=== PATIENT | male | born 1980 | race Hispanic/Latino ===

== ENCOUNTER 2019-06-17 01:36 | Inpatient (IN) | payer OTHER ==
[~2019-06-17] VITALS: Ht 167.6 cm; Wt 72.2 kg
[~2019-06-17 01:36] MED LIST: AMBIEN5 MG PO; DEPAKOTE ER250 MG PO; DEPAKOTE500 MG PO; NEXIUM40 MG PO; NORCO 10MG-325MG1 EA PO; SOMA350 MG PO; XANAX XR1 MG PO
[2019-06-17] MEDS ORDERED: ONDANSETRON HCL INJ 2MG/ML 2ML 2 MG/ML VIAL IV STA (01:44)
[2019-06-17] MEDS ORDERED: PANTOPRAZOLE 40 MG 10ML VIAL IV STA (01:44)
[2019-06-17] MEDS ORDERED: SODIUM CHLORIDE 0.9% 1000ML 1,000 ML IV ONE (01:45)
[2019-06-17 02:32] LABS: BASOPHILS # (AUTO) 0.1 (0.0-0.1); BASOPHILS % 0.5 % (0.0-1.0); EOSINOPHILS % 0.1 % (0.0-6.0); HEMATOCRIT 38.2 % (38.2-49.6); HEMOGLOBIN 13.1 g/dL (14.0-18.0); LYMPHOCYTES # (AUTO) 1.3 (1.0-3.2); LYMPHOCYTES % 12.1 % (18.0-39.1); MEAN CORPUSCULAR HEMOGLOBIN 31.7 pg (28-32); MEAN CORPUSCULAR HGB CONC 34.3 g/dL (31-35); MEAN CORPUSCULAR VOLUME 92.5 fL (81-99); MONOCYTES # (AUTO) 0.8 (0.2-0.8); MONOCYTES % 7.1 % (4.4-11.3); NEUTROPHILS # (AUTO) 8.8 (2.1-6.9); NEUTROPHILS % 79.5 % (38.7-80.0); PLATELET COUNT 510 x10e3/uL (140-360); RED BLOOD COUNT 4.13 x10e6/uL (4.3-5.7); RED CELL DISTRIBUTION WIDTH 20.2 % (11.7-14.4)
[2019-06-17] MEDS ORDERED: DIATRIZOATE MEGL/DIATRIZOA SOD 30 ML BTL PO ONE (02:51)
[2019-06-17 02:53] LABS: CLARITY,URINE CLOUDY (CLEAR); COLOR,URINE ORANGE (YELLOW); LEUKOCYTE ESTERASE ,URINE NEGATIVE (NEGATIVE); NITRITE,URINE NEGATIVE (NEGATIVE); PROTEIN,URINE DIPSTICK 2+ (NEGATIVE)
[2019-06-17 02:54] LABS: BILIRUBIN,URINE LARGE (NEGATIVE); KETONES,URINE TRACE (NEGATIVE); URINE UROBILINOGEN 0.2 mg/dL (0.2 - 1)
[2019-06-17 02:55] LABS: AMPHETAMINES SCREEN,URINE POSITIVE (NEGATIVE); BENZODIAZEPINES SCREEN,URINE POSITIVE (NEGATIVE); PHENCYCLIDINE SCREEN,URINE NEGATIVE (NEGATIVE)
[2019-06-17 02:58] LABS: AMYLASE 500 U/L (25-125); LIPASE 536 U/L (8-78)
[2019-06-17 03:05] LABS: BACTERIA,URINE FEW /HPF; EPITHELIAL CELLS,URINE FEW /LPF; HYALINE CASTS >15 (0-1); MUCUS,URINE MANY (RARE); RBC,URINE 21-50 /HPF (0-5)
[2019-06-17 03:33] LABS: ALBUMIN 3.2 g/dL (3.5-5.0); ALBUMIN/GLOBULIN RATIO 0.6 (0.8-2.0); ALKALINE PHOSPHATASE 122 IU/L (40-150); ANION GAP 16.2 mmol/L (8-16); BLOOD UREA NITROGEN 13 mg/dL (7-26); BUN/CREATININE RATIO 11 (6-25); CALCIUM 9.4 mg/dL (8.4-10.2); CARBON DIOXIDE 22 mmol/L (22-29); CHLORIDE 102 mmol/L (98-107); CREATININE, SERUM 1.23 mg/dL (0.72-1.25); EST GLOMERULAR FILTRATION RATE > 60 ML/MIN (60-); GLUCOSE 92 mg/dL (74-118); POTASSIUM 3.2 mmol/L (3.5-5.1); SODIUM 137 mmol/L (136-145)
[2019-06-17 03:34] LABS: ALANINE AMINOTRANSFERASE < 6 IU/L (0-55)
[2019-06-17] MEDS ORDERED: MULTIVITAMINS- 12 INJECTION 10 ML, FOLIC ACID MDV 5 MG, THIAMINE HCL INJ 100 MG in SODI... IV ONE (04:45)
[2019-06-17] MEDS: SODIUM CHLORIDE 0.9% 1000ML 1,000 ML IV SCH ×4 (04:48→23:04)
[2019-06-17] MEDS: CEFTRIAXONE SOD 1 GM/NS 50 ML 50 ML IV SCH (04:48)
--- OUTSIDE RECORDS SUMMARY | 2019-06-17 04:49 | XMS REPORT ---
Author Author [facility] Organization [facility] Address Unknown Phone Unavailable Care Team Providers Care Manual Winder Name Role Phone Unavailable Unavailable Payers Payer Name Policy Type Policy Number Effective Date Expiration D ate Problems This patient has no known problems. Allergies, Adverse Reactions, Alerts Allergy Name Allergy Type Status Severity Reaction(s) Onset Date Inacti ve Date Treating Clinician Comments gabapentin DA Active SV 2018-08-29 00:00:00 ibuprofen DA Active MO 2018-08-05 00:00:00 tramadol DA Active SV 2018-08-05 00:00:00 ibuprofen DA Active MO 2018-03-03 00:00:00 tramadol DA Active SV 2018-03-03 00:00:00 ibuprofen DA Active MO 2017-09-25 00:00:00 tramadol DA Active SV 2017-09-25 00:00:00 Medications This patient has no known medications. Encounters Start Date/Time End Date/Time Encounter Type Admission Type Attendi [facility] Care Department Encounter ID 2019-10-04 00:00:00 2019-10-04 00:00:00 Outpatient [facility] [id number] 2019-07-28 00:00:00 2019-07-28 00:00:00 Outpatient [facility] [id number] 2019-07-26 00:00:00 2019-07-26 00:00:00 Outpatient [facility] [id number] 2019-06-11 00:00:00 2019-06-11 00:00:00 Outpatient [facility] [id number] 2019-06-11 00:00:00 2019-06-11 00:00:00 Outpatient [facility] [id number] 2019-06-04 06:00:16 2019-06-04 06:00:16 Outpatient [facility] [id number] 2019-06-03 00:00:00 2019-06-03 00:00:00 Outpatient [facility] [id number] 2019-06-02 00:00:00 2019-06-02 00:00:00 Outpatient [facility] [id number] 2019-05-25 09:42:34 2019-05-25 09:42:34 Outpatient [facility] [id number] 2019-05-10 00:00:00 2019-05-10 00:00:00 Outpatient [facility] [id number] 2019-05-04 00:00:00 2019-05-04 00:00:00 Outpatient [facility] [id number] 2019-04-27 15:27:22 2019-04-27 15:27:22 Outpatient [facility] [id number] 2019-04-27 15:24:12 2019-04-27 15:24:12 Outpatient [facility] [id number] 2019-04-27 13:57:03 2019-04-27 13:57:03 Outpatient [facility] [id number] 2019-04-27 00:00:00 2019-04-27 00:00:00 Outpatient [facility] [id number] 2019-04-23 00:00:00 2019-04-23 00:00:00 Outpatient [facility] [id number] 2019-03-23 00:00:00 2019-03-23 00:00:00 Outpatient [facility] [id number] 2019-03-22 15:35:49 2019-03-22 15:35:49 Outpatient [facility] [id number] 2019-03-22 00:00:00 2019-03-22 00:00:00 Outpatient [facility] [id number] 2019-03-18 00:00:00 2019-03-18 00:00:00 Outpatient [facility] [id number] 2019-03-17 00:00:00 2019-03-17 00:00:00 Outpatient [facility] [id number] 2019-03-08 00:00:00 2019-03-08 00:00:00 Outpatient [facility] [id number] 2019-02-05 00:00:00 2019-02-05 00:00:00 Outpatient [facility] [id number] 2018-12-01 00:00:00 2018-12-01 00:00:00 Outpatient [facility] [id number] 2018-10-20 15:43:16 2018-10-20 15:43:16 Outpatient [facility] [id number] 2018-10-20 14:47:23 2018-10-20 14:47:23 Outpatient [facility] [id number] 2018-10-20 00:00:00 2018-10-20 00:00:00 Outpatient [facility] [id number] 2018-10-20 00:00:00 2018-10-20 00:00:00 Outpatient [facility] [id number] 2018-04-08 00:00:00 2018-04-08 00:00:00 Outpatient [facility] [id number] 2018-03-26 00:00:00 2018-03-26 00:00:00 Outpatient [facility] [id number] Results Test Description Test Time Test Comments Text Results Atomic Results Result Comments BASIC METABOLIC PANEL 2019-04-27 20:09:00 SODIUM (test code = NA) 125 mmol/L 136-145 POTASSIUM (test code = K) 3.7 mmol/L 3.5-5.1 CHLORIDE (test code = CL) 94.0 mmol/L 98-107 CARBON DIOXIDE (test code = CO2) 23.0 mmol/L 21-32 ANION GAP (test code = GAP) 11.7 10-20 GLUCOSE (test code = GLU) 81 mg/dL 74-106 BLOOD UREA NITROGEN (test code = BUN) 6 mg/dL 7-18 GLOMERULAR FILTRATION RATE (test code = GFR) > 60 mL/min >=6 0 Estimated GFR by using Modified MDRD formula.Chronic kidney disease is defined as either kidney damageor GFR <60 mL/min/1.73 m2 for >3 months. CREATININE (test code = CREAT) 0.70 mg/dL 0.7-1.3 BUN/CREATININE RATIO (test code = BUN/CREA) 8.6 10-2 0 CALCIUM (test code = CA) 8.6 mg/dL 8.5-10.1 [id number] 20:09:00* Test Item Value Reference Range Comments TROPONIN-I (test code = TROPI) <0.015 ng/mL 0-0.045 BASIC METABOLIC [id number] 20:05:00* Test Item Value Reference Range Comments SODIUM (test code = NA) 125 mmol/L 136-145 POTASSIUM (test code = K) 3.7 mmol/L 3.5-5.1 CHLORIDE (test code = CL) 94.0 mmol/L 98-107 CARBON DIOXIDE (test code = CO2) mmol/L 21-32 ANION GAP (test code = GAP) 10-20 GLUCOSE (test code = GLU) mg/dL 74-106 BLOOD UREA NITROGEN (test code = BUN) mg/dL 7-18 GLOMERULAR FILTRATION RATE (test code = GFR) mL/min >=6 0 CREATININE (test code = CREAT) mg/dL 0.7-1.3 BUN/CREATININE RATIO (test code = BUN/CREA) 10-2 0 CALCIUM (test code = CA) 8.6 mg/dL 8.5-10.1 [id number] 20:05:00* Test Item Value Reference Range Comments TROPONIN-I (test code = TROPI) ng/mL 0-0.045 CBC W/O [id number] 19:52:00* Test Item Value Reference Range Comments WHITE BLOOD CELL (test code = WBC) 5.8 K/mm3 4.5-12.5 RED BLOOD CELL (test code = RBC) 3.11 mill/mm3 4.0-5.8 HEMOGLOBIN (test code = HGB) 9.2 gram/dL 13.0-17.5 HEMATOCRIT (test code = HCT) 27.4 % 42.0-52.0 MEAN CELL VOLUME (test code = MCV) 88.1 fL 80-98 MEAN CELL HGB (test code = MCH) 29.6 picogram 27.0-33.0 MEAN CELL HGB CONCETRATION (test code = MCHC) 33.6 gram/dL 33 .0-36.0 RED CELL DISTRIBUTION WIDTH (test code = RDW) 19.0 % 11 .6-16.2 PLATELET COUNT (test code = PLT) 338 K/mm3 150-450 MEAN PLATELET VOLUME (test code = MPV) 9.0 fL 6.7-11.0 - XR CHEST 1 [id number] 18:01:00 FAX: Massimo Evans MD [phone] [place]: St: REG FAX: Y Jeffery Claros [phone] Name: CHARLOTTE SHAH LEXI [facility] : 1980 Age/S: 38/M [address] [facility] Unit #: [id number] Loc: [place] [address] Phys: Massimo Evans MD Acct: [id number] Dis Date: Status: REG ER PHONE #: [phone] Exam Date: 04/27/2019 1800 FAX #: [phone] Reason: CHEST PAIN EXAMS: CPT CODE: [id number] XR CHEST 1 V 58616 HISTORY: Chest pain. COMPARISON: August 29, 2018. Location: . No acute infiltrates, effusion or congestion is noted. The cardiac and mediastinal silhouette are within normal limits. IMPRESSION: No acute infiltrates, effusion or congestion. at 1801 Reported and signed by: Jasiel Ballesteros M.D. CC: Massimo Evans MD; Jeffery Claros MD Technologist: GIULIA FRAUSTO [employer] Date/Time/By: 04/27/2019 (1800) : By: [email or web address] Orig Print D/T: S: 04/27/2019 (1803) PAGE 1 Signed Report BASIC METABOLIC [id number] 02:09:00* Test Item Value Reference Range Comments SODIUM (test code = NA) 138 mmol/L 136-145 POTASSIUM (test code = K) 3.7 mmol/L 3.5-5.1 CHLORIDE (test code = CL) 106.0 mmol/L 98-107 CARBON DIOXIDE (test code = CO2) 24.0 mmol/L 21-32 ANION GAP (test code = GAP) 11.7 10-20 GLUCOSE (test code = GLU) 108 mg/dL 74-106 BLOOD UREA NITROGEN (test code = BUN) 13 mg/dL 7-18 GLOMERULAR FILTRATION RATE (test code = GFR) > 60 mL/min >=6 0 Estimated GFR by using Modified MDRD formula.Chronic kidney disease is defined as either kidney damageor GFR <60 mL/min/1.73 m2 for >3 months. CREATININE (test code = CREAT) 0.90 mg/dL 0.7-1.3 BUN/CREATININE RATIO (test code = BUN/CREA) 13.7 10-2 0 CALCIUM (test code = CA) 8.4 mg/dL 8.5-10.1 VALPROIC ACID (DEPAKENE)2018-11-04 02:09:00* Test Item Value Reference Range Comments VALPROIC ACID (DEPAKENE) (test code = VALP) 17.0 mcg/mL 50.0 -100.0 BASIC METABOLIC [id number] 01:52:00* Test Item Value Reference Range Comments SODIUM (test code = NA) 138 mmol/L 136-145 POTASSIUM (test code = K) 3.7 mmol/L 3.5-5.1 CHLORIDE (test code = CL) 106.0 mmol/L 98-107 CARBON DIOXIDE (test code = CO2) mmol/L 21-32 ANION GAP (test code = GAP) 10-20 GLUCOSE (test code = GLU) mg/dL 74-106 BLOOD UREA NITROGEN (test code = BUN) mg/dL 7-18 GLOMERULAR FILTRATION RATE (test code = GFR) mL/min >=6 0 CREATININE (test code = CREAT) mg/dL 0.7-1.3 BUN/CREATININE RATIO (test code = BUN/CREA) 10-2 0 CALCIUM (test code = CA) mg/dL 8.5-10.1 CBC W/O [id number] 01:40:00* Test Item Value Reference Range Comments WHITE BLOOD CELL (test code = WBC) 6.5 K/mm3 4.5-12.5 RED BLOOD CELL (test code = RBC) 2.97 mill/mm3 4.0-5.8 HEMOGLOBIN (test code = HGB) 8.4 gram/dL 13.0-17.5 HEMATOCRIT (test code = HCT) 26.9 % 42.0-52.0 MEAN CELL VOLUME (test code = MCV) 90.6 fL 80-98 MEAN CELL HGB (test code = MCH) 28.3 picogram 27.0-33.0 MEAN CELL HGB CONCETRATION (test code = MCHC) 31.2 gram/dL 33 .0-36.0 RED CELL DISTRIBUTION WIDTH (test code = RDW) 15.6 % 11 .6-16.2 PLATELET COUNT (test code = PLT) 428 K/mm3 150-450 MEAN PLATELET VOLUME (test code = MPV) 9.6 fL 6.7-11.0 GASTRIC,[id number] 10:49:00 RUN DATE: 09/02/18 [facility] PAGE 1 RUN TIME: 1050 Specimen Inqui ry RUN USER: INTERFACE PATIENT: CHARLOTTE SHAH II ACCT #: [id number] LOC: V.TXU U #: [id number] AGE/SX: 38/M ROOM: [facility] RE08/30/18REG DR: Nadege Bustillo MD : 84 BED: A DIS: 09/01/18 STATUS: DIS IN TLOC: SPEC #: [id number] RECD: 09/01/18 STATUS: ASHLEY MIN #: [id number] LEE: 09/01/[address] [facility] [address]: Mahi Torrez MD ENTERED: 09/01/18 SP TYPE: GASTRIC BX OTHR DR: Heath Allen i, MD, Salman A MD Pineda Ayestas, Ramon A MD Qureshi,Lenore Greene MDORDERED: GROSS COPIES TO: Heath Arthur MD [address] [place] [address] Brittney Estrada MD [address] [facility] [address] [place], [place] [address] Jeffery Claros MD [address] [place] [address] Aida Jiang MD [address] [facility] [address] [place] [address] Mahi Torrez MD [address] [place], [place] [id number] [phone] PROCEDURES: GROSS (09/02/18-1018) TISSUES: 1. GASTRIC CORPUS - POLYP BX 2. ESOPHAGUS, NOS - LOWER BX CLINICAL HISTORY COLLECTION DATE: 09/01/18 EPIGASTRIC PAIN, DYSPHAGIA * * CONTINUED ON NEXT PAGE RUN DATE: 09/02/18 [place] [facility] PAGE 2 RUN TIME: 1050 Specimen Inquiry RUN USER: INTERFACE SPEC #: [id number] PATIENT: CHARLOTTE SHAH II #[id number] (Continued)-------- ---- FINAL DIAGNOSIS Gastric polyp, biopsy: BODY/FUNDIC TYPE GASTRIC MUCOSA WITH MILDLY DILATED GLANDS AND A FOCUS OF FOVEOLAR HYPERP LASIA NEGATIVE FOR MALIGNANCY Esophagus, biopsy: ACUTE AND C HRONIC INFLAMMATION AND REACTIVE EPITHELIAL CHANGES, MIXED SQUAMOUS ESO PHAGEAL GASTRIC TYPE MUCOSA NEGATIVE FOR INTESTINAL METAPLASIA, DYSPLASIA , AND MALIGNANCY DMW/ D [id number] MACROSCOPIC [facility] t specimen is received in formalin, labeled with the patient's name, identifie d as "gastric polyp biopsy", and consists of two hall biopsy fragments measurin g 0.25 cm each. The second specimen is received in formalin, labeled wit h the patient's name, identified as "esophagus biopsy", and consists of hall bi opsy material measuring 0.3 cm in aggregate. GROSS PERFORMED AT [facility] [place] [address] [phone] MICROSCOPIC All of the stains, including any controls performed, stain appropriately. MICROSCOP IC PERFORMED AT [facility] [address] [place] [address] [phone] CONTINUED ON NEXT PAGE RUN DATE: 09/02/18 [place] [facility] PAGE 3 RUN TIME: 1050 Specimen Inquiry RUN USER: INTERFACE SPEC #: [id number]: [id number] PATIENT: ALYSSACHARLOTTE II #[id number] (Continued ) PERFORMING SITE Diagnosis performed at: [facility] [address] [facility] [place] [address] Signed SIGNATURE ON FILE Remedios Vazquez MD 09/02/18 1049 --- --------- END OF REPORT BASIC METABOLIC [id number] 09:07:00* Test Item Value Reference Range Comments SODIUM (test code = NA) 134 mmol/L 136-145 POTASSIUM (test code = K) 4.5 mmol/L 3.5-5.1 CHLORIDE (test code = CL) 103.0 mmol/L 98-107 CARBON DIOXIDE (test code = CO2) 24.0 mmol/L 21-32 ANION GAP (test code = GAP) 11.5 10-20 GLUCOSE (test code = GLU) 85 mg/dL 74-106 BLOOD UREA NITROGEN (test code = BUN) 6 mg/dL 7-18 GLOMERULAR FILTRATION RATE (test code = GFR) > 60 mL/min >=6 0 Estimated GFR by using Modified MDRD formula.Chronic kidney disease is defined as either kidney damageor GFR <60 mL/min/1.73 m2 for >3 months. CREATININE (test code = CREAT) 0.70 mg/dL 0.7-1.3 BUN/CREATININE RATIO (test code = BUN/CREA) 8.6 10-2 0 CALCIUM (test code = CA) 9.2 mg/dL 8.5-10.1 THYROID PROFILE [id number] 09:19:00* Test Item Value Reference Range Comments T3 UPTAKE (test code = T3UP) 38.0 % 30.0-40.0 T4 (THYROXINE) (test code = T4) 5.2 ug/dL 4.5-13.9 T7 (FREE THYROXINE INDEX) (test code = T7) 1.97 FTI 1.3-5 .1 THYROID STIMULATING HORMONE (test code = TSH) 1.900 uIU/mL 0. 36-3.74 TSH REFERENCE RANGES: EUTHYROID: 0.35 - 4.3 mIU/mL HYPO : > 5.5 mIU/mL HYPER : < 0.35 mIU/mL BASIC METABOLIC [id number] 08:56:00* Test Item Value Reference Range Comments SODIUM (test code = NA) 135 mmol/L 136-145 POTASSIUM (test code = K) 4.6 mmol/L 3.5-5.1 CHLORIDE (test code = CL) 106.0 mmol/L 98-107 CARBON DIOXIDE (test code = CO2) 22.0 mmol/L 21-32 ANION GAP (test code = GAP) 11.6 10-20 GLUCOSE (test code = GLU) 85 mg/dL 74-106 BLOOD UREA NITROGEN (test code = BUN) 5 mg/dL 7-18 GLOMERULAR FILTRATION RATE (test code = GFR) > 60 mL/min >=6 0 Estimated GFR by using Modified MDRD formula.Chronic kidney disease is defined as either kidney damageor GFR <60 mL/min/1.73 m2 for >3 months. CREATININE (test code = CREAT) 0.80 mg/dL 0.7-1.3 BUN/CREATININE RATIO (test code = BUN/CREA) 6.3 10-2 0 CALCIUM (test code = CA) 8.9 mg/dL 8.5-10.1 [id number] 08:56:00* Test Item Value Reference Range Comments MAGNESIUM (test code = MAG) 2.7 mg/dL 1.8-2.4 [id number] 08:46:00* Test Item Value Reference Range Comments GLYCOSYLATED HEMOGLOBIN (HA1C) (test code = GLYHGB) 4.5 % HbA1 4.8-6.0 ESTIMATED AVERAGE GLUCOSE (test code = EAG) 82 MG/DL CBC W/AUTO [id number] 08:22:00* Test Item Value Reference Range Comments WHITE BLOOD CELL (test code = WBC) 6.1 K/mm3 4.5-12.5 RED BLOOD CELL (test code = RBC) 3.06 mill/mm3 4.0-5.8 HEMOGLOBIN (test code = HGB) 9.4 gram/dL 13.0-17.5 HEMATOCRIT (test code = HCT) 29.0 % 42.0-52.0 MEAN CELL VOLUME (test code = MCV) 94.8 fL 80-98 MEAN CELL HGB (test code = MCH) 30.7 picogram 27.0-33.0 MEAN CELL HGB CONCETRATION (test code = MCHC) 32.4 gram/dL 33 .0-36.0 RED CELL DISTRIBUTION WIDTH (test code = RDW) 14.6 % 11 .6-16.2 RED CELL DISTRIBUTION WIDTH SD (test code = RDW-SD) 50.1 fL 37.0-51.0 PLATELET COUNT (test code = PLT) 485 K/mm3 150-450 MEAN PLATELET VOLUME (test code = MPV) 9.4 fL 6.7-11.0 NEUTROPHIL % (test code = NT%) 56.0 % 39.0-69.0 IMMATURE GRANULOCYTE % (test code = IG%) 1.1 % 0.0-5.0 LYMPHOCYTE % (test code = LY%) 30.2 % 25.0-55.0 MONOCYTE % (test code = MO%) 10.9 % 0.0-10.0 EOSINOPHIL % (test code = EO%) 1.0 % 0.0-5.0 BASOPHIL % (test code = BA%) 0.8 % 0.0-1.0 NUCLEATED RBC % (test code = NRBC%) 0.0 % 0-0 NEUTROPHIL # (test code = NT#) 3.42 K/mm3 1.8-7.7 IMMATURE GRANULOCYTE # (test code = IG#) 0.07 x10 3/uL 0-0.03 LYMPHOCYTE # (test code = LY#) 1.85 K/mm3 1.0-5.0 MONOCYTE # (test code = MO#) 0.67 K/mm3 0-0.8 EOSINOPHIL # (test code = EO#) 0.06 K/mm3 0.0-0.5 BASOPHIL # (test code = BA#) 0.05 K/mm3 0.0-0.2 NUCLEATED RBC # (test code = NRBC#) 0.00 K/mm3 0.0-0.1 UR NA,[id number] 21:13:00* Test Item Value Reference Range Comments UR NA,RANDOM (test code = MEET) 50 mmol/L 20-110 UR OSMOLALITY [id number] 21:13:00* Test Item Value Reference Range Comments UR OSMOLALITY RANDOM (test code = OSMOU) 217.5 mOsm/kg 48-962 UR NA,[id number] 21:07:00* Test Item Value Reference Range Comments UR NA,RANDOM (test code = MEET) mmol/L 20-110 UR OSMOLALITY [id number] 21:07:00* Test Item Value Reference Range Comments UR OSMOLALITY RANDOM (test code = OSMOU) 217.5 mOsm/kg 48-962 OSMOLALITY [id number] 19:51:00* Test Item Value Reference Range Comments OSMOLALITY SERUM (test code = OSMO) 253.5 mOsm/kg 275-295 URINALYSIS [id number] 09:39:00* Test Item Value Reference Range Comments UA COLOR (test code = COLU) COLORLESS YELLOW UA APPEARANCE (test code = APPU) CLEAR CLEAR UA GLUCOSE DIPSTICK (test code = DGLUU) NEGATIVE mg/dL NEGATIVE UA BILIRUBIN DIPSTICK (test code = BILU) NEGATIVE mg/dL NEGATIV E UA KETONE DIPSTICK (test code = KETU) NEGATIVE mg/dL NEGATIVE UA SPECIFIC GRAVITY (test code = SGU) 1.004 1.001-1.03 5 UA BLOOD DIPSTICK (test code = ELMA) Negative mg/dL NEGATIVE UA PH DIPSTICK (test code = PREETI) 7.0 5.0-8.0 UA PROTEIN DIPSTICK (test code = PROU) NEGATIVE mg/dL NEGATIVE UA UROBILINIOGEN DIPSTICK (test code = URO) Normal mg/dL NEGA TIVE UA NITRITE DIPSTICK (test code = GEO) NEGATIVE NEGATIVE UA LEUKOCYTE ESTERASE W REFLEX (test code = LEUUR) NEGATIVE Karen/ uL NEGATIVE UA WBC (test code = WBCU) 0-5 per HPF 0-5 UA RBC (test code = RBCU) 0-3 #/HPF 0-5 UA EPITHELIAL CELLS (test code = EPIU) Few (2-5/hpf) per HPF FEW UA BACTERIA (test code = BACU) FEW #/HPF NONE Urine Source? Clean Catch- CT ABD PELVIS [id number] 09:12:00 Name: CHARLOTTE SHAH II [facility] : 1980 Age/S: 38 / M [address] [facility] Unit #: [id number] Loc: [place] [address] Phys: Marcelo Glass MD Acct: [id number] Di s Date: Status: ADM IN PHONE #: Exam Date: 08/29/2018 0900 FAX #: Reason: periumbilical pain EXAMS: CPT CODE: [id number] CT ABD PELVIS W/CONT 77580 REASON FOR EXAM: periumbilical pain EXAM ORDER DATE: 08/29/2018 7:56 AM Ordering M.DEdwar: Trey Glass MD PROCEDURE: - CT ABD PELVIS W/CO NT COMPARISON: FINDINGS: CT images of the abdomen an d pelvis were obtained with IV and without oral contrast at 5mm. Dose modu lation, iterative reconstruction, and/or weight based adjustment of the MA /KV was utilized to reduce the radiation dose to as low as reasonably achievable. Intravenous contrast: 100cc of Omnipaque 370. The liver, spleen, pancreas are grossly within normal limits. The gallbladder is unremarkable by CT The kidneys are within normal limits. The urinary bladder is unremarkable. The colon, sma ll bowel, and stomach are within normal limits without evidence of obstruc tion. The appendix is not seen No evidence of free air or free fl uid. 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 CC: Trey Glass MD; Jeffery Claros MD Technologist:Miryam Thomas RT(R),CT CTDI: DLP: Trnscb Date/Time: 08/29/2018 ( 911) t.SDR.VTL Orig Print D/T: S: 08/29/2018 (914) PAGE 1 Signed Report HEPATIC FUNCTION [id number] 08:21:00* Test Item Value Reference Range Comments TOTAL PROTEIN (test code = PROT) 8.0 gram/dL 6.4-8.2 ALBUMIN (test code = ALB) 4.0 g/dL 3.4-5.0 GLOBULIN (test code = GLOB) 4.0 gram/dL 2.7-4.2 ALBUMIN/GLOBULIN RATIO (test code = A/G) 1.0 0.75-1. 50 BILIRUBIN TOTAL (test code = BILT) 0.60 mg/dL 0.0-1.0 BILIRUBIN DIRECT (test code = BILD) 0.17 mg/dL 0.0-0.20 SGOT/AST (test code = AST) 12 IUnit/L 15-37 SGPT/ALT (test code = ALT) 11 IUnit/L 12-78 ALKALINE PHOSPHATASE TOTAL (test code = ALKP) 66 IUnit/L 45 -117 Note change in reference range due to change in reagent. [id number] 08:21:00* Test Item Value Reference Range Comments LIPASE (test code = LIP) 115 U/L 73.0-393.0 [id number] 08:21:00* Test Item Value Reference Range Comments MAGNESIUM (test code = MAG) 1.6 mg/dL 1.8-2.4 BASIC METABOLIC [id number] 07:53:00* Test Item Value Reference Range Comments SODIUM (test code = NA) 122 mmol/L 136-145 Results called to [id number] by V.[email or web address].CF2 08/29/18 0753Critical results verified and read back by Nurse? Y POTASSIUM (test code = K) 3.0 mmol/L 3.5-5.1 CHLORIDE (test code = CL) 87.0 mmol/L 98-107 CARBON DIOXIDE (test code = CO2) 23.0 mmol/L 21-32 ANION GAP (test code = GAP) 15.0 10-20 GLUCOSE (test code = GLU) 104 mg/dL 74-106 BLOOD UREA NITROGEN (test code = BUN) 4 mg/dL 7-18 GLOMERULAR FILTRATION RATE (test code = GFR) > 60 mL/min >=6 0 Estimated GFR by using Modified MDRD formula.Chronic kidney disease is defined as either kidney damageor GFR <60 mL/min/1.73 m2 for >3 months. CREATININE (test code = CREAT) 1.10 mg/dL 0.7-1.3 BUN/CREATININE RATIO (test code = BUN/CREA) 3.6 10-2 0 CALCIUM (test code = CA) 9.3 mg/dL 8.5-10.1 [id number] 07:53:00* Test Item Value Reference Range Comments TROPONIN-I (test code = TROPI) <0.015 ng/mL 0-0.045 BASIC METABOLIC [id number] 07:32:00* Test Item Value Reference Range Comments SODIUM (test code = NA) mmol/L 136-145 POTASSIUM (test code = K) mmol/L 3.5-5.1 CHLORIDE (test code = CL) mmol/L 98-107 CARBON DIOXIDE (test code = CO2) 23.0 mmol/L 21-32 ANION GAP (test code = GAP) 10-20 GLUCOSE (test code = GLU) 104 mg/dL 74-106 BLOOD UREA NITROGEN (test code = BUN) 4 mg/dL 7-18 GLOMERULAR FILTRATION RATE (test code = GFR) > 60 mL/min >=6 0 Estimated GFR by using Modified MDRD formula.Chronic kidney disease is defined as either kidney damageor GFR <60 mL/min/1.73 m2 for >3 months. CREATININE (test code = CREAT) 1.10 mg/dL 0.7-1.3 BUN/CREATININE RATIO (test code = BUN/CREA) 3.6 10-2 0 CALCIUM (test code = CA) 9.3 mg/dL 8.5-10.1 [id number] 07:32:00* Test Item Value Reference Range Comments TROPONIN-I (test code = TROPI) <0.015 ng/mL 0-0.045 CBC W/O [id number] 07:21:00* Test Item Value Reference Range Comments WHITE BLOOD CELL (test code = WBC) 10.1 K/mm3 4.5-12.5 RED BLOOD CELL (test code = RBC) 3.61 mill/mm3 4.0-5.8 HEMOGLOBIN (test code = HGB) 11.0 gram/dL 13.0-17.5 HEMATOCRIT (test code = HCT) 32.7 % 42.0-52.0 MEAN CELL VOLUME (test code = MCV) 90.6 fL 80-98 MEAN CELL HGB (test code = MCH) 30.5 picogram 27.0-33.0 MEAN CELL HGB CONCETRATION (test code = MCHC) 33.6 gram/dL 33 .0-36.0 RED CELL DISTRIBUTION WIDTH (test code = RDW) 13.2 % 11 .6-16.2 PLATELET COUNT (test code = PLT) 524 K/mm3 150-450 MEAN PLATELET VOLUME (test code = MPV) 9.3 fL 6.7-11.0 - XR NECK SOFT [id number] 05:35:00 FAX: Trey Glass MD [phone] [place]: [address] St: [facility] FAX: Jeffery Goldman [phone] Name: CHARLOTTE SHAH II [facility] : 1980 Age/S: 38/M Cristel Lara Unit #: [id number] Loc: [place] [address] Phys: Trey Glass MD Acct: [id number] Dis Date: Status: REG ER PHONE #: [phone] Exam Date: 08/29/2018 0533 FAX #: [phone] Reason: choking episode EXAMS: CPT CODE: [id number] XR NECK SOFT TISSUE [id number] AFTER HOURS SERVICE ON: 08/29/2018 5:34 AM Neck Soft Tissues, 2 View Location Code M12 History: choking episode Findings: Visualized portions of the nasoph arynx and oropharynx are patent. No significant enlargement of the adenoi d or palatine tonsils seen. Epiglottis and aryepiglottic folds are unrema rkable. No soft tissue masses, mass effect or prevertebral soft tissue sw elling is seen. Impression: Unremarkable neck soft tissue. at 0535 Reported and signed by: Tony Wall M.D. CC: Trey Glass MD; Jeffery Claros MD Technologist: Cadence Mcqueen Trnscrd Date/Time/By: 0 08/29/2018 (0535) : By: [email or web address] Orig Print D/T: S: 08/29/2018 (0538) PAGE 1 Signed Report - XR CHEST 1 [id number] 05:35:00 FAX: Trey Glass MD [phone] [place]: [address] St: [facility] FAX: Jeffery Goldman [phone] Name: CHARLOTTE SHAH II [facility] : 1980 Age/S: 38/M [address] Unit #: [id number] Loc: [place] [address] Phys: Trey Glass MD Acct: [id number] Dis Date: Status: REG ER PHONE #: [phone] Exam Date: 08/29/2018 0530 FAX #: [phone] Reason: CHEST PAIN EXAMS: CPT CODE: [id number] XR CHEST 1 V [id number] AFTER HOURS SERVICE ON: 08/29/2018 5:35 AM AP Portable Chest Location Code M12 HISTORY: CHEST PAIN FINDINGS: There are no infiltrates. There are no pleural effusions. There is no pneumothorax. Cardiac silhouette and mediastinum appear within normal limits. IMPRESSION: No active pulmonary findings. at 0535 Reported and signed by: Tony Wall M.D. CC: Trey Glass MD; Jeffery Claros MD echnologist: Cadence Mcqueen Trnscrd Date /Time/By: 08/29/2018 (0535) : By: [email or web address] Orig Print D/T: S: 019 (0594) PAGE 1 Signed Report - CT ABD PELVIS W/O [id number] 15:33:00 Name: CHARLOTTE SHAH II [facility] : 1980 Age/S: 38 / M [address] Unit #: [id number] Loc: [place] [address] Phys: Kimani Frey MD Acct: [id number] Di s Date: Status: REG ER PHONE #: Exam Date: 08/05/2018 1514 FAX #: Reason: abdominal pain EXAMS: CPT CODE: [id number] CT ABD PELVIS W/O CONT [id number] REASON FOR EXAM: abdominal pain EXAM ORDER DATE: 08/05/2018 2:40 PM Or yaa Gomez: Kimani Frey MD PROCEDURE: - CT ABD PELVIS W/O CONT COMPARISON: FINDINGS: CT images of the abdomen and pelvis were obtained without IV and without oral contrast at 5mm. Dose modulation, iterative reconstruction, and/or weight based adjustment of the MA/KV was utilized to reduce the radiation dose to as low as reasonabl y achievable. The liver, spleen, and pancreas are grossly w ithin normal limits. The gall bladder is unremarkable by CT. The kidneys are within normal limits. The urinary bladder is unremarkab le. The colon, small bowel, and stomach are within normal limits w ithout evidence of obstruction. The appendix was not seen N o evidence of free air or free fluid. IMPRESSION: No acute findi ngs in the abdomen. Electronically Signed by Jason Denis on 019 at 1533 Reported and signed by: Livan Denis M.D. CC: Kimani Frey MD; Jeffery Claros MD Technologist:Liya Alonso RT(R); CHARLOTTE Moore CTDI: DLP: Trnscb Date/Time: 08/05/2018 (1533) [email or web address] Orig Print D/T: S: 08/05/2018 (1536) PAGE 1 Signed Report VALPROIC ACID (DEPAKENE)2018-08-05 15:16:00* Test Item Value Reference Range Comments VALPROIC ACID (DEPAKENE) (test code = VALP) 106.0 mcg/mL 50.0 -100.0 BASIC METABOLIC [id number] 15:15:00* Test Item Value Reference Range Comments SODIUM (test code = NA) 136 mmol/L 136-145 POTASSIUM (test code = K) 4.5 mmol/L 3.5-5.1 CHLORIDE (test code = CL) 105.0 mmol/L 98-107 CARBON DIOXIDE (test code = CO2) 23.0 mmol/L 21-32 ANION GAP (test code = GAP) 12.5 10-20 GLUCOSE (test code = GLU) 76 mg/dL 74-106 BLOOD UREA NITROGEN (test code = BUN) 7 mg/dL 7-18 GLOMERULAR FILTRATION RATE (test code = GFR) > 60 mL/min >=6 0 Estimated GFR by using Modified MDRD formula.Chronic kidney disease is defined as either kidney damageor GFR <60 mL/min/1.73 m2 for >3 months. CREATININE (test code = CREAT) 0.70 mg/dL 0.7-1.3 BUN/CREATININE RATIO (test code = BUN/CREA) 10.0 10-2 0 CALCIUM (test code = CA) 9.0 mg/dL 8.5-10.1 HEPATIC FUNCTION [id number] 15:15:00* Test Item Value Reference Range Comments TOTAL PROTEIN (test code = PROT) 6.5 gram/dL 6.4-8.2 ALBUMIN (test code = ALB) 2.6 g/dL 3.4-5.0 GLOBULIN (test code = GLOB) 3.9 gram/dL 2.7-4.2 ALBUMIN/GLOBULIN RATIO (test code = A/G) 0.7 0.75-1. 50 BILIRUBIN TOTAL (test code = BILT) 0.30 mg/dL 0.0-1.0 BILIRUBIN DIRECT (test code = BILD) 0.05 mg/dL 0.0-0.20 SGOT/AST (test code = AST) 18 IUnit/L 15-37 SGPT/ALT (test code = ALT) 14 IUnit/L 12-78 ALKALINE PHOSPHATASE TOTAL (test code = ALKP) 68 IUnit/L 45 -117 Note change in reference range due to change in reagent. [id number] 15:15:00* Test Item Value Reference Range Comments LIPASE (test code = LIP) 251 U/L 73.0-393.0 [id number] 15:15:00* Test Item Value Reference Range Comments TROPONIN-I (test code = TROPI) <0.015 ng/mL 0-0.045 BASIC METABOLIC [id number] 15:07:00* Test Item Value Reference Range Comments SODIUM (test code = NA) 136 mmol/L 136-145 POTASSIUM (test code = K) 4.5 mmol/L 3.5-5.1 CHLORIDE (test code = CL) 105.0 mmol/L 98-107 CARBON DIOXIDE (test code = CO2) mmol/L 21-32 ANION GAP (test code = GAP) 10-20 GLUCOSE (test code = GLU) mg/dL 74-106 BLOOD UREA NITROGEN (test code = BUN) mg/dL 7-18 GLOMERULAR FILTRATION RATE (test code = GFR) mL/min >=6 0 CREATININE (test code = CREAT) mg/dL 0.7-1.3 BUN/CREATININE RATIO (test code = BUN/CREA) 10-2 0 CALCIUM (test code = CA) mg/dL 8.5-10.1 HEPATIC FUNCTION [id number] 15:07:00* Test Item Value Reference Range Comments TOTAL PROTEIN (test code = PROT) gram/dL 6.4-8.2 ALBUMIN (test code = ALB) g/dL 3.4-5.0 GLOBULIN (test code = GLOB) gram/dL 2.7-4.2 ALBUMIN/GLOBULIN RATIO (test code = A/G) 0.75-1. 50 BILIRUBIN TOTAL (test code = BILT) mg/dL 0.0-1.0 BILIRUBIN DIRECT (test code = BILD) mg/dL 0.0-0.20 SGOT/AST (test code = AST) IUnit/L 15-37 SGPT/ALT (test code = ALT) IUnit/L 12-78 ALKALINE PHOSPHATASE TOTAL (test code = ALKP) IUnit/L 45 -117 [id number] 15:07:00* Test Item Value Reference Range Comments LIPASE (test code = LIP) U/L 73.0-393.0 [id number] 15:07:00* Test Item Value Reference Range Comments TROPONIN-I (test code = TROPI) ng/mL 0-0.045 CBC W/O [id number] 14:57:00* Test Item Value Reference Range Comments WHITE BLOOD CELL (test code = WBC) 6.2 K/mm3 4.5-12.5 RED BLOOD CELL (test code = RBC) 3.40 mill/mm3 4.0-5.8 HEMOGLOBIN (test code = HGB) 10.5 gram/dL 13.0-17.5 HEMATOCRIT (test code = HCT) 32.4 % 42.0-52.0 MEAN CELL VOLUME (test code = MCV) 95.3 fL 80-98 MEAN CELL HGB (test code = MCH) 30.9 picogram 27.0-33.0 MEAN CELL HGB CONCETRATION (test code = MCHC) 32.4 gram/dL 33 .0-36.0 RED CELL DISTRIBUTION WIDTH (test code = RDW) 14.3 % 11 .6-16.2 PLATELET COUNT (test code = PLT) 319 K/mm3 150-450 MEAN PLATELET VOLUME (test code = MPV) 10.8 fL 6.7-11.0 VALPROIC ACID (DEPAKENE)2018-05-02 11:44:00* Test Item Value Reference Range Comments VALPROIC ACID (DEPAKENE) (test code = VALP) 83.0 mcg/mL 50.0 -100.0 - CTA [id number] 10:10:00 Name: CHARLOTTE SHAH II [facility] : 1980 Age/S: 37 / M [address] Unit #: [id number] Loc: [place] [address] Phys: Britt Sterling MD Acct: [id number] Dis Date: Status: REG ER PHONE #: [phone] Exam Date: 05/02/2018 0947 FAX #: [phone] Reason: sob, pain EXAMS: CPT CODE: [id number] CTA CHEST [id number] REASON FOR EXAM: sob, pain EXAM ORDER DATE: 05/02/2018 7:39 AM Ordering M.Tram.: Britt Sterling MD PROCEDURE: - CTA CHEST FINDINGS: CT images of the chest were obtained with IV contrast using PE protocol. Reconstructed sagittal and coronal images including 3D reconstructions of the chest were provided for interpretation. Dose reduction techniques were applied. Intravenous contrast: 100cc of Omnipaque 370. The heart size is within normal limits. No evidence of pericardial effusion The thoracic aorta is unremarkable. No evidence of dissection or aneurysmal dilatation. No filling defect seen within the main or lobar pulmonary arteries to suggest pulmonary embolus No evidence of mediastinal or hilar adenopathy The lungs are clear. No evidence of pleural effusion IMPRESSION: No acute findings in the chest. at 1010 Reported and signed by: Livan Denis M.D. CC: Jeffery Martinez MD; Britt Sterling MD Technologist:Miryam Thomas RT(R),CT CTDI: DLP: Trnscb Date/Time: 05/02/2018 (1010) tVIRGINIAL Orig Print D/T: S: 05/02/2018 (1014) CTDI: DLP: PAGE 1 Signed Report [id number] 09:37:00* Test Item Value Reference Range Comments ALCOHOL (test code = ALC) < 3 mg/dL 0.0-3.0 ------ INTERPRETIVE DATA NOTE: POSITIVE SCREENING RESULTS SHOULD BE CONSIDERED PRESUMPTIVE.WHEN COLLECTED FOR MEDICAL PURPOSES ONLY. SPECIMEN WILL NOTBE COLLECTED BY CHAIN OF CUSTODY.IF A CONFIRMATION OF POSITIVE RESULTS IS DESIRED, ACONFIRMATION TEST MUST BE REQUESTED BY THE PHYSICIAN AT ANADDITIONAL CHARGE TO THE PATIENT. URINALYSIS [id number] 08:08:00* Test Item Value Reference Range Comments UA COLOR (test code = COLU) STRAW YELLOW UA APPEARANCE (test code = APPU) CLEAR CLEAR UA GLUCOSE DIPSTICK (test code = DGLUU) NEGATIVE mg/dL NEGATIVE UA BILIRUBIN DIPSTICK (test code = BILU) NEGATIVE mg/dL NEGATIV E UA KETONE DIPSTICK (test code = KETU) 5 (Trace) mg/dL NEGATIVE UA SPECIFIC GRAVITY (test code = SGU) 1.009 1.001-1.03 5 UA BLOOD DIPSTICK (test code = ELMA) Negative NEGATIVE UA PH DIPSTICK (test code = PREETI) 8.0 5.0-8.0 UA PROTEIN DIPSTICK (test code = PROU) Negative mg/dL NEGATIVE UA UROBILINIOGEN DIPSTICK (test code = URO) NEGATIVE mg/dL NEGA TIVE UA NITRITE DIPSTICK (test code = GEO) NEGATIVE NEGATIVE UA LEUKOCYTE ESTERASE W REFLEX (test code = LEUUR) NEGATIVE NEGATIVE UA WBC (test code = WBCU) 0-5 per HPF 0-5 IN NELSON E URINARY TRACT INFECTIONS THERE MAY NOT BE ENOUGHWBCs IN THE URINE TO TRIGGER AN AUTOMATIC (REFLEX) URINECULTURE. A SEPERATE ORDER FOR URINE CULTURE IS RECOMMENDEDIF THERE IS STRONG SUPPORT FOR A URINARY TRACT INFECTIONCLINICALLY. UA RBC (test code = RBCU) 0-3 per HPF 0-5 UA EPITHELIAL CELLS (test code = EPIU) Few (2-5/hpf) per HPF Few UA BACTERIA (test code = BACU) NONE SEEN per HPF NONE Urine Source? Clean CatchDRUGS OF ABUSE SCREEN [id number] 08:08:00* Test Item Value Reference Range Comments URN COCAINE (test code = COCAURN) NEGATIVE <300 ng/mL URN CANNABINOIDS (test code = CANNABURN) NEGATIVE <50 ng/ mL URN AMPHETAMINE (test code = AMPHETURN) NEGATIVE <1000 ng /mL URN BARBITURATE (test code = BARBITURN) NEGATIVE <200 ng/ mL URN BENZODIAZEPINE (test code = BENZOURN) NEGATIVE <200 n g/mL URN OPIATES (test code = OPIATURN) NEGATIVE <300 ng/mL URN PHENCYCLIDINE (PCP) (test code = PHENCURN) NEGATIVE < 25 ng/mL URN METHADONE (test code = METHAURN) NEGATIVE <300 ng/mL Urine Source? Clean CatchB-TYPE NATRIURETIC [id number] 08:08:00* Test Item Value Reference Range Comments B-TYPE NATRIURETIC PEPTIDE (test code = BNP) 15.81 pgram/mL 0-1 00 URINALYSIS [id number] 07:59:00* Test Item Value Reference Range Comments UA COLOR (test code = COLU) STRAW YELLOW UA APPEARANCE (test code = APPU) CLEAR CLEAR UA GLUCOSE DIPSTICK (test code = DGLUU) NEGATIVE mg/dL NEGATIVE UA BILIRUBIN DIPSTICK (test code = BILU) NEGATIVE mg/dL NEGATIV E UA KETONE DIPSTICK (test code = KETU) 5 (Trace) mg/dL NEGATIVE UA SPECIFIC GRAVITY (test code = SGU) 1.009 1.001-1.03 5 UA BLOOD DIPSTICK (test code = ELMA) Negative NEGATIVE UA PH DIPSTICK (test code = PREETI) 8.0 5.0-8.0 UA PROTEIN DIPSTICK (test code = PROU) Negative mg/dL NEGATIVE UA UROBILINIOGEN DIPSTICK (test code = URO) NEGATIVE mg/dL NEGA TIVE UA NITRITE DIPSTICK (test code = GEO) NEGATIVE NEGATIVE UA LEUKOCYTE ESTERASE W REFLEX (test code = LEUUR) NEGATIVE NEGATIVE UA WBC (test code = WBCU) 0-5 per HPF 0-5 IN NELSON E URINARY TRACT INFECTIONS THERE MAY NOT BE ENOUGHWBCs IN THE URINE TO TRIGGER AN AUTOMATIC (REFLEX) URINECULTURE. A SEPERATE ORDER FOR URINE CULTURE IS RECOMMENDEDIF THERE IS STRONG SUPPORT FOR A URINARY TRACT INFECTIONCLINICALLY. UA RBC (test code = RBCU) 0-3 per HPF 0-5 UA EPITHELIAL CELLS (test code = EPIU) Few (2-5/hpf) per HPF Few UA BACTERIA (test code = BACU) NONE SEEN per HPF NONE Urine Source? Clean CatchDRUGS OF ABUSE SCREEN [id number] 07:59:00* Test Item Value Reference Range Comments URN COCAINE (test code = COCAURN) <300 ng/mL URN CANNABINOIDS (test code = CANNABURN) <50 ng/ mL URN AMPHETAMINE (test code = AMPHETURN) <1000 ng /mL URN BARBITURATE (test code = BARBITURN) <200 ng/ mL URN BENZODIAZEPINE (test code = BENZOURN) <200 n g/mL URN OPIATES (test code = OPIATURN) <300 ng/mL URN PHENCYCLIDINE (PCP) (test code = PHENCURN) < 25 ng/mL URN METHADONE (test code = METHAURN) <300 ng/mL Urine Source? Clean CatchBASIC METABOLIC [id number] 07:52:00* Test Item Value Reference Range Comments SODIUM (test code = NA) 133 mmol/L 136-145 POTASSIUM (test code = K) 4.3 mmol/L 3.5-5.1 CHLORIDE (test code = CL) 98.0 mmol/L 98-107 CARBON DIOXIDE (test code = CO2) 26.0 mmol/L 21-32 ANION GAP (test code = GAP) 13.3 10-20 GLUCOSE (test code = GLU) 128 mg/dL 74-106 BLOOD UREA NITROGEN (test code = BUN) 10 mg/dL 7-18 GLOMERULAR FILTRATION RATE (test code = GFR) > 60 mL/min >=6 0 Estimated GFR by using Modified MDRD formula.Chronic kidney disease is defined as either kidney damageor GFR <60 mL/min/1.73 m2 for >3 months. CREATININE (test code = CREAT) 1.00 mg/dL 0.7-1.3 BUN/CREATININE RATIO (test code = BUN/CREA) 10.0 10-2 0 CALCIUM (test code = CA) 11.1 mg/dL 8.5-10.1 HEPATIC FUNCTION [id number] 07:52:00* Test Item Value Reference Range Comments TOTAL PROTEIN (test code = PROT) 7.6 gram/dL 6.4-8.2 ALBUMIN (test code = ALB) 3.7 g/dL 3.4-5.0 GLOBULIN (test code = GLOB) 3.9 gram/dL 2.7-4.2 ALBUMIN/GLOBULIN RATIO (test code = A/G) 1.0 0.75-1. 50 BILIRUBIN TOTAL (test code = BILT) 0.40 mg/dL 0.0-1.0 BILIRUBIN DIRECT (test code = BILD) 0.09 mg/dL 0.0-0.20 SGOT/AST (test code = AST) 15 IUnit/L 15-37 SGPT/ALT (test code = ALT) 22 IUnit/L 12-78 ALKALINE PHOSPHATASE TOTAL (test code = ALKP) 75 IUnit/L 45 -117 Note change in reference range due to change in reagent. [id number] 07:52:00* Test Item Value Reference Range Comments LIPASE (test code = LIP) 181 U/L 73.0-393.0 [id number] 07:52:00* Test Item Value Reference Range Comments TROPONIN-I (test code = TROPI) <0.015 ng/mL 0-0.045 URINALYSIS [id number] 07:45:00* Test Item Value Reference Range Comments UA COLOR (test code = COLU) STRAW YELLOW UA APPEARANCE (test code = APPU) CLEAR CLEAR UA GLUCOSE DIPSTICK (test code = DGLUU) NEGATIVE mg/dL NEGATIVE UA BILIRUBIN DIPSTICK (test code = BILU) NEGATIVE mg/dL NEGATIV E UA KETONE DIPSTICK (test code = KETU) 5 (Trace) mg/dL NEGATIVE UA SPECIFIC GRAVITY (test code = SGU) 1.009 1.001-1.03 5 UA BLOOD DIPSTICK (test code = ELMA) Negative NEGATIVE UA PH DIPSTICK (test code = PREETI) 8.0 5.0-8.0 UA PROTEIN DIPSTICK (test code = PROU) Negative mg/dL NEGATIVE UA UROBILINIOGEN DIPSTICK (test code = URO) NEGATIVE mg/dL NEGA TIVE UA NITRITE DIPSTICK (test code = GEO) NEGATIVE NEGATIVE UA LEUKOCYTE ESTERASE W REFLEX (test code = LEUUR) NEGATIVE NEGATIVE UA WBC (test code = WBCU) per HPF 0-5 Urine Source? Clean CatchDRUGS OF ABUSE SCREEN [id number] 07:45:00* Test Item Value Reference Range Comments URN COCAINE (test code = COCAURN) <300 ng/mL URN CANNABINOIDS (test code = CANNABURN) <50 ng/ mL URN AMPHETAMINE (test code = AMPHETURN) <1000 ng /mL URN BARBITURATE (test code = BARBITURN) <200 ng/ mL URN BENZODIAZEPINE (test code = BENZOURN) <200 n g/mL URN OPIATES (test code = OPIATURN) <300 ng/mL URN PHENCYCLIDINE (PCP) (test code = PHENCURN) < 25 ng/mL URN METHADONE (test code = METHAURN) <300 ng/mL Urine Source? Clean CatchPROTHROMBIN [id number] 07:38:00* Test Item Value Reference Range Comments PROTHROMBIN TIME PATIENT (test code = PTP) 10.9 seconds 9.0-1 4.0 INTERNATIONAL NORMAL RATIO (test code = INR) 0.9 0.8 -1.2 The therapeutic range for oral anticoagulant therapy formost indications is an international normalized ratio (INR)of between 2.0 and 3.0. The recommended therapeutic INRrange for various clinical situations is listed below: Clinical Situation INR range Pulmonary e mbolism treatment (2.0-3.0)Venous thrombosis treatmentVenous thrombosis prophylaxis (high risk surgery)Prevention of systemic embolism from: Acute myocardial infarction Valvular heart disease Atrial fibrillation Mechanical prosthetic heart valves (2.5-3.5) IS PATIENT ON ANTICOAGULANTS? NTHROMBOPLASTIN TIME [id number] 07:38:00* Test Item Value Reference Range Comments THROMBOPLASTIN TIME PARTIAL (test code = PTT) 35.1 seconds 25 .0-36.5 IS PATIENT ON ANTICOAGULANTS? [id number] 07:38:00* Test Item Value Reference Range Comments D-DIMER (test code = DDIMER) 347.00 ng/mLFEU 0-500 Cli nical Cut-off value for D- Dimer is 500 ng/mL FEU. Comment: The [employer] D-Dimer assay is intended for use asan aid in the diagnosis of venous thromboembolism (VTE)[deep vein thrombosis (DVT) or pulmonary embolism (PE)].The measurement of D-Dimer should not be used as an aid inthe diagnosis of VTE, in patient with: -Therapeutic dose anticoagulant therapy for >24 hours -Fibrinolytic therapy within previous 7 days -Trauma or surgery within previous 4 weeks -Disseminated malignancies - Aortic aneurysm -Sepsis, severe infections, pneumonia, severe skin infections -Liver cirrhosis - IS PATIENT ON ANTICOAGULANTS? NBASIC METABOLIC [id number] 07:32:00* Test Item Value Reference Range Comments SODIUM (test code = NA) 133 mmol/L 136-145 POTASSIUM (test code = K) 4.3 mmol/L 3.5-5.1 CHLORIDE (test code = CL) 98.0 mmol/L 98-107 CARBON DIOXIDE (test code = CO2) mmol/L 21-32 ANION GAP (test code = GAP) 10-20 GLUCOSE (test code = GLU) mg/dL 74-106 BLOOD UREA NITROGEN (test code = BUN) mg/dL 7-18 GLOMERULAR FILTRATION RATE (test code = GFR) mL/min >=6 0 CREATININE (test code = CREAT) mg/dL 0.7-1.3 BUN/CREATININE RATIO (test code = BUN/CREA) 10-2 0 CALCIUM (test code = CA) mg/dL 8.5-10.1 HEPATIC FUNCTION [id number] 07:32:00* Test Item Value Reference Range Comments TOTAL PROTEIN (test code = PROT) gram/dL 6.4-8.2 ALBUMIN (test code = ALB) g/dL 3.4-5.0 GLOBULIN (test code = GLOB) gram/dL 2.7-4.2 ALBUMIN/GLOBULIN RATIO (test code = A/G) 0.75-1. 50 BILIRUBIN TOTAL (test code = BILT) mg/dL 0.0-1.0 BILIRUBIN DIRECT (test code = BILD) mg/dL 0.0-0.20 SGOT/AST (test code = AST) IUnit/L 15-37 SGPT/ALT (test code = ALT) IUnit/L 12-78 ALKALINE PHOSPHATASE TOTAL (test code = ALKP) IUnit/L 45 -117 [id number] 07:32:00* Test Item Value Reference Range Comments LIPASE (test code = LIP) U/L 73.0-393.0 [id number] 07:32:00* Test Item Value Reference Range Comments TROPONIN-I (test code = TROPI) ng/mL 0-0.045 CBC W/O [id number] 07:22:00* Test Item Value Reference Range Comments WHITE BLOOD CELL (test code = WBC) 7.3 K/mm3 4.5-12.5 RED BLOOD CELL (test code = RBC) 4.20 mill/mm3 4.0-5.8 HEMOGLOBIN (test code = HGB) 13.1 gram/dL 13.0-17.5 HEMATOCRIT (test code = HCT) 40.2 % 42.0-52.0 MEAN CELL VOLUME (test code = MCV) 95.7 fL 80-98 MEAN CELL HGB (test code = MCH) 31.2 picogram 27.0-33.0 MEAN CELL HGB CONCETRATION (test code = MCHC) 32.6 gram/dL 33 .0-36.0 RED CELL DISTRIBUTION WIDTH (test code = RDW) 13.4 % 11 .6-16.2 PLATELET COUNT (test code = PLT) 329 K/mm3 150-450 MEAN PLATELET VOLUME (test code = MPV) 9.4 fL 6.7-11.0 CBC W/O [id number] 07:20:00* Test Item Value Reference Range Comments WHITE BLOOD CELL (test code = WBC) K/mm3 4.5-12.5 RED BLOOD CELL (test code = RBC) mill/mm3 4.0-5.8 HEMOGLOBIN (test code = HGB) 13.1 gram/dL 13.0-17.5 HEMATOCRIT (test code = HCT) % 42.0-52.0 MEAN CELL VOLUME (test code = MCV) fL 80-98 MEAN CELL HGB (test code = MCH) picogram 27.0-33.0 MEAN CELL HGB CONCETRATION (test code = MCHC) gram/dL 33 .0-36.0 RED CELL DISTRIBUTION WIDTH (test code = RDW) % 11 .6-16.2 PLATELET COUNT (test code = PLT) K/mm3 150-450 MEAN PLATELET VOLUME (test code = MPV) fL 6.7-11.0 - XR CHEST 1 [id number] 06:59:00 FAX: Jeffery Sosa MD [phone] [place]: St: REG Name: CHARLOTTE GALVEZ [facility] : [birth year] 85 Age/S: 37/M [address] [facility] Unit #: [id number] Loc: [place] [address] Phys: Yelena Pineda MD Acct: [id number] Dis Date: Status: REG ER PHONE #: [phone] Exam Date: 05/02/2018 0653 FAX #: [phone] Reason: CHEST PAIN EXAMS: CPT CODE: [id number] XR CHEST 1 V [id number] REASON FOR EXAM: CHEST PAIN EXAM ORDER DATE: 05/02/2018 6:35 AM Ordering M.DEdwar: Yelena Pineda MD PROCEDURE: - XR CHEST 1 V COMPAR MARLYN: 03/03/2018 FINDINGS: Portable AP frontal view of the chest o btained at 6:50 AM shows clear lungs without evidence of consolidation. Th ere is no evidence of effusion. The heart size is minimally enlarged. Pulm onary vasculatures are unremarkable. IMPRESSION: No activ e disease. at 06 59 Reported and signed by: Livan Denis M.D. CC: Jeffery Martinez MD Technologist: Cadence Mcqueen Trnscrd Date/Time/By: (0659) : By: JuanVTL Orig Print D/T: S: 05/02/2018 (0796) PAGE 1 Signed Report [id number] 13:13:00* Test Item Value Reference Range Comments LEVETIRACETAM (test code = LEVTAM) 6.8 ug/mL 10.0-40.0 This test was developed and its performance characteristicsdetermined by [employer]. It has not been cleared orapproved by the Food and Drug Administration.Performed At: [address] [id number] Luis Pennington MD Ph:[phone] BASIC METABOLIC [id number] 08:01:00* Test Item Value Reference Range Comments SODIUM (test code = NA) 133 mmol/L 136-145 POTASSIUM (test code = K) 3.7 mmol/L 3.5-5.1 CHLORIDE (test code = CL) 99.0 mmol/L 98-107 CARBON DIOXIDE (test code = CO2) 25.0 mmol/L 21-32 ANION GAP (test code = GAP) 12.7 10-20 GLUCOSE (test code = GLU) 97 mg/dL 74-106 BLOOD UREA NITROGEN (test code = BUN) 16 mg/dL 7-18 GLOMERULAR FILTRATION RATE (test code = GFR) > 60 mL/min >=6 0 Estimated GFR by using Modified MDRD formula.Chronic kidney disease is defined as either kidney damageor GFR <60 mL/min/1.73 m2 for >3 months. CREATININE (test code = CREAT) 0.70 mg/dL 0.7-1.3 BUN/CREATININE RATIO (test code = BUN/CREA) 21.4 10-2 0 CALCIUM (test code = CA) 8.2 mg/dL 8.5-10.1 VALPROIC ACID (DEPAKENE)2018-03-13 08:01:00* Test Item Value Reference Range Comments VALPROIC ACID (DEPAKENE) (test code = VALP) 20.0 mcg/mL 50.0 -100.0 [id number] 08:01:00* Test Item Value Reference Range Comments ACETAMINOPHEN (test code = ACET) < 10 mcg/mL 10-30 A RANGE OF 10-30 mcg/mL IS A THERAPEUTIC RANGE. TOXIC CONCENTRATIONS: >150 mcg/mL AT 4 HOURS AFTER INGESTION >= 50 mcg/mL AT 12 HOURS AFTER INGESTION [id number] 08:01:00* Test Item Value Reference Range Comments SALICYLATE (test code = SOPHIA) < 1.7 mg/dL 2.8-20.0 [id number] 08:01:00* Test Item Value Reference Range Comments ALCOHOL (test code = ALC) < 3 mg/dL 0.0-3.0 ------ INTERPRETIVE DATA NOTE: POSITIVE SCREENING RESULTS SHOULD BE CONSIDERED PRESUMPTIVE.WHEN COLLECTED FOR MEDICAL PURPOSES ONLY. SPECIMEN WILL NOTBE COLLECTED BY CHAIN OF CUSTODY.IF A CONFIRMATION OF POSITIVE RESULTS IS DESIRED, ACONFIRMATION TEST MUST BE REQUESTED BY THE PHYSICIAN AT ANADDITIONAL CHARGE TO THE PATIENT. [id number] 08:01:00* Test Item Value Reference Range Comments TROPONIN-I (test code = TROPI) <0.015 ng/mL 0-0.045 BASIC METABOLIC [id number] 07:51:00* Test Item Value Reference Range Comments SODIUM (test code = NA) 133 mmol/L 136-145 POTASSIUM (test code = K) 3.7 mmol/L 3.5-5.1 CHLORIDE (test code = CL) 99.0 mmol/L 98-107 CARBON DIOXIDE (test code = CO2) mmol/L 21-32 ANION GAP (test code = GAP) 10-20 GLUCOSE (test code = GLU) mg/dL 74-106 BLOOD UREA NITROGEN (test code = BUN) mg/dL 7-18 GLOMERULAR FILTRATION RATE (test code = GFR) mL/min >=6 0 CREATININE (test code = CREAT) mg/dL 0.7-1.3 BUN/CREATININE RATIO (test code = BUN/CREA) 10-2 0 CALCIUM (test code = CA) mg/dL 8.5-10.1 VALPROIC ACID (DEPAKENE)2018-03-13 07:51:00* Test Item Value Reference Range Comments VALPROIC ACID (DEPAKENE) (test code = VALP) mcg/mL 50.0 -100.0 URINALYSIS [id number] 07:44:00* Test Item Value Reference Range Comments UA COLOR (test code = COLU) LIGHT YELLOW YELLOW UA APPEARANCE (test code = APPU) CLEAR CLEAR UA GLUCOSE DIPSTICK (test code = DGLUU) NEGATIVE mg/dL NEGATIVE UA BILIRUBIN DIPSTICK (test code = BILU) NEGATIVE mg/dL NEGATIV E UA KETONE DIPSTICK (test code = KETU) Negative mg/dL NEGATIVE UA SPECIFIC GRAVITY (test code = SGU) 1.013 1.001-1.03 5 UA BLOOD DIPSTICK (test code = ELMA) 2+ (Moderate) NEGATIVE UA PH DIPSTICK (test code = PREETI) 7.0 5.0-8.0 UA PROTEIN DIPSTICK (test code = PROU) Negative mg/dL NEGATIVE UA UROBILINIOGEN DIPSTICK (test code = URO) 4.0 (2+) mg/dL NEGATIVE UA NITRITE DIPSTICK (test code = GEO) NEGATIVE NEGATIVE UA LEUKOCYTE ESTERASE W REFLEX (test code = LEUUR) NEGATIVE NEGATIVE UA WBC (test code = WBCU) 0-5 #/HPF 0-5 UA RBC (test code = RBCU) >20 #/HPF 0-5 UA TRANSITIONAL CELLS (test code = TRANU) FEW (1-5) #/HPF 0-5 UROTHELIAL CELLS UA MUCUS (test code = MUCU) FEW #/LPF FEW Urine Source? CatheterDRUGS OF ABUSE SCREEN [id number] 07:44:00* Test Item Value Reference Range Comments URN COCAINE (test code = COCAURN) NEGATIVE <300 ng/mL URN CANNABINOIDS (test code = CANNABURN) NEGATIVE <50 ng/ mL URN AMPHETAMINE (test code = AMPHETURN) NEGATIVE <1000 ng /mL URN BARBITURATE (test code = BARBITURN) POSITIVE <200 ng/ mL This test provides only a preliminary test result. A morespecific alternate chemical method must be used in order toobtain a confirmed analytical result. Gas chromatography/mass spectrometry (GC/MS) is thepreferred confirmatory method. Other chemical confirmationmethods are available. Clinical consideration and professional judgment should be applied to any drug of abusetest result, particularly when preliminary positive resultsare used.Unconfirmed screening results must not be used fornon-medical purposes (e.g., employment testing, legaltesting). URN BENZODIAZEPINE (test code = BENZOURN) NEGATIVE <200 n g/mL URN OPIATES (test code = OPIATURN) POSITIVE <300 ng/mL This test provides only a preliminary test result. A morespecific alternate chemical method must be used in order toobtain a confirmed analytical result. Gas chromatography/mass spectrometry (GC/MS) is thepreferred confirmatory method. Other chemical confirmationmethods are available. Clinical consideration and professional judgment should be applied to any drug of abusetest result, particularly when preliminary positive resultsare used.Unconfirmed screening results must not be used fornon-medical purposes (e.g., employment testing, legaltesting). URN PHENCYCLIDINE (PCP) (test code = PHENCURN) NEGATIVE < 25 ng/mL URN METHADONE (test code = METHAURN) NEGATIVE <300 ng/mL Urine Source? CatheterURINALYSIS [id number] 07:27:00* Test Item Value Reference Range Comments UA COLOR (test code = COLU) LIGHT YELLOW YELLOW UA APPEARANCE (test code = APPU) CLEAR CLEAR UA GLUCOSE DIPSTICK (test code = DGLUU) NEGATIVE mg/dL NEGATIVE UA BILIRUBIN DIPSTICK (test code = BILU) NEGATIVE mg/dL NEGATIV E UA KETONE DIPSTICK (test code = KETU) Negative mg/dL NEGATIVE UA SPECIFIC GRAVITY (test code = SGU) 1.013 1.001-1.03 5 UA BLOOD DIPSTICK (test code = ELMA) 2+ (Moderate) NEGATIVE UA PH DIPSTICK (test code = PREETI) 7.0 5.0-8.0 UA PROTEIN DIPSTICK (test code = PROU) Negative mg/dL NEGATIVE UA UROBILINIOGEN DIPSTICK (test code = URO) 4.0 (2+) mg/dL NEGATIVE UA NITRITE DIPSTICK (test code = GEO) NEGATIVE NEGATIVE UA LEUKOCYTE ESTERASE W REFLEX (test code = LEUUR) NEGATIVE NEGATIVE UA WBC (test code = WBCU) 0-5 #/HPF 0-5 UA RBC (test code = RBCU) >20 #/HPF 0-5 UA TRANSITIONAL CELLS (test code = TRANU) FEW (1-5) #/HPF 0-5 UROTHELIAL CELLS UA MUCUS (test code = MUCU) FEW #/LPF FEW Urine Source? CatheterDRUGS OF ABUSE SCREEN [id number] 07:27:00* Test Item Value Reference Range Comments URN COCAINE (test code = COCAURN) <300 ng/mL URN CANNABINOIDS (test code = CANNABURN) <50 ng/ mL URN AMPHETAMINE (test code = AMPHETURN) <1000 ng /mL URN BARBITURATE (test code = BARBITURN) <200 ng/ mL URN BENZODIAZEPINE (test code = BENZOURN) <200 n g/mL URN OPIATES (test code = OPIATURN) <300 ng/mL URN PHENCYCLIDINE (PCP) (test code = PHENCURN) < 25 ng/mL URN METHADONE (test code = METHAURN) <300 ng/mL Urine Source? CatheterURINALYSIS [id number] 07:16:00* Test Item Value Reference Range Comments UA COLOR (test code = COLU) LIGHT YELLOW YELLOW UA APPEARANCE (test code = APPU) CLEAR CLEAR UA GLUCOSE DIPSTICK (test code = DGLUU) NEGATIVE mg/dL NEGATIVE UA BILIRUBIN DIPSTICK (test code = BILU) NEGATIVE mg/dL NEGATIV E UA KETONE DIPSTICK (test code = KETU) Negative mg/dL NEGATIVE UA SPECIFIC GRAVITY (test code = SGU) 1.013 1.001-1.03 5 UA BLOOD DIPSTICK (test code = ELMA) 2+ (Moderate) NEGATIVE UA PH DIPSTICK (test code = PREETI) 7.0 5.0-8.0 UA PROTEIN DIPSTICK (test code = PROU) Negative mg/dL NEGATIVE UA UROBILINIOGEN DIPSTICK (test code = URO) 4.0 (2+) mg/dL NEGATIVE UA NITRITE DIPSTICK (test code = GEO) NEGATIVE NEGATIVE UA LEUKOCYTE ESTERASE W REFLEX (test code = LEUUR) NEGATIVE NEGATIVE UA WBC (test code = WBCU) per HPF 0-5 Urine Source? CatheterDRUGS OF ABUSE SCREEN [id number] 07:16:00* Test Item Value Reference Range Comments URN COCAINE (test code = COCAURN) <300 ng/mL URN CANNABINOIDS (test code = CANNABURN) <50 ng/ mL URN AMPHETAMINE (test code = AMPHETURN) <1000 ng /mL URN BARBITURATE (test code = BARBITURN) <200 ng/ mL URN BENZODIAZEPINE (test code = BENZOURN) <200 n g/mL URN OPIATES (test code = OPIATURN) <300 ng/mL URN PHENCYCLIDINE (PCP) (test code = PHENCURN) < 25 ng/mL URN METHADONE (test code = METHAURN) <300 ng/mL Urine Source? CatheterCBC W/O [id number] 06:20:00* Test Item Value Reference Range Comments WHITE BLOOD CELL (test code = WBC) 11.2 K/mm3 4.5-12.5 RED BLOOD CELL (test code = RBC) 3.64 mill/mm3 4.0-5.8 HEMOGLOBIN (test code = HGB) 11.2 gram/dL 13.0-17.5 HEMATOCRIT (test code = HCT) 34.7 % 42.0-52.0 MEAN CELL VOLUME (test code = MCV) 95.3 fL 80-98 MEAN CELL HGB (test code = MCH) 30.8 picogram 27.0-33.0 MEAN CELL HGB CONCETRATION (test code = MCHC) 32.3 gram/dL 33 .0-36.0 RED CELL DISTRIBUTION WIDTH (test code = RDW) 15.7 % 11 .6-16.2 PLATELET COUNT (test code = PLT) 304 K/mm3 150-450 MEAN PLATELET VOLUME (test code = MPV) 9.5 fL 6.7-11.0 - MRI BRAIN WO/W [id number] 16:34:00 FAX: Tree Reinoso NP [phone] [place]: St: [facility] FAX: Gregorio Estrada I [phone] FAX: Jeffery Sosa MD [phone] Name: CHARLOTTE SHAH II [facility] : 1980 Age/S: 37/M [address] [place] [address] Blvd Unit #: [id number] Loc: G.6636 [place] [address] Phys: Tree Reinoso NP Acct: [id number] Dis Date: Status: ADM IN ONE #: [phone] Exam Date: 03/06/2018 1436 FAX #: [phone] Reason: FREQUENT SEIZURES EXAMS: CPT CODE: [id number] MR I BRAIN WO/W CONT 04726 MRI brain with out and with contrast 03/06/2018 HISTORY: Frequent seizures PROCEDURE: Multiplanar multisequence imaging of the brain is performed without and with contrast. 16 mL of Dotarem were injected intravenous ly. Comparison is made to CT head performed on 03/03/2018 FINDINGS: No acute hemorrhage, midline shift, extra-axial fluid colle ction, or hydrocephalus is present. No significant area of abnormal incre ased FLAIR signal is present. Craniocervical junction is within normal li mits. The visualized mastoid air cells are clear. There is no air-fluid level in the visualized paranasal sinuses. There is no blooming artifact on the heme sequence to suggest remote hemorrhage. Diffusion-weighted christie ging demonstrates no acute ischemic event. No evidence for acute infarct is present. On post contrast imaging, no abnormal enhancement is present. IMPRESSION: No acute intracranial abnormality. No abno rmal enhancement. SL: [id number] Electr onically Signed by Jason Sevilla on 019 at 1634 Reported and signed by: Mainor Sevilla M.D. CC: Tree Reinoso NP; Gregorio Pearson MD; Jeffery Pelletier M.D. Technologist: Nadege Cuenca RT(R)(CT) Tr [facility] Date/Time/By: 03/06/2018 (1634) : By: [email or web address] Orig Print D/T: S: 03/06/2018 (5239) PAGE 1 Cait d Report ANTINUCLEAR ANTIBODIES [id number] 12:14:00* Test Item Value Reference Range Comments SHRUTI SCREEN (test code = ANASCR) Negative () Negative <1:80 Borderline 1:80 Positive >1:80Performed At: [facility] [address] [id number] Thompson MD Ph:[phone] THYROID STIMULATING [id number] 04:12:00* Test Item Value Reference Range Comments THYROID STIMULATING HORMONE (test code = TSH) 0.67 0. 42-5.47 Results in yasmin- International Units/mL [id number] 04:12:00* Test Item Value Reference Range Comments PROLACTIN (test code = PROLAC) 10.9 ng/mL 4.0-15.2 P erformed At: [facility] [address] [id number] Kyle L MD Ph:[phone] CBC W/AUTO [id number] 07:46:00* Test Item Value Reference Range Comments WHITE BLOOD CELL (test code = WBC) 10.05 x10 3/uL 4.5-11.0 RED BLOOD CELL (test code = RBC) 4.22 x10 6/uL 4.00-5.60 HEMOGLOBIN (test code = HGB) 13.4 g/dL 12.5-16.9 HEMATOCRIT (test code = HCT) 42.5 % 37.5-50.7 MEAN CELL VOLUME (test code = MCV) 100.7 fL 81.0-99.0 MEAN CELL HGB (test code = MCH) 31.8 pg 27.0-33.0 MEAN CELL HGB CONCETRATION (test code = MCHC) 31.5 g/dL 33 .0-37.0 RED CELL DISTRIBUTION WIDTH CV (test code = RDW) 17.7 % 11.5-14.5 RED CELL DISTRIBUTION WIDTH SD (test code = RDW-SD) 66.2 fL 37.0-54.0 PLATELET COUNT (test code = PLT) 364 x10 3/uL 150-400 MEAN PLATELET VOLUME (test code = MPV) 9.1 fL 7.0-9.0 NEUTROPHIL % (test code = NT%) 39.4 % 56.0-77.0 IMMATURE GRANULOCYTE % (test code = IG%) 3.3 % 0.0-2.0 LYMPHOCYTE % (test code = LY%) 47.4 % 14.0-32.0 MONOCYTE % (test code = MO%) 8.4 % 4.8-9.0 EOSINOPHIL % (test code = EO%) 0.4 % 0.3-3.7 BASOPHIL % (test code = BA%) 1.1 % 0.0-2.0 NUCLEATED RBC % (test code = NRBC%) 0.0 % 0-0 NEUTROPHIL # (test code = NT#) 3.97 x10 3/uL 2.0-7.6 IMMATURE GRANULOCYTE # (test code = IG#) 0.33 x10 3/uL 0.00-0. 03 LYMPHOCYTE # (test code = LY#) 4.76 x10 3/uL 1.0-3.8 MONOCYTE # (test code = MO#) 0.84 x10 3/uL 0.1-0.8 EOSINOPHIL # (test code = EO#) 0.04 x10 3/uL 0.0-0.2 BASOPHIL # (test code = BA#) 0.11 x10 3/uL 0.0-0.2 NUCLEATED RBC # (test code = NRBC#) 0.00 x10 3/uL 0.0-0.1 MANUAL DIFF REQUIRED (test code = MDIFF) NO BASIC METABOLIC [id number] 07:33:00* Test Item Value Reference Range Comments SODIUM (test code = NA) 134 mEq/L 134-147 POTASSIUM (test code = K) 4.3 mEq/L 3.4-5.0 CHLORIDE (test code = CL) 101 mEq/L 100-108 CARBON DIOXIDE (test code = CO2) 26 mEq/L 21-33 ANION GAP (test code = GAP) 11 0-20 GLUCOSE (test code = GLU) 90 mg/dL 70-110 BLOOD UREA NITROGEN (test code = BUN) 13 mg/dL 7-18 GLOMERULAR FILTRATION RATE (test code = GFR) 96.0 105 -110 Units of measure = ml/min/1.73 m2 CREATININE (test code = CREAT) 0.9 mg/dL 0.6-1.3 CALCIUM (test code = CA) 9.4 mg/dL 8.0-10.5 [id number] 07:33:00* Test Item Value Reference Range Comments MAGNESIUM (test code = MAG) 2.20 mg/dL 1.8-2.4 VALPROIC ACID (DEPAKENE)2018-03-04 18:12:00* Test Item Value Reference Range Comments VALPROIC ACID (DEPAKENE) (test code = VALP) 27 mcg/mL 50.0 -100.0 THYROID STIMULATING [id number] 18:07:00* Test Item Value Reference Range Comments THYROID STIMULATING HORMONE (test code = TSH) 0.67 0. 42-5.47 Results in yasmin- International Units/mL [id number] 18:07:00* Test Item Value Reference Range Comments PROLACTIN (test code = PROLAC) HGBA1C%2018-03-04 18:01:00* Test Item Value Reference Range Comments HGBA1C% (test code = HGBA1C%) 5.2 %A1C 4.8-6.0 - XR KNEE 1 OR 2 V [id number] 14:24:00 FAX: Jeffery Sosa MD [phone] [place]: St: ADM FAX: Dario Sandy NP [phone] Name: CHARLOTTE SHAH II [facility] : 1980 Age/S: 37/M [address] [place] [address] Blvd Unit #: [id number] Loc: [place] [address] Phys: Dario Sandy NP Acct: [id number] Dis Date: Status: ADM IN PHONE #: [phone] Exam Date: 03/04/2018 1418 FAX #: [phone] Reason: BL Knee pain EXAMS: CPT CODE: [id number] XR KNEE 1 OR [address] [place] [id number] PROCEDURE: 2 views of the bilateral knees INDICATION: 37-year-old male with bilateral knee pain COMPARISON: Left knee radiograph 05/01/2017 FINDINGS: Right knee: No acute fract ure or dislocation identified. Minimal joint space narrowing in the media l compartment. No significant effusion. Left knee: No acute fracture or dislocation identified. Mild joint space narrowing in medial compartment. No significant effusion. IMPRESSION: 1. No acute fracture or dislocation identified in the bilateral k nees. 2. Mild osteoarthritic changes. SL: [id number] at 1424 Reported and signed by: Jolene Cordova M.D. CC: Jeffery Pelletier M.D.; Dario Sandy NP Technologist: RT Mark(R); RT Deepti(R), RTT Trnscrd Date/Time/By: 03/04/2018 (7492) : By: [email or web address] Orig Print D/T: S: 03/04/2018 (1683) PAGE 1 Signed Report BASIC METABOLIC [id number] 08:53:00* Test Item Value Reference Range Comments SODIUM (test code = NA) 132 mEq/L 134-147 POTASSIUM (test code = K) 4.2 mEq/L 3.4-5.0 SPECIM EN 1+ HEMOLYZED.Results known to be adversely affected by hemolysis are: Potassium Magnesium LDH Phosphorus CHLORIDE (test code = CL) 103 mEq/L 100-108 CARBON DIOXIDE (test code = CO2) 23 mEq/L 21-33 ANION GAP (test code = GAP) 10 0-20 GLUCOSE (test code = GLU) 75 mg/dL 70-110 BLOOD UREA NITROGEN (test code = BUN) 10 mg/dL 7-18 GLOMERULAR FILTRATION RATE (test code = GFR) 110.0 105 -110 Units of measure = ml/min/1.73 m2 CREATININE (test code = CREAT) 0.8 mg/dL 0.6-1.3 CALCIUM (test code = CA) 8.3 mg/dL 8.0-10.5 [id number] 08:53:00* Test Item Value Reference Range Comments MAGNESIUM (test code = MAG) 1.80 mg/dL 1.8-2.4 CBC W/AUTO [id number] 08:34:00* Test Item Value Reference Range Comments WHITE BLOOD CELL (test code = WBC) 9.14 x10 3/uL 4.5-11.0 RED BLOOD CELL (test code = RBC) 3.72 x10 6/uL 4.00-5.60 HEMOGLOBIN (test code = HGB) 11.7 g/dL 12.5-16.9 HEMATOCRIT (test code = HCT) 37.2 % 37.5-50.7 MEAN CELL VOLUME (test code = MCV) 100.0 fL 81.0-99.0 MEAN CELL HGB (test code = MCH) 31.5 pg 27.0-33.0 MEAN CELL HGB CONCETRATION (test code = MCHC) 31.5 g/dL 33 .0-37.0 RED CELL DISTRIBUTION WIDTH CV (test code = RDW) 17.2 % 11.5-14.5 RED CELL DISTRIBUTION WIDTH SD (test code = RDW-SD) 63.7 fL 37.0-54.0 PLATELET COUNT (test code = PLT) 321 x10 3/uL 150-400 MEAN PLATELET VOLUME (test code = MPV) 9.1 fL 7.0-9.0 NEUTROPHIL % (test code = NT%) 39.6 % 56.0-77.0 IMMATURE GRANULOCYTE % (test code = IG%) 1.9 % 0.0-2.0 LYMPHOCYTE % (test code = LY%) 49.8 % 14.0-32.0 MONOCYTE % (test code = MO%) 7.7 % 4.8-9.0 EOSINOPHIL % (test code = EO%) 0.3 % 0.3-3.7 BASOPHIL % (test code = BA%) 0.7 % 0.0-2.0 NUCLEATED RBC % (test code = NRBC%) 0.0 % 0-0 NEUTROPHIL # (test code = NT#) 3.63 x10 3/uL 2.0-7.6 IMMATURE GRANULOCYTE # (test code = IG#) 0.17 x10 3/uL 0.00-0. 03 LYMPHOCYTE # (test code = LY#) 4.55 x10 3/uL 1.0-3.8 MONOCYTE # (test code = MO#) 0.70 x10 3/uL 0.1-0.8 EOSINOPHIL # (test code = EO#) 0.03 x10 3/uL 0.0-0.2 BASOPHIL # (test code = BA#) 0.06 x10 3/uL 0.0-0.2 NUCLEATED RBC # (test code = NRBC#) 0.00 x10 3/uL 0.0-0.1 MANUAL DIFF REQUIRED (test code = MDIFF) NO DRUGS OF ABUSE SCREEN [id number] 22:55:00* Test Item Value Reference Range Comments URN COCAINE (test code = COCAURN) NEGATIVE NEGATIVE URN CANNABINOIDS (test code = CANNABURN) NEGATIVE NEGATIV E URN AMPHETAMINE (test code = AMPHETURN) NEGATIVE NEGATIVE URN BARBITURATE (test code = BARBITURN) NEGATIVE NEGATIVE URN BENZODIAZEPINE (test code = BENZOURN) NEGATIVE NEGATI VE Cut-off value:200 ng/mL URN OPIATES (test code = OPIATURN) NEGATIVE NEGATIVE Cut-off value:2000 ng/mL URN PHENCYCLIDINE (PCP) (test code = PHENCURN) NEGATIVE N EGATIVE Cutoffs:Barbiturates 200 ng/mLBenzodiazepines 200 ng/mLTHC Cannabinoids 50 ng/mLOpiates(Morphine) 2000 ng/mLAmphetamine 1000 ng/mLCocaine 300 ng/mLPCP phencyclidine 25 ng/mL Unconfirmed screening results shouldnot be used for non-medical purposes. - CT HEAD/BRAIN W/O [id number] 20:01:00 Name: CHARLOTTE SHAH II [facility] : 1980 Age/S: 37 / M [address] [place] [address] Unit #: [id number] Loc: [place] [address] Phys: Dre Cazares MD Acct: [id number] Dis Date: Status: REG ER PHONE #: [phone] Exam Date: 03/03/20181946 FAX #: [phone] Reason: Seizure EXAMS: CPT CODE: [id number] CT HEAD/BRAIN W/O CONT 98306 Clinical Indication: Seizure; Comparison: CT head December 22, 2017 TECHNIQUE: CT images were obtained from the foramen magnum to the vertex without the use of intravenous contrast on a multidetector CT. Coronal and sagittal reconstructions were obtained. CT radiation dose DLP: 419 mGy-cm FINDINGS: BRAIN PARENCHYMA: There are normal danielson-white interfaces, sulci and gyri. There are no focal mass lesions on this noncontrast head CT. There is no mass effect, midline shift or edema. There are no intra-axial or extra- axial fluid collections, intraventricular or intraparenchymal hemorrhage. The pineal, sellar, brainstem, cerebellum and skull base regions appear unremarkable. VENTRICLES: The lateral ventricles, third and fourth ventricles appear unremarkable. The basilar cisterns are normal. ORBITS, MASTOIDS AND PARANASAL SINUSES: The visualized orbits and paranasal sinuses are unremarkable. The mastoid air cells are clear. SKULL: There are no osseous abnormalities. If there is further concern for intracranial pathology or acute stroke, MRI of the brain may be performed for complete assessment. IMPRESSION: Unremarkable noncontrast head CT with no mass, hemorrhage or subacute stroke. SL: [id number] at 2000 Reported and signed by: Axel Arenas M.D. PAGE 1 Signed Report (CONTINUED) Name: SHAHCHARLOTTE NADEGE ELLIOTT [facility] : 1980 Age/S: 37 / M [address] [place] [address] Blvd Unit #: [id number] Loc: [place] [address] Phys: Dre Cazares MD Acct: [id number] Dis Date: Status: REG ER PHONE #: [phone] Exam Date: 03/03/20181946 FAX #: [phone] Reason: Seizure EXAMS: CPT CODE: [id number] CT HEAD/BRAIN W/O CONT 19790 <Continued> CC: Dre Cazares MD Technologist:RT Gentry(R) CTDI: DLP: Trnscb Date/Time: 03/03/2018 (2000) [email or web address] Orig Print D/T: S: 03/03/2018 (2003) CTDI: DLP: PAGE 2 Signed Report BASIC METABOLIC [id number] 19:25:00* Test Item Value Reference Range Comments SODIUM (test code = NA) 129 mEq/L 134-147 POTASSIUM (test code = K) 3.5 mEq/L 3.4-5.0 CHLORIDE (test code = CL) 94 mEq/L 100-108 CARBON DIOXIDE (test code = CO2) 29 mEq/L 21-33 ANION GAP (test code = GAP) 10 0-20 GLUCOSE (test code = GLU) 78 mg/dL 70-110 BLOOD UREA NITROGEN (test code = BUN) 10 mg/dL 7-18 GLOMERULAR FILTRATION RATE (test code = GFR) 128.3 105 -110 Units of measure = ml/min/1.73 m2 CREATININE (test code = CREAT) 0.7 mg/dL 0.6-1.3 CALCIUM (test code = CA) 9.1 mg/dL 8.0-10.5 HEPATIC FUNCTION [id number] 19:25:00* Test Item Value Reference Range Comments TOTAL PROTEIN (test code = PROT) 8.0 g/dL 6.4-8.2 ALBUMIN (test code = ALB) 4.30 g/dL 3.4-5.0 BILIRUBIN TOTAL (test code = BILT) 0.20 mg/dL 0.0-1.0 BILIRUBIN DIRECT (test code = BILD) < 0.10 MG/DL 0.0-0.30 BILIRUBIN INDIRECT (test code = BILIND) 0.10 MG/DL SGOT/AST (test code = AST) 10 IUnit/L 15-37 SGPT/ALT (test code = ALT) 21 IUnit/L 15-65 ALKALINE PHOSPHATASE TOTAL (test code = ALKP) 97 IUnit/L 20 -125 CREATINE KINASE (CK)2018-03-03 19:25:00* Test Item Value Reference Range Comments CREATINE KINASE (CK) (test code = CK) 66 35-232 Result is in INTERNATIONAL UNITS/LITER [id number] 19:25:00* Test Item Value Reference Range Comments LIPASE (test code = LIP) 138 IUnit/L 73-393 [id number] 19:25:00* Test Item Value Reference Range Comments TROPONIN-I (test code = TROPI) < 0.015 ng/mL 0.000-0.045 N egative: <= 0.045 Positive: >= 0.046 Correlation with serial results, other cardiac markers andclinical findings is necessary to determine the clinicalsignificance of this result. Results using different methodologies should not be comparedto one another as quantitative results may vary by method. [id number] 19:25:00* Test Item Value Reference Range Comments ALCOHOL (test code = ALC) < 0.003 G/dL <0.003 Ethyl Alcohol Interpretation: 0.100 gm/dL - Legally Intoxicated 0.300-0.400 gm/dL - Severely Intoxicated >0.400 gm/dL - Potentially LethalResults are for Medical purposes only, and not for Legal orEmployment evaluation purposes. PROTHROMBIN [id number] 19:19:00* Test Item Value Reference Range Comments PROTHROMBIN TIME PATIENT (test code = PTP) 11.1 SECONDS 9.3-1 2.9 INTERNATIONAL NORMAL RATIO (test code = INR) 1.0 0.8 -1.2 TARGET INR BY INDICATION Indication INR1. Prophylaxis of venous thrombosis 2.0 - 3.0 (orthopedic surgery), Prophylaxis of venous thrombosis (other than high-risk surgery), Treatment of Deep Vein Thrombosis/Pulmonary Embolism, Prevention of systemic embolism - Tissue heart valves, Acute Myocardial Infarction (to prevent systemic embolism), Valvular heart disease, Atrial Fibrillation, Bileaflet mechanical valve in aortic position.2. Mechanical prosthetic valves (high risk), 2.5 - 3.5 Presence of Lupus Anticoagulant or Antiphospholipid Antibodies, Prevention of systemic embolism - Acute Myocardial Infarction (to prevent recurrent infarct). THROMBOPLASTIN TIME [id number] 19:19:00* Test Item Value Reference Range Comments THROMBOPLASTIN TIME PARTIAL (test code = PTT) 34.9 Seconds 25 .0-39.5 Therapeutic Range: 61.8-83.8 Sec Effective 03/10/2013 CBC W/AUTO [id number] 19:12:00* Test Item Value Reference Range Comments WHITE BLOOD CELL (test code = WBC) 13.39 x10 3/uL 4.5-11.0 RED BLOOD CELL (test code = RBC) 3.80 x10 6/uL 4.00-5.60 HEMOGLOBIN (test code = HGB) 12.1 g/dL 12.5-16.9 HEMATOCRIT (test code = HCT) 37.1 % 37.5-50.7 MEAN CELL VOLUME (test code = MCV) 97.6 fL 81.0-99.0 MEAN CELL HGB (test code = MCH) 31.8 pg 27.0-33.0 MEAN CELL HGB CONCETRATION (test code = MCHC) 32.6 g/dL 33 .0-37.0 RED CELL DISTRIBUTION WIDTH CV (test code = RDW) 16.8 % 11.5-14.5 RED CELL DISTRIBUTION WIDTH SD (test code = RDW-SD) 61.0 fL 37.0-54.0 PLATELET COUNT (test code = PLT) 372 x10 3/uL 150-400 MEAN PLATELET VOLUME (test code = MPV) 9.0 fL 7.0-9.0 NEUTROPHIL % (test code = NT%) 64.0 % 56.0-77.0 IMMATURE GRANULOCYTE % (test code = IG%) 1.9 % 0.0-2.0 LYMPHOCYTE % (test code = LY%) 24.3 % 14.0-32.0 MONOCYTE % (test code = MO%) 9.3 % 4.8-9.0 EOSINOPHIL % (test code = EO%) 0.1 % 0.3-3.7 BASOPHIL % (test code = BA%) 0.4 % 0.0-2.0 NUCLEATED RBC % (test code = NRBC%) 0.0 % 0-0 NEUTROPHIL # (test code = NT#) 8.58 x10 3/uL 2.0-7.6 IMMATURE GRANULOCYTE # (test code = IG#) 0.25 x10 3/uL 0.00-0. 03 LYMPHOCYTE # (test code = LY#) 3.25 x10 3/uL 1.0-3.8 MONOCYTE # (test code = MO#) 1.25 x10 3/uL 0.1-0.8 EOSINOPHIL # (test code = EO#) 0.01 x10 3/uL 0.0-0.2 BASOPHIL # (test code = BA#) 0.05 x10 3/uL 0.0-0.2 NUCLEATED RBC # (test code = NRBC#) 0.00 x10 3/uL 0.0-0.1 MANUAL DIFF REQUIRED (test code = MDIFF) NO - XR CHEST 1 [id number] 19:03:00 FAX: Dre Cazares MD [place]: [place] St: REG Name: CHARLOTTE GALVEZ II [facility] : [birth year] Age/S: 37/M [address] [place] [address] Blvd Unit #: [id number] Loc: [place] [address] Phys: Dre Cazares MD Acct: [id number] Dis Date: Status: REG ER PHONE #: [phone] Exam Date: 03/03/2018 185 FAX #: [phone] Reason: Seizure Adult EXAMS: CPT CODE: [id number] XR CHEST 1 V [id number] PROCEDURE: - XR CHEST 1 V INDICATION: 37 years Male, Seizure Adult. COMPARISON: Chest x-ray 11/21/2016 FINDINGS: The cardiac silhouette and pulmonary vasculature are normal for projection and degree of inspiration. No lobar consolidation, effusion, or pneumothorax. No pleural abnormalities are se en. No acute bony abnormalities. IMPRESSION: No acute in trathoracic abnormalities. SL: SUSAN at 1903 Reported and signed by: Chris Angelo M.D. CC: Dre Cazares MD Technologist: RT Celestino(Mackenzie) Trnscrd Date/Time/By: 03/03/2018 (1902) : By: [email or web address] Orig Print D/T: S: 03/03/2018 (1906) PAGE 1 Signed Report
--- OUTSIDE RECORDS SUMMARY | 2019-06-17 04:49 | XMS REPORT | Clinical Summary ---
Author Author [facility] ict Organization [facility] ict Address Unknown Phone Unavailable Care Team Providers Care Client Director Name Role Phone Zachariah Blas MD PCP Allergies Comments Active Allergy Reactions Severity Noted Date Bleeding Ibuprofen Other 09/05/2017 bleeding Naproxen Other 09/05/2017 All nsaids cause GI bleeding per patient Nsaids (Non-Steroidal Other 12/03/2017 Anti-Inflammatory Drug) Tramadol Other 09/05/2017 Medications End Date Status Medication Sig Dispensed Refills Start Date Active Diclofenac Sodium 1 % Gel APPLY TO 3 11/10 AFFECTED 8 AREAS TWICE A DAY Active hydrOXYzine (ATARAX) 50 0 mg tablet 0 Active clonazePAM (KLONOPIN) 2 0 mg tablet 0 Active FETZIMA 80 mg Cs24 0 0 Active sucralfate (CARAFATE) 100 Take 10 mL by 420 mL 0 mg/mL oral mouth 4 times 0 suspensionIndications: daily. GERD without esophagitis Active acetaminophen-codeine Take 1 tablet 90 tablet 1 (TYLENOL/CODEINE #3) by mouth 3 0 300-30 mg per times daily tabletIndications: For pain.. Rheumatoid arthritis, involving unspecified site, unspecified rheumatoid factor presence, Ankylosing spondylitis, unspecified site of spine Active levETIRAcetam (KEPPRA) Take 1 tablet 180 tablet 1 0 750 mg tabletIndications: by mouth 2 0 Grand mal seizure times daily For seizures. Active DEPAKOTE 250 mg delayed Take 3 540 tablet 1 release tablets by 0 tabletIndications: Grand mouth 2 times mal seizure daily For seizure control. Active Omeprazole 40 mg Take 1 90 capsule 1 capsuleIndications: H/O: capsule by 0 GI bleed mouth daily For acid reflux. Active folic acid (FOLVITE) 1 mg Take 1 tablet 90 tablet 1 tabletIndications: Folic by mouth 0 acid deficiency daily. Active magnesium oxide 200 mg Take 200 mg 60 tablet 1 magnesium TabIndications: by mouth 2 0 Low magnesium level times daily. 05/25/2019 Discontinued (Therapy comple anne-marie) fenofibrate (LOFIBRA) 160 Take 160 mg 1 11/11 2/201 mg tablet by mouth 8 daily. 03/22/2019 Discontinued (Reorder) clonazepam (KLONOPIN OR) Take by 0 mouth. 07/09/2018 Discontinued (Reorder) acetaminophen-codeine Take 1 tablet 90 tablet 0 (TYLENOL/CODEINE #3) by mouth 3 9 300-30 mg per times daily tabletIndications: For pain. Rheumatoid arthritis, involving unspecified site, unspecified rheumatoid factor presence, Ankylosing spondylitis, unspecified site of spine 09/25/2018 Discontinued (Reorder) DEPAKOTE 250 mg delayed Take 3 180 tablet 0 release tablets by 9 tabletIndications: Grand mouth 2 times mal seizure daily. 10/20/2018 Discontinued (Reorder) levETIRAcetam (KEPPRA) Take 1 tablet 180 tablet 1 0 750 mg tabletIndications: by mouth 2 9 Grand mal seizure times daily. 03/22/2019 Discontinued (Reorder) Omeprazole 40 mg Take 1 30 capsule 3 capsuleIndications: H/O: capsule by 9 GI bleed mouth daily. 07/09/2018 Discontinued (Reorder) acetaminophen-codeine Take 1 tablet 90 tablet 0 (TYLENOL/CODEINE #3) by mouth 3 9 300-30 mg per times daily tabletIndications: For pain. Rheumatoid arthritis, involving unspecified site, unspecified rheumatoid factor presence, Ankylosing spondylitis, unspecified site of spine 07/31/2018 Discontinued (Reorder) acetaminophen-codeine Take 1 tablet 90 tablet 0 (TYLENOL/CODEINE #3) by mouth 3 9 300-30 mg per times daily tabletIndications: For pain. Rheumatoid arthritis, involving unspecified site, unspecified rheumatoid factor presence, Ankylosing spondylitis, unspecified site of spine 09/01/2018 Discontinued (Reorder) acetaminophen-codeine Take 1 tablet 90 tablet 0 (TYLENOL/CODEINE #3) by mouth 3 9 300-30 mg per times daily tabletIndications: For pain. Rheumatoid arthritis, involving unspecified site, unspecified rheumatoid factor presence, Ankylosing spondylitis, unspecified site of spine 10/20/2018 Discontinued (Reorder) acetaminophen-codeine Take 1 tablet 60 tablet 1 (TYLENOL/CODEINE #3) by mouth 3 9 300-30 mg per times daily tabletIndications: For pain. Rheumatoid arthritis, involving unspecified site, unspecified rheumatoid factor presence, Ankylosing spondylitis, unspecified site of spine 10/20/2018 Discontinued (Reorder) DEPAKOTE 250 mg delayed Take 3 180 tablet 0 release tablets by 9 tabletIndications: Grand mouth 2 times mal seizure daily. 12/15/2018 Discontinued (Reorder) levETIRAcetam (KEPPRA) Take 1 tablet 180 tablet 1 0 750 mg tabletIndications: by mouth 2 9 Grand mal seizure times daily. 03/22/2019 Discontinued (Reorder) DEPAKOTE 250 mg delayed Take 3 180 tablet 0 release tablets by 9 tabletIndications: Grand mouth 2 times mal seizure daily. 12/07/2018 Discontinued (Reorder) acetaminophen-codeine Take 1 tablet 60 tablet 1 (TYLENOL/CODEINE #3) by mouth 3 9 300-30 mg per times daily tabletIndications: For pain. Rheumatoid arthritis, involving unspecified site, unspecified rheumatoid factor presence, Ankylosing spondylitis, unspecified site of spine 02/16/2019 Discontinued acetaminophen-codeine Take 1 tablet 60 tablet 1 (TYLENOL/CODEINE #3) by mouth 3 9 300-30 mg per times daily tabletIndications: For pain. No Rheumatoid arthritis, refills until involving unspecified Pain site, unspecified Contract.. rheumatoid factor presence, Ankylosing spondylitis, unspecified site of spine 03/22/2019 Discontinued (Reorder) levETIRAcetam (KEPPRA) Take 1 tablet 180 tablet 1 1 750 mg tabletIndications: by mouth 2 9 Grand mal seizure times daily. 03/22/2019 Discontinued (Reorder) acetaminophen-codeine Take 1 tablet 60 tablet 1 (TYLENOL/CODEINE #3) by mouth 3 0 300-30 mg per times daily tabletIndications: For pain. No Rheumatoid arthritis, refills until involving unspecified Pain site, unspecified Contract.. rheumatoid factor presence, Ankylosing spondylitis, unspecified site of spine 05/25/2019 Discontinued (Therapy comple anne-marie) mirtazapine (REMERON) 15 0 mg tablet 0 05/25/2019 Discontinued (Therapy comple anne-marie) busPIRone (BUSPAR) 7.5 mg 0 tablet 0 05/25/2019 Discontinued (Therapy comple anne-marie) losartan (COZAAR) 50 mg 0 tablet 0 05/25/2019 Discontinued (Reorder) acetaminophen-codeine Take 1 tablet 60 tablet 0 (TYLENOL/CODEINE #3) by mouth 3 0 300-30 mg per times daily tabletIndications: For pain. Rheumatoid arthritis, Four week involving unspecified transition site, unspecified medication rheumatoid factor until Pain presence, Ankylosing management spondylitis, unspecified provider. site of spine 05/25/2019 Discontinued (Reorder) levETIRAcetam (KEPPRA) Take 1 tablet 180 tablet 1 0 750 mg tabletIndications: by mouth 2 0 Grand mal seizure times daily. 05/25/2019 Discontinued (Reorder) DEPAKOTE 250 mg delayed Take 3 180 tablet 0 release tablets by 0 tabletIndications: Grand mouth 2 times mal seizure daily. 05/25/2019 Discontinued (Reorder) Omeprazole 40 mg Take 1 30 capsule 3 capsuleIndications: H/O: capsule by 0 GI bleed mouth daily. 05/25/2019 Discontinued (Reorder) folic acid (FOLVITE) 1 mg Take 1 tablet 90 tablet 1 tabletIndications: Folic by mouth 0 acid deficiency daily. 05/25/2019 Discontinued (Reorder) magnesium oxide 200 mg Take 200 mg 60 tablet 1 magnesium TabIndications: by mouth 2 0 Low magnesium level times daily. 05/25/2019 Discontinued (Reorder) folic acid (FOLVITE) 1 mg Take 1 tablet 90 tablet 1 tabletIndications: Folic by mouth 0 acid deficiency daily. 05/25/2019 Discontinued (Reorder) magnesium oxide 200 mg Take 200 mg 60 tablet 1 magnesium TabIndications: by mouth 2 0 Low magnesium level times daily. Active Problems Problem Noted Date Hyperlipidemia 04/26/2019 Macrocytic anemia 04/26/2019 History of bilateral hip replacements 06/10/2018 History of carpal tunnel surgery 06/10/2018 History of appendectomy 06/10/2018 H/O: GI bleed 06/10/2018 Bilateral primary osteoarthritis of knee 06/10/2018 Overweight (BMI 25.0-29.9) 12/03/2017 Smoker 12/03/2017 (ankylosing spondylitis) - HLA B27 p os - subsequent cervical spine fusion Rheumatoid arthritis Grand mal seizure Gastroesophageal reflux disease Family history of colon cancer Overview: grandma Depression Anxiety ESR raised Hyponatremia Encounters Care Team Description Date Type Specialty Yoko Birch MD Anemia, unspecified type (Primary Dx); Folic acid deficiency; Hyponatremia; Ankylosing spondylitis, unspecified site of spine; H/O: GI bleed; Bilateral primary osteoarthritis of knee; Rheumatoid arthritis, involving unspecified site, unspecified rheumatoid factor presence; Gastroesophageal reflux disease, esophagitis presence not specified 06/04/2019 Telephonic Family Practice Encounter Yoko Birch MD Anemia, unspecified type (Primary Dx); Folic acid deficiency; Hyponatremia; Ankylosing spondylitis, unspecified site of spine; Grand mal seizure; Family history of colon cancer; H/O: GI bleed; Bilateral primary osteoarthritis of knee; Rheumatoid arthritis, involving unspecified site, unspecified rheumatoid factor presence; Gastroesophageal reflux disease, esophagitis presence not specified; Smoker; Low magnesium level 05/25/2019 Telephonic Family Practice Encounter Sharlene Matta, RN 05/21/2019 Nurse Triage Zachariah Blas Jr., MD Rheumatoid arthritis, involving unspecif ied site, unspecified rheumatoid factor presence; Ankylosing spondylitis, unspecified site of spine 05/04/2019 Refill Family Practice Tennille Senior MD Ankylosing spondylitis, unspecified site of spine; Rheumatoid arthritis, involving unspecified site, unspecified rheumatoid factor presence 04/27/2019 Ancillary Radiology Procedure Tennille Senior MD Macrocytic anemia (Primary Dx); Hyperlipidemia, unspecified hyperlipidemia type; Ankylosing spondylitis, unspecified site of spine; Rheumatoid arthritis, involving unspecified site, unspecified rheumatoid factor presence; Tachycardia; History of seizure disorder; Hyponatremia 04/27/2019 Office Visit [facility] Zachariah Tinoco Jr., MD Rheumatoid arthritis, involving unspecif ied site, unspecified rheumatoid factor presence; Ankylosing spondylitis, unspecified site of spine 04/26/2019 Refill [facility] Zachariah Tinoco Jr., MD Preventative health care (Primary Dx); Pain management contract agreement; Need for vaccination; Ankylosing spondylitis, unspecified site of spine; Rheumatoid arthritis, involving unspecified site, unspecified rheumatoid factor presence; Grand mal seizure; H/O: GI bleed; GERD without esophagitis 03/22/2019 Office Visit [facility] Zachariah Tinoco Jr., MD Rheumatoid arthritis, involving unspecif ied site, unspecified rheumatoid factor presence; Ankylosing spondylitis, unspecified site of spine 02/16/2019 Refill [facility] Zachariah Tinoco Jr., MD Grand mal seizure 12/11/2018 Refill [facility] Zachariah Tinoco Jr., MD Rheumatoid arthritis, involving unspecif ied site, unspecified rheumatoid factor presence; Ankylosing spondylitis, unspecified site of spine 12/07/2018 Refill [facility] Zachariah Tinoco Jr., MD Preventative health care 10/20/2018 Lab Appointment Lab Zachariah Blas Jr., MD Hyponatremia (Primary Dx); Grand mal seizure; Rheumatoid arthritis, involving unspecified site, unspecified rheumatoid factor presence; Ankylosing spondylitis, unspecified site of spine; Preventative health care 10/20/2018 Office Visit [facility] Zachariah Tinoco Jr., MD Rheumatoid arthritis, involving unspecif ied site, unspecified rheumatoid factor presence; Ankylosing spondylitis, unspecified site of spine 10/14/2018 Refill [facility] Yoko Birch MD Grand mal seizure 09/25/2018 Refill [facility] Zachariah Tinoco Jr., MD Rheumatoid arthritis, involving unspecif ied site, unspecified rheumatoid factor presence; Ankylosing spondylitis, unspecified site of spine 09/01/2018 Refill [facility] Zachariah Tinoco Jr., MD Rheumatoid arthritis, involving unspecif ied site, unspecified rheumatoid factor presence; Ankylosing spondylitis, unspecified site of spine 07/31/2018 Refill [facility] Zachariah Tinoco Jr., MD Rheumatoid arthritis, involving unspecif ied site, unspecified rheumatoid factor presence; Ankylosing spondylitis, unspecified site of spine 07/08/2018 Refill Family Practice Maria E Hernandez RN Rheumatoid arthritis, involving unspecif ied site, unspecified rheumatoid factor presence; Ankylosing spondylitis, unspecified site of spine 07/07/2018 Refill Family Practice after 06/16/2018 Immunizations Name Administration Dates Next Due Influenza, Injectable, 03/22/2019 Quadrivalent Family History Medical History Relation Name Comments Hypertension Father Lipids Father Anxiety disorder Mother Carpal tunnel syndrome Mother Depression Mother Hypertension Mother Osteoarthritis Mother Colon cancer Paternal Grandmother Relation Name Status Comments Brother Alive Brother Alive Brother Alive Brother Alive Brother Alive Father Alive Maternal Grandfather Maternal Grandmother Mother Alive Paternal Grandfather Alive Paternal Grandmother Sister Alive Sister Alive Sister Alive Social History Date Tobacco Use Types Packs/Day Years Used Former Smoker Cigarettes Smokeless Tobacco: Never Used Tobacco Cessation: Ready to Quit: No; Co unseling Given: Yes Drinks/Week oz/Week Comments Alcohol Use No Food Insecurity Answer Date Recorded Within the past 12 months, you worried that your Never henrique e 12/03/2017 food would run out before you got money to buy more. Within the past 12 months, the food you bought Never true 12/03/2017 just didn't last and you didn't have mo fior to get more. Sex Assigned at Date Recorded Not on file Industry Job Start Date Occupation Not on file Not on file Not on file Travel End Travel History Travel Start No recent travel history available. Date Recorded COVID-19 Exposure Response 05/25/2019 9:33 AM CDT In the last month, have you been in contact with No / Unsure someone who was confirmed or suspected to have Coronavirus / COVID-19? Last Filed Vital Signs Reading Time Taken Comments Vital Sign 137/89 04/27/2019 3:55 PM CDT Blood Pressure 104 04/27/2019 3:55 PM CDT Pulse 36.9 C (98.4 F) 04/27/2019 3:55 PM CDT Temperature 18 04/27/2019 1:57 PM CDT Respiratory Rate 100% 04/27/2019 3:55 PM CDT room air Oxygen Saturation - - Inhaled Oxygen Concentration 62.6 kg (138 lb) 04/27/2019 1:57 PM CDT Weight 165.1 cm (5' 5") 06/04/2019 2:40 PM CDT Height 22.96 04/27/2019 1:57 PM CDT Body Mass Index Plan of Treatment Care Team Description Date Type Specialty Ref#[id number] 07/26/2019 Office Visit Rheumatology Angela Shailesh Rosenberg, Resident[address] [address] Ref #: [id number] 07/28/2019 Office Visit Neurology Referral #: [id number] 10/04/2019 Office Visit Hematology Health Maintenance Due Date Last Done Comments IMM Influenza Seasonal 11/11/2019 03/22/2019 Oct to April (>/= 19 yrs) Procedures Comments Procedure Name Priority Date/Time Associated Diag nosis VALPROIC ACID Add-on 04/27/2019 History of seiz ure 4:25 PM CDT disorder MAGNESIUM Add-on 04/27/2019 History of seiz ure 4:25 PM CDT disorder LEVETIRACETAM Add-on 04/27/2019 History of seiz ure 4:25 PM CDT disorder CREATININE POC Routine 04/27/2019 4:10 PM CDT POC BMP - IN LAB (STAT) Routine 04/27/2019 Tachyc ardia 4:01 PM CDT HGB/HCT Stat 04/27/2019 Tachycardia Add-On 4:01 PM CDT BMP POC Routine 04/27/2019 3:59 PM CDT GLUCOSE POC Routine 04/27/2019 3:57 PM CDT DIFFERENTIAL, MANUAL-WAM Routine 04/27/2019 Macro cytic anemia 3:25 PM CDT URINALYSIS Routine 04/27/2019 Tachycardia 3:25 PM CDT URINALYSIS Routine 04/27/2019 Tachycardia 3:25 PM CDT URINE DRUG SCREEN Routine 04/27/2019 Tachycardia 3:25 PM CDT URIC ACID Routine 04/27/2019 Ankylosing spon dylitis, 3:25 PM CDT unspecified site of spine Rheumatoid arthritis, involving unspecified site, unspecified rheumatoid factor presence CCP IGG ABS Routine 04/27/2019 Ankylosing spon dylitis, 3:25 PM CDT unspecified site of spine Rheumatoid arthritis, involving unspecified site, unspecified rheumatoid factor presence COMPLEMENT C3 Routine 04/27/2019 Ankylosing spon dylitis, 3:25 PM CDT unspecified site of spine Rheumatoid arthritis, involving unspecified site, unspecified rheumatoid factor presence COMPLEMENT C4 Routine 04/27/2019 Ankylosing spon dylitis, 3:25 PM CDT unspecified site of spine Rheumatoid arthritis, involving unspecified site, unspecified rheumatoid factor presence CREATINE KINASE (CK) Routine 04/27/2019 Ankylosin g spondylitis, 3:25 PM CDT unspecified site of spine Rheumatoid arthritis, involving unspecified site, unspecified rheumatoid factor presence RA FACTOR Routine 04/27/2019 Ankylosing spon dylitis, 3:25 PM CDT unspecified site of spine Rheumatoid arthritis, involving unspecified site, unspecified rheumatoid factor presence SHRUTI Routine 04/27/2019 Ankylosing spon dylitis, 3:25 PM CDT unspecified site of spine Rheumatoid arthritis, involving unspecified site, unspecified rheumatoid factor presence THYROID STIMULATING Routine 04/27/2019 Tachycardi a HORMONE (TSH) 3:25 PM CDT CBC Routine 04/27/2019 Macrocytic anem ia 3:25 PM CDT CBC/DIFF Routine 04/27/2019 Macrocytic anem ia 3:25 PM CDT COMPREHENSIVE METABOLIC Routine 04/27/2019 Hyperl ipidemia, PANEL 3:25 PM CDT unspecified hyperlipidemia type FOLIC ACID Routine 04/27/2019 Macrocytic anem ia 3:25 PM CDT VITAMIN B12 Routine 04/27/2019 Macrocytic anem ia 3:25 PM CDT FERRITIN Routine 04/27/2019 Macrocytic anem ia 3:25 PM CDT RETIC COUNT Routine 04/27/2019 Macrocytic anem ia 3:25 PM CDT IRON PROFILE Routine 04/27/2019 Macrocytic anem ia 3:25 PM CDT ECHG EKG PROC 12 LEAD Routine 04/27/2019 Tachycar quynh EKG; TRACING ONLY 3:02 PM CDT BMP POC Routine 10/20/2018 4:07 PM CDT DIFFERENTIAL, MANUAL-WAM Routine 10/20/2018 Preve ntative health care 4:07 PM CDT CBC Routine 10/20/2018 Preventative he alth care 4:07 PM CDT CBC/DIFF Routine 10/20/2018 Preventative he alth care 4:07 PM CDT SED RATE Routine 10/20/2018 Health care matheus ntenance 4:07 PM CDT URINE DRUG SCREEN Routine 10/20/2018 Preventative health care 4:05 PM CDT LIPID PROFILE Routine 10/20/2018 Preventative he alth care 4:02 PM CDT C-REACTIVE PROTEIN HIGH Routine 10/20/2018 [facility] health care SENSITIVITY (CRP-HS) 4:02 PM CDT after 06/16/2018 Results * Levetiracetam (04/27/2019 4:25 PM CDT) Levetiracetam, 44.8 (>) 10.0 - 40.0 ug/mL BT [facility] Comment: This test was developed and its performance characteristics determined by [facility]. It has not been cleared or approved by the Food and Drug Administration. Specimen Blood Narrative Performed At Performed at: 01 - [facility] [address] [place] [id number] Director Safety: Aditi Kang MD, Phone : [phone] Performing Organization Address [facility] one Number [facility] [address] [place] [address] * Valproic Acid (04/27/2019 4:25 PM CDT) Pathologist [facility] [place] Valproic Acid 115.6 (H) 50.0 - 100.0 ug/mL [facility] Specimen Blood Performing Organization Address [facility] one Number [facility] [address] [place] [address] * Magnesium (04/27/2019 4:25 PM CDT) [facility] Magnesium 1.5 (L) 1.9 - 2.7 mg/dL [facility] Specimen Blood Performing Organization Address [facility] one Number [facility] [address] [place], [place] [id number] * POCT CREATININE POC docked device (04/27/2019 4:10 PM CDT) [facility] Creatinine POC 1.0 0.6 - 1.3 mg/dL [facility] GFR, Estimated >90 >=90 mL/min/1.73 m2 [facility] Specimen Blood, venous Performing Organization [facility] one Number [facility] * POC BMP - In Lab (STAT) (04/27/2019 4:01 PM CDT) [facility] Hold Specimen Complete [facility] Specimen Blood Performing Organization Address [facility] one Number [facility] * Hgb/Hct (04/27/2019 4:01 PM CDT) [facility] Hemoglobin 11.1 (L) 14.0 - 18.0 g/dL [facility] Hematocrit 33.9 (L) 40.0 - 54.0 % [facility] Specimen Blood Performing Organization [facility] one Number [facility] * POCT BMP POC docked device (04/27/2019 3:59 PM CDT) Only the most recent of 2 results within the time period is included. [facility] [place] Sodium POC 124 (L) 136 - 145 mmol/L [facility] Potassium POC 3.7 3.5 - 5.1 mmol/L [facility] Chloride POC 91 (L) 98 - 107 mmol/L [facility] TCO2 POC 24 21 - 32 mmol/L [facility] Urea Nitrogen 4 (L) 7 - 18 mg/dL [facility] POC Glucose POC 74 74 - 106 mg/dL [facility] Specimen Blood, venous Performing Organization Address [facility]/Count Includes [facility] one Number [facility] * POCT GLUCOSE POC docked device (04/27/2019 3:57 PM CDT) [facility] Glucose POC 74 74 - 106 mg/dL [facility] Specimen Blood Performing Organization Address [facility]/Count Includes [facility] one Number [facility] * CBC/Diff (04/27/2019 3:25 PM CDT) Only the most recent of 2 results within the time period is included. [facility] WBC 8.6 4.5 - 12.0 K/uL [facility] RBC 3.73 (L) 4.60 - 6.20 M/uL [facility] Hemoglobin 10.9 (L) 14.0 - 18.0 g/dL [facility] Hematocrit 34.2 (L) 40.0 - 54.0 % [facility] MCV 91.7 82.0 - 92.0 fL [facility] MCH 29.2 27.0 - 31.0 pg [facility] MCHC 31.9 (L) 32.0 - 36.0 g/dL [facility] RDW 66.0 (H) 35.1 - 43.9 fL [facility] Platelet 517 (H) 150 - 400 K/uL [facility] Mean Platelet 9.5 9.4 - 12.4 fL [facility] Percent NRBC 0.0 % [facility] Absolute NRBC 0.00 K/uL [facility] Specimen Blood Performing Organization Address [facility]/Count Includes [facility] one Number [facility] [address] [place] [address] * Differential, Manual (04/27/2019 3:25 PM CDT) Only the most recent of 2 results within the time period is included. [facility] Neutrophil 43.0 34.0 - 67.9 % [facility] Lymphs 52.0 (H) 21.8 - 50.0 % [facility] Monocytes 4.0 (L) 5.3 - 12.0 % [facility] Eos 0.0 (L) 0.8 - 5.0 % [facility] Basos 0.0 (L) 0.2 - 1.2 % [facility] Myelocyte 1.0 % [facility] Neutrophils 3.69 1.78 - 5.36 K/uL [facility] Lymphs 4.47 (H) 1.32 - 3.57 K/uL [facility] Monocytes(Absol 0.34 0.30 - 0.82 K/uL [facility]e) [facility] Eos (Absolute) 0.00 (L) 0.04 - 0.54 K/uL [facility] Baso (Absolute) 0.00 (L) 0.01 - 0.08 K/uL [facility] Vacuolated Gran 1+ (A) None seen [facility] Platelet Clumps Present (A) None seen [facility] Cells Counted [facility] Specimen Blood Performing Organization Address City[facility] one Number [facility] [address] [place] [address] [phone] * Urinalysis (04/27/2019 3:25 PM CDT) [facility] Color Yellow Colorless, Straw, [facility] Clarity Clear Clear [facility] Spec [place], >1.035 (H) 1.001 - 1.035 [facility] pH, Ur 5.0 5.0 - 8.0 [facility] Protein, Ur 1+ (A) Negative mg/dL [facility] Glucose, Ur Negative Negative mg/dL [facility] Ketone, Ur Negative Negative mg/dL [facility] Bilirubin, Ur Negative Negative mg/dL [facility] Nitrite, Ur Negative Negative [facility] Leukocyte Negative Negative mg/dL [facility] Blood, Ur Negative Negative mg/dL [facility] WBC 1 0 - 5 /HPF [facility] Hyaline Cast 3 (H) 0 - 2 /LPF [facility] Urobilinogen, <1.0 <1.0 EU/dL [facility] Specimen Urine - Clean Catch [place] Performing Organization Address [facility]/Count Includes [facility] one Number [facility] [address] [place] [address] * Comprehensive Metabolic Panel (04/27/2019 3:25 PM CDT) Sodium 124 (L) 136 - 145 mmol/L [facility] Potassium 4.7 3.5 - 5.1 mmol/L [facility] Chloride 89 (L) 98 - 107 mmol/L [facility] CO2 24 21 - 31 mmol/L [facility] Glucose 73 70 - 110 mg/dL [facility] Calcium 9.6 8.6 - 10.3 mg/dL [facility] Urea Nitrogen 5.0 (L) 7.0 - 25.0 mg/dL [facility] Creatinine 0.8 0.7 - 1.3 mg/dL [facility] Alkaline 114 (H) 34 - 104 U/L [facility] Phosphatase [facility] ALT 5 (L) 7 - 52 U/L [facility] AST 11 (L) 13 - 39 U/L [facility] Bilirubin, 0.4 0.2 - 1.2 mg/dL [facility] Total [facility] Total Protein 8.3 6.0 - 8.3 g/dL [facility] GFR, Estimated >90 >=90 mL/min/1.73 m2 [facility] Albumin 4.1 (L) 4.2 - 5.5 g/dL [facility] Anion Gap 11 5 - 16 mmol/L [facility] Specimen Blood Performing Organization Address [facility] one Number [facility] [address] [place] [address] [phone] * CCP Anitbodies IgG & IgA (04/27/2019 3:25 PM CDT) CCP Antibodies 10 0 - 19 units [facility] IgG/IgA Comment: Negative <20 Weak positive 20 - 39 Moderate positive 40 - 59 Strong positive >59 Specimen Blood Narrative Performed At Performed at: 01 - [facility] [address] [place] [id number] Director Safety: Aditi Kang MD, Phone : [phone] Performing Organization Address [facility]/Count Includes [facility] one Number [facility] [address] [place] [address] * TSH [Thyroid Stimulating Hormone] (04/27/2019 3:25 PM CDT) [facility] TSH 1.62 0.45 - 5.33 uIU/mL [facility] Specimen Blood Performing Organization Address [facility] one Number [facility] [address] [place] [address] * Folic Acid (04/27/2019 3:25 PM CDT) [facility] Folic Acid 4.7 (L) 5.9 - 24.8 ng/mL [facility] Specimen Blood Performing Organization Address [facility] one Number [facility] [address] [place] [phone] * Ferritin (04/27/2019 3:25 PM CDT) [facility] Ferritin 173.5 23.9 - 336.2 ng/mL [facility] Specimen Blood Performing Organization Address [facility] one Number [facility] [address] [employer], [place] [phone] * Vitamin B12 (04/27/2019 3:25 PM CDT) [facility] Vitamin B12 468 See comment pg/mL [facility] Comment: [facility] Normal: 180-914 pg/mL Intermittent: 145-180 pg/mL Deficient: <=145.0 pg/mL Specimen Blood Performing Organization Address [facility] one Number [facility] [address] [place] [address] [phone] * Uric Acid (04/27/2019 3:25 PM CDT) [facility] Uric Acid 4.1 (L) 4.4 - 7.6 mg/dL [facility] Specimen Blood Performing Organization Address [facility] one Number [facility] [address] [place] [phone] * Urine Drug Screen (04/27/2019 3:25 PM CDT) Only the most recent of 2 results within the time period is included. [facility] Opiate, Ur Negative Negative [facility]: [facility] Calibrated Standard: Morphine Positive if urine level > or = 300 ng/dL Amphetamine Negative Negative [facility] Comment: [facility] Calibrated Standard: D-Methamphetamine Positive if urine level > or = 1000 ng/mL Barbiturate Negative Negative [facility]: [facility] Calibrated Standard: Secobarbital Positive if urine level is > or = 200 ng/mL Benzodiazepine Negative Negative [facility]: [facility] Calibrated Standard: Lormethazepam Positive if urine level is > or = 200 ng/mL Cocaine Negative Negative [facility] Comment: [facility] Calibrated Standard: Benzoylecgonine Positive if urine level > or = 300 ng/dL PCP Negative Negative [facility]: [facility] Calibrated Standard: Phencyclidine Positive if urine level > or = 25 ng/dL Cannabinoid Negative Negative [facility] Comment: [facility] Calibrated Standard: 11 nor-delta(9)-THC carboxylic acid Positive if urine level > or = 50 ng/mL Specimen Urine - Voided, urine Performing Organization Address [facility] one Number [facility] [address] [place] [address] * Retic Count (04/27/2019 3:25 PM CDT) Retic Count 3.83 (H) 0.50 - 1.80 % [facility] Immature Retic 23.2 (H) 2.3 - 13.4 % [facility] Ret Hgb 32.7 30.8 - 36.6 pg [facility] Absolute Retic 0.140 (H) 0.026 - 0.095 M/uL [facility] Specimen Blood Performing Organization Address [facility] one Number [facility] [address] [place] [address] * RA Factor (04/27/2019 3:25 PM CDT) RA <10 <14 IU/mL [facility] Specimen Blood Performing Organization Address [facility] one Number [facility] [address] [place] [address] * Iron Profile (04/27/2019 3:25 PM CDT) Iron 116 50 - 212 ug/dL [facility] TIBC 367 250 - 450 ug/dL [facility] % Iron Sat 32 % [facility] Transferrin 261.85 203.00 - 362.00 [facility] mg/dL [facility] Specimen Blood Performing Organization Address [facility]/Count Includes [facility] one Number [facility] [address] [place] [address] * CK [Creatinine Kinase] (04/27/2019 3:25 PM CDT) CK 52 30 - 223 U/L [facility] Specimen Blood Performing Organization Address [facility] one Number [facility] [address] [place] [address] * Complement C4 (04/27/2019 3:25 PM CDT) Complement C4 41.8 19.0 - 52.0 mg/dL [facility] Specimen Blood Performing Organization Address [facility] one Number [facility] [address] [place] [address] [phone] * Complement C3 (04/27/2019 3:25 PM CDT) Complement C3 175.3 87.0 - 200.0 mg/dL [facility] Specimen Blood Performing Organization Address [facility] one Number [facility] [address] [place] [address] [phone] * SHRUTI (04/27/2019 3:25 PM CDT) SHRUTI Screen Negative Negative [facility] Specimen Blood Performing Organization Address [facility] one Number [facility] [address] [place] [address] * 12 LEAD EKG (04/27/2019 3:02 PM CDT) 12 LEAD EKG FOR [facility] Test Date: 2019-04-27 Pat Name: CHARLOTTE ARCHIBALD Department: [id number] Room: Gender: M Perfumer: [id number] [address] LAU : 1980 Requested By: TENNILLE SENIOR Order Number: [id number] Reading MD: Margo Bhandari MD Measurements Intervals [place] Rate: 93 P: 61 MT: 146 QRS: 68 QRSD: 75 T: 69 QT: 341 QTc: 424 Interpretive Statements SINUS RHYTHM Electronically Signed On 04-27-2019 16:34:11 CDT by Margo Bhandari MD Specimen Performing Organization Address [facility]/Count Includes [facility] one Number SMS * SED Rate (10/20/2018 4:07 PM CDT) Sed Rate 57 (H) 0-<15 mm/Hr [facility] Specimen Blood Performing Organization Address [facility]/Count Includes [facility] one Number [facility] [address] [place] [address] * CRP (High Sensitivity) (10/20/2018 4:02 PM CDT) CRP, High 71.2 (H) <1.0 mg/L [facility] Sensitivity [facility] Specimen Blood Performing Organization Address [facility]/Count Includes [facility] one Number [facility] [address] [place] [address] * Lipid Profile (10/20/2018 4:02 PM CDT) Cholesterol 89.0 <=200.0 mg/dL [facility] Triglyceride 234 (H) <150 mg/dL [facility] HDL 26.0 See Reference Range [facility] Narrative. mg/dL [facility] LDL 16 <100 mg/dL [facility] Comment: [facility] Optimal: < 100.0 mg/dL Near Optimal: 120-129 mg/dL Borderline: 130-159 mg/dL High: 160-189 mg/dL Very High: >=190 mg/dL Patient No [facility] Fasting? [facility] Specimen Blood Narrative Performed At Patient is not fasting. For a triglyceride result gre ater than 440 mg/dL, [facility] consider re-testing when the patient is in a fasting state. Performing Organization Address [facility]/Count Includes [facility] one Number [facility] [address] [place] [address] after 06/16/2018 Insurance Type Payer Benefit Subscriber ID Effective Phone Address Plan / Dates Group [facility] xxxxxxxxx 2019-2 [address] [facility] [id number] PLAN [facility] [place] [address]
--- NOTE | 2019-06-17 04:50 | Diagnostic Imaging Report ---
EXAM: CT Abdomen and Pelvis WITH contrast INDICATION: Abdominal pain COMPARISON: None. TECHNIQUE: Abdomen and pelvis were scanned utilizing a multidetector helical scanner from the lung base to the pubic symphysis after administration of IV contrast. Coronal and sagittal reformations were obtained. Routine protocol was performed. Scan was performed when during portal venous phase. IV CONTRAST: 100 mL of Isovue 370 ORAL CONTRAST: Gastrografin COMPLICATIONS: None RADIATION DOSE: Total DLP: 421 mGy*cm Estimated effective dose: (DLP x 0.015 x size factor) mSv CTDIvol has been reviewed. It is below the limits set by the Radiation Protocol Committee (RPC). Dose modulation, iterative reconstruction, and/or weight based adjustment of the mA/kV was utilized to reduce the radiation dose to as low as reasonably achievable. FINDINGS: LINES and TUBES: None. LOWER THORAX: Unremarkable HEPATOBILIARY: No focal hepatic lesions. No biliary ductal dilation. GALLBLADDER: No radio-opaque stones or sludge. No wall thickening. SPLEEN: No splenomegaly. PANCREAS: Mild peripancreatic fat stranding. No focal masses or ductal dilatation. ADRENALS: No adrenal nodules KIDNEYS/URETERS: Kidneys enhance symmetrically. No hydronephrosis. No cystic or solid mass lesions. No stones. GI TRACT: No abnormal distention, wall thickening, or evidence of bowel obstruction. Appendix is not clearly identified. There is however no fat stranding or adenopathy in the right lower quadrant to suggest appendicitis. PELVIC ORGANS/BLADDER: Unremarkable. LYMPH NODES: No lymphadenopathy. VESSELS: Unremarkable. PERITONEUM / RETROPERITONEUM: No free air or fluid. BONES: Intact bilateral metallic hip arthroplasty hardware. SOFT TISSUES: Unremarkable. IMPRESSION: Acute interstitial edematous pancreatitis. Signed by: Domenico Espino DO on 06/17/2019 4:47 AM
[2019-06-17] MEDS ORDERED: DEPAKOTE250 MG PO (05:03)
[2019-06-17] MEDS ORDERED: CLONAZEPAM2 MG PO (05:07)
[2019-06-17] MEDS ORDERED: HYDROXYZINE HCL50 MG PO (05:07)
[2019-06-17] MEDS ORDERED: LEVETIRACETAM750 MG PO (05:07)
[2019-06-17] MEDS ORDERED: FETZIMA80 MG PO (05:07)
[2019-06-17] MEDS ORDERED: ONDANSETRON HCL4 MG PO (05:07)
[2019-06-17] MEDS ORDERED: TYLENOL # 31 EA PO (05:07)
[2019-06-17] MEDS ORDERED: OMEPRAZOLE40 MG PO (05:07)
[2019-06-17] MEDS ORDERED: DICLOFENAC SOD100 GM TOP (05:07)
[2019-06-17] MEDS: ONDANSETRON HCL INJ 2MG/ML 2ML 2 MG/ML VIAL IV PRN ×3 (06:26→19:28)
[2019-06-17] MEDS: CHLORDIAZEPOXIDE HCL 25 MG CAP PO SCH ×3 (06:26→18:00)
--- NOTE | 2019-06-17 06:56 | NUR ---
report received from Dre GE
[2019-06-17] MEDS ORDERED: SODIUM CHLORIDE 0.9% 50ML 50 ML ONE (07:49)
[2019-06-17] MEDS ORDERED: IOPAMIDOL 370 MG/ML 200 ML INFUS..BTL INJ ONE (07:50)
[2019-06-17] MEDS: LEVETIRACETAM 500 MG TAB PO SCH ×2 (09:20→17:00)
[2019-06-17] MEDS: PANTOPRAZOLE 40 MG 10ML VIAL IV SCH (09:20)
[2019-06-17] MEDS: DIVALPROEX SODIUM 250 MG TAB...DR PO SCH ×2 (10:32→17:00)
--- NOTE | 2019-06-17 11:15 | NUR ---
RCD PT FROM ER BY BED PT IS ALERT AND ORIENTED VITALS CHECKED PT RESTING ON BED ADMISSION ASSESSMENT HISTORY DONE IV PATENT AND RUNNING 200 ML /HR INSTRUCTED PT HOSPITAL POLICY AND ROUTINE ,AND VISITOR POLICY BED LOW AND LOCKED CALL LIGHT IN REACH
[2019-06-17 11:32] VITALS: BP 123/83
--- NOTE | 2019-06-17 12:19 | NUR ---
Chief complaint: Abdominal pain HPI: Mr. Archibald is a 38-year-old male patient with a past medical history of anemia, GERD, osteoarthritis, seizure disorder, spondylitis, hip replacement surgeries who presented to the emergency department complaining of 1 day of abdominal pain associated with nausea and vomiting that is started after drinking whiskey. The pain was described as diffuse, constant, insidious, not radiated, and very out of 10 in intensity. The pain is not relieved or worsened by anything. The patient denies anorexia, diarrhea, melena, hematemesis, chest pain, palpitations, PND, dysuria, frequency, or focal weakness. Review of system: Constitutional: No fever, no chills. HEENT: Denies headache, no ear pain, no nosebleed, no sore throat. Cardiovascular: Denies chest pain, PND, swelling of the legs, palpitations or blackout spells. Respiratory: Denies cough, hemoptysis or shortness of breath. Gastrointestinal: nausea, vomiting, abdominal pain. Denies diarrhea, hematemesis or melena. Genitourinary: Denies hematuria, frequency or dysuria. Neurologic: Denies convulsive disorders, no focal weakness, no ataxia. Psych: Denies anxiety or depression Skin: No rash. Hematological system: Denies bleeding, no petechia. Musculoskeletal: No significant deformity or swelling of the joints. Past medical history: Social disorder, anemia, GERD, Amy Tritus rheumatoid arthritis, ankylosing spondylitis. Other: Cataracts, glaucoma, depression, anxiety Past surgical history: Hip replacement (2 surgeries) Family history: Noncontributory. Social history: Never smoker. History of EtOH abuse. Physical exam: Vital signs: Blood pressure: 146/99 Heart rate: 87 Respiratory rate: 18 Temperature: 98.1 O2 sat: 100% Constitutional: He is oriented to person, place, and time. He appears well-developed. HEENT: Head: Normocephalic and atraumatic. PERRLA. Cardiovascular: Regular rhythm, no murmurs, no rubs, no gallops. Pulmonary/Chest: Clear bilaterally, no rales, no rhonchi. Abdominal: Soft, diffuse tenderness. Bowel sounds positive and normal. No distention, no guarding, no rebound. No organomegaly. Musculoskeletal: Normal range of motion. Extremities: No edema, no clubbing. Neurological: He is alert and oriented to person, place, and time. Skin: Skin is warm and dry. Psychiatric: He has a normal mood and affect. Laboratory data on 06/17/2019: CBC: WBC: 11.11 RBC: 4.13 Hemoglobin: 13.1 Hematocrit: 38.2 MCV: 92.5 MCH: 31.7 MCHC: 34.3 RDW: 20.2 Platelet count: 510 Neutrophil % (auto): 79.5 Lymphocytes % (auto): 12.1 Monocytes % (auto): 7.1 Eosinophils % (auto): 0.1 Basophils % (auto): 0.5 Neutrophils #(auto): 8.8 Lymphocytes #(auto): 1.3 Monocytes #(auto): 0.8 Eosinophils #(auto): 0.0 Basophils #(auto): 0.1 Abs Immat Gran (auto): 0.08 Chemistry: Sodium: 137 Potassium: 3.2 Chloride: 102 Carbon dioxide: 22 Anion gap: 16.2 BUN: 13 Creatinine: 1.23 Estimated GFR: >60 Glucose: 92 Calcium: 9.4 Total bilirubin: 0.5 AST: 10 ALT: <6 Alkaline Phosphatase: 122 Total protein: 8.6 Albumin:3.2 Globulin: 5.4 Albumin/Globumin Ratio: 0.6 Lipase: 536 Amylase: 500 Potassium: 3.2 Urianalysis: Urine color: [place]. Urine Clarity: Cloudy. Urine PH: 6 Ur specificity : >1.030 Urine Protein: 2+ Urine Glucose: Negative Urine Ketones: Trace Urine Blood: 1+ Urine Nitrite: Negative Urine Bilirubin: Large Urine Urobilinogen: 0.2 Urine Leukocyte Esterase: Negative Urine RBC: 21-50 Urine WBC: 11-20 Urine Ephitelial cells: Few Urine Bacteria: Few. Hyaline Cats: >15. Urine Mucus: Many. Imaging: Abdominal CT on 06/17/2019: Acute interstitial edematous pancreatitis. Assessment: Acute alcoholic pancreatitis Mild hypokalemia Substance abuse Alcohol abuse Nausea and vomiting History of seizure disorder Plan of care: Continue supportive care IV fluids Protonix Antiemetics as needed Continue Keppra Seizure precaution GI consultation-requested
--- NOTE | 2019-06-17 13:39 | NUR ---
DR COBOS RETURNED THE CALL AND INCREASED IV FLUID 150 ML /HR
[2019-06-17 13:53] VITALS: BP 123/83
[2019-06-17] MEDS ORDERED: NALOXONE HCL INJ 0.4 MG/ML AMP IV PRN (14:45)
[2019-06-17 15:43] VITALS: BP 121/80
--- NOTE | 2019-06-17 18:00 | NUR ---
PT IN DEEP SLEEP AND SNORING SO I DIDN'T GIVE ANY PAIN MEDS
--- NOTE | 2019-06-17 18:57 | NUR ---
BEDSIDE SHIFT REPORT RECEIVED FROM DAY RN. PT IS ALERT AND ORIENTED X3. RESPIRATIONS ARE EVEN AND UNLABORED. NS INFUSING AT 100 ML/HR VIA 20 G PIV RT AC. SITE HEALTHY.PT C/ OF PAIN IN ABDOMEN. MEDICATION DECREASE PAIN. NPO. BOWEL SOUNDS PRESENT. VOIDING PER URINAL. PT AMBULATES WITH CANE. HX OF SEIZURES. WILL MEDICATE ORDERED FOR PAIN. CALL LIGHT WITHIN REACH. BED LOCKED AND IN LOW POSITION.
--- NOTE | 2019-06-17 18:57 | NUR ---
PT RESTING ON BED BED SIDE REPORT GIVEN TO ONCOMING NURSE
[2019-06-17] MEDS: HYDROMORPHONE 1MG/1ML INJ IV PRN (19:31)
[2019-06-17 20:00] VITALS: BP 114/87
[2019-06-18] VITALS (8 sets, daily range): BP systolic 100–115; BP diastolic 58–78
[2019-06-18] MEDS: CHLORDIAZEPOXIDE HCL 25 MG CAP PO SCH ×4 (00:17→18:41)
[2019-06-18] MEDS: HYDROMORPHONE 1MG/1ML INJ IV PRN ×6 (00:49→22:17)
[2019-06-18] MEDS: ONDANSETRON HCL INJ 2MG/ML 2ML 2 MG/ML VIAL IV PRN ×6 (00:50→23:04)
[2019-06-18] MEDS: CEFTRIAXONE SOD 1 GM/NS 50 ML 50 ML IV SCH (03:42)
[2019-06-18] MEDS: SODIUM CHLORIDE 0.9% 1000ML 1,000 ML IV SCH ×3 (05:30→23:04)
--- NOTE | 2019-06-18 07:01 | NUR ---
BEDSIDE SHIFT REPORT RECEIVED FROM PM NURSE. PT AWAKE, ALERT, ORIENTED, NO SIGNS OF DISTRESS, SITTING UP. WILL CONTINUE TO MONITOR.
--- NOTE | 2019-06-18 07:45 | NUR ---
paged Dr. Major for clarification of IV fluids and banana bag orders; awaiting callback.
--- NOTE | 2019-06-18 09:01 | Consultation ---
DATE OF CONSULTATION: GI Consult Note REASON FOR CONSULT: Acute alcoholic pancreatitis. HISTORY OF PRESENTING ILLNESS: 38 years old male, who can speak [place]se. He has alcohol dependence, he has been drinking whiskey almost daily for the last one year. He got admitted with acute onset of mid epigastric pain. In the emergency room, lipase level was noted very high. He got admitted with working diagnosis of acute alcoholic pancreatitis. Currently, being treated with n.p.o., aggressive IV fluid resuscitation. REVIEW OF SYSTEMS: 12-point system reviewed, symptomatology is limited to GI system. PAST MEDICAL HISTORY: Epilepsy, ankylosing spondylitis, rheumatoid arthritis, and history of anemia. PAST SURGICAL HISTORY: Bilateral hip arthroplasties, bilateral carpal tunnel release, and appendectomy. FAMILY HISTORY: Noncontributory. SOCIAL HISTORY: He does not work. Smoker. Alcohol dependence, drinks about 2- 3 packs of whiskey daily. ALLERGIES: NSAIDS. HOME MEDICATIONS: Acetaminophen with codeine, clonazepam, diclofenac as needed, divalproex 750 mg p.o. twice daily, hydroxyzine 50 mg twice daily, levetiracetam 750 mg twice daily, omeprazole 40 mg daily, and Zofran 4 mg q.4 hours as needed. Inpatient medications; ceftriaxone 1 g IV daily, Librium 25 mg p.o. q.6 hours, along with other medications. PHYSICAL EXAMINATION: VITAL SIGNS: Temperature 97.4, pulse 87, respirations 17, blood pressure 114/87, and oxygen saturation 96% on room air. GENERAL: Appears to be in distress secondary to some pain. Oral mucosa is moist anicteric sclerae. CVS: S1 and S2 regular. LUNGS: Bilaterally grossly clear. ABDOMEN: Soft. Palpable mid and right upper quadrant tenderness on mild palpation. No rebound, rigidity, or guarding. Positive bowel sounds. EXTREMITIES: Warm. No leg edema. LABORATORY DATA: WBC 11.11, hemoglobin 13.1, hematocrit 38.2, MCV 92.5, and platelet count 510. Sodium 137, potassium 3.2, chloride 102, bicarb 22, BUN 13, creatinine 1.23, and glucose 92. Liver enzymes showed a total bilirubin 0.5, AST 10, ALT 6, alkaline phosphatase 112, lipase 536 (normal range here in this laboratory is 8-78). Amylase level is 500 (normal range is 25-125). CT of the abdomen and pelvis with contrast showed acute interstitial edematous pancreatitis, no gallstones. Normal liver, no adenopathy. IMPRESSION: Acute alcoholic pancreatitis. PLAN: N.p.o., aggressive isotonic IV fluid, normal saline or Ringer lactate at 150 mL an hour, supportive care, analgesics, alcohol cessation counseling. We will continue to monitor him clinically. I thank Dr. Major for allowing me to participate in the care of this patient. Amaury Valdiiva MD SA/IVAN /[id number] MTDTram
--- NOTE | 2019-06-18 09:36 | NUR ---
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 Pt overwhelmed by illness and family dynamics. Pt states he lives with a younger brother who suffers with mental disorders and his mother who "has depression." Pt states mother and brother drink alcohol excessively. Pt states he needs to "stop drinking" due to illness. Pt identifies as non-yazidism Caodaism. Pt states he has close friends who live out of state who serve as a resource. Pt considering AA/12 step program for support. Intervention: Provided unhurried empathic listening and pastoral presence. Facilitated illness review and storytelling. Provided prayer and Bible per pt request. Provided information on how to reach shoelace tipping machine operator as well as business card. Outcome: Pt expressed appreciation for visit. Will follow as able. DAYAMI MORGAN Inspector And Tester Spiritual Care Department O: [phone]
[2019-06-18 09:57] LABS: BASOPHILS # (AUTO) 0.1 (0.0-0.1); BASOPHILS % 0.6 % (0.0-1.0); EOSINOPHILS # (AUTO) 0.2 (0.0-0.4); EOSINOPHILS % 2.5 % (0.0-6.0); HEMATOCRIT 25.6 % (38.2-49.6); HEMOGLOBIN 7.9 g/dL (14.0-18.0); LYMPHOCYTES # (AUTO) 1.7 (1.0-3.2); LYMPHOCYTES % 22.3 % (18.0-39.1); MEAN CORPUSCULAR HEMOGLOBIN 31.2 pg (28-32); MEAN CORPUSCULAR HGB CONC 30.9 g/dL (31-35); MEAN CORPUSCULAR VOLUME 101.2 fL (81-99); MONOCYTES # (AUTO) 0.6 (0.2-0.8); MONOCYTES % 7.9 % (4.4-11.3); NEUTROPHILS # (AUTO) 5.1 (2.1-6.9); NEUTROPHILS % 66.1 % (38.7-80.0); RED BLOOD COUNT 2.53 x10e6/uL (4.3-5.7); RED CELL DISTRIBUTION WIDTH 17.7 % (11.7-14.4)
[2019-06-18] MEDS: MULTIVITAMINS- 12 INJECTION 10 ML, FOLIC ACID MDV 5 MG, THIAMINE HCL INJ 100 MG in SODI... IV SCH (10:04)
[2019-06-18] MEDS: LEVETIRACETAM 500 MG TAB PO SCH ×2 (10:05→18:42)
[2019-06-18] MEDS: DIVALPROEX SODIUM 250 MG TAB...DR PO SCH ×2 (10:05→18:41)
[2019-06-18] MEDS: PANTOPRAZOLE 40 MG 10ML VIAL IV SCH (10:18)
[2019-06-18 10:26] LABS: ALANINE AMINOTRANSFERASE 6 IU/L (0-55); ALBUMIN 2.6 g/dL (3.5-5.0); ALBUMIN/GLOBULIN RATIO 0.5 (0.8-2.0); ALKALINE PHOSPHATASE 85 IU/L (40-150); ANION GAP 14.9 mmol/L (8-16); BLOOD UREA NITROGEN 9 mg/dL (7-26); BUN/CREATININE RATIO 15 (6-25); CALCIUM 8.1 mg/dL (8.4-10.2); CARBON DIOXIDE 18 mmol/L (22-29); CHLORIDE 107 mmol/L (98-107); CREATININE, SERUM 0.61 mg/dL (0.72-1.25); EST GLOMERULAR FILTRATION RATE > 60 ML/MIN (60-); SODIUM 133 mmol/L (136-145)
[2019-06-18 10:43] LABS: GLUCOSE 32 mg/dL (74-118); POTASSIUM 6.9 mmol/L (3.5-5.1)
--- NOTE | 2019-06-18 10:45 | NUR ---
informed of pt's Hgb, Potassium, and glucose levels by lab; still have not received callback from Dr. Major. will page again. upon re-examination, pt is awake, alert, oriented, no signs of distress, speaking full sentences, sitting up in bed. will continue to monitor.
--- NOTE | 2019-06-18 10:59 | NUR ---
SPOKE WITH DR. GRECO WHO STATES HE WILL NOT MAKE ROUNDS TODAY; REDRAW FOR POTASSIUM ORDERED AND STATES CALL DR. MERRITT FOR FURTHER ORDERS.
[2019-06-18 11:07] LABS: AMYLASE 125 U/L (25-125); LIPASE 119 U/L (8-78)
--- NOTE | 2019-06-18 11:07 | NUR ---
PAGING DR MERRITT FOR NEW CONSULT; AWAITING CALLBACK.
[2019-06-18 11:16] LABS: PLATELET COUNT 307 x10e3/uL (140-360)
[2019-06-18 11:18] LABS: PLATELET MORPHOLOGY COMMENT NORMAL; RBC MORPHOLOGY COMMENT NORMAL
[2019-06-18 11:19] LABS: PLATELET ESTIMATE ADEQUATE
--- NOTE | 2019-06-18 12:17 | NUR ---
CALLBACK RECEIVED FROM DR. VALVERDE; GIVEN ORDERS FOR 1 AMP D50; REPEAT POTASSIUM 3.2. NO OTHER ORDERS AT THIS TIME.
[2019-06-18] MEDS ORDERED: DEXTROSE 50% SYRINGE 50 ML IV SCH (12:30)
--- NOTE | 2019-06-18 13:01 | NUR ---
medicine note [id number]
[2019-06-18] MEDS ORDERED: POTASSIUM CHLORIDE 20MEQ/100ML 100 ML IV ONE (14:00)
--- NOTE | 2019-06-18 14:48 | Progress Note ---
DATE: 06/18/2019 Internal Medicine Progress Note This is covering for Dr. Martinez and Dr. Major. SUBJECTIVE: Mr. Archibald was seen and examined at bedside. He had multiple questions that he was asking and did not recognize what the gastrointestinal plan was or speaking with the gastrointestinal doctor regarding this. The patient is still n.p.o. now. The patient with anemia that worsened today, but no yen bleeding that he notices. Also some critical potassium that seem to have shown that it is a false reading, as it was normal once again after retesting. REVIEW OF SYSTEMS: No headaches. No bleeding. No rash. OBJECTIVE: VITAL SIGNS: Afebrile, vital signs noted and reviewed per the chart record. GENERAL: In no acute distress, alert and calm. HEENT: Normocephalic and atraumatic. NECK: Supple. Throat midline. LUNGS: Bilateral air entry, limited, but clear. CARDIOVASCULAR: S1 and S2. No murmurs, rubs, or gallops. ABDOMEN: Soft and nontender. EXTREMITIES: No clubbing. No cyanosis. No edema. INTEGUMENT: No rash. No purpura. LABORATORY DATA: In the morning, 133 sodium, 6.9 potassium, 107 chloride, 18 bicarbonate, 9 BUN, and 0.61 creatinine. 7.7 white count, 7.9 hemoglobin, 25.7 hematocrit, and platelets 207. Lipase 119. IMPRESSION AND PLAN: 1. Acute alcoholic pancreatitis. 2. Hyponatremia. 3. Hyperkalemia, resolved/false positive. 4. Significant anemia, under evaluation. Possible chronic gastrointestinal bleed versus other etiology. 5. Alcohol dependency. 6. History of rheumatoid arthritis, no recent medications. 7. Ankylosing spondylitis. Recheck CBC today and tomorrow. Continue plan per gastrointestinal specialist for this anemia and for this pancreatitis. Continue pantoprazole for now. Continue vitamins. Librium ongoing for clinical mild withdrawal symptoms from alcohol. We will follow up closely. Noted other medicines include valproic acid and Keppra, as the patient has history of traumatic injury including the cranium. MD AKI Iyer/MODL /[id number]
--- NOTE | 2019-06-18 19:05 | NUR ---
BEDSIDE SHIFT REPORT RECEIVED FROM DAY RN. PT ALERT AND ORIENTED X3. RESPIRATIONS EVEN AND UNLABORED. RT IJ INTACT. DENIES PAIN. RESTING IN BED IN SEMI-ASHTON POSITION. PT WATCHING TV AND LOOKING THROUGH BELONGINGS FAMILY SENT TO HIM. PT TOLERATING PO WELL. VOIDING PER BATHROOM. UP TO BATHROOM WITH ONE ASSIST- PT USES CANE. UNSTEADY AT TIMES.CALL LIGHT WITHIN REACH. BED LOCKED AND IN LOW POSITION. BED ALARM ON. Addendum: 06/19/19 at 0334 by CHLOE TORRE RN RT EJ INTACT WITH HEALTHY SITE. LINE FLUSHES EASILY.
--- NOTE | 2019-06-18 20:59 | Consultation ---
DATE OF CONSULTATION: Initial Nephrology Consultation Report REASON FOR CONSULTATION: I have been kindly asked by Dr. Major to see this patient in regard to electrolyte abnormalities and renal function. HISTORY OF PRESENT ILLNESS: Mr. Knutson is a 38-year-old male, who presents to the hospital. He has been drinking quite heavily. He has been diagnosed with alcoholic pancreatitis. I have been asked to see him also because on his laboratory testing, he had one value that was 6.9 and one prior to that was 3.9. The patient has had heavy alcohol intake history. PAST MEDICAL HISTORY: History of epilepsy, history of seizures, rheumatoid arthritis. SURGICAL HISTORY: He has had bilateral hip arthroplasties, appendectomy. FAMILY HISTORY: Noncontributory. SOCIAL HISTORY: Heavy alcohol intake. MEDICATIONS AT HOME: Acetaminophen with codeine, clonazepam, diclofenac, levetiracetam, omeprazole, Zofran. PHYSICAL EXAMINATION: GENERAL: The patient is in no acute distress. He is resting comfortably. HEENT: No increased JVD. CARDIOVASCULAR: Regular rate and rhythm. LUNGS: Clear to auscultation. ABDOMEN: Tender. EXTREMITIES: No edema. LABORATORY RESULTS: Sodium 133, potassium initially today was 6.9, repeated it was 3.2, chloride 107, bicarbonate 18, BUN and creatinine 9 and 0.61. His initial serum creatinine was 1.23. IMPRESSION: 1. Alcoholic pancreatitis. 2. Acute kidney injury. 3. Metabolic acidosis. PLAN: The patient has pancreatitis as demonstrated by the elevated amylase and lipase. The repeat potassium was normal. It was 3.2. We will supplement the potassium. Venous blood gas has been ordered, that will be done to confirm this is a metabolic acidosis and not respiratory alkalosis with metabolic compensation. Continue giving him the IV fluids. Avoid NSAIDs and BASS-2 inhibitors and IV contrast. I will follow the patient with you. Ather MD DARA Roman/IVAN /[id number]
--- NOTE | 2019-06-18 21:23 | Progress Note ---
DATE: SUBJECTIVE: The patient reports significant improvement in abdominal pain. Tolerating clear liquid diet. No nausea or vomiting. REVIEW OF SYSTEMS: GENERAL: No fever or chills. CVS: No chest pain or palpitation. RESPIRATORY: No cough or expectoration. MEDICATIONS: He is currently gettin. Intravenous banana bag. 2. Ceftriaxone 1 g IV daily. 3. Potassium chloride 20 mEq x1. 4. Normal saline at 150 mL an hour. 5. Librium 25 mg p.o. q.6 hours. 6. Divalproex 750 mg twice daily. 7. Dilaudid 1 mg IV q.3 hours as needed. 8. Keppra 750 mg twice daily. 9. Pantoprazole 40 mg IV daily. 10. Zofran 4 mg IV q.4 hours as needed. PHYSICAL EXAMINATION: VITAL SIGNS: Temperature 98.4, pulse 109, respirations 16, blood pressure 100/58, and oxygen saturation 97% on room air. GENERAL: Not in any apparent distress. HEENT: Oral mucosa is moist. Anicteric sclerae. ABDOMEN: Soft. Mild palpable epigastric tenderness. No rebound, rigidity, or guarding. Positive bowel sounds. LABORATORY DATA: WBC 7.72, hemoglobin dropped down from 13.1 to 7.9, hematocrit dropped down from 38.2 to 25.6, MCV 101.2, and platelet count of 307. Sodium 133, potassium 6.9, and then repeat one is 3.2, chloride 107, bicarb 18, BUN 7, creatinine 0.61. Liver enzymes normal. Lipase level is down to 119 from 536. Amylase down to 125 from 500. IMPRESSION: Acute alcoholic pancreatitis. PLAN: The patient has improved clinically with intravenous high IV fluid hydration and n.p.o. yesterday. He is tolerating clear liquid diet. Therefore, I will advance the diet as tolerated to solid food. Hemoglobin dropped down significantly. This is likely due to the patient already has underlying anemia. The patient's initial hemoglobin value, which was elevated to 13 is reflective of hemoconcentration during pancreatitis. With IV fluid hydration, hemoglobin has returned to its normal original value. Cut down normal IV fluid, normal saline 200 mL an hour. Once the patient start tolerating solid food, then discontinue IV fluid. Watch for alcohol withdrawal. Continues Librium as per [facility] protocol. MD ZACHARY Rodriguez /[id number]
[2019-06-19] VITALS (8 sets, daily range): BP systolic 105–127; BP diastolic 68–81
[2019-06-19] MEDS: CHLORDIAZEPOXIDE HCL 25 MG CAP PO SCH ×4 (01:11→21:37)
[2019-06-19] MEDS: SODIUM CHLORIDE 0.9% 1000ML 1,000 ML IV SCH ×3 (02:01→21:30)
[2019-06-19] MEDS: HYDROMORPHONE 1MG/1ML INJ IV PRN ×4 (02:53→14:22)
[2019-06-19] MEDS: CEFTRIAXONE SOD 1 GM/NS 50 ML 50 ML IV SCH (03:38)
[2019-06-19] MEDS: ONDANSETRON HCL INJ 2MG/ML 2ML 2 MG/ML VIAL IV PRN ×3 (04:12→18:39)
--- NOTE | 2019-06-19 04:30 | NUR ---
Assisted pt up to bathroom. Changed pad on bed and found depakote tablet in bed. Panel Edge Sealer informed and tablet discarded.
[2019-06-19 06:20] LABS: BASOPHILS % 0.4 % (0.0-1.0); EOSINOPHILS # (AUTO) 0.2 (0.0-0.4); EOSINOPHILS % 2.2 % (0.0-6.0); HEMATOCRIT 27.7 % (38.2-49.6); HEMOGLOBIN 8.5 g/dL (14.0-18.0); LYMPHOCYTES # (AUTO) 1.8 (1.0-3.2); LYMPHOCYTES % 24.8 % (18.0-39.1); MEAN CORPUSCULAR HEMOGLOBIN 31.5 pg (28-32); MEAN CORPUSCULAR HGB CONC 30.7 g/dL (31-35); MEAN CORPUSCULAR VOLUME 102.6 fL (81-99); MONOCYTES # (AUTO) 0.6 (0.2-0.8); MONOCYTES % 8.2 % (4.4-11.3); NEUTROPHILS # (AUTO) 4.7 (2.1-6.9); NEUTROPHILS % 63.9 % (38.7-80.0); PLATELET COUNT 318 x10e3/uL (140-360); RED CELL DISTRIBUTION WIDTH 17.6 % (11.7-14.4)
[2019-06-19 06:30] LABS: INR 0.98; PROTHROMBIN TIME 13.6 seconds (11.9-14.5)
[2019-06-19 06:38] LABS: ALBUMIN 2.5 g/dL (3.5-5.0); ALBUMIN/GLOBULIN RATIO 0.6 (0.8-2.0); ALKALINE PHOSPHATASE 94 IU/L (40-150); ANION GAP 11.8 mmol/L (8-16); BLOOD UREA NITROGEN < 5 mg/dL (7-26); CALCIUM 8.9 mg/dL (8.4-10.2); CARBON DIOXIDE 21 mmol/L (22-29); CHLORIDE 104 mmol/L (98-107); CREATININE, SERUM 0.66 mg/dL (0.72-1.25); EST GLOMERULAR FILTRATION RATE > 60 ML/MIN (60-); GLUCOSE 90 mg/dL (74-118); MAGNESIUM 1.6 MG/DL (1.3-2.1); PHOSPHORUS 2.5 MG/DL (2.3-4.7); POTASSIUM 3.8 mmol/L (3.5-5.1); SODIUM 133 mmol/L (136-145)
[2019-06-19 06:40] LABS: ALANINE AMINOTRANSFERASE < 6 IU/L (0-55); BUN/CREATININE RATIO 8 (6-25)
[2019-06-19 07:16] LABS: HIV 1&2 AB SCREEN NON-REACTIVE (NONREACTIVE)
[2019-06-19] MEDS: DIVALPROEX SODIUM 250 MG TAB...DR PO SCH ×2 (08:25→16:56)
[2019-06-19] MEDS: LEVETIRACETAM 500 MG TAB PO SCH ×2 (08:25→16:56)
[2019-06-19] MEDS: PANTOPRAZOLE 40 MG 10ML VIAL IV SCH (08:25)
[2019-06-19] MEDS: MULTIVITAMINS- 12 INJECTION 10 ML, FOLIC ACID MDV 5 MG, THIAMINE HCL INJ 100 MG in SODI... IV SCH (10:00)
--- NOTE | 2019-06-19 11:26 | NUR ---
BEDSIDE SHIFT REPORT RECEIVED FROM THE LINE ASSIGNER RN. EDUCATED PT ABOUT FALL PRECAUTIONS. PT VERBALIZED UNDERSTANDING. CALL LIGHT WITH IN EASY REACH. INSTRUCTED PT TO USE CALL LIGHT FOR ALL THE NEEDS. BED IS LOW AND LOCKED. SIDE RAILS X2. BED ALARM IS ON. PT DENIES NEEDS AT THIS TIME.
--- NOTE | 2019-06-19 12:00 | NUR ---
[facility] OFFICE AND REPORTED PT ELEVATED HR 102.
--- NOTE | 2019-06-19 14:33 | NUR ---
DATE: 06/19/2019 Internal Medicine Progress Note Covering for Dr. Martinez / [place]. SUBJECTIVE: sleepy mildly getting pain meds on demand frequently CLD tolerated diet increased 2 person assist to get up REVIEW OF SYSTEMS: No bleeding. No rash. OBJECTIVE: VITAL SIGNS: vital signs noted and reviewed per the chart record. GENERAL: no acute distress, alert and calm. HEENT: Normocephalic and atraumatic. NECK: Supple. Throat midline. LUNGS: Bilateral air entry, limited, but clear. CARDIOVASCULAR: S1 and S2. No murmurs, rubs, or gallops. ABDOMEN: Soft and nontender. EXTREMITIES: No clubbing. No cyanosis. No edema. INTEGUMENT: No rash. No purpura. LABORATORY DATA:3.8 k , cr 0.66, wbc 7.3, hct 28. IMPRESSION AND PLAN: 1. Acute alcoholic pancreatitis. 2. Hyponatremia. 3. Significant anemia, multifactorial. Possible chronic gastrointestinal bleed versus other etiology. 4. Alcohol dependency. 5. History of rheumatoid arthritis, no recent medications. 6. Ankylosing spondylitis. 7. chronic pain 8. hx head trauma / injury Escalate diet Decrease pain meds Convert to PO meds as feasible PPI MVI Valproic acid and Keppra cont
[2019-06-19] MEDS ORDERED: HYDROMORPHONE 1MG/1ML INJ IV PRN (14:45)
[2019-06-19] MEDS ORDERED: MULTIVITAMIN1 EACH PO (14:53)
[2019-06-19] MEDS ORDERED: ATIVAN1 MG PO (14:53)
[2019-06-19] MEDS: ACETAMINOPHEN/CODEINE 300MG - 30MG TAB PO PRN (16:56)
--- NOTE | 2019-06-19 19:05 | NUR ---
BEDSIDE SHIFT REPORT GIVEN TO THE MECHANICAL FIELD ENGINEER RN. PT DENIED FURTHER NEEDS.
--- NOTE | 2019-06-19 19:10 | NUR ---
Bedside nursing report completed with morning nurse. Pt alert and oriented to name, lying in bed HOB 75. Denies pain at this time, previously medicated. Call light within reach. Bed low and locked.
[2019-06-20] VITALS: BP 120/79
[2019-06-20] MEDS: ACETAMINOPHEN/CODEINE 300MG - 30MG TAB PO PRN ×3 (01:20→13:31)
[2019-06-20] MEDS: CEFTRIAXONE SOD 1 GM/NS 50 ML 50 ML IV SCH (03:45)
[2019-06-20 04:00] VITALS: BP 145/99
[2019-06-20] MEDS: PANTOPRAZOLE SOD 40 MG TABEC PO SCH ×2 (06:00→07:40)
[2019-06-20] MEDS: CHLORDIAZEPOXIDE HCL 25 MG CAP PO SCH ×2 (06:00→13:30)
[2019-06-20] MEDS ORDERED: PANTOPRAZOLE SOD 40 MG TABEC PO SCH (07:30)
[2019-06-20] MEDS: LEVETIRACETAM 500 MG TAB PO SCH ×2 (07:40→16:00)
[2019-06-20] MEDS: DIVALPROEX SODIUM 250 MG TAB...DR PO SCH ×2 (07:40→16:00)
[2019-06-20] MEDS: ONDANSETRON HCL INJ 2MG/ML 2ML 2 MG/ML VIAL IV PRN ×2 (07:53→13:31)
[2019-06-20 08:23] VITALS: BP 141/96
[2019-06-20] MEDS ORDERED: THIAMINE HCL 100 MG TAB PO SCH (09:00)
[2019-06-20] MEDS ORDERED: MULTIVITAMINS/MINERALS TAB PO SCH (09:00)
[2019-06-20] MEDS: SODIUM CHLORIDE 0.9% 1000ML 1,000 ML IV SCH (10:20)
[2019-06-20 12:29] VITALS: BP 135/90
--- NOTE | 2019-06-20 14:00 | NUR ---
pt asked to be discharged , Dr Major was call no answer. will retry.
--- NOTE | 2019-06-20 14:50 | NUR ---
Dr Major called back, and Dr. Gomez is stonecutter assistant.
--- NOTE | 2019-06-20 15:23 | NUR ---
pt now states he has acid reflux and need medication for acid reflux, pt has been eating and lying in bed all day . only getting up for restroom break, pt is and has been encouraged to get out of bed and to sit in chair at bedside or the recliner pt declined.
[2019-06-20 16:28] VITALS: BP 159/98
--- NOTE | 2019-06-20 17:08 | NUR ---
pt discharged home, with prescriptions and was educated on his medication at this time, pt was asked to follow up with his PCP, and to keep his appt. no distress noted, pt ij site removed no swelling no redness to site.
--- NOTE | 2019-06-20 19:03 | NUR ---
discharge summary [id number] Follow with Dr Martinez and Dr Valdivia recommended. [place] PRODUCT MARKETING MANAGER report reviewed, some BDZ ordered for DTs Thanks (this is coverage for Dr Major)
--- NOTE | 2019-06-20 20:47 | Discharge Summary ---
PRIMARY DIAGNOSES: 1. Acute pancreatitis. 2. Alcohol dependency/abuse. SECONDARY DIAGNOSES: Hyponatremia, multifactor anemia, alcohol dependency, history of rheumatoid arthritis not on medicines recently, reported ankylosing spondylitis, chronic pain, history of traumatic head injury and HOSPITAL COURSE: Mr. Archibald was admitted on June 17, 2019. The patient with lipase of 536 in excruciating pain, worsening above his chronic condition. Albumin 3.2, total protein 8.6, amylase was 500. The patient hemoconcentrated with hemoglobin 13.1, which was 7.9 on 2nd day after hydration. Hematocrit was 25.6 on 2nd hospital day. The patient with improvement on supportive care. He received initial antibiotics. COVID-19 PCR test was negative. HIV testing was negative. Abdominopelvic CT demonstrated acute interstitial edematous pancreatitis. Hematology and GI He was recommended for outpatient followup after improvement. MEDICATION AT DISCHARGE: See discharge medication record for details. ACTIVITY: As tolerated. DIET: GI, bland diet, soft. FOLLOWUP: With Dr. Jeffery Martinez and next available, Dr. Amaury Valdivia of GI. Greater than 30 minutes in direct care and coordination of this state. This is in coverage for Dr. Gregorio Major MD and Dr. Martinez. MD AKI Iyer/IVAN /[id number]
== END 2019-06-20 16:52 | disposition home or self-care (01) | DRG 439 ==
LOC: ER 01:36 → ERHOLD 04:37 → MED/SURG 07:26 → UNDODISIN 07:31 → MED/SURG2 09:59 → MED/SURG 10:02 → MED/SURG2 11:15
PROVIDERS: ADMIT Internal Medicine; ATTEND Internal Medicine
DX: K85.20 Alcohol induced acute pancreatitis without necrosis or infection (principal); E87.2 Acidosis; E87.1 Hypo-osmolality and hyponatremia; F10.20 Alcohol dependence, uncomplicated; F19.10 Other psychoactive substance abuse, uncomplicated; D64.9 Anemia, unspecified; E87.5 Hyperkalemia; M06.9 Rheumatoid arthritis, unspecified; M45.9 Ankylosing spondylitis of unspecified sites in spine; Z87.820 Personal history of traumatic brain injury
CPT/HCPCS: 36415; 74177; 80053; 80307; 81001; 82150; 82948; 83690; 83735; 84100; 84132; 85025; 85610; 85730; 87390; 87635; 96361; 96374; 96375; 99284; G0433; G0435; J0696; J1170; J2405; J3411; J3480; J7030; J7799; Q9967

== ENCOUNTER 2019-07-08 06:16 | Emergency (ER) | payer OTHER ==
[~2019-07-08] VITALS: Ht 167.6 cm; Wt 72.1 kg
[~2019-07-08 06:16] MED LIST changes: +ATIVAN1 MG PO; +CLONAZEPAM2 MG PO; +DEPAKOTE250 MG PO; +DICLOFENAC SOD100 GM TOP; +FETZIMA80 MG PO; +HYDROXYZINE HCL50 MG PO; +LEVETIRACETAM750 MG PO; +MULTIVITAMIN1 EACH PO; +OMEPRAZOLE40 MG PO; +ONDANSETRON HCL4 MG PO; +TYLENOL # 31 EA PO
--- OUTSIDE RECORDS SUMMARY | 2019-07-08 06:19 | XMS REPORT | Clinical Summary ---
Author Author [facility] ict Organization [facility] ict Address Unknown Phone Unavailable Care Team Providers Care Application Development Consultant Name Role Phone Zachariah Blas MD PCP [...] 0 suspensionIndications: daily. GERD without esophagitis Active levETIRAcetam (KEPPRA) Take 1 tablet 180 [...] 0 Low magnesium level times daily. Active acetaminophen-codeine Take 1 tablet 90 tablet 1 (TYLENOL/CODEINE #3) by mouth 3 0 300-30 mg per times daily tabletIndications: For pain.. Rheumatoid arthritis, involving unspecified site, unspecified rheumatoid factor presence, Ankylosing spondylitis, unspecified site of spine 05/25/2019 Discontinued (Therapy comple anne-marie) fenofibrate (LOFIBRA) [...] 2 0 Low magnesium level times daily. 07/07/2019 Discontinued (Reorder) acetaminophen-codeine Take 1 tablet 90 tablet 1 (TYLENOL/CODEINE #3) by mouth 3 0 300-30 mg per times daily tabletIndications: For pain.. Rheumatoid arthritis, involving unspecified site, unspecified rheumatoid factor presence, Ankylosing spondylitis, unspecified site of spine Active Problems Problem Noted Date Hyperlipidemia 04/26/2019 [...] Description Date Type Specialty Yoko Birch MD Rheumatoid arthritis, involving unspecif ied site, unspecified rheumatoid factor presence; Ankylosing spondylitis, unspecified site of spine 07/06/2019 Refill Family Practice Yoko Birch MD Anemia, unspecified type (Primary [...] level 05/25/2019 Telephonic Family Practice Encounter Sharlene Matta RN 05/21/2019 Nurse Triage Zachariah Blas Jr., MD Rheumatoid arthritis, involving unspecif ied site, unspecified rheumatoid factor presence; Ankylosing spondylitis, unspecified site of spine 05/04/[address] [facility] Tennille Senior MD Ankylosing spondylitis, unspecified site of spine; Rheumatoid arthritis, involving unspecified site, unspecified rheumatoid factor presence 04/27/2019 Ancillary Radiology Procedure Tennille Senior MD Macrocytic anemia (Primary Dx); Hyperlipidemia, unspecified hyperlipidemia type; Ankylosing spondylitis, unspecified site of spine; Rheumatoid arthritis, involving unspecified site, unspecified rheumatoid factor presence; Tachycardia; History of seizure disorder; Hyponatremia 04/27/2019 Office Visit [facility] Zachariah Tinoco Jr., MD Rheumatoid arthritis, involving unspecif ied site, unspecified rheumatoid factor presence; Ankylosing spondylitis, unspecified site of spine 04/26/[address] [facility] Zachariah Blas Jr., MD Preventative health care (Primary Dx); Pain management contract agreement; Need for vaccination; Ankylosing spondylitis, unspecified site of spine; Rheumatoid arthritis, involving unspecified site, unspecified rheumatoid factor presence; Grand mal seizure; H/O: GI bleed; GERD without esophagitis 03/22/2019 Office Visit [facility] Zachariah Tinoco Jr., MD Rheumatoid arthritis, involving unspecif ied site, unspecified rheumatoid factor presence; Ankylosing spondylitis, unspecified site of spine 02/16/[address] [facility] Zachariah Blas Jr., MD Grand mal seizure 12/11/[address] [facility] Zachariah Blas Jr., MD Rheumatoid arthritis, involving unspecif ied site, unspecified rheumatoid factor presence; Ankylosing spondylitis, unspecified site of spine 12/07/2018 Refill [facility] Zachraiah Tinoco Jr., MD Preventative health care 10/20/2018 Lab Appointment Lab Zachariah Blas Jr., MD Hyponatremia (Primary Dx); Grand mal seizure; Rheumatoid arthritis, involving unspecified site, unspecified rheumatoid factor presence; Ankylosing spondylitis, unspecified site of spine; Preventative health care 10/20/2018 Office Visit [facility] Zachariah Tinoco Jr., MD Rheumatoid arthritis, involving unspecif ied site, unspecified rheumatoid factor presence; Ankylosing spondylitis, unspecified site of spine 10/14/2018 Refill Family Practice Yoko Birch MD Grand mal seizure 09/25/2018 Refill Family Practice Zachariah Blas Jr., MD Rheumatoid arthritis, involving unspecif ied site, unspecified rheumatoid factor presence; Ankylosing spondylitis, unspecified site of spine 09/01/2018 Refill Family Practice Zachariah Blas Jr., MD Rheumatoid arthritis, involving unspecif ied site, unspecified rheumatoid factor presence; Ankylosing spondylitis, unspecified site of spine 07/31/2018 Refill Family Practice Zachariah Blas Jr., MD Rheumatoid arthritis, involving unspecif ied site, unspecified rheumatoid factor presence; Ankylosing spondylitis, unspecified site of spine 07/08/2018 Refill Family Practice Maria E Hernandez RN Rheumatoid arthritis, involving unspecif ied site, unspecified rheumatoid factor presence; Ankylosing spondylitis, unspecified site of spine 07/07/2018 Refill Family Practice after 07/07/2018 Immunizations Name Administration Dates Next Due Influenza, [...] Travel Start No recent travel history available. Last Filed Vital Signs Reading Time Taken [...] Treatment Care Team Description Date Type Specialty Ref#[id number] 07/26/2019 Office Visit Rheumatology Shailesh Miller, [facility] [address] [address] Ref #: [id number] 07/28/2019 Office Visit Neurology Referral #: [id number] 10/04/2019 Office Visit Hematology Health Maintenance Due Date Last Done Comments IMM Influenza Seasonal 11/11/2019 03/22/2019Nov to April (>/= 19 yrs) Procedures Comments [...] PM CDT C-REACTIVE PROTEIN HIGH Routine 10/20/2018 Preven tative health care SENSITIVITY (CRP-HS) 4:02 PM CDT after 07/07/2018 Results * Levetiracetam (04/27/2019 4:25 PM CDT) Levetiracetam, 44.8 (>) 10.0 - 40.0 ug/mL [facility] Comment: This test was developed and its performance characteristics determined by [facility]. It has not been cleared or approved by the Food and Drug Administration. Specimen Blood Narrative Performed At Performed at: 01 - [facility] [address] [place] [address] [address] Structural Engineer: Aditi Kang MD, Phone : [phone] Performing Organization Address [facility] one Number [facility] [address] [place] [address] * Valproic Acid (04/27/2019 4:25 PM CDT) Pathologist [facility] Valproic Acid 115.6 (H) 50.0 - 100.0 ug/mL [facility] Specimen Blood Performing Organization Address [facility] one Number [facility] [address] [place] [address] * Magnesium (04/27/2019 4:25 PM CDT) [facility] Magnesium 1.5 (L) 1.9 - 2.7 mg/dL [facility] Specimen Blood Performing Organization Address [facility] one Number [facility] [address] [place], [place] [id number] * POCT CREATININE POC docked device (04/27/2019 4:10 PM CDT) [facility] Creatinine POC 1.0 0.6 - 1.3 mg/dL [facility] GFR, Estimated >90 >=90 mL/min/1.73 m2 [facility] Specimen Blood, venous Performing Organization Address [facility] one Number [facility] * POC BMP - In Lab (STAT) (04/27/2019 4:01 PM CDT) Pathologist [facility] Hold Specimen Complete [facility] Specimen Blood Performing Organization Address [facility] one Number [facility] * Hgb/Hct (04/27/2019 4:01 PM CDT) [facility] Hemoglobin 11.1 (L) 14.0 - 18.0 g/dL [facility] Hematocrit 33.9 (L) 40.0 - 54.0 % [facility] Specimen Blood Performing Organization Address [facility] one Number [facility] * POCT BMP POC docked device (04/27/2019 3:59 PM CDT) Only the most recent of 2 results within the time period is included. Sodium POC 124 (L) 136 - 145 [...] LAB Specimen Blood, venous Performing Organization Address [facility] one Number [facility] * POCT GLUCOSE POC docked device (04/27/2019 3:57 PM CDT) Glucose POC 74 74 - 106 mg/dL [facility] Specimen Blood Performing Organization Address [facility] one Number [facility] * CBC/Diff (04/27/2019 3:25 PM CDT) Only the most recent of 2 results within the time period is included. WBC 8.6 4.5 - 12.0 K/uL [facility] Specimen Blood Performing Organization Address [facility] one Number [facility] [address] [place] [address] [phone] * Differential, Manual (04/27/2019 3:25 PM CDT) Only the most recent of 2 results within the time period is included. Neutrophil 43.0 34.0 - 67.9 % [facility] [...] 0.34 0.30 - 0.82 K/uL [facility] Eos (Absolute) 0.00 (L) 0.04 - 0.54 K/uL [facility] Baso (Absolute) 0.00 (L) 0.01 - 0.08 K/uL [facility] Vacuolated Gran 1+ (A) None seen [facility] Platelet Clumps Present (A) None seen [facility] Cells Counted [facility] Specimen Blood Performing Organization Address [facility] one Number [facility] [address] [place] [address] [phone] * Urinalysis (04/27/2019 3:25 PM CDT) Color Yellow Colorless, Straw, [facility] Clarity Clear Clear [facility] Spec [place], >1.035 (H) 1.001 - 1.035 [facility] [...] Clean Catch Mid Stream Performing Organization Address [facility] one Number [facility] [address] [place] [address] * Comprehensive Metabolic Panel (04/27/2019 3:25 PM CDT) Sodium 124 (L) 136 - 145 mmol/L [facility] Potassium 4.7 3.5 - 5.1 mmol/L [facility] Chloride 89 (L) 98 - 107 mmol/L [facility] CO2 24 21 - 31 mmol/L [facility] Glucose 73 70 - 110 [...] [facility] Specimen Blood Performing Organization Address [facility] one Number [facility] [address] [place], [place] [id number] [phone] * CCP Anitbodies IgG & IgA (04/27/2019 3:25 PM CDT) CCP Antibodies 10 0 - 19 units BT [facility] IgG/IgA Comment: Negative <20 Weak positive 20 - 39 Moderate positive 40 - 59 Strong positive >59 Specimen Blood Narrative Performed At Performed at: 01 - [facility] [address] [place] [address] [address] Structural Engineer: Aditi Kang MD, Phone : [phone] Performing Organization Address [facility] one Number [facility] [address] [place] [address] * TSH [Thyroid Stimulating Hormone] (04/27/2019 3:25 PM CDT) TSH 1.62 0.45 - 5.33 uIU/mL [facility] Specimen Blood Performing Organization Address [facility] one Number [facility] [address] [place] [address] * Folic Acid (04/27/2019 3:25 PM CDT) [facility] Folic Acid 4.7 (L) 5.9 - 24.8 ng/mL [facility] Specimen Blood Performing Organization Address [facility] one Number [facility] [address] [place] [address] [phone] * Ferritin (04/27/2019 3:25 PM CDT) [facility] Ferritin 173.5 23.9 - 336.2 ng/mL [facility] Specimen Blood Performing Organization Address [facility] one Number [facility] [address] [place] [address] * Vitamin B12 (04/27/2019 3:25 PM CDT) Pathologist [facility] Vitamin B12 468 See comment pg/mL [facility] Comment: [facility] Normal: 180-914 pg/mL Intermittent: 145-180 pg/mL Deficient: <=145.0 pg/mL Specimen Blood Performing Organization Address [facility] one Number [facility] [address] [place] [address] * Uric Acid (04/27/2019 3:25 PM CDT) [facility] Uric Acid 4.1 (L) 4.4 - 7.6 mg/dL [facility] Specimen Blood Performing Organization Address [facility] one Number [facility] [address] [place] [address] * Urine Drug Screen (04/27/2019 3:25 PM CDT) Only the most recent of 2 results within the time period is included. Opiate, Ur Negative Negative [facility] Comment: [...] Urine - Voided, urine Performing Organization Address [facility] one Number [facility] [address] [place] [address] * Retic Count (04/27/2019 3:25 PM CDT) Retic Count 3.83 (H) 0.50 - 1.80 % [facility] Immature Retic 23.2 (H) 2.3 - 13.4 % [facility] Ret Hgb 32.7 30.8 - 36.6 pg [facility] Absolute Retic 0.140 (H) 0.026 - 0.095 M/uL [facility] Specimen Blood Performing Organization Address [facility] one Number [facility] [address] [place] [address] [phone] * RA Factor (04/27/2019 3:25 PM CDT) RA <10 <14 IU/mL [facility] Specimen Blood Performing Organization Address [facility] one Number [facility] [address] [facility] [place] [address] * Iron Profile (04/27/2019 3:25 PM CDT) Iron 116 50 - 212 ug/dL [facility] TIBC 367 250 - 450 ug/dL [facility] % Iron Sat 32 % [facility] Transferrin 261.85 203.00 - 362.00 [facility] mg/dL [facility] Specimen Blood Performing Organization Address [facility] one Number [facility] [address] [place] [address] * CK [Creatinine Kinase] (04/27/2019 3:25 PM CDT) CK 52 30 - 223 U/L [facility] Specimen Blood Performing Organization Address [facility] one Number [facility] [address] [place] [address] [phone] * Complement C4 (04/27/2019 3:25 PM CDT) Pathologist [facility] Complement C4 41.8 19.0 - 52.0 mg/dL [facility] Specimen Blood Performing Organization Address [facility] one Number [facility] [address] [place] [address] * Complement C3 (04/27/2019 3:25 PM CDT) Pathologist [facility] Complement C3 175.3 87.0 - 200.0 mg/dL [facility] Specimen Blood Performing Organization Address [facility] one Number [facility] [address] [place] [address] [phone] * SHRUTI (04/27/2019 3:25 PM CDT) SHRUTI Screen Negative Negative [facility] Specimen Blood Performing Organization Address [facility] one Number [facility] [address] [place] [address] * 12 LEAD EKG (04/27/2019 3:02 PM CDT) 12 LEAD EKG FOR [facility] Test Date: 2019-04-27 Pat Name: CHARLOTTE ARCHIBALD Department: [id number] Room: Gender: M Flight Test Supervisor: [id number] Wesley LAU : 1980 Requested By: TENNILLE SENIOR Order Number: [id number] Reading MD: Margo Bhandari MD Measurements Intervals Lesage Rate: 93 P: 61 OK: 146 QRS: 68 QRSD: 75 T: 69 QT: 341 QTc: 424 Interpretive Statements SINUS RHYTHM Electronically Signed On 04-27-2019 16:34:11 CDT by Margo Bhandari MD Specimen Performing Organization Address [facility] one Number SMS * SED Rate (10/20/2018 4:07 PM CDT) Sed Rate 57 (H) 0-<15 mm/Hr [facility] Specimen Blood Performing Organization Address [facility] one Number [facility] [address] [place] [address] * CRP (High Sensitivity) (10/20/2018 4:02 PM CDT) CRP, High 71.2 (H) <1.0 mg/L [facility] Specimen Blood Performing Organization Address [facility] one Number [facility] [address] [place] [address] [phone] Lipid Profile (10/20/2018 4:02 PM CDT) [...] triglyceride result gre ater than 440 mg/dL, [facility] consider re-testing when the patient is in a fasting state. Performing Organization Address [facility] one Number [facility] [address] [place] [address] after 07/07/2018 Insurance Type Payer Benefit Subscriber ID Effective Phone Address Plan / Dates Group [facility] xxxxxxxxx 2019-8 [address] [facility] [id number] [place] [address]
--- OUTSIDE RECORDS SUMMARY | 2019-07-08 06:20 | XMS REPORT ---
Author Author [facility] t Organization [facility] Address [address] [place] [address] Phone Unavailable Care Team Providers Care Beadworker Name Role Phone MD Leigh MARTINEZ PCP Eyal SEXTON, B Yoko Attphys Kun [facility] Attphys Unavailable Shakira Matta RN Attphys Unavailable Wan SEXTON, Zachariah Attphys Parrish SEXTON, Robert Attphys [phone] Nikki Hernandez RN, Leigh Sanderson Attphys Unavailable Kun [facility] Admphyjoanne Unavailable Payers Payer Name Policy Type Policy Number Effective Date Expiration Date [facility] COMM[employer] IT[employer] PLAN [id number] [address] xxxxxxxxx 2019 00:00:00 2020 23:59:59 H [facility] NA 2019 00:00 :00 [facility] Problems Condition Name Condition Details Condition Category Status Onset Date Resolution Date Last Treatment Date Treating Clinician Comments Source Hyperlipidemia Hyperlipidemia Disease Active 2019-04-26 00:00:00 [facility] Macrocytic anemia Macrocytic anemia Disease Active 2019-04-26 00:00:00 [facility] History of bilateral hip replacements History of bilateral h ip replacements Disease Active 2018-06-10 00:00:00 [facility] History of carpal tunnel surgery History of carpal tunnel surger y Disease [facility] 2018[facility]06[facility]10 [facility] History of appendectomy History of appendectomy Disease Active 2018-06-10 00:00:00 [facility] H/O: GI bleed H/O: GI bleed Disease Active 2018-06-10 00:00:00 [facility] Bilateral primary osteoarthritis of knee Bilateral kaylee amber osteoarthritis of knee Disease Active 2018-06-10 00:00:00 [facility] varghese [facility] Overweight (BMI 25.0-29.9) Overweight (BMI 25.0-29.9) Disease Active 2017-12-03 00:00:00 [facility] Smoker Smoker Disease Active 2017-12-03 00:00:00 [facility] 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 Active [facility] Alcohol-induced pancreatitis Problem Active [facility] Urinary tract infection Problem Active [facility] Substance abuse Problem Active [facility] (ankylosing spondylitis) - HLA B27 pos - subsequent cervical spine fusion (ankylosing spondylitis) - HLA B27 pos - subsequent cervical spine fusion Disease Active [facility] Rheumatoid arthritis Rheumatoid arthritis Disease Active [facility] 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 [facility] Gastroesophageal reflux disease Gastroesophageal reflux disease Dis ease Active [facility] Family history of colon cancer Family history of colon cancer Disease Active Overview: grandma [facility] Depression Depression Disease Active [facility] Anxiety Anxiety Disease Active [facility] ESR raised ESR raised Disease Active [facility] Hyponatremia Hyponatremia Disease Active [facility] Allergies, Adverse Reactions, Alerts Allergy Name Allergy Type Status Severity Reaction(s) Onset Date Inacti ve Date Treating Clinician Comments Source NSAIDS (Non-Steroidal Anti-Inflamma Allergy to substance Active 2019-06-17 00:00:00 [facility] Ibuprofen Allergy to substance Active 2019-06-17 00:00:00 [facility] gabapentin DA Active SV 2018-08-29 00:00:00 [facility] ibuprofen DA Active MO 2018-08-05 00:00:00 [facility] tramadol DA Active SV 2018-08-05 00:00:00 [facility] ibuprofen DA Active MO 2018-03-03 00:00:00 [facility] tramadol DA Active SV 2018-03-03 00:00:00 [facility] Nsaids (Non-Steroidal Anti-Inflammatory Drug) Propensi ty to adverse reactions to drug Active Other 2017-12-03 00:00:00 All nsaids cause GI bleeding per patient [facility] ibuprofen DA Active MO 2017-09-25 00:00:00 [facility] tramadol DA Active 2017-09-25 00:00:00 [facility] Ibuprofen Propensity to adverse reactions to drug Active Other 2017-09-05 00:00:00 Bleeding [facility] Naproxen Propensity to adverse reactions to drug Active Other 2017-09-05 00:00:00 bleeding [facility] Tramadol Propensity to adverse reactions to drug Active Other 2017-09-05 00:00:00 [facility] Tramadol Allergy to substance Active Mild Seizure 2014-03-07 00:00:00 [facility] Family History Family Member Diagnosis Comments Start Date Stop Date Source Natural father Hypertension [facility] Natural father Lipids [facility] Natural mother Anxiety disorder [facility] Natural mother Carpal tunnel syndrome [facility] Natural mother Depression [facility] Natural mother Hypertension [facility] Natural mother Osteoarthritis [facility] Paternal grandmother Colon cancer [facility] Social History Social Habit Start Date Stop Date Quantity Comments Source History of tobacco use Cigarette Smoker [facility] Sex Assigned At [facility] Alcohol intake 2019-05-25 00:00:00 2019-05-25 00:00:00 [facility] History SDOH Food Worry 2017-12-03 00:00:00 2017-12-03 00:00:00 1 [facility] SDOH Food Scarcity 2017-12-03 00:00:00 2017-12-03 00:00:00 1 [facility] Smoking Status Start Date Stop Date Source Former smoker 2019-05-25 00:00:00 2019-05-25 00:00:00 Francisco Hooker ealt Medications Ordered Medication Name Filled Medication Name Start Date Stop Da te Current Medication? Ordering Clinician Indication Dosage Frequency Signature (SIG) Comments Components Source acetaminophen-codeine (TYLENOL/CODEINE #3) 300-30 mg per tab let 2019-07-07 00:00:00 Yes Ankylosing spondylitis, unspecified site of spine 1{tbl} Take 1 tablet by mouth 3 times daily For pain.. [facility] Lorazepam (Ativan) 1 Mg TABLET Lorazepam (Ativan) 1 Mg TABLE T 2019-06-19 14:53:00 Yes 0 As Directed [facility] Multivitamin Multivitamin 2019-06-19 14:53:00 Yes 1 Daily [facility] levETIRAcetam (KEPPRA) 750 mg tablet 2019-05-25 00:00:00 Yes Grand mal seizure 750mg Q.5D Take 1 tablet by mouth 2 times daily For seizur es. [facility] DEPAKOTE 250 mg delayed release tablet 2019-05-25 00:00:00 Yes Grand mal seizure 750mg Q.5D Take 3 tablets by mouth 2 times daily For seizure control. [facility] Omeprazole 40 mg capsule 2019-05-25 00:00:00 Yes H/O: GI bleed 40mg QD Take 1 capsule by mouth daily For acid reflux. [facility] folic acid (FOLVITE) 1 mg tablet 2019-05-25 00:00:00 Yes Folic acid deficiency 1mg QD Take 1 tablet by mouth daily. [facility] magnesium oxide 200 mg magnesium Tab 2019-05-25 00:00:00 Yes Low magnesium level 200mg Q.5D Take 200 mg by mouth 2 times daily. [facility] acetaminophen-codeine (TYLENOL/CODEINE #3) 300-30 mg per tab let 2019-05-25 00:00:00 2019-07-07 00:00:00 No Ankylosing s pondylitis, unspecified site of spine 1{tbl} Take 1 tablet by mouth 3 times daily For pain.. [facility] folic acid (FOLVITE) 1 mg tablet 2019-05-25 00:00:00 2019-05 00:00:00 No Folic acid deficiency 1mg QD Take 1 tablet by mouth daily. [facility] magnesium oxide 200 mg magnesium Tab 2019-05-25 00:00: 00 2019-05-25 00:00:00 No Low magnesium level 200mg Q.5D Take 200 mg by mouth 2 times daily. [facility] folic acid (FOLVITE) 1 mg tablet 2019-04-28 00:00:00 2019-05 00:00:00 No Folic acid deficiency 1mg QD Take 1 tablet by mouth daily. [facility] magnesium oxide 200 mg magnesium Tab 2019-04-28 00:00: 00 2019-05-25 00:00:00 No Low magnesium level 200mg Q.5D Take 200 mg by mouth 2 times daily. [facility] clonazepam (KLONOPIN OR) 2019-03-22 15:55:49 2019-03-22 00:00:00 N o Take by mouth. [facility] sucralfate (CARAFATE) 100 mg/mL oral suspension 2019-03-22 0 0:00:00 Yes GERD without esophagitis 1000mg Take 10 mL by mouth 4 times daily . [facility] acetaminophen-codeine (TYLENOL/CODEINE #3) 300-30 mg per tab let 2019-03-22 00:00:00 2019-05-25 00:00:00 No Ankylosing s pondylitis, unspecified site of spine 1{tbl} Take 1 tablet by nella th 3 times daily For pain. Four week transition medication until Pain management provider. [facility] levETIRAcetam (KEPPRA) 750 mg tablet 2019-03-22 00:00: 00 2019-05-25 00:00:00 No Grand mal seizure 750mg Q.5D Take 1 tablet by mouth 2 times daily. [facility] DEPAKOTE 250 mg delayed release tablet 2019-03-13 0 00:00:00 2019-05-25 00:00:00 No Grand mal seizure 750mg Q.5D Take 3 tablets by mout h 2 times daily. [facility] Omeprazole 40 mg capsule 2019-03-22 00:00:00 2019-05-25 00:0 0:00 No H/O: GI bleed 40mg QD Take 1 capsule by mouth daily. [facility] clonazePAM (KLONOPIN) 2 mg tablet 2019-03-06 00:00:00 Yes [facility] hydrOXYzine (ATARAX) 50 mg tablet 2019-03-05 00:00:00 Yes [facility] FETZIMA 80 mg Cs24 2019-03-05 00:00:00 Yes [facility] mirtazapine (REMERON) 15 mg tablet 2019-03-05 00:00:00 00:00:00 [facility] busPIRone (BUSPAR) 7.5 mg tablet 2019-03-05 00:00:00 2019-05 00:00:00 No [facility] losartan (COZAAR) 50 mg tablet 2019-02-18 00:00:00 2019-05-25 00 :00:00 No [facility] acetaminophen-codeine (TYLENOL/CODEINE #3) 300-30 mg per tab let 2019-02-17 00:00:00 2019-03-22 00:00:00 No Ankylosing s pondylitis, unspecified site of spine 1{tbl} Take 1 tablet by nella th 3 times daily For pain. No refills until Pain Contract.. [facility] acetaminophen-codeine (TYLENOL/CODEINE #3) 300-30 mg per tab let 2018-12-22 00:00:00 2019-02-16 00:00:00 No Ankylosing s pondylitis, unspecified site of spine 1{tbl} Take 1 tablet by nella th 3 times daily For pain. No refills until Pain Contract.. [facility] levETIRAcetam (KEPPRA) 750 mg tablet 2018-12-15 00:00: 00 2019-03-22 00:00:00 No Grand mal seizure 750mg Q.5D Take 1 tablet by mouth 2 times daily. [facility] DEPAKOTE 250 mg delayed release tablet 2018-10-11 0 00:00:00 2019-03-22 00:00:00 No Grand mal seizure 750mg Q.5D Take 3 tablets by mout h 2 times daily. [facility] levETIRAcetam (KEPPRA) 750 mg tablet 2018-10-20 00:00: 00 2018-12-15 00:00:00 No Grand mal seizure 750mg Q.5D Take 1 tablet by mouth 2 times daily. [facility] acetaminophen-codeine (TYLENOL/CODEINE #3) 300-30 mg per tab let 2018-10-20 00:00:00 2018-12-07 00:00:00 No Ankylosing s pondylitis, unspecified site of spine 1{tbl} Take 1 tablet by mouth 3 times daily For pain. [facility] DEPAKOTE 250 mg delayed release tablet 2018-09-10 7 00:00:00 2018-10-20 00:00:00 No Grand mal seizure 750mg Q.5D Take 3 tablets by mout h 2 times daily. [facility] acetaminophen-codeine (TYLENOL/CODEINE #3) 300-30 mg per tab let 2018-09-02 00:00:00 2018-10-20 00:00:00 No Ankylosing s pondylitis, unspecified site of spine 1{tbl} Take 1 tablet by mouth 3 times daily For pain. [facility] acetaminophen-codeine (TYLENOL/CODEINE #3) 300-30 mg per tab let 2018-08-01 00:00:00 2018-09-01 00:00:00 No Ankylosing s pondylitis, unspecified site of spine 1{tbl} Take 1 tablet by mouth 3 times daily For pain. [facility] acetaminophen-codeine (TYLENOL/CODEINE #3) 300-30 mg per tab let 2018-07-09 00:00:00 2018-07-31 00:00:00 No Ankylosing s pondylitis, unspecified site of spine 1{tbl} Take 1 tablet by mouth 3 times daily For pain. [facility] acetaminophen-codeine (TYLENOL/CODEINE #3) 300-30 mg per tab let 2018-07-09 00:00:00 2018-07-09 00:00:00 No Ankylosing s pondylitis, unspecified site of spine 1{tbl} Take 1 tablet by mouth 3 times daily For pain. [facility] Omeprazole 40 mg capsule 2018-06-11 00:00:00 2019-03-22 00:0 0:00 No H/O: GI bleed 40mg QD Take 1 capsule by mouth daily. [facility] levETIRAcetam (KEPPRA) 750 mg tablet 2018-06-10 00:00: 00 2018-10-20 00:00:00 No Grand mal seizure 750mg Q.5D Take 1 tablet by mouth 2 times daily. [facility] DEPAKOTE 250 mg delayed release tablet 1 00:00:00 2018-09-25 00:00:00 No Grand mal seizure 750mg Q.5D Take 3 tablets by mout h 2 times daily. [facility] acetaminophen-codeine (TYLENOL/CODEINE #3) 300-30 mg per tab let 2018-06-10 00:00:00 2018-07-09 00:00:00 No Ankylosing s pondylitis, unspecified site of spine 1{tbl} Take 1 tablet by mouth 3 times daily For pain. [facility] fenofibrate (LOFIBRA) 160 mg tablet 2017-12-01 00:00:0 0 2019-05-25 00:00:00 No 160mg QD Take 160 mg by mouth daily. [facility] Diclofenac Sodium 1 % Gel 2017-11-28 00:00:00 Yes APPLY TO AFFECTED AREAS TWICE A DAY [facility] Acetaminophen/Codeine Phosphate (Tylenol # 3*) 1 Ea TA B Acetaminophen/Codeine Phosphate (Tylenol # 3*) 1 Ea TAB Yes 1 Three Times A Day as needed for Moderate Pain (4-6) [facility] Diclofenac Sodium Diclofenac Sodium Yes 1 As N eeded [facility] Divalproex Sodium (Depakote) 250 Mg TABEC Divalproex S odium (Depakote) 250 Mg TABEC Yes 750 Twice A Day [facility] Hydroxyzine Hcl Hydroxyzine Hcl Yes 50 Twice A Day [facility] Levetiracetam Levetiracetam Yes 750 Twice A Day [facility] Levomilnacipran Hcl (Fetzima) 80 Mg CAP.SA.24H Levomil nacipran Hcl (Fetzima) 80 Mg CAP.SA.24H Yes 80 Daily [facility] Omeprazole Omeprazole Yes 40 Daily [facility] Ondansetron Hcl Ondansetron Hcl Yes 4 Every 4 Hours as needed for Nausea [facility] Clonazepam Clonazepam 2019-06-19 00:00:00 No 2 Twice A Day as needed for Anxiety [facility] Acetaminophen/Hydrocodone Bitart (Alpine 10MG-325MG*) 1 Ea TAB Acetaminophen/Hydrocodone Bitart (Alpine 10MG-325MG*) 1 Ea TAB 2019-06-17 00:00:00 No Every 4 Hours as needed for Machine [employer]ec[employer] mps [facility] Alprazolam (Xanax Xr) 1 Mg TAB.ER.24H Alprazolam (Xanax Xr) 1 Mg TAB.ER.24H 2019-06-17 00:00:00 No 2 Twice A Day as neede d for Anxiety [facility] Divalproex Sodium (Depakote Er) 250 Mg TAB.ER.24H Diva lproex Sodium (Depakote Er) 250 Mg TAB.ER.24H 2019-06-17 00:00:00 No 250 Th ree Times A Day [facility] Esomeprazole Magnesium (Nexium) 40 [address].DR Ramirez prazole Magnesium (Nexium) 40 Mg CAPSULE. 2019-06-17 00:00:00 No 40 Daily [facility] Zolpidem Tartrate (Ambien) 5 Mg TABLET Zolpidem Tartrate (Ambien ) 5 Mg TABLET 2019-06-17 00:00:00 No 10 Bedtime [facility] Carisoprodol (Soma) 350 Mg TABLET Carisoprodol (Soma) 350 Mg TAB LET 2013-09-21 00:00:00 No 1 Daily [facility] Divalproex Sodium (Depakote) 500 Mg TABEC Divalproex S odium (Depakote) 500 Mg TABEC 2013-08-16 00:00:00 No 500 Three Times A Day [facility] Immunizations Ordered Immunization Name Filled Immunization Name Date Status Comments Source Influenza, Injectable, Quadrivalent 2019-03-22 00:00:00 Co mpleted [facility] Vital Signs Vital Name Observation Time Observation Value Comments Source Body Temperature 2019-06-20 16:28:00 97.7 [degF] [facility] Weight 2019-06-20 01:02:00 159.25 [lb_av] [facility] BMI (Body Mass Index) 2019-06-20 01:02:00 25.7 kg/m2 [facility] Weight 2019-06-17 01:43:00 125 [lb_av] [facility] BMI (Body Mass Index) 2019-06-17 01:43:00 20.8 kg/m2 [facility] Body height 2019-06-04 14:40:00 165.1 cm [facility] Systolic blood pressure 2019-04-27 15:55:00 137 mm[Hg] [facility] Diastolic blood pressure 2019-04-27 15:55:00 89 mm[Hg] [facility] Heart rate 2019-04-27 15:55:00 104 /min [facility] Body temperature 2019-04-27 15:55:00 36.89 [facility] Oxygen saturation in Arterial blood by Pulse oximetry 04-26 15:55:00 100 /min room air [facility] Respiratory rate 2019-04-27 13:57:00 18 /min [facility]iv [facility] Body weight 2019-04-27 13:57:00 62.596 kg [facility] BMI 2019-04-27 13:57:00 22.96 kg/m2 [facility] Procedures Procedure Date / Time Performed Performing Clinician [facility] e Computed tomography of abdomen and pelvis with contrast 00:00:00 [facility] LEVETIRACETAM 2019-04-27 21:25:00 [facility] MAGNESIUM 2019-04-27 21:25:00 [facility] VALPROIC ACID 2019-04-27 21:25:00 [facility] CREATININE POC 2019-04-27 21:10:00 [facility] HGB/HCT 2019-04-27 21:01:00 [facility] POC BMP - IN LAB (STAT) 2019-04-27 21:01:00 [facility] BMP POC 2019-04-27 20:59:00 [facility] GLUCOSE POC 2019-04-27 20:57:00 [facility] IRON PROFILE 2019-04-27 20:25:00 [facility] RETIC COUNT 2019-04-27 20:25:00 [facility] FERRITIN 2019-04-27 20:25:00 [facility] VITAMIN B12 2019-04-27 20:25:00 [facility] FOLIC ACID 2019-04-27 20:25:00 [facility] COMPREHENSIVE METABOLIC PANEL 2019-04-27 20:25:00 [facility]/DIFF 2019-04-27 20:25:00 [facility] CBC 2019-04-27 20:25:00 [facility] THYROID STIMULATING HORMONE (TSH) 2019-04-27 20:25:00 [facility] SHRUTI 2019-04-27 20:25:00 [facility] RA FACTOR 2019-04-27 20:25:00 [facility] CREATINE KINASE (CK) 2019-04-27 20:25:00 [facility] COMPLEMENT C3 2019-04-27 20:25:00 [facility] CCP IGG ABS 2019-04-27 20:25:00 [facility] URIC ACID 2019-04-27 20:25:00 [facility] URINE DRUG SCREEN 2019-04-27 20:25:00 [facility] URINALYSIS 2019-04-27 20:25:00 [facility] URINALYSIS 2019-04-27 20:25:00 [facility] DIFFERENTIAL, MANUAL-WAM 2019-04-27 20:25:00 [facility] ECHG EKG PROC 12 LEAD EKG; TRACING ONLY 2019-04-27 20:02:17 [facility] SED RATE 2018-10-20 21:07:00 [facility] CBC/DIFF 2018-10-20 21:07:00 [facility] CBC 2018-10-20 21:07:00 Zachariah Blas DIFFERENTIAL, MANUAL-WAM 2018-10-20 21:07:00 Zachariah Blas [facility] BMP POC 2018-10-20 21:07:00 Zachariah Blas URINE DRUG SCREEN 2018-10-20 21:05:00 Wan Zachariah Singh [facility] C-REACTIVE PROTEIN HIGH SENSITIVITY (CRP-HS) 2018-10-20 21:0 2:00 WanZachariah [facility] LIPID PROFILE 2018-10-20 21:02:00 Zachariah Blas Plan of Care Planned Activity Planned Date Details Comments Source Future Scheduled Test 2019-11-11 00:00:00 IMM Influenza Seas onal Nov to April (>/= 19 yrs) [code = IMM Influenza Seasonal Nov to April (>/= 19 yrs)] [facility] Instructions Infection Control [facility] Instructions Pancreatitis [facility] Instructions Soft Diet [facility] Encounters Start Date/Time End Date/Time Encounter Type Admission Type Attendi [facility] Facility Care Department Encounter ID Source 2019-10-04 00:00:00 2019-10-04 00:00:00 Outpatient [facility] [id number] [facility] 2019-07-28 00:00:00 2019-07-28 00:00:00 Outpatient [facility] [id number] [facility] 2019-07-26 00:00:00 2019-07-26 00:00:00 Outpatient [facility] [id number] [facility] 2019-06-17 04:37:00 2019-06-20 16:52:00 Discharged Inpatient 1 SAMM [facility] [id number] [facility] 2019-06-11 00:00:00 2019-06-11 00:00:00 Outpatient [facility] [id number] [facility] 2019-06-11 00:00:00 2019-06-11 00:00:00 Outpatient [facility] [id number] [facility] 2019-06-04 06:00:16 2019-06-04 06:00:16 Outpatient [facility] [id number] [facility] 2019-06-03 00:00:00 2019-06-03 00:00:00 Outpatient [facility] [id number] [facility] 2019-06-02 00:00:00 2019-06-02 00:00:00 Outpatient [facility] [id number] [facility] 2019-05-25 09:42:34 2019-05-25 09:42:34 Outpatient [facility] [id number] [facility] 2019-05-10 00:00:00 2019-05-10 00:00:00 Outpatient [facility] [id number] [facility] 2019-05-04 00:00:00 2019-05-04 00:00:00 Outpatient [facility] [id number] [facility] 2019-04-27 15:27:22 2019-04-27 15:27:22 Outpatient [facility] [id number] [facility] 2019-04-27 15:24:12 2019-04-27 15:24:12 Outpatient [facility] [id number] [facility] 2019-04-27 13:57:03 2019-04-27 13:57:03 Outpatient [facility] [id number] [facility] 2019-04-27 00:00:00 2019-04-27 00:00:00 Outpatient [facility] [id number] [facility] 2019-04-23 00:00:00 2019-04-23 00:00:00 Outpatient [facility] [id number] [facility] 2019-03-23 00:00:00 2019-03-23 00:00:00 Outpatient [facility] [id number] [facility] 2019-03-22 15:35:49 2019-03-22 15:35:49 Outpatient [facility] [id number] [facility] 2019-03-22 00:00:00 2019-03-22 00:00:00 Outpatient [facility] [id number] [facility] 2019-03-18 00:00:00 2019-03-18 00:00:00 Outpatient [facility] [id number] [facility] 2019-03-17 00:00:00 2019-03-17 00:00:00 Outpatient [facility] [id number] [facility] 2019-03-08 00:00:00 2019-03-08 00:00:00 Outpatient [facility] [id number] [facility] 2019-02-05 00:00:00 2019-02-05 00:00:00 Outpatient [facility] [id number] [facility] 2018-12-01 00:00:00 2018-12-01 00:00:00 Outpatient [facility] [id number] [facility] 2018-10-20 15:43:16 2018-10-20 15:43:16 Outpatient [facility] [id number] [facility] 2018-10-20 14:47:23 2018-10-20 14:47:23 Outpatient [facility] [id number] [facility] 2018-10-20 00:00:00 2018-10-20 00:00:00 Outpatient [facility] [id number] [facility] 2018-10-20 00:00:00 2018-10-20 00:00:00 Outpatient [facility] [id number] [facility] 2018-04-08 00:00:00 2018-04-08 00:00:00 Outpatient [facility] [id number] [facility] 2018-03-26 00:00:00 2018-03-26 00:00:00 Outpatient [facility] [id number] [facility] Results Test Description Test Time Test Comments Results Result Comments Source Capillary blood glucose measurement by glucometer (mas s/volume) 2019-06-19 20:14:00 Test Item Bedside Glucose (test code = 00757-8) 109 70-120 Meter ID: [id number] automated count (number/volume)2019-06-19 05:50:00* Test Item Value Reference Range Interpretation Comments White Blood Count (test code = 6690-2) 7.29 4.8-10.8 [facility] count (number/volume)2019-06-19 05:50:00* Test Item Value Reference Range Interpretation Comments Red Blood Count (test code = 789-8) 2.70 4.3-5.7 [facility] (moles/volume)2019-06-19 05:50:00* Test Item Value Reference Range Interpretation Comments Hemoglobin (test code = 56096-4) 8.5 14.0-18.0 [facility] HospitalAutomated blood hematocrit (volume fraction)2019-06-19 05:50:00* Test Item Value Reference Range Interpretation Comments Hematocrit (test code = 4544-3) 27.7 38.2-49.6 [facility] HospitalAutomated erythrocyte mean corpuscular ahydfs6525-34-44 05:50:00* Test Item Value Reference Range Interpretation Comments Mean Corpuscular Volume (test code = 787-2) 102.6 81-99 [facility] HospitalAutomated erythrocyte mean corpuscular hemoglobin (mass per erythrocyte)2019-06-19 05:50:00* Test Item Value Reference Range Interpretation Comments Mean Corpuscular Hemoglobin (test code = 785-6) 31.5 28-32 [facility] HospitalAutomated erythrocyte mean corpuscular hemoglobin concentration measurement (mass/volume)2019-06-19 05:50:00* Test Item Value Reference Range Interpretation Comments Mean Corpuscular Hemoglobin Concent (test code = 786-4) 30.7 31-35 [facility] HospitalRDW PagFn-Icw0607-16-09 05:50:00* Test Item Value Reference Range Interpretation Comments Red Cell Distribution Width (test code = 86010-5) 17.6 11.7 -14.4 [facility] HospitalAutomated blood platelet count (count/volume)2019-06-19 05:50:00* Test Item Value Reference Range Interpretation Comments Platelet Count (test code = 777-3) 318 140-360 [facility] HospitalAutomated blood segmented neutrophil count as percentage of total sbdmntgetd4291-40-29 05:50:00* Test Item Value Reference Range Interpretation Comments Neutrophils (%) (Auto) (test code = 14039-8) 63.9 38.7-80.0 [facility] HospitalAutomated blood lymphocyte count as percentage ot total zhhxfsgwke6970-54-53 05:50:00* Test Item Value Reference Range Interpretation Comments Lymphocytes (%) (Auto) (test code = 736-9) 24.8 18.0-39.1 [facility] HospitalAutomated blood monocyte count as percentage of total kqufbcbgqs4591-53-90 05:50:00* Test Item Value Reference Range Interpretation Comments Monocytes (%) (Auto) (test code = 5905-5) 8.2 4.4-11.3 [facility] HospitalAutomated blood eosinophil count as percentage of total fxbrvffaeb7388-35-16 05:50:00* Test Item Value Reference Range Interpretation Comments Eosinophils (%) (Auto) (test code = 713-8) 2.2 0.0-6.0 [facility] HospitalAutomated blood basophil count as percentage of total sxxdhcwvoy6002-82-98 05:50:00* Test Item Value Reference Range Interpretation Comments Basophils (%) (Auto) (test code = 706-2) 0.4 0.0-1.0 [facility] HospitalFluoroscopic procedure less than one hour lktptjvk1240-30-53 05:50:00* Test Item Value Reference Range Interpretation Comments IM GRANULOCYTES % (test code = IM GRANULOCYTES %) 0.5 0.0- 1.0 [facility] HospitalAutomated blood neutrophil count 2019-06-19 05:50:00* Test Item Value Reference Range Interpretation Comments Neutrophils # (Auto) (test code = 751-8) 4.7 2.1-6.9 [facility] HospitalBlood lymphocytes count (number/volume) 2019-06-19 05:50:00* Test Item Value Reference Range Interpretation Comments Lymphocytes # (Auto) (test code = 28757-7) 1.8 1.0-3.2 [facility] HospitalBlood monocytes automated count (number/volume)2019-06-19 05:50:00* Test Item Value Reference Range Interpretation Comments Monocytes # (Auto) (test code = 742-7) 0.6 0.2-0.8 [facility] HospitalAutomated blood eosinophil count 2019-06-19 05:50:00* Test Item Value Reference Range Interpretation Comments Eosinophils # (Auto) (test code = 711-2) 0.2 0.0-0.4 [facility] HospitalAutomated blood basophil count (count/volume)2019-06-19 05:50:00* Test Item Value Reference Range Interpretation Comments Basophils # (Auto) (test code = 704-7) 0.0 0.0-0.1 [facility] HospitalFluoroscopic procedure less than one hour buupvzzb3769-76-69 05:50:00* Test Item Value Reference Range Interpretation Comments Absolute Immature Granulocyte (auto (marzena t code = Absolute Immature Granulocyte (auto) 0.04 0-0.1 [facility] HospitalProthrombin time (PT) in platelet poor plasma by coagulation jzlbr3730-68-60 05:50:00* Test Item Value Reference Range Interpretation Comments Prothrombin Time (test code = 5902-2) 13.6 11.9-14.5 [facility] HospitalINR in Platelet poor plasma by Coagulation bcqkq7084-75-94 05:50:00* Test Item Value Reference Range Interpretation Comments Prothromb Time International Ratio (test code = 6301-6) 0.98 Oral Anticoagulant Therapy INR Values:1. Low Intensity Therapy 1.5 - 2.02 . Moderate Intensity Therapy 2.0 - 3.03. High Intensity Therapy(1) 2.5 - 3. 54. High Intensity Therapy(2) 3.0 - 4.05. Panic Value INR > 5.0 [facility] HospitalActivated partial thromboplastin time (aPTT) in platelet poor plasma by coagulation ziwgw3506-87-33 05:50:00* Test Item Value Reference Range Interpretation Comments Activated Partial Thromboplast Time (test code = 02301-1) 45.0 23.8-35.5 [facility] sodium measurement (moles/volume)2019-06-19 05:50:00* Test Item Value Reference Range Interpretation Comments Sodium Level (test code = 2951-2) 133 136-145 [facility] potassium measurement (moles/volume)2019-06-19 05:50:00* Test Item Value Reference Range Interpretation Comments Potassium Level (test code = 2823-3) 3.8 3.5-5.1 [facility] chloride measurement (moles/volume)2019-06-19 05:50:00* Test Item Value Reference Range Interpretation Comments Chloride Level (test code = 2075-0) 104 98-107 [facility]er[facility] plasma carbon dioxide, total measurement (moles/volume)2019-06-19 05:50:00* Test Item Value Reference Range Interpretation Comments Carbon Dioxide Level (test code = 2028-9) 21 22-29 [facility]er[facility] or plasma anion pix8373-51-35 05:50:00* Test Item Value Reference Range Interpretation Comments Anion Gap (test code = 48235-5) 11.8 8-16 [facility] urea nitrogen measurement (mass/volume)2019-06-19 05:50:00* Test Item Value Reference Range Interpretation Comments Blood Urea Nitrogen (test code = 3094-0) < 5 7-26 [facility]er[facility] creatinine measurement (mass/volume)2019-06-19 05:50:00* Test Item Value Reference Range Interpretation Comments Creatinine (test code = 2160-0) 0.66 0.72-1.25 [facility]er[facility] plasma urea nitrogen/creatinine mass sfstp9661-12-35 05:50:00* Test Item Value Reference Range Interpretation Comments BUN/Creatinine Ratio (test code = 3097-3) 8 6-25 [facility] HospitalEstimated glomerular filtration rate (GFR) zdefdevjfvoxj0594-71-17 05:50:00* Test Item Value Reference Range Interpretation Comments Estimat Glomerular Filtration Rate (test code = 928516599) > 60 >60 Ranges were taken from the National Kidney Disease Education Program and the [facility] [employer] literature.Reference ranges:60 or greater: Qrwqnv35-34 ( for 3 consecutive months): Chronic kidney disease 15 or less: Kidney failureParkview Regional HospitalGlucose lewbcuntuip2845-20-95 05:50:00* Test Item Value Reference Range Interpretation Comments Glucose Level (test code = LGF4009) 90 74-118 [facility] calcium measurement (mass/volume)2019-06-19 05:50:00* Test Item Value Reference Range Interpretation Comments Calcium Level (test code = 31875-1) 8.9 8.4-10.2 [facility] HospitalPhosphorus cfcayilmwfx7491-30-26 05:50:00 * Test Item Value Reference Range Interpretation Comments Phosphorus Level (test code = RKB8893) 2.5 2.3-4.7 [facility]er[facility] plasma magnesium measurement (mass/volume)2019-06-19 05:50:00* Test Item Value Reference Range Interpretation Comments Magnesium Level (test code = 99361-7) 1.6 1.3-2.1 [facility]er[facility] plasma total bilirubin measurement (mass/volume)2019-06-19 05:50:00* Test Item Value Reference Range Interpretation Comments Total Bilirubin (test code = 1975-2) 0.3 0.2-1.2 [facility] HospitalFluoroscopic procedure less than one hour uknswfoz9449-70-50 05:50:00* Test Item Value Reference Range Interpretation Comments Aspartate Amino Transf (AST/SGOT) (test code = Aspartate Amino Transf (AST/SGOT)) 13 5-34 [facility]er[facility] plasma alanine aminotransferase measurement (enzymatic activity/volume)2019-06-19 05:50:00* Test Item Value Reference Range Interpretation Comments Alanine Aminotransferase (ALT/SGPT) (test code = 1742-6) < 6 0-55 [facility]er[facility] plasma protein measurement (mass/volume)2019-06-19 05:50:00* Test Item Value Reference Range Interpretation Comments Total Protein (test code = 2885-2) 7.0 6.5-8.1 [facility]er[facility] plasma albumin measurement (mass/volume)2019-06-19 05:50:00* Test Item Value Reference Range Interpretation Comments Albumin (test code = 1751-7) 2.5 3.5-5.0 [facility] HospitalPlasma globulin measurement (mass/volume) 2019-06-19 05:50:00* Test Item Value Reference Range Interpretation Comments Globulin (test code = 24848-5) 4.5 2.3-3.5 [facility] albumin/globulin mass lsknw1856-54-18 05:50:00* Test Item Value Reference Range Interpretation Comments Albumin/Globulin Ratio (test code = 1759-0) 0.6 0.8-2.0 [facility] plasma alkaline phosphatase measurement (enzymatic activity/volume)2019-06-19 05:50:00* Test Item Value Reference Range Interpretation Comments Alkaline Phosphatase (test code = 6768-6) 94 40-150 [facility] HospitalHIV 1 and 2 antibody detection qualitative by rapid oxkzujxxzml6762-51-32 05:50:00* Test Item Value Reference Range Interpretation Comments HIV (1&2) Antibody (test code = 28803-7) NON-REACTIVE NONREACTIVE [facility] HospitalFluoroscopic procedure less than one hour xutxgzsz9849-72-44 05:50:00* Test Item Value Reference Range Interpretation Comments HIV P24 Antigen (test code = HIV P24 Antigen) NON-REACTIVE NONREACT JAZMYN [facility] HospitalFluoroscopic procedure less than one hour vefddavb1999-55-75 14:00:00* Test Item Value Reference Range Interpretation Comments Venous Blood pH (test code = Venous Blood pH) 7.340 7.35-7.3 8 [facility] HospitalFluoroscopic procedure less than one hour dvxrntzp7552-64-46 14:00:00* Test Item Value Reference Range Interpretation Comments Venous Blood Partial Pressure CO2 (test code = Venous Blood Partial Pressure CO2) 41.5 44-48 [facility] HospitalFluoroscopic procedure less than one hour pleqqbxv7286-71-82 14:00:00* Test Item Value Reference Range Interpretation Comments Venous Blood HCO3 (test code = Venous Blood HCO3) 22.4 21-2 2 [facility] HospitalFluoroscopic procedure less than one hour dcsdurxv3738-51-34 14:00:00* Test Item Value Reference Range Interpretation Comments Venous Blood Total Carbon Dioxide (test code = Venous Blood Total Carbon Dioxide) 24 [facility] HospitalFluoroscopic procedure less than one hour miugzreb0526-73-22 14:00:00* Test Item Value Reference Range Interpretation Comments Venous Blood Base Excess (test code = Venous Blood Base Excess) -3 [facility] HospitalFluoroscopic procedure less than one hour nsgtwkvm7845-78-62 14:00:00* Test Item Value Reference Range Interpretation Comments Venous Blood Oxygen Saturation (test code = Venous Blood Oxy gen Saturation) 97 [facility] HospitalFluoroscopic procedure less than one hour vemiuwbj0386-47-08 14:00:00* Test Item Value Reference Range Interpretation Comments FiO2 (test code = FiO2) 21 [facility] HospitalBlper[facility] platelets count by estimate (number/volume)2019-06-18 09:35:00* Test Item Value Reference Range Interpretation Comments Platelet Estimate (test code = 01819-7) ADEQUATE NO EDTA PLT CLUMPSParkview Regional HospitalPlatelet morphology 2019-06-18 09:35:00* Test Item Value Reference Range Interpretation Comments Platelet Morphology Comment (test code = 88835-8) NORMAL [facility] HospitalRBC inqemjkzwv2245-64-41 09:35:00* Test Item Value Reference Range Interpretation Comments Red Cell Morphology Comment (test code = 6742-1) NORMAL [facility] plasma amylase measurement (enzymatic activity/volume)2019-06-18 09:33:00* Test Item Value Reference Range Interpretation Comments Amylase Level (test code = 1798-8) 125 25-125 [facility] plasma lipase measurement (enzymatic activity/volume)2019-06-18 09:33:00* Test Item Value Reference Range Interpretation Comments Lipase (test code = 3040-3) 119 8-78 [facility] HospitalCT ABDOMEN/PELVIS W9513-32-98 04:35:00 [facility] [address] [address] Patient Name: CHARLOTTE SHAH II MR #: [id number] : 1980 Age/Sex: 38/M Req #: [id number] Adm Physician: SAMM MIMS MD Ordered by: JEM ARIZMENDI MD Report #: [id number] Location: [facility] Room/Bed: [place] [address] Procedure: 0507-[address]/CT ABDOMEN/PELVIS W Exam Date: 06/17/19 Exam Ti me: 0410 REPORT STATUS: Signed E XAM: CT Abdomen and Pelvis WITH contrast INDICATION: Abdominal pain COMP ARISON: None. TECHNIQUE: Abdomen and pelvis were scanned utilizing a multidete ctor helical scanner from the lung base to the pubic symphysis after administr ation of IV contrast. Coronal and sagittal reformations were obtained. Routine protocol was performed. Scan was performed when during portal venous phase. IV CONTRAST: 100 mL of Isovue 370 ORAL CONTRAST: Gastrografin COMPLICATIONS: None RADIATION DOSE: Total DLP: 421 m Gy*cm Estimated effective dose: (DLP x 0.015 x size factor) mSv CT DIvol has been reviewed. It is below the limits set by the Radiation Protocol Committee (RPC). Dose modulation, iterative reconstruction, and/or weight based adjustment of the mA/kV was utilized to reduce the radiation dose to as low as reasonably achievable. FINDINGS: LINES and TUBES: None. LOWER THORAX: Unremarkable HEPATOBILIARY: No focal hepatic lesions. No biliary ductal dilation. GALLBLADDER: No radio-opaque stones or sludge. No wall thickening. SPLEEN: No splenomegaly. PANCREAS: Mild peripa ncreatic fat stranding. No focal masses or ductal dilatation. ADRENALS: No adrenal nodules KIDNEYS/URETERS: Kidneys enhance symmetrically. No hydronephrosis. No cystic or solid mass lesions. No stones. GI TRACT: No abnormal distention, wall thickening, or evidence of bowel obstruction. Appendix is not clearly identified. There is however no fat stranding or julienne nopathy in the right lower quadrant to suggest appendicitis. PELVIC ORGANS/ BLADDER: Unremarkable. LYMPH NODES: No lymphadenopathy. VESSELS: Unrem arkable. PERITONEUM / RETROPERITONEUM: No free air or fluid. BONES: In tact bilateral metallic hip arthroplasty hardware. SOFT TISSUES: Unrema rkable. IMPRESSION: Acute interstitial edematous pancreat itis. Signed by: Domenico Alejo DO on 06/17/2019 4:47 AM Dictated By: DOMENICO ALEJO DO 6 Transcribed By: SANGITA on 06/17/19446 COPY TO: BERNARDINO ARIZMENDI MD Serum or plasma sodium measurement (moles/volume)2019-06-17 03:00:00* Test Item Value Reference Range Interpretation Comments Sodium Level (test code = 2951-2) 137 136-145 [facility] potassium measurement (moles/volume)2019-06-17 03:00:00* Test Item Value Reference Range Interpretation Comments Potassium Level (test code = 2823-3) 3.2 3.5-5.1 [facility] chloride measurement (moles/volume)2019-06-17 03:00:00* Test Item Value Reference Range Interpretation Comments Chloride Level (test code = 2075-0) 102 98-107 [facility]er[facility] or plasma carbon dioxide, total measurement (moles/volume)2019-06-17 03:00:00* Test Item Value Reference Range Interpretation Comments Carbon Dioxide Level (test code = 2028-9) 22 22-29 [facility]er[facility] or plasma anion lqw8251-17-19 03:00:00* Test Item Value Reference Range Interpretation Comments Anion Gap (test code = 26720-3) 16.2 8-16 [facility] urea nitrogen measurement (mass/volume)2019-06-17 03:00:00* Test Item Value Reference Range Interpretation Comments Blood Urea Nitrogen (test code = 3094-0) 13 7-26 [facility] plasma creatinine measurement (mass/volume)2019-06-17 03:00:00* Test Item Value Reference Range Interpretation Comments Creatinine (test code = 2160-0) 1.23 0.72-1.25 [facility]er[facility] plasma urea nitrogen/creatinine mass txnsc9180-72-14 03:00:00* Test Item Value Reference Range Interpretation Comments BUN/Creatinine Ratio (test code = 3097-3) 11 6-25 [facility] HospitalEstimated glomerular filtration rate (GFR) qghnyynmlfiqh0194-23-16 03:00:00* Test Item Value Reference Range Interpretation Comments Estimat Glomerular Filtration Rate (test code = 969181967) > 60 >60 Ranges were taken from the National Kidney Disease Education Program and the [facility] literature.Reference ranges:60 or greater: Natpru37-03 ( for 3 consecutive months): Chronic kidney disease 15 or less: Kidney failureParkview Regional HospitalGlucose cuabmmrcrws2832-50-06 03:00:00* Test Item Value Reference Range Interpretation Comments Glucose Level (test code = ZOD0708) 92 74-118 [facility] calcium measurement (mass/volume)2019-06-17 03:00:00* Test Item Value Reference Range Interpretation Comments Calcium Level (test code = 86777-5) 9.4 8.4-10.2 [facility] plasma total bilirubin measurement (mass/volume)2019-06-17 03:00:00* Test Item Value Reference Range Interpretation Comments Total Bilirubin (test code = 1975-2) 0.5 0.2-1.2 [facility] HospitalFluoroscopic procedure less than one hour tbrnnogr1706-01-89 03:00:00* Test Item Value Reference Range Interpretation Comments Aspartate Amino Transf (AST/SGOT) (test code = Aspartate Amino Transf (AST/SGOT)) 10 5-34 [facility] alanine aminotransferase measurement (enzymatic activity/volume)2019-06-17 03:00:00* Test Item Value Reference Range Interpretation Comments Alanine Aminotransferase (ALT/SGPT) (test code = 1742-6) < 6 0-55 [facility] plasma protein measurement (mass/volume)2019-06-17 03:00:00* Test Item Value Reference Range Interpretation Comments Total Protein (test code = 2885-2) 8.6 6.5-8.1 [facility] plasma albumin measurement (mass/volume)2019-06-17 03:00:00* Test Item Value Reference Range Interpretation Comments Albumin (test code = 1751-7) 3.2 3.5-5.0 [facility] HospitalPlasma globulin measurement (mass/volume) 2019-06-17 03:00:00* Test Item Value Reference Range Interpretation Comments Globulin (test code = 38866-8) 5.4 2.3-3.5 [facility] plasma albumin/globulin mass dcfeb2071-63-89 03:00:00* Test Item Value Reference Range Interpretation Comments Albumin/Globulin Ratio (test code = 1759-0) 0.6 0.8-2.0 [facility] plasma alkaline phosphatase measurement (enzymatic activity/volume)2019-06-17 03:00:00* Test Item Value Reference Range Interpretation Comments Alkaline Phosphatase (test code = 6768-6) 122 40-150 [facility]Bl[facility] leukocytes automated count (number/volume)2019-06-17 01:45:00* Test Item Value Reference Range Interpretation Comments White Blood Count (test code = 6690-2) 11.11 4.8-10.8 [facility] HospitalBlood erythrocytes automated count (number/volume)2019-06-17 01:45:00* Test Item Value Reference Range Interpretation Comments Red Blood Count (test code = 789-8) 4.13 4.3-5.7 [facility] HospitalBlood hemoglobin measurement (moles/volume)2019-06-17 01:45:00* Test Item Value Reference Range Interpretation Comments Hemoglobin (test code = 92600-8) 13.1 14.0-18.0 [facility] HospitalAutomated blood hematocrit (volume fraction)2019-06-17 01:45:00* Test Item Value Reference Range Interpretation Comments Hematocrit (test code = 4544-3) 38.2 38.2-49.6 [facility] HospitalAutomated erythrocyte mean corpuscular glaxuc4794-93-49 01:45:00* Test Item Value Reference Range Interpretation Comments Mean Corpuscular Volume (test code = 787-2) 92.5 81-99 [facility] HospitalAutomated erythrocyte mean corpuscular hemoglobin (mass per erythrocyte)2019-06-17 01:45:00* Test Item Value Reference Range Interpretation Comments Mean Corpuscular Hemoglobin (test code = 785-6) 31.7 28-32 [facility] HospitalAutomated erythrocyte mean corpuscular hemoglobin concentration measurement (mass/volume)2019-06-17 01:45:00* Test Item Value Reference Range Interpretation Comments Mean Corpuscular Hemoglobin Concent (test code = 786-4) 34.3 31-35 [facility] HospitalRDW QqkPj-Paj2322-06-07 01:45:00* Test Item Value Reference Range Interpretation Comments Red Cell Distribution Width (test code = 25564-1) 20.2 11.7 -14.4 [facility] HospitalAutomated blood platelet count (count/volume)2019-06-17 01:45:00* Test Item Value Reference Range Interpretation Comments Platelet Count (test code = 777-3) 510 140-360 [facility] HospitalAutomated blood segmented neutrophil count as percentage of total rqworftpuo8092-57-86 01:45:00* Test Item Value Reference Range Interpretation Comments Neutrophils (%) (Auto) (test code = 07494-6) 79.5 38.7-80.0 [facility] HospitalAutomated blood lymphocyte count as percentage ot total mgytrykeac8506-61-12 01:45:00* Test Item Value Reference Range Interpretation Comments Lymphocytes (%) (Auto) (test code = 736-9) 12.1 18.0-39.1 [facility] HospitalAutomated blood monocyte count as percentage of total wrjlbzngix6517-69-59 01:45:00* Test Item Value Reference Range Interpretation Comments Monocytes (%) (Auto) (test code = 5905-5) 7.1 4.4-11.3 [facility] HospitalAutomated blood eosinophil count as percentage of total ciedkqijmj5250-20-88 01:45:00* Test Item Value Reference Range Interpretation Comments Eosinophils (%) (Auto) (test code = 713-8) 0.1 0.0-6.0 [facility] HospitalAutomated blood basophil count as percentage of total ielazxkfmj6160-25-24 01:45:00* Test Item Value Reference Range Interpretation Comments Basophils (%) (Auto) (test code = 706-2) 0.5 0.0-1.0 [facility] HospitalFluoroscopic procedure less than one hour sffcewrp5478-99-75 01:45:00* Test Item Value Reference Range Interpretation Comments IM GRANULOCYTES % (test code = IM GRANULOCYTES %) 0.7 0.0- 1.0 [facility] HospitalAutomated blood neutrophil count 2019-06-17 01:45:00* Test Item Value Reference Range Interpretation Comments Neutrophils # (Auto) (test code = 751-8) 8.8 2.1-6.9 [facility] HospitalBlood lymphocytes count (number/volume) 2019-06-17 01:45:00* Test Item Value Reference Range Interpretation Comments Lymphocytes # (Auto) (test code = 99728-8) 1.3 1.0-3.2 [facility] HospitalBlood monocytes automated count (number/volume)2019-06-17 01:45:00* Test Item Value Reference Range Interpretation Comments Monocytes # (Auto) (test code = 742-7) 0.8 0.2-0.8 [facility] HospitalAutomated blood eosinophil count 2019-06-17 01:45:00* Test Item Value Reference Range Interpretation Comments Eosinophils # (Auto) (test code = 711-2) 0.0 0.0-0.4 [facility] HospitalAutomated blood basophil count (count/volume)2019-06-17 01:45:00* Test Item Value Reference Range Interpretation Comments Basophils # (Auto) (test code = 704-7) 0.1 0.0-0.1 [facility] HospitalFluoroscopic procedure less than one hour gpirxytg4994-33-30 01:45:00* Test Item Value Reference Range Interpretation Comments Absolute Immature Granulocyte (auto (marzena t code = Absolute Immature Granulocyte (auto) 0.08 0-0.1 [facility] HospitalUrine color ntfbooqeogeyh0724-61-66 01:45:00* Test Item Value Reference Range Interpretation Comments Urine Color (test code = 5778-6) ORANGE YELLOW [facility] HospitalUrine odwuttn9909-46-94 01:45:00* Test Item Value Reference Range Interpretation Comments Urine Clarity (test code = 17768-0) CLOUDY CLEAR [facility] Hospitalpecific gravity of Urine by Test strip 2019-06-17 01:45:00* Test Item Value Reference Range Interpretation Comments Urine Specific [place] (test code = 5811-5) >=1.030 1.010-1.02 5 [facility] HospitalUrine pH measurement by automated test ktfli1468-51-45 01:45:00* Test Item Value Reference Range Interpretation Comments Urine pH (test code = 44331-4) 6 5-7 [facility] esterase detection by rqjpkgsk8050-45-58 01:45:00* Test Item Value Reference Range Interpretation Comments Urine Leukocyte Esterase (test code = 5799-2) NEGATIVE NEGATIVE [facility] nitrite mtetcsrfv2923-31-05 01:45:00* Test Item Value Reference Range Interpretation Comments Urine Nitrite (test code = 70998-3) NEGATIVE NEGATIVE [facility] protein measurement by test strip (mass/volume)2019-06-17 01:45:00* Test Item Value Reference Range Interpretation Comments Urine Protein (test code = 5804-0) 2+ NEGATIVE [facility] glucose sjraorspz5822-86-19 01:45:00* Test Item Value Reference Range Interpretation Comments Urine Glucose (UA) (test code = 2349-9) NEGATIVE NEGATIVE [facility] HospitalU[facility] ketones detection by automated test vvkot4315-08-26 01:45:00* Test Item Value Reference Range Interpretation Comments Urine Ketones (test code = 64080-3) TRACE NEGATIVE [facility] HospitalUrine opiates screening fcoz7715-84-43 01:45:00* Test Item Value Reference Range Interpretation Comments Urine Opiates Screen (test code = 75922-5) POSITIVE NEGATIVE ALL TESTS PERFORMED MANUALLY ON CoverMyMeds TOX/SEE TEST This test provides only a sc reen. Positive results should be repeated by a confirmatory test. [facility] HospitalBarbiturates screen, adqlp3593-88-64 01:45:00* Test Item Value Reference Range Interpretation Comments Urine Barbiturates Screen (test code = 147547064) NEGATIVE NEGA TIVE [facility] HospitalU[facility] phencyclidine detection by screening qpkeqk9844-96-06 01:45:00* Test Item Value Reference Range Interpretation Comments Urine Phencyclidine Screen (test code = 32408-0) NEGATIVE NEGAT JAZMYN [facility] HospitalU[facility] amphetamines detection by screen method > 1000 ng/uI5849-82-85 01:45:00* Test Item Value Reference Range Interpretation Comments Urine Amphetamines Screen (test code = 34362-1) POSITIVE NEGATI VE This test provides only a screen. Positive results should be repeated by a confi rmatory test.[facility] HospitalFluoroscopic procedure less than one hour qvgdajlw1359-49-24 01:45:00* Test Item Value Reference Range Interpretation Comments Urine Methamphetamines Screen (test code = Urine Metha mphetamines Screen) POSITIVE NEGATIVE This test provides only a screen. Positive results should be repeated by a confi rmatory test.[facility] HospitalU[facility] benzodiazepines detection by screening vkbbuq3788-09-16 01:45:00* Test Item Value Reference Range Interpretation Comments Urine Benzodiazepines Screen (test code = 67258-9) POSITIVE NEG ATIVE This test provides only a screen. Positive results should be repeated by a confi rmatory test.[facility] HospitalU[facility] cocaine measurement (mass/volume)2019-06-17 01:45:00* Test Item Value Reference Range Interpretation Comments Urine Cocaine Screen (test code = 3398-5) NEGATIVE NEGATIVE [facility] HospitalUrine cannabinoids detection by screening nwwuod7328-60-50 01:45:00* Test Item Value Reference Range Interpretation Comments Urine Cannabinoids Screen (test code = 15393-2) NEGATIVE NEGATI VE THESE RESULTS ARE FOR MEDICAL TREATMENT ONLYTHIS REPORT CONTAINS UNCONFIR MED SCREENING RESULTS*POSITIVE RESULTS WILL BE CONFIRMED BY REFERENCE LAB UPON R EQUEST CUT-OFFDRUG CLASS CONCENTRATION ng/mLAmphetamines 1000Methamphetamines 1000Cocaine 300Opiate 300Phencyc lidine 25Cannabinoid 50Barbiturates 300Benzodiazepine 300Methadone 300 --- 0255 ---THC previously reported as: THESE RESULTS ARE FOR MEDICAL TREATM ENT ONLYTHIS REPORT CONTAINS UNCONFIRMED SCREENING RESULTS*POSITIVE RESULTS WILL BE CONFIRMED BY REFERENCE LAB UPON REQUEST CUT-OF FDRUG CLASS CONCENTRATION ng/mLAmphetamin es 1000Methamphetamines 1000Cocaine 300Opiate 300Phencyclidine 25Cannabinoid 50Barbiturates 300Benzodiazepine 300Me thadone 300[facility] bbtzre2805-05-87 01:45:00* Test Item Value Reference Range Interpretation Comments Urine Methadone Screen (test code = 66011-6) NEGATIVE NEGATIVE THESE RESULTS ARE FOR MEDICAL TREATMENT ONLYTHIS REPORT CONTAINS UNCONFIR MED SCREENING RESULTS*POSITIVE RESULTS WILL BE CONFIRMED BY REFERENCE LAB UPON R EQUEST CUT-OFFDRUG CLASS CONCENTRATION ng/mLAmphetamines 1000Methamphetamines 1000Cocaine Metabolite 300Opiate 300Phencyc lidine 25Cannabinoid 50Barbiturates 300Benzodiazepine 300Methadone 300[facility] CenterU[facility] urobilinogen measurement by test strip (mass/volume)2019-06-17 01:45:00* Test Item Value Reference Range Interpretation Comments Urine Urobilinogen (test code = 70026-7) 0.2 0.2-1 [facility] HospitalU[facility] total bilirubin measurement (mass/volume)2019-06-17 01:45:00* Test Item Value Reference Range Interpretation Comments Urine Bilirubin (test code = 1978-6) LARGE NEGATIVE [facility] HospitalUrine erythrocytes anmheflys5149-97-44 01:45:00* Test Item Value Reference Range Interpretation Comments Urine Blood (test code = 05255-8) 1+ NEGATIVE [facility] HospitalAutomated urine sediment leukocyte count by microscopy (number/high power field)2019-06-17 01:45:00* Test Item Value Reference Range Interpretation Comments Urine WBC (test code = 5821-4) 11-20 0-5 [facility] HospitalErythrocytes detection in urine sediment by light irokkveieo8358-57-35 01:45:00* Test Item Value Reference Range Interpretation Comments Urine RBC (test code = 82265-2) 21-50 0-5 [facility] HospitalBacteria detection in urine sediment by light qjbihgbeda1516-26-43 01:45:00* Test Item Value Reference Range Interpretation Comments Urine Bacteria (test code = 36248-4) FEW NONE [facility] HospitalEpithelial cells detection in urine sediment by light gqvoerwlnz1256-92-74 01:45:00* Test Item Value Reference Range Interpretation Comments Urine Epithelial Cells (test code = 60035-3) FEW NONE [facility] HospitalHyaline casts detection in urine sediment by light usgzyyvkwo5591-68-82 01:45:00* Test Item Value Reference Range Interpretation Comments Urine Hyaline Casts (test code = 91877-9) >15 0-1 [facility] HospitalMucus detection in urine sediment by light vparfxlasv7879-07-62 01:45:00* Test Item Value Reference Range Interpretation Comments Urine Mucus (test code = 8247-9) [facility] plasma amylase measurement (enzymatic activity/volume)2019-06-17 01:45:00* Test Item Value Reference Range Interpretation Comments Amylase Level (test code = 1798-8) 500 25-125 [facility] or plasma lipase measurement (enzymatic activity/volume)2019-06-17 01:45:00* Test Item Value Reference Range Interpretation Comments Lipase (test code = 3040-3) 536 8-78 [facility] HospitalUrine color qipiozlakdroc5374-03-76 01:45:00* Test Item Value Reference Range Interpretation Comments Urine Color (test code = 5778-6) ORANGE YELLOW [facility] HospitalUrine yxqlhrc4330-35-53 01:45:00* Test Item Value Reference Range Interpretation Comments Urine Clarity (test code = 13595-0) [facility] Hospitalpecific gravity of Urine by Test strip 2019-06-17 01:45:00* Test Item Value Reference Range Interpretation Comments Urine Specific [place] (test code = 5811-5) >=1.030 1.010-1.02 5 [facility] HospitalU[facility] pH measurement by automated test efxve5393-95-27 01:45:00* Test Item Value Reference Range Interpretation Comments Urine pH (test code = 71285-7) 6 5-7 [facility] HospitalUrine leukocyte esterase detection by ktjvvfku5744-54-80 01:45:00* Test Item Value Reference Range Interpretation Comments Urine Leukocyte Esterase (test code = 5799-2) NEGATIVE NEGATIVE [facility] HospitalUrine nitrite zkmnzhzdo0097-11-57 01:45:00* Test Item Value Reference Range Interpretation Comments Urine Nitrite (test code = 82475-8) NEGATIVE NEGATIVE [facility] HospitalUrine protein measurement by test strip (mass/volume)2019-06-17 01:45:00* Test Item Value Reference Range Interpretation Comments Urine Protein (test code = 5804-0) 2+ NEGATIVE [facility] HospitalUrine glucose zckmqwxgi5621-67-93 01:45:00* Test Item Value Reference Range Interpretation Comments Urine Glucose (UA) (test code = 2349-9) NEGATIVE NEGATIVE [facility] HospitalUrine ketones detection by automated test qsxsk5656-86-33 01:45:00* Test Item Value Reference Range Interpretation Comments Urine Ketones (test code = 03020-5) TRACE NEGATIVE [facility] HospitalUrine opiates screening swfm0622-11-24 01:45:00* Test Item Value Reference Range Interpretation Comments Urine Opiates Screen (test code = 88394-5) POSITIVE NEGATIVE ALL TESTS PERFORMED MANUALLY ON CoverMyMeds TOX/SEE TEST This test provides only a sc reen. Positive results should be repeated by a confirmatory test. [facility] HospitalBarbiturates screen, fpkbd4085-63-27 01:45:00* Test Item Value Reference Range Interpretation Comments Urine Barbiturates Screen (test code = 470825309) NEGATIVE NEGA TIVE [facility] HospitalUrine phencyclidine detection by screening klxlkw0427-46-01 01:45:00* Test Item Value Reference Range Interpretation Comments Urine Phencyclidine Screen (test code = 25757-8) NEGATIVE NEGAT JAZMYN [facility] HospitalUrine amphetamines detection by screen method > 1000 ng/mA4856-75-45 01:45:00* Test Item Value Reference Range Interpretation Comments Urine Amphetamines Screen (test code = 01029-7) POSITIVE NEGATI VE This test provides only a screen. Positive results should be repeated by a confi rmatory test.[facility] HospitalFluoroscopic procedure less than one hour xihmmztj8399-25-51 01:45:00* Test Item Value Reference Range Interpretation Comments Urine Methamphetamines Screen (test code = Urine Metha mphetamines Screen) POSITIVE NEGATIVE This test provides only a screen. Positive results should be repeated by a confi rmatory test.[facility] HospitalUrine benzodiazepines detection by screening asrraq6022-19-07 01:45:00* Test Item Value Reference Range Interpretation Comments Urine Benzodiazepines Screen (test code = 12520-2) POSITIVE NEG ATIVE This test provides only a screen. Positive results should be repeated by a confi rmatory test.[facility] HospitalUrine cocaine measurement (mass/volume)2019-06-17 01:45:00* Test Item Value Reference Range Interpretation Comments Urine Cocaine Screen (test code = 3398-5) NEGATIVE NEGATIVE [facility] HospitalUrine cannabinoids detection by screening vdrvzs2063-02-79 01:45:00* Test Item Value Reference Range Interpretation Comments Urine Cannabinoids Screen (test code = 81051-4) NEGATIVE NEGATI VE THESE RESULTS ARE FOR MEDICAL TREATMENT ONLYTHIS REPORT CONTAINS UNCONFIR MED SCREENING RESULTS*POSITIVE RESULTS WILL BE CONFIRMED BY REFERENCE LAB UPON R EQUEST CUT-OFFDRUG CLASS CONCENTRATION ng/mLAmphetamines 1000Methamphetamines 1000Cocaine 300Opiate 300Phencyc lidine 25Cannabinoid 50Barbiturates 300Benzodiazepine 300Methadone 300 --- 0255 ---THC previously reported as: THESE RESULTS ARE FOR MEDICAL TREATM ENT ONLYTHIS REPORT CONTAINS UNCONFIRMED SCREENING RESULTS*POSITIVE RESULTS WILL BE CONFIRMED BY REFERENCE LAB UPON REQUEST CUT-OF FDRUG CLASS CONCENTRATION ng/mLAmphetamin es 1000Methamphetamines 1000Cocaine 300Opiate 300Phencyclidine 25Cannabinoid 50Barbiturates 300Benzodiazepine 300Me thadone 300[facility] CenterUrine methadone ubnwpq8136-57-37 01:45:00* Test Item Value Reference Range Interpretation Comments Urine Methadone Screen (test code = 66518-3) NEGATIVE NEGATIVE THESE RESULTS ARE FOR MEDICAL TREATMENT ONLYTHIS REPORT CONTAINS UNCONFIR MED SCREENING RESULTS*POSITIVE RESULTS WILL BE CONFIRMED BY REFERENCE LAB UPON R EQUEST CUT-OFFDRUG CLASS CONCENTRATION ng/mLAmphetamines 1000Methamphetamines 1000Cocaine Metabolite 300Opiate 300Phencyc lidine 25Cannabinoid 50Barbiturates 300Benzodiazepine 300Methadone 300[facility] CenterUrine urobilinogen measurement by test strip (mass/volume)2019-06-17 01:45:00* Test Item Value Reference Range Interpretation Comments Urine Urobilinogen (test code = 04611-1) 0.2 0.2-1 [facility] HospitalUrine total bilirubin measurement (mass/volume)2019-06-17 01:45:00* Test Item Value Reference Range Interpretation Comments Urine Bilirubin (test code = 1978-6) LARGE NEGATIVE [facility] HospitalUrine erythrocytes kurbdmofc9392-10-96 01:45:00* Test Item Value Reference Range Interpretation Comments Urine Blood (test code = 99733-5) 1+ NEGATIVE [facility] HospitalAutomated urine sediment leukocyte count by microscopy (number/high power field)2019-06-17 01:45:00* Test Item Value Reference Range Interpretation Comments Urine WBC (test code = 5821-4) 11-20 0-5 [facility] HospitalErythrocytes detection in urine sediment by light ziidvplraa7180-54-22 01:45:00* Test Item Value Reference Range Interpretation Comments Urine RBC (test code = 80929-4) 21-50 0-5 [facility] HospitalBacteria detection in urine sediment by light iubyrwazcu8268-60-65 01:45:00* Test Item Value Reference Range Interpretation Comments Urine Bacteria (test code = 46643-7) FEW NONE [facility] HospitalEpithelial cells detection in urine sediment by light dhxldbtkow0880-89-31 01:45:00* Test Item Value Reference Range Interpretation Comments Urine Epithelial Cells (test code = 61054-2) FEW NONE [facility] HospitalHyaline casts detection in urine sediment by light byagpfwbxf9607-13-37 01:45:00* Test Item Value Reference Range Interpretation Comments Urine Hyaline Casts (test code = 98986-0) >15 0-1 [facility] HospitalMucus detection in urine sediment by light ggjjlcgexc1867-91-11 01:45:00* Test Item Value Reference Range Interpretation Comments Urine Mucus (test code = 8247-9) [facility] HospitalCCP Anitbodies IgG & [id number] 20:07:00* Test Item Value Reference Range Interpretation Comments CCP Antibodies IgG/IgA (test code = 62445-2) 10 0- 19 uni ts Negative <20 Weak positive 20 - 39 Moderate positive 40 - 59 Strong positive >59 ALIE (test code = ALIE) Performed at: [address] [place] [address] [id number] Director: Aditi Kang MD, Phone: [phone] [facility]MjoqsmXjeiwtfbnxsbi4358-65-73 17:08:00* Test Item Value Reference Range Interpretation Comments Levetiracetam, S (test code = 28788-5) 44.8 ug/mL 10-40 H Result unreliable: Result above instrument usable range. This test was developed and its performance characteristicsdetermined by [facility]. It has not been cleared or approvedby the Food and Drug Administration. ALIE (test code = ALIE) Performed at: [address] [place] [address] [id number] Director: Aditi Kang MD, Phone: [phone] Lab Interpretation (test code = 65896-6) [facility]normal [facility]OcndckZEI4805-[facility]-54 22:18:00* Test Item Value Reference Range Interpretation Comments SHRUTI Screen (test code = 56944549) Negative Negative Lab Interpretation (test code = 59911-8) Normal [facility] CREATININE POC docked mxiqhf1181-28-32 12:46:00* Test Item Value Reference Range Interpretation Comments Creatinine POC (test code = 01720584) 1.0 mg/dL 0.6-1.3 GFR, Estimated (test code = 06071382) >90 >=90 mL/min/1.73 m2 Lab Interpretation (test code = 69466-8) Normal [facility] HospitalDifferential, Yyshwa5384-78-38 09:31:00* Test Item Value Reference Range Interpretation Comments Neutrophil (test code = 16248599) 43.0 % 34-67.9 Lymphs (test code = 43580246) 52.0 % 21.8-50 H Monocytes (test code = 93417316) 4.0 % 5.3-12 L Eos (test code = 54877172) 0.0 % 0.8-5 L Basos (test code = 70281194) 0.0 % 0.2-1.2 L Myelocyte (test code = 40153056) 1.0 % Neutrophils (Absolute) (test code = 65481137) 3.69 K/uL 1.78-5.3 6 Lymphs (Absolute) (test code = 36658172) 4.47 K/uL 1.32-3.57 H Monocytes(Absolute) (test code = 93337421) 0.34 K/uL 0.3-0.82 Eos (Absolute) (test code = 66872564) 0.00 K/uL 0.04-0.54 L Baso (Absolute) (test code = 20580720) 0.00 K/uL 0.01-0.08 L Vacuolated Gran (test code = 46611829) 1+ None seen A Platelet Clumps (test code = 13813535) Present None seen A Cells Counted (test code = 72117270) Lab Interpretation (test code = 52627-4) [facility]normal [facility]Xdzz7802-95-78 09:31:00* Test Item Value Reference Range Interpretation Comments WBC (test code = 6690-2) 8.6 K/uL 4.5-12 RBC (test code = 789-8) 3.73 4.60- 6.20 M/uL L Hemoglobin (test code = 718-7) 10.9 g/dL 14-18 L Hematocrit (test code = 4544-3) 34.2 % 40-54 L MCV (test code = 787-2) 91.7 fL 82-92 MCH (test code = 785-6) 29.2 pg 27-31 MCHC (test code = 786-4) 31.9 g/dL 32-36 L RDW (test code = 23510-7) 66.0 fL 35.1-43.9 H Platelet (test code = 777-3) 517 K/uL 150-400 H Mean Platelet Volume (test code = 20481-8) 9.5 fL 9.4-12.4 Percent NRBC (test code = 50713756) 0.0 % Absolute NRBC (test code = 67527764) 0.00 K/uL Lab Interpretation (test code = 01706-9) Abnormal [facility] HospitalRetic Dgwec8280-41-67 08:55:00* Test Item Value Reference Range Interpretation Comments Retic Count (test code = 62632726) 3.83 % 0.5-1.8 H Immature Retic (test code = 62575056) 23.2 % 2.3-13.4 H Ret Hgb Equivalent (test code = 92936527) 32.7 pg 30.8-36.6 Absolute Retic (test code = 28692157) 0.140 0.026- 0.095 M/u L H Lab Interpretation (test code = 65796-5) Abnormal [facility] HospitalVitamin B779328-97-70 08:02:00* Test Item Value Reference Range Interpretation Comments Vitamin B12 (test code = 56152974) 468 pg/mL See comment Normal: 180-914 pg/mLIntermittent: 145-180 pg/mLDeficient: <=145.0 pg/mL [facility] HospitalMeuosfKdelopdg7125-46-12 07:59:00* Test Item Value Reference Range Interpretation Comments Ferritin (test code = 83425524) 173.5 ng/mL 23.9-336.2 Lab Interpretation (test code = 07977-5) Normal [facility] HospitalFolic Xxyt0879-25-25 07:58:00* Test Item Value Reference Range Interpretation Comments Folic Acid (test code = 02103014) 4.7 ng/mL 5.9-24.8 L Lab Interpretation (test code = 51506-6) Abnormal [facility] HospitalComplement J75150-48-45 07:53:00* Test Item Value Reference Range Interpretation Comments Complement C3 (test code = 11897790) 175.3 mg/dL 87-200 Lab Interpretation (test code = 33208-7) Normal [facility] HospitalComplement Z40502-22-29 07:53:00* Test Item Value Reference Range Interpretation Comments Complement C4 (test code = 09102595) 41.8 mg/dL 19-52 Lab Interpretation (test code = 07653-9) Normal [facility] HospitalRA Crboaf4392-11-04 07:53:00* Test Item Value Reference Range Interpretation Comments RA (test code = 72190519) <10 <14 IU/mL Lab Interpretation (test code = 24817-8) Normal [facility] HospitalTSH [Thyroid Stimulating Hormone]2019-04-28 07:53:00* Test Item Value Reference Range Interpretation Comments TSH (test code = 91685411) 1.62 0.45- 5.33 uIU/mL Lab Interpretation (test code = 83907-0) Normal [facility] HospitalCK [Creatinine Kinase]2019-04-28 07:42:00* Test Item Value Reference Range Interpretation Comments CK (test code = 69838480) 52 U/L 30-223 Lab Interpretation (test code = 29811-3) [facility] Faltmwf7984-34-05 07:42:00* Test Item Value Reference Range Interpretation Comments Iron (test code = 01797637) 116 ug/dL 50-212 TIBC (test code = 22852305) 367 ug/dL 250-450 % Iron Sat (test code = 74270223) 32 % Transferrin (test code = 35115497) 261.85 mg/dL 203-362 [facility]Uric Tmzo5559-24-32 07:42:00* Test Item Value Reference Range Interpretation Comments Uric Acid (test code = 51820072) 4.1 mg/dL 4.4-7.6 L Lab Interpretation (test code = 42179-0) Abnormal [facility] HospitalComprehensive Metabolic Ckjdh4733-94-21 07:42:00* Test Item Value Reference Range Interpretation Comments Sodium (test code = 2951-2) 124 mmol/L 136-145 L Potassium (test code = 2823-3) 4.7 mmol/L 3.5-5.1 Chloride (test code = 2075-0) 89 mmol/L 98-107 L CO2 (test code = 57982615) 24 mmol/L 21-31 Glucose (test code = 97664934) 73 mg/dL 70-110 Calcium (test code = 36722362) 9.6 mg/dL 8.6-10.3 Urea Nitrogen (test code = 02415432) 5.0 mg/dL 7-25 L Creatinine (test code = 67604049) 0.8 mg/dL 0.7-1.3 Alkaline Phosphatase (test code = 21446018) 114 U/L 34-104 H ALT (test code = 08496892) 5 U/L 7-52 L AST (test code = 40391961) 11 U/L 13-39 L Total Protein (test code = 2885-2) 8.3 g/dL 6-8.3 GFR, Estimated (test code = 55877979) >90 >=90 mL/min/1.73 m2 Albumin (test code = 14434-6) 4.1 g/dL 4.2-5.5 L Anion Gap (test code = 58331859) 11 mmol/L 5-16 Lab Interpretation (test code = 16817-8) Abnormal [facility] HospitalUmluoyKlisafuoz2208-62-20 07:39:00* Test Item Value Reference Range Interpretation Comments Magnesium (test code = 42361815) 1.5 mg/dL 1.9-2.7 L Lab Interpretation (test code = 41287-3) Abnormal [facility] HospitalValproic Fvpo5823-38-46 07:39:00* Test Item Value Reference Range Interpretation Comments Valproic Acid (test code = 67145532) 115.6 ug/mL 50-100 H Lab Interpretation (test code = 26290-0) Abnormal [facility] HospitalRjlbpjIztpdlbaal2962-33-07 21:26:00* Test Item Value Reference Range Interpretation Comments Color (test code = 60946692) Yellow Colorless, Straw, Yellow Clarity (test code = 34553624) Clear Clear Spec [place], Ur (test code = 02401946) >1.035 1.001-1.035 H pH, Ur (test code = 53485928) 5.0 5.0-8.0 Protein, Ur (test code = 03601780) 1+ Negative mg/dL A Glucose, Ur (test code = 86953940) Negative Negative mg/dL Ketone, Ur (test code = 80701322) Negative Negative mg/dL Bilirubin, Ur (test code = 49150609) Negative Negative mg/dL Nitrite, Ur (test code = 24488344) Negative Negative Leukocyte (test code = 14143174) Negative Negative mg/dL Blood, Ur (test code = 16621156) Negative Negative mg/dL WBC (test code = 04065937) 1 0- 5 /HPF Hyaline Cast (test code = 42205227) 3 0- 2 /LPF H Urobilinogen, Ur (test code = 98412358) <1.0 <1.0 EU/dL Lab Interpretation (test code = 89192-1) Abnormal [facility] HospitalUrine Drug Yhdczl6335-40-66 21:20:00* Test Item Value Reference Range Interpretation Comments Opiate, Ur (test code = 28157-7) Negative Negative Calibrated Standard: Morphine Positive if urine level > or = 300 ng/dL Amphetamine (test code = 36018-3) Negative Negative Calibrated Standard: D- Methamphetamine Positive if urine level > or = 1000 ng/mL Barbiturate (test code = 69970-0) Negative Negative Calibrated Standard: Secobarbital Positive if urine level is > or = 200 ng/mL Benzodiazepine (test code = 60813-8) Negative Negative Calibrated Standard: Lormethazepam Positive if urine level is > or = 200 ng/mL Cocaine (test code = 98590-7) Negative Negative Calibrated Standard: Benzoylecgonine Positive if urine level > or = 300 ng/dL PCP (test code = 85482-6) Negative Negative C alibrated Standard: Phencyclidine Positive if urine level > or = 25 ng/dL Cannabinoid (test code = 55795-7) Negative Negative Calibrated Standard: 11 nor-delta(9)-THC carboxylic acid Positive if urine level > or = 50 ng/mL Lab Interpretation (test code = 09683-4) Normal [facility] METABOLIC ZHRWS8667-46-14 20:09:00* Test Item Value Reference Range Interpretation Comments SODIUM (test code = NA) 125 mmol/L 136-145 L POTASSIUM (test code = K) 3.7 mmol/L 3.5-5.1 N CHLORIDE (test code = CL) 94.0 mmol/L 98-107 L CARBON DIOXIDE (test code = CO2) 23.0 mmol/L 21-32 N ANION GAP (test code = GAP) 11.7 10-20 N GLUCOSE (test code = GLU) 81 mg/dL 74-106 N BLOOD UREA NITROGEN (test code = BUN) 6 mg/dL 7-18 L GLOMERULAR FILTRATION RATE (test code = GFR) > 60 mL/min >=60 Estimated GFR by using Modified MDRD formula.Chronic kidney disease is defined as either kidney damageor GFR <60 mL/min/1.73 m2 for >3 months. CREATININE (test code = CREAT) 0.70 mg/dL 0.7-1.3 N BUN/CREATININE RATIO (test code = BUN/CREA) 8.6 10-20 L CALCIUM (test code = CA) 8.6 mg/dL 8.5-10.1 N JKCRXBOC-E4809-79-17 20:09:00* Test Item Value Reference Range Interpretation Comments TROPONIN-I (test code = TROPI) <0.015 ng/mL 0-0.045 N BASIC METABOLIC VHKRV6095-80-16 20:05:00* Test Item Value Reference Range Interpretation Comments SODIUM (test code = NA) 125 mmol/L 136-145 L POTASSIUM (test code = K) 3.7 mmol/L 3.5-5.1 N CHLORIDE (test code = CL) 94.0 mmol/L 98-107 L CARBON DIOXIDE (test code = CO2) mmol/L 21-32 ANION GAP (test code = GAP) 10-20 GLUCOSE (test code = GLU) mg/dL 74-106 BLOOD UREA NITROGEN (test code = BUN) mg/dL 7-18 GLOMERULAR FILTRATION RATE (test code = GFR) mL/min >=60 CREATININE (test code = CREAT) mg/dL 0.7-1.3 BUN/CREATININE RATIO (test code = BUN/CREA) 10-20 CALCIUM (test code = CA) 8.6 mg/dL 8.5-10.1 N [id number]-[id number] 20:05:00* Test Item Value Reference Range Interpretation Comments TROPONIN-I (test code = TROPI) ng/mL 0-0.045 CBC W/O [id number] 19:52:00* Test Item Value Reference Range Interpretation Comments WHITE BLOOD CELL (test code = WBC) 5.8 K/mm3 4.5-12.5 N RED BLOOD CELL (test code = RBC) 3.11 mill/mm3 4.0-5.8 L HEMOGLOBIN (test code = HGB) 9.2 gram/dL 13.0-17.5 L HEMATOCRIT (test code = HCT) 27.4 % 42.0-52.0 L MEAN CELL VOLUME (test code = MCV) 88.1 fL 80-98 N MEAN CELL HGB (test code = MCH) 29.6 picogram 27.0-33.0 N MEAN CELL HGB CONCETRATION (test code = MCHC) 33.6 gram/dL 33.0-36. 0 N RED CELL DISTRIBUTION WIDTH (test code = RDW) 19.0 % 11.6-16. 2 H PLATELET COUNT (test code = PLT) 338 K/mm3 150-450 N MEAN PLATELET VOLUME (test code = MPV) 9.0 fL 6.7-11.0 N - XR CHEST 1 [id number] 18:01:00 FAX: Massimo Evans MD [phone] [place]: B St: REG FAX: Jeffery Goldman [phone] Name: CHARLOTTE SHAH II [facility] : 1980 Age/S: 38/M [address] [facility] Unit #: [id number] Loc: [place] [address] Phys: Massimo Evans MD Acct: [id number] Dis Date: Status: REG ER PHONE #: [phone] Exam Date: 04/27/2019 1800 FAX #: [phone] Reason: CHEST PAIN EXAMS: CPT CODE: [id number] XR CHEST 1 V 44473 HISTORY: Chest pain. COMPARISON: August 29, 2018. Location: TH. No acute infiltrates, effusion or congestion is noted. The cardiac and mediastinal silhouette are within normal limits. IMPRESSION: No acute infiltrates, effusion or congestion. at 1801 Reported and signed by: Jasiel Ballesteros M.D. CC: Massimo Evans MD; Jeffery Claros MD Technologist: GIULIA FRAUSTO Trnprrd Date/Time/By: 04/27/2019 (1800) : By: [email or web address] Orig Print D/T: S: 04/27/2019 (8) PAGE 1 Signed Report POC BMP - In Lab (STAT)2019-04-27 17:01:00* Test Item Value Reference Range Interpretation Comments Hold Specimen (test code = 90442022) Complete [place] [address] LEAD [id number] 16:34:1512 LEAD EKG FOR [facility] Test Date: [id number] Name: CHARLOTTE SHAH Department: 4621Patient ID: [id number] Room: Gender: M Paginator: [id number] C REYNADOB: 1980 Requested By: ROBERT HARDWICK Order Number: [id number] Reading MD: Margo Bhandari MD MeasurementsIntervals [place] Rate: 93 P: 61PR: 146 QRS: 68QRSD: 75 T: 69QT: 341 QTc: 424 Interpretive StatementsSINUS RHYTHMElectronically Signed On 04-27-2019 16:34:11 CDT by Margo Bhandari [facility][id number] 16:06:00* Test Item Value Reference Range Interpretation Comments Hemoglobin (test code = 718-7) 11.1 g/dL 14-18 L Hematocrit (test code = 4544-3) 33.9 % 40-54 L Lab Interpretation (test code = 14971-8) Abnormal [facility] BMP POC docked [id number] 16:04:00* Test Item Value Reference Range Interpretation Comments Sodium POC (test code = 04955272) 124 mmol/L 136-145 L Potassium POC (test code = 52941333) 3.7 mmol/L 3.5-5.1 Chloride POC (test code = 82545102) 91 mmol/L 98-107 L TCO2 POC (test code = 62768397) 24 mmol/L 21-32 Urea Nitrogen POC (test code = 61854671) 4 mg/dL 7-18 L Glucose POC (test code = 48494682) 74 mg/dL 74-106 Lab Interpretation (test code = 08455-9) Abnormal [facility] GLUCOSE POC docked [id number] 16:03:00* Test Item Value Reference Range Interpretation Comments Glucose POC (test code = 43715418) 74 mg/dL 74-106 Lab Interpretation (test code = 74568-8) Normal [facility] METABOLIC [id number] 02:09:00* Test Item Value Reference Range Interpretation Comments SODIUM (test code = NA) 138 mmol/L 136-145 N POTASSIUM (test code = K) 3.7 mmol/L 3.5-5.1 N CHLORIDE (test code = CL) 106.0 mmol/L 98-107 N CARBON DIOXIDE (test code = CO2) 24.0 mmol/L 21-32 N ANION GAP (test code = GAP) 11.7 10-20 N GLUCOSE (test code = GLU) 108 mg/dL 74-106 H BLOOD UREA NITROGEN (test code = BUN) 13 mg/dL 7-18 N GLOMERULAR FILTRATION RATE (test code = GFR) > 60 mL/min >=60 Estimated GFR by using Modified MDRD formula.Chronic kidney disease is defined as either kidney damageor GFR <60 mL/min/1.73 m2 for >3 months. CREATININE (test code = CREAT) 0.90 mg/dL 0.7-1.3 N BUN/CREATININE RATIO (test code = BUN/CREA) 13.7 10-20 N CALCIUM (test code = CA) 8.4 mg/dL 8.5-10.1 L VALPROIC ACID (DEPAKENE)2018-11-04 02:09:00* Test Item Value Reference Range Interpretation Comments VALPROIC ACID (DEPAKENE) (test code = VALP) 17.0 mcg/mL 50.0-100.0 L BASIC METABOLIC [id number] 01:52:00* Test Item Value Reference Range Interpretation Comments SODIUM (test code = NA) 138 mmol/L 136-145 N POTASSIUM (test code = K) 3.7 mmol/L 3.5-5.1 N CHLORIDE (test code = CL) 106.0 mmol/L 98-107 N CARBON DIOXIDE (test code = CO2) mmol/L 21-32 ANION GAP (test code = GAP) 10-20 GLUCOSE (test code = GLU) mg/dL 74-106 BLOOD UREA NITROGEN (test code = BUN) mg/dL 7-18 GLOMERULAR FILTRATION RATE (test code = GFR) mL/min >=60 CREATININE (test code = CREAT) mg/dL 0.7-1.3 BUN/CREATININE RATIO (test code = BUN/CREA) 10-20 CALCIUM (test code = CA) mg/dL 8.5-10.1 CBC W/O [id number] 01:40:00* Test Item Value Reference Range Interpretation Comments WHITE BLOOD CELL (test code = WBC) 6.5 K/mm3 4.5-12.5 N RED BLOOD CELL (test code = RBC) 2.97 mill/mm3 4.0-5.8 L HEMOGLOBIN (test code = HGB) 8.4 gram/dL 13.0-17.5 L HEMATOCRIT (test code = HCT) 26.9 % 42.0-52.0 L MEAN CELL VOLUME (test code = MCV) 90.6 fL 80-98 N MEAN CELL HGB (test code = MCH) 28.3 picogram 27.0-33.0 N MEAN CELL HGB CONCETRATION (test code = MCHC) 31.2 gram/dL 33.0-36. 0 L RED CELL DISTRIBUTION WIDTH (test code = RDW) 15.6 % 11.6-16. 2 N PLATELET COUNT (test code = PLT) 428 K/mm3 150-450 N MEAN PLATELET VOLUME (test code = MPV) 9.6 fL 6.7-11.0 N Lipid [id number] 07:29:00* Test Item Value Reference Range Interpretation Comments Cholesterol (test code = 2093-3) 89.0 mg/dL <=200.0 Triglyceride (test code = 51536480) 234 mg/dL <150 H HDL (test code = 2085-9) 26.0 mg/dL See Reference Range Narrative . LDL (test code = 57116-6) 16 mg/dL <100 Op timal: < 100.0 mg/dLNear Optimal: 120-129 mg/dLBorderline: 130-159 mg/dLHigh: 160-189 mg/dLVery High: >=190 mg/dL Patient Fasting? (test code = 94256553) No ALIE (test code = ALIE) Patient is not fasting. For a triglyceride result greater than 440 mg/dL, consider re-testing when the patient is in a fasting state. Lab Interpretation (test code = 91365-1) [facility] 07:29:00* Test Item Value Reference Range Interpretation Comments CRP, High Sensitivity (test code = 45884992) 71.2 mg/L <1.0 H Lab Interpretation (test code = 26334-8) [facility][id number] 10:49:00 RUN DATE: 09/02/18 [place] [facility] PAGE 1 RUN TIME: 1050 Specimen Inqui ry RUN USER: INTERFACE PATIENT: CHARLOTTE SHAH II ACCT #: [id number] [facility] [id number] AGE/SX: 38/M ROOM: [facility] RE08/30/18REG DR: Nadege Bustillo MD : [birth year] BED: A DIS: 09/01/18 STATUS: DIS IN TLOC: SPEC #: [id number] RECD: 09/01/18 STATUS: ASHLEY PAKO #: [id number] LEE: 09/01/[address] [facility] [address]: Mahi Torrez MD ENTERED: 09/01/18 SP TYPE: GASTRIC BX OTHR DR: Heath Allen i, MD, Salman A MD Pineda Ayestas, Ramon A MD Qureshi, Salah Uddin MDORDERED: GROSS COPIES TO: eHath Arthur MD [address], [address] [place] [address] Brittney Estrada MD [address], [address] [place] [address] Jeffery Claros MD [address] [place] [address] Joanne Jiang MD [address] [facility] [address] [place] [id number] Mahi Torrez MD [address] [place] [address] PROCEDURES: GROSS (09/02/18-1018) TISSUES: 1. GASTRIC CORPUS - POLYP BX 2. ESOPHAGUS, NOS - LOWER BX CLINICAL HISTORY COLLECTION DATE: 09/01/18 EPIGASTRIC PAIN, DYSPHAGIA * * CONTINUED ON NEXT PAGE RUN DATE: 09/02/18 [facility] PAGE 2 RUN TIME: 1050 Specimen Inquiry RUN USER: INTERFACE SPEC #: [id number] PATIENT: CHARLOTTE SHAH LEXI #[id number] (Continued)-------- ---- FINAL DIAGNOSIS Gastric polyp, biopsy: BODY/FUNDIC TYPE GASTRIC MUCOSA WITH MILDLY DILATED GLANDS AND A FOCUS OF FOVEOLAR HYPERP LASIA NEGATIVE FOR MALIGNANCY Esophagus, biopsy: ACUTE AND C HRONIC INFLAMMATION AND REACTIVE EPITHELIAL CHANGES, MIXED SQUAMOUS ESO PHAGEAL GASTRIC TYPE MUCOSA NEGATIVE FOR INTESTINAL METAPLASIA, DYSPLASIA , AND MALIGNANCY DMW/sm D 646948 MACROSCOPIC [facility] t specimen is received in formalin, labeled with the patient's name, identifie d as "gastric polyp biopsy", and consists of two hall biopsy fragments measurin g 0.25 cm each. The second specimen is received in formalin, labeled wit h the patient's name, identified as "esophagus biopsy", and consists of hall bi opsy material measuring 0.3 cm in aggregate. GROSS PERFORMED AT [facility] [address] [place] [address] [phone])[phone] MICROSCOPIC All of the stains, including any controls performed, stain appropriately. MICROSCOP IC PERFORMED AT [facility] [address] [place] [address] [phone])[phone] CONTINUED ON NEXT PAGE RUN DATE: 09/02/18 [facility] PAGE 3 RUN TIME: 1050 Specimen Inquiry RUN USER: INTERFACE SPEC #: [id number]: [id number] PATIENT: CHARLOTTE SHAH II #[id number] (Continued ) PERFORMING SITE Diagnosis performed at: [facility] [address] [place] [address] Signed SIGNATURE ON FILE Remedios Vazquez MD 09/02/18 1049 --- --------- END OF REPORT BASIC METABOLIC [id number] 09:07:00* Test Item Value Reference Range Interpretation Comments SODIUM (test code = NA) 134 mmol/L 136-145 L POTASSIUM (test code = K) 4.5 mmol/L 3.5-5.1 N CHLORIDE (test code = CL) 103.0 mmol/L 98-107 N CARBON DIOXIDE (test code = CO2) 24.0 mmol/L 21-32 N ANION GAP (test code = GAP) 11.5 10-20 N GLUCOSE (test code = GLU) 85 mg/dL 74-106 N BLOOD UREA NITROGEN (test code = BUN) 6 mg/dL 7-18 L GLOMERULAR FILTRATION RATE (test code = GFR) > 60 mL/min >=60 Estimated GFR by using Modified MDRD formula.Chronic kidney disease is defined as either kidney damageor GFR <60 mL/min/1.73 m2 for >3 months. CREATININE (test code = CREAT) 0.70 mg/dL 0.7-1.3 N BUN/CREATININE RATIO (test code = BUN/CREA) 8.6 10-20 L CALCIUM (test code = CA) 9.2 mg/dL 8.5-10.1 N THYROID PROFILE [id number] 09:19:00* Test Item Value Reference Range Interpretation Comments T3 UPTAKE (test code = T3UP) 38.0 % 30.0-40.0 N T4 (THYROXINE) (test code = T4) 5.2 ug/dL 4.5-13.9 N T7 (FREE THYROXINE INDEX) (test code = T7) 1.97 FTI 1.3-5.1 N THYROID STIMULATING HORMONE (test code = TSH) 1.900 uIU/mL 0.36-3.7 4 N TSH REFERENCE RANGES: EUTHYROID: 0.35 - 4.3 mIU/mL HYPO : > 5.5 mIU/mL HYPER : < 0.35 mIU/mL BASIC METABOLIC [id number] 08:56:00* Test Item Value Reference Range Interpretation Comments SODIUM (test code = NA) 135 mmol/L 136-145 L POTASSIUM (test code = K) 4.6 mmol/L 3.5-5.1 N CHLORIDE (test code = CL) 106.0 mmol/L 98-107 N CARBON DIOXIDE (test code = CO2) 22.0 mmol/L 21-32 N ANION GAP (test code = GAP) 11.6 10-20 N GLUCOSE (test code = GLU) 85 mg/dL 74-106 N BLOOD UREA NITROGEN (test code = BUN) 5 mg/dL 7-18 L GLOMERULAR FILTRATION RATE (test code = GFR) > 60 mL/min >=60 Estimated GFR by using Modified MDRD formula.Chronic kidney disease is defined as either kidney damageor GFR <60 mL/min/1.73 m2 for >3 months. CREATININE (test code = CREAT) 0.80 mg/dL 0.7-1.3 N BUN/CREATININE RATIO (test code = BUN/CREA) 6.3 10-20 L CALCIUM (test code = CA) 8.9 mg/dL 8.5-10.1 N [id number] 08:56:00* Test Item Value Reference Range Interpretation Comments MAGNESIUM (test code = MAG) 2.7 mg/dL 1.8-2.4 H [id number] 08:46:00* Test Item Value Reference Range Interpretation Comments GLYCOSYLATED HEMOGLOBIN (HA1C) (test code = GLYHGB) 4.5 % HbA1 4. 8-6.0 L ESTIMATED AVERAGE GLUCOSE (test code = EAG) 82 MG/DL CBC W/AUTO [id number] 08:22:00* Test Item Value Reference Range Interpretation Comments WHITE BLOOD CELL (test code = WBC) 6.1 K/mm3 4.5-12.5 N RED BLOOD CELL (test code = RBC) 3.06 mill/mm3 4.0-5.8 L HEMOGLOBIN (test code = HGB) 9.4 gram/dL 13.0-17.5 L HEMATOCRIT (test code = HCT) 29.0 % 42.0-52.0 L MEAN CELL VOLUME (test code = MCV) 94.8 fL 80-98 N MEAN CELL HGB (test code = MCH) 30.7 picogram 27.0-33.0 N MEAN CELL HGB CONCETRATION (test code = MCHC) 32.4 gram/dL 33.0-36. 0 L RED CELL DISTRIBUTION WIDTH (test code = RDW) 14.6 % 11.6-16. 2 N RED CELL DISTRIBUTION WIDTH SD (test code = RDW-SD) 50.1 fL 37 .0-51.0 N PLATELET COUNT (test code = PLT) 485 K/mm3 150-450 H MEAN PLATELET VOLUME (test code = MPV) 9.4 fL 6.7-11.0 N NEUTROPHIL % (test code = NT%) 56.0 % 39.0-69.0 N IMMATURE GRANULOCYTE % (test code = IG%) 1.1 % 0.0-5.0 N LYMPHOCYTE % (test code = LY%) 30.2 % 25.0-55.0 N MONOCYTE % (test code = MO%) 10.9 % 0.0-10.0 H EOSINOPHIL % (test code = EO%) 1.0 % 0.0-5.0 N BASOPHIL % (test code = BA%) 0.8 % 0.0-1.0 N NUCLEATED RBC % (test code = NRBC%) 0.0 % 0-0 N NEUTROPHIL # (test code = NT#) 3.42 K/mm3 1.8-7.7 N IMMATURE GRANULOCYTE # (test code = IG#) 0.07 x10 3/uL 0-0.03 H LYMPHOCYTE # (test code = LY#) 1.85 K/mm3 1.0-5.0 N MONOCYTE # (test code = MO#) 0.67 K/mm3 0-0.8 N EOSINOPHIL # (test code = EO#) 0.06 K/mm3 0.0-0.5 N BASOPHIL # (test code = BA#) 0.05 K/mm3 0.0-0.2 N NUCLEATED RBC # (test code = NRBC#) 0.00 K/mm3 0.0-0.1 N UR NA,[id number] 21:13:00* Test Item Value Reference Range Interpretation Comments UR NA,RANDOM (test code = MEET) 50 mmol/L 20-110 N UR OSMOLALITY [id number] 21:13:00* Test Item Value Reference Range Interpretation Comments UR OSMOLALITY RANDOM (test code = OSMOU) 217.5 mOsm/kg 48-962 N UR NA,[id number] 21:07:00* Test Item Value Reference Range Interpretation Comments UR NA,RANDOM (test code = MEET) mmol/L 20-110 UR OSMOLALITY [id number] 21:07:00* Test Item Value Reference Range Interpretation Comments UR OSMOLALITY RANDOM (test code = OSMOU) 217.5 mOsm/kg 48-962 N OSMOLALITY [id number] 19:51:00* Test Item Value Reference Range Interpretation Comments OSMOLALITY SERUM (test code = OSMO) 253.5 mOsm/kg 275-295 L URINALYSIS [id number] 09:39:00* Test Item Value Reference Range Interpretation Comments UA COLOR (test code = COLU) COLORLESS YELLOW A UA APPEARANCE (test code = APPU) CLEAR CLEAR UA GLUCOSE DIPSTICK (test code = DGLUU) NEGATIVE mg/dL NEGATIVE UA BILIRUBIN DIPSTICK (test code = BILU) NEGATIVE mg/dL NEGATIVE UA KETONE DIPSTICK (test code = KETU) NEGATIVE mg/dL NEGATIVE UA SPECIFIC GRAVITY (test code = SGU) 1.004 1.001-1.035 UA BLOOD DIPSTICK (test code = ELMA) Negative mg/dL NEGATIVE UA PH DIPSTICK (test code = PREETI) 7.0 5.0-8.0 UA PROTEIN DIPSTICK (test code = PROU) NEGATIVE mg/dL NEGATIVE UA UROBILINIOGEN DIPSTICK (test code = URO) Normal mg/dL NEGATIVE UA NITRITE DIPSTICK (test code = GEO) NEGATIVE NEGATIVE UA LEUKOCYTE ESTERASE W REFLEX (test code = LEUUR) NEGATIVE Karen/uL NEGATIVE UA WBC (test code = WBCU) 0-5 per HPF 0-5 UA RBC (test code = RBCU) 0-3 #/HPF 0-5 UA EPITHELIAL CELLS (test code = EPIU) Few (2-5/hpf) per HPF FEW UA BACTERIA (test code = BACU) FEW #/HPF NONE Urine Source? Clean Catch- CT ABD PELVIS [id number] 09:12:00 Name: CHARLOTTE SHAH II [facility] : 1980 Age/S: 38 / M [address] [facility] Unit #: [id number] Loc: [place] [address] Phys: Marcelo Glass MD Acct: [id number] Di s Date: Status: ADM IN PHONE #: Exam Date: 08/29/2018 0900 FAX #: Reason: periumbilical pain EXAMS: CPT CODE: [id number] CT ABD PELVIS W/CONT 07946 REASON FOR EXAM: periumbilical pain EXAM ORDER DATE: 08/29/2018 7:56 AM Ordering Jason: Trey Glass MD PROCEDURE: - CT ABD [...] CTDI: DLP: Trnscb Date/Time: 08/29/2018 ( 911) Viral Orig Print D/T: S: 08/29/2018 (85) PAGE 1 Signed Report HEPATIC FUNCTION [id number] 08:21:00* Test Item Value Reference Range Interpretation Comments TOTAL PROTEIN (test code = PROT) 8.0 gram/dL 6.4-8.2 N ALBUMIN (test code = ALB) 4.0 g/dL 3.4-5.0 N GLOBULIN (test code = GLOB) 4.0 gram/dL 2.7-4.2 N ALBUMIN/GLOBULIN RATIO (test code = A/G) 1.0 0.75-1.50 N BILIRUBIN TOTAL (test code = BILT) 0.60 mg/dL 0.0-1.0 N BILIRUBIN DIRECT (test code = BILD) 0.17 mg/dL 0.0-0.20 N SGOT/AST (test code = AST) 12 IUnit/L 15-37 L SGPT/ALT (test code = ALT) 11 IUnit/L 12-78 L ALKALINE PHOSPHATASE TOTAL (test code = ALKP) 66 IUnit/L 45-117 N Note change in reference range due to change in reagent. [id number] 08:21:00* Test Item Value Reference Range Interpretation Comments LIPASE (test code = LIP) 115 U/L 73.0-393.0 N [id number] 08:21:00* Test Item Value Reference Range Interpretation Comments MAGNESIUM (test code = MAG) 1.6 mg/dL 1.8-2.4 L BASIC METABOLIC [id number] 07:53:00* Test Item Value Reference Range Interpretation Comments SODIUM (test code = NA) 122 mmol/L 136-145 LL Resu lts called to VGN3672 by V.LAB.CF2 08/29/18 0753Critical results verified and read back by Nurse? Y POTASSIUM (test code = K) 3.0 mmol/L 3.5-5.1 L CHLORIDE (test code = CL) 87.0 mmol/L 98-107 L CARBON DIOXIDE (test code = CO2) 23.0 mmol/L 21-32 N ANION GAP (test code = GAP) 15.0 10-20 N GLUCOSE (test code = GLU) 104 mg/dL 74-106 N BLOOD UREA NITROGEN (test code = BUN) 4 mg/dL 7-18 L GLOMERULAR FILTRATION RATE (test code = GFR) > 60 mL/min >=60 Estimated GFR by using Modified MDRD formula.Chronic kidney disease is defined as either kidney damageor GFR <60 mL/min/1.73 m2 for >3 months. CREATININE (test code = CREAT) 1.10 mg/dL 0.7-1.3 N BUN/CREATININE RATIO (test code = BUN/CREA) 3.6 10-20 L CALCIUM (test code = CA) 9.3 mg/dL 8.5-10.1 N [id number] 07:53:00* Test Item Value Reference Range Interpretation Comments TROPONIN-I (test code = TROPI) <0.015 ng/mL 0-0.045 N BASIC METABOLIC [id number] 07:32:00* Test Item Value Reference Range Interpretation Comments SODIUM (test code = NA) mmol/L 136-145 POTASSIUM (test code = K) mmol/L 3.5-5.1 CHLORIDE (test code = CL) mmol/L 98-107 CARBON DIOXIDE (test code = CO2) 23.0 mmol/L 21-32 N ANION GAP (test code = GAP) 10-20 GLUCOSE (test code = GLU) 104 mg/dL 74-106 N BLOOD UREA NITROGEN (test code = BUN) 4 mg/dL 7-18 L GLOMERULAR FILTRATION RATE (test code = GFR) > 60 mL/min >=60 Estimated GFR by using Modified MDRD formula.Chronic kidney disease is defined as either kidney damageor GFR <60 mL/min/1.73 m2 for >3 months. CREATININE (test code = CREAT) 1.10 mg/dL 0.7-1.3 N BUN/CREATININE RATIO (test code = BUN/CREA) 3.6 10-20 L CALCIUM (test code = CA) 9.3 mg/dL 8.5-10.1 N [id number] 07:32:00* Test Item Value Reference Range Interpretation Comments TROPONIN-I (test code = TROPI) <0.015 ng/mL 0-0.045 N CBC W/O [id number] 07:21:00* Test Item Value Reference Range Interpretation Comments WHITE BLOOD CELL (test code = WBC) 10.1 K/mm3 4.5-12.5 N RED BLOOD CELL (test code = RBC) 3.61 mill/mm3 4.0-5.8 L HEMOGLOBIN (test code = HGB) 11.0 gram/dL 13.0-17.5 L HEMATOCRIT (test code = HCT) 32.7 % 42.0-52.0 L MEAN CELL VOLUME (test code = MCV) 90.6 fL 80-98 N MEAN CELL HGB (test code = MCH) 30.5 picogram 27.0-33.0 N MEAN CELL HGB CONCETRATION (test code = MCHC) 33.6 gram/dL 33.0-36. 0 N RED CELL DISTRIBUTION WIDTH (test code = RDW) 13.2 % 11.6-16. 2 N PLATELET COUNT (test code = PLT) 524 K/mm3 150-450 H MEAN PLATELET VOLUME (test code = MPV) 9.3 fL 6.7-11.0 N - XR NECK SOFT [id number] 05:35:00 FAX: Trey Glass MD [phone] [place]: B St: REG FAX: Moni PelletierJeffery [phone] Name: SHAHCHARLOTTE II [facility] : 1980 Age/S: 38/M [address] [facility] Unit #: [id number] Loc: [place] [address] Phys: Trey Glass MD Acct: [id number] Dis Date: Status: REG ER PHONE #: [phone] Exam Date: 08/29/2018 0533 FAX #: [phone] Reason: choking episode EXAMS: CPT CODE: [id number] XR NECK SOFT TISSUE [id number] AFTER HOURS SERVICE ON: 08/29/2018 5:34 AM [...] 1 Signed Report - XR CHEST 1 [id number] 05:35:00 FAX: Trey Glass MD [phone] [place]: St: REG FAX: Y Jeffery Claros [phone] Name: ALYSSACHARLOTTE NADEGE ELLIOTT [facility] : 1980 Age/S: 38/M [address] [facility] Unit #: [id number] Loc: [place] [address] Phys: Trey Glass MD Acct: [id number] Dis Date: Status: REG ER PHONE #: [phone] Exam Date: 08/29/2018 05 FAX #: [phone] Reason: CHEST PAIN EXAMS: CPT CODE: [id number] XR CHEST 1 V [id number] AFTER HOURS SERVICE ON: 08/29/2018 5:35 AM [...] By: [email or web address] Orig Print D/T: S: 019 (0538) PAGE 1 Signed Report - CT ABD PELVIS W/O [id number] 15:33:00 Name: CHARLOTTE SHAH LEXI [facility] : 1980 Age/S: 38 / M [address] [facility] Unit #: [id number] Loc: [place] [address] Phys: Kimani Frey MD Acct: [id number] Di s Date: Status: REG ER PHONE #: Exam Date: 08/05/2018 1514 FAX #: Reason: abdominal pain EXAMS: CPT CODE: [id number] CT ABD PELVIS W/O CONT 87136 REASON FOR EXAM: abdominal pain EXAM ORDER [...] Moore CTDI: DLP: Trnscb Date/Time: 08/05/2018 (1533) [email or web address] Orig Print D/T: S: 08/05/2018 (1536) PAGE 1 Signed Report VALPROIC ACID (DEPAKENE)2018-08-05 15:16:00* Test Item Value Reference Range Interpretation Comments VALPROIC ACID (DEPAKENE) (test code = VALP) 106.0 mcg/mL 50.0-100.0 H BASIC METABOLIC [id number] 15:15:00* Test Item Value Reference Range Interpretation Comments SODIUM (test code = NA) 136 mmol/L 136-145 N POTASSIUM (test code = K) 4.5 mmol/L 3.5-5.1 N CHLORIDE (test code = CL) 105.0 mmol/L 98-107 N CARBON DIOXIDE (test code = CO2) 23.0 mmol/L 21-32 N ANION GAP (test code = GAP) 12.5 10-20 N GLUCOSE (test code = GLU) 76 mg/dL 74-106 N BLOOD UREA NITROGEN (test code = BUN) 7 mg/dL 7-18 N GLOMERULAR FILTRATION RATE (test code = GFR) > 60 mL/min >=60 Estimated GFR by using Modified MDRD formula.Chronic kidney disease is defined as either kidney damageor GFR <60 mL/min/1.73 m2 for >3 months. CREATININE (test code = CREAT) 0.70 mg/dL 0.7-1.3 N BUN/CREATININE RATIO (test code = BUN/CREA) 10.0 10-20 N CALCIUM (test code = CA) 9.0 mg/dL 8.5-10.1 N HEPATIC FUNCTION [id number] 15:15:00* Test Item Value Reference Range Interpretation Comments TOTAL PROTEIN (test code = PROT) 6.5 gram/dL 6.4-8.2 N ALBUMIN (test code = ALB) 2.6 g/dL 3.4-5.0 L GLOBULIN (test code = GLOB) 3.9 gram/dL 2.7-4.2 N ALBUMIN/GLOBULIN RATIO (test code = A/G) 0.7 0.75-1.50 L BILIRUBIN TOTAL (test code = BILT) 0.30 mg/dL 0.0-1.0 N BILIRUBIN DIRECT (test code = BILD) 0.05 mg/dL 0.0-0.20 N SGOT/AST (test code = AST) 18 IUnit/L 15-37 N SGPT/ALT (test code = ALT) 14 IUnit/L 12-78 N ALKALINE PHOSPHATASE TOTAL (test code = ALKP) 68 IUnit/L 45-117 N Note change in reference range due to change in reagent. [id number] 15:15:00* Test Item Value Reference Range Interpretation Comments LIPASE (test code = LIP) 251 U/L 73.0-393.0 N [id number] 15:15:00* Test Item Value Reference Range Interpretation Comments TROPONIN-I (test code = TROPI) <0.015 ng/mL 0-0.045 N BASIC METABOLIC [id number] 15:07:00* Test Item Value Reference Range Interpretation Comments SODIUM (test code = NA) 136 mmol/L 136-145 N POTASSIUM (test code = K) 4.5 mmol/L 3.5-5.1 N CHLORIDE (test code = CL) 105.0 mmol/L 98-107 N CARBON DIOXIDE (test code = CO2) mmol/L 21-32 ANION GAP (test code = GAP) 10-20 GLUCOSE (test code = GLU) mg/dL 74-106 BLOOD UREA NITROGEN (test code = BUN) mg/dL 7-18 GLOMERULAR FILTRATION RATE (test code = GFR) mL/min >=60 CREATININE (test code = CREAT) mg/dL 0.7-1.3 BUN/CREATININE RATIO (test code = BUN/CREA) 10-20 CALCIUM (test code = CA) mg/dL 8.5-10.1 HEPATIC FUNCTION [id number] 15:07:00* Test Item Value Reference Range Interpretation Comments TOTAL PROTEIN (test code = PROT) gram/dL 6.4-8.2 ALBUMIN (test code = ALB) g/dL 3.4-5.0 GLOBULIN (test code = GLOB) gram/dL 2.7-4.2 ALBUMIN/GLOBULIN RATIO (test code = A/G) 0.75-1.50 BILIRUBIN TOTAL (test code = BILT) mg/dL 0.0-1.0 BILIRUBIN DIRECT (test code = BILD) mg/dL 0.0-0.20 SGOT/AST (test code = AST) IUnit/L 15-37 SGPT/ALT (test code = ALT) IUnit/L 12-78 ALKALINE PHOSPHATASE TOTAL (test code = ALKP) IUnit/L 45-117 [id number] 15:07:00* Test Item Value Reference Range Interpretation Comments LIPASE (test code = LIP) U/L 73.0-393.0 [id number] 15:07:00* Test Item Value Reference Range Interpretation Comments TROPONIN-I (test code = TROPI) ng/mL 0-0.045 CBC W/O [id number] 14:57:00* Test Item Value Reference Range Interpretation Comments WHITE BLOOD CELL (test code = WBC) 6.2 K/mm3 4.5-12.5 N RED BLOOD CELL (test code = RBC) 3.40 mill/mm3 4.0-5.8 L HEMOGLOBIN (test code = HGB) 10.5 gram/dL 13.0-17.5 L HEMATOCRIT (test code = HCT) 32.4 % 42.0-52.0 L MEAN CELL VOLUME (test code = MCV) 95.3 fL 80-98 N MEAN CELL HGB (test code = MCH) 30.9 picogram 27.0-33.0 N MEAN CELL HGB CONCETRATION (test code = MCHC) 32.4 gram/dL 33.0-36. 0 L RED CELL DISTRIBUTION WIDTH (test code = RDW) 14.3 % 11.6-16. 2 N PLATELET COUNT (test code = PLT) 319 K/mm3 150-450 N MEAN PLATELET VOLUME (test code = MPV) 10.8 fL 6.7-11.0 N VALPROIC ACID (DEPAKENE)2018-05-02 11:44:00* Test Item Value Reference Range Interpretation Comments VALPROIC ACID (DEPAKENE) (test code = VALP) 83.0 mcg/mL 50.0-100.0 N - CTA [id number] 10:10:00 Name: CHARLOTTE SHAH II [facility] : 1980 Age/S: 37 / M Cristel Lara Unit #: [id number] Loc: J[place]NN[place] [address] Phys: Britt Sterling MD Acct: [id number] Dis Date: Status: REG ER PHONE #: [phone] Exam Date: 05/02/2018 0947 FAX #: [phone] Reason: sob, pain EXAMS: CPT CODE: [id number] CTA CHEST 50539 REASON FOR EXAM: sob, pain EXAM ORDER [...] RT(R),CT CTDI: DLP: Trnscb Date/Time: 05/02/2018 (1010) Viral Orig Print D/T: S: 05/02/2018 (1014) CTDI: DLP: PAGE 1 Signed Report [id number] 09:37:00* Test Item Value Reference Range Interpretation Comments ALCOHOL (test code = ALC) < 3 mg/dL 0.0-3.0 N -- INTERPRETIVE DATA NOTE: POSITIVE SCREENING RESULTS SHOULD BE CONSIDERED PRESUMPTIVE.WHEN COLLECTED FOR MEDICAL PURPOSES ONLY. SPECIMEN WILL NOTBE COLLECTED BY CHAIN OF CUSTODY.IF A CONFIRMATION OF POSITIVE RESULTS IS DESIRED, ACONFIRMATION TEST MUST BE REQUESTED BY THE PHYSICIAN AT ANADDITIONAL CHARGE TO THE PATIENT. URINALYSIS [id number] 08:08:00* Test Item Value Reference Range Interpretation Comments UA COLOR (test code = COLU) STRAW YELLOW UA APPEARANCE (test code = APPU) CLEAR CLEAR UA GLUCOSE DIPSTICK (test code = DGLUU) NEGATIVE mg/dL NEGATIVE UA BILIRUBIN DIPSTICK (test code = BILU) NEGATIVE mg/dL NEGATIVE UA KETONE DIPSTICK (test code = KETU) 5 (Trace) mg/dL NEGATIVE A UA SPECIFIC GRAVITY (test code = SGU) 1.009 1.001-1.035 UA BLOOD DIPSTICK (test code = ELMA) Negative NEGATIVE UA PH DIPSTICK (test code = PREETI) 8.0 5.0-8.0 UA PROTEIN DIPSTICK (test code = PROU) Negative mg/dL NEGATIVE UA UROBILINIOGEN DIPSTICK (test code = URO) NEGATIVE mg/dL NEGATIVE UA NITRITE DIPSTICK (test code = GEO) NEGATIVE NEGATIVE UA LEUKOCYTE ESTERASE W REFLEX (test code = LEUUR) NEGATIVE NEG ATIVE UA WBC (test code = WBCU) 0-5 per HPF 0-5 IN SOME URINARY TRACT INFECTIONS THERE MAY NOT BE [...] Urine Source? Clean CatchDRUGS OF ABUSE SCREEN [id number] 08:08:00* Test Item Value Reference Range Interpretation Comments URN COCAINE (test code = COCAURN) NEGATIVE <300 ng/mL URN CANNABINOIDS (test code = CANNABURN) NEGATIVE <50 ng/mL URN AMPHETAMINE (test code = AMPHETURN) NEGATIVE <1000 ng/mL URN BARBITURATE (test code = BARBITURN) NEGATIVE <200 ng/mL URN BENZODIAZEPINE (test code = BENZOURN) NEGATIVE <200 ng/mL URN OPIATES (test code = OPIATURN) NEGATIVE <300 ng/mL URN PHENCYCLIDINE (PCP) (test code = PHENCURN) NEGATIVE <25 ng/ mL URN METHADONE (test code = METHAURN) NEGATIVE <300 ng/mL Urine Source? Clean CatchB-TYPE NATRIURETIC [id number] 08:08:00* Test Item Value Reference Range Interpretation Comments B-TYPE NATRIURETIC PEPTIDE (test code = BNP) 15.81 pgram/mL 0-100 N URINALYSIS [id number] 07:59:00* Test Item Value Reference Range Interpretation Comments UA COLOR (test code = COLU) STRAW YELLOW UA APPEARANCE (test code = APPU) CLEAR CLEAR UA GLUCOSE DIPSTICK (test code = DGLUU) NEGATIVE mg/dL NEGATIVE UA BILIRUBIN DIPSTICK (test code = BILU) NEGATIVE mg/dL NEGATIVE UA KETONE DIPSTICK (test code = KETU) 5 (Trace) mg/dL NEGATIVE A UA SPECIFIC GRAVITY (test code = SGU) 1.009 1.001-1.035 UA BLOOD DIPSTICK (test code = ELMA) Negative NEGATIVE UA PH DIPSTICK (test code = PREETI) 8.0 5.0-8.0 UA PROTEIN DIPSTICK (test code = PROU) Negative mg/dL NEGATIVE UA UROBILINIOGEN DIPSTICK (test code = URO) NEGATIVE mg/dL NEGATIVE UA NITRITE DIPSTICK (test code = GEO) NEGATIVE NEGATIVE UA LEUKOCYTE ESTERASE W REFLEX (test code = LEUUR) NEGATIVE NEG ATIVE UA WBC (test code = WBCU) 0-5 per HPF 0-5 IN SOME URINARY TRACT INFECTIONS THERE MAY NOT BE [...] Urine Source? Clean CatchDRUGS OF ABUSE SCREEN [id number] 07:59:00* Test Item Value Reference Range Interpretation Comments URN COCAINE (test code = COCAURN) <300 ng/mL URN CANNABINOIDS (test code = CANNABURN) <50 ng/mL URN AMPHETAMINE (test code = AMPHETURN) <1000 ng/mL URN BARBITURATE (test code = BARBITURN) <200 ng/mL URN BENZODIAZEPINE (test code = BENZOURN) <200 ng/mL URN OPIATES (test code = OPIATURN) <300 ng/mL URN PHENCYCLIDINE (PCP) (test code = PHENCURN) <25 ng/ mL URN METHADONE (test code = METHAURN) <300 ng/mL Urine Source? Clean CatchBASIC METABOLIC [id number] 07:52:00* Test Item Value Reference Range Interpretation Comments SODIUM (test code = NA) 133 mmol/L 136-145 L POTASSIUM (test code = K) 4.3 mmol/L 3.5-5.1 N CHLORIDE (test code = CL) 98.0 mmol/L 98-107 N CARBON DIOXIDE (test code = CO2) 26.0 mmol/L 21-32 N ANION GAP (test code = GAP) 13.3 10-20 N GLUCOSE (test code = GLU) 128 mg/dL 74-106 H BLOOD UREA NITROGEN (test code = BUN) 10 mg/dL 7-18 N GLOMERULAR FILTRATION RATE (test code = GFR) > 60 mL/min >=60 Estimated GFR by using Modified MDRD formula.Chronic kidney disease is defined as either kidney damageor GFR <60 mL/min/1.73 m2 for >3 months. CREATININE (test code = CREAT) 1.00 mg/dL 0.7-1.3 N BUN/CREATININE RATIO (test code = BUN/CREA) 10.0 10-20 N CALCIUM (test code = CA) 11.1 mg/dL 8.5-10.1 H HEPATIC FUNCTION [id number] 07:52:00* Test Item Value Reference Range Interpretation Comments TOTAL PROTEIN (test code = PROT) 7.6 gram/dL 6.4-8.2 N ALBUMIN (test code = ALB) 3.7 g/dL 3.4-5.0 N GLOBULIN (test code = GLOB) 3.9 gram/dL 2.7-4.2 N ALBUMIN/GLOBULIN RATIO (test code = A/G) 1.0 0.75-1.50 N BILIRUBIN TOTAL (test code = BILT) 0.40 mg/dL 0.0-1.0 N BILIRUBIN DIRECT (test code = BILD) 0.09 mg/dL 0.0-0.20 N SGOT/AST (test code = AST) 15 IUnit/L 15-37 N SGPT/ALT (test code = ALT) 22 IUnit/L 12-78 N ALKALINE PHOSPHATASE TOTAL (test code = ALKP) 75 IUnit/L 45-117 N Note change in reference range due to change in reagent. [id number] 07:52:00* Test Item Value Reference Range Interpretation Comments LIPASE (test code = LIP) 181 U/L 73.0-393.0 N [id number] 07:52:00* Test Item Value Reference Range Interpretation Comments TROPONIN-I (test code = TROPI) <0.015 ng/mL 0-0.045 N URINALYSIS [id number] 07:45:00* Test Item Value Reference Range Interpretation Comments UA COLOR (test code = COLU) STRAW YELLOW UA APPEARANCE (test code = APPU) CLEAR CLEAR UA GLUCOSE DIPSTICK (test code = DGLUU) NEGATIVE mg/dL NEGATIVE UA BILIRUBIN DIPSTICK (test code = BILU) NEGATIVE mg/dL NEGATIVE UA KETONE DIPSTICK (test code = KETU) 5 (Trace) mg/dL NEGATIVE A UA SPECIFIC GRAVITY (test code = SGU) 1.009 1.001-1.035 UA BLOOD DIPSTICK (test code = ELMA) Negative NEGATIVE UA PH DIPSTICK (test code = PREETI) 8.0 5.0-8.0 UA PROTEIN DIPSTICK (test code = PROU) Negative mg/dL NEGATIVE UA UROBILINIOGEN DIPSTICK (test code = URO) NEGATIVE mg/dL NEGATIVE UA NITRITE DIPSTICK (test code = GEO) NEGATIVE NEGATIVE UA LEUKOCYTE ESTERASE W REFLEX (test code = LEUUR) NEGATIVE NEG ATIVE UA WBC (test code = WBCU) per HPF 0-5 Urine Source? Clean CatchDRUGS OF ABUSE SCREEN [id number] 07:45:00* Test Item Value Reference Range Interpretation Comments URN COCAINE (test code = COCAURN) <300 ng/mL URN CANNABINOIDS (test code = CANNABURN) <50 ng/mL URN AMPHETAMINE (test code = AMPHETURN) <1000 ng/mL URN BARBITURATE (test code = BARBITURN) <200 ng/mL URN BENZODIAZEPINE (test code = BENZOURN) <200 ng/mL URN OPIATES (test code = OPIATURN) <300 ng/mL URN PHENCYCLIDINE (PCP) (test code = PHENCURN) <25 ng/ mL URN METHADONE (test code = METHAURN) <300 ng/mL Urine Source? Clean CatchPROTHROMBIN [id number] 07:38:00* Test Item Value Reference Range Interpretation Comments PROTHROMBIN TIME PATIENT (test code = PTP) 10.9 seconds 9.0-14.0 N INTERNATIONAL NORMAL RATIO (test code = INR) 0.9 0.8-1.2 N The therapeutic range for oral anticoagulant therapy [...] (2.5-3.5) IS PATIENT ON ANTICOAGULANTS? NTHROMBOPLASTIN TIME [id number] 07:38:00* Test Item Value Reference Range Interpretation Comments THROMBOPLASTIN TIME PARTIAL (test code = PTT) 35.1 seconds 25.0-36. 5 N IS PATIENT ON ANTICOAGULANTS? [id number] 07:38:00* Test Item Value Reference Range Interpretation Comments D-DIMER (test code = DDIMER) 347.00 ng/mLFEU 0-500 N Clinical Cut-off value for D-Dimer is 500 ng/mL FEU. Comment: [employer] [...] surgery within previous 4 weeks -Disseminated malignancies -Aortic aneurysm -Sepsis, severe infections, pneumonia, severe skin infections -Liver cirrhosis - IS PATIENT ON ANTICOAGULANTS? NBASIC METABOLIC [id number] 07:32:00* Test Item Value Reference Range Interpretation Comments SODIUM (test code = NA) 133 mmol/L 136-145 L POTASSIUM (test code = K) 4.3 mmol/L 3.5-5.1 N CHLORIDE (test code = CL) 98.0 mmol/L 98-107 N CARBON DIOXIDE (test code = CO2) mmol/L 21-32 ANION GAP (test code = GAP) 10-20 GLUCOSE (test code = GLU) mg/dL 74-106 BLOOD UREA NITROGEN (test code = BUN) mg/dL 7-18 GLOMERULAR FILTRATION RATE (test code = GFR) mL/min >=60 CREATININE (test code = CREAT) mg/dL 0.7-1.3 BUN/CREATININE RATIO (test code = BUN/CREA) 10-20 CALCIUM (test code = CA) mg/dL 8.5-10.1 HEPATIC FUNCTION [id number] 07:32:00* Test Item Value Reference Range Interpretation Comments TOTAL PROTEIN (test code = PROT) gram/dL 6.4-8.2 ALBUMIN (test code = ALB) g/dL 3.4-5.0 GLOBULIN (test code = GLOB) gram/dL 2.7-4.2 ALBUMIN/GLOBULIN RATIO (test code = A/G) 0.75-1.50 BILIRUBIN TOTAL (test code = BILT) mg/dL 0.0-1.0 BILIRUBIN DIRECT (test code = BILD) mg/dL 0.0-0.20 SGOT/AST (test code = AST) IUnit/L 15-37 SGPT/ALT (test code = ALT) IUnit/L 12-78 ALKALINE PHOSPHATASE TOTAL (test code = ALKP) IUnit/L 45-117 [id number] 07:32:00* Test Item Value Reference Range Interpretation Comments LIPASE (test code = LIP) U/L 73.0-393.0 [id number] 07:32:00* Test Item Value Reference Range Interpretation Comments TROPONIN-I (test code = TROPI) ng/mL 0-0.045 CBC W/O [id number] 07:22:00* Test Item Value Reference Range Interpretation Comments WHITE BLOOD CELL (test code = WBC) 7.3 K/mm3 4.5-12.5 N RED BLOOD CELL (test code = RBC) 4.20 mill/mm3 4.0-5.8 N HEMOGLOBIN (test code = HGB) 13.1 gram/dL 13.0-17.5 N HEMATOCRIT (test code = HCT) 40.2 % 42.0-52.0 L MEAN CELL VOLUME (test code = MCV) 95.7 fL 80-98 N MEAN CELL HGB (test code = MCH) 31.2 picogram 27.0-33.0 N MEAN CELL HGB CONCETRATION (test code = MCHC) 32.6 gram/dL 33.0-36. 0 L RED CELL DISTRIBUTION WIDTH (test code = RDW) 13.4 % 11.6-16. 2 N PLATELET COUNT (test code = PLT) 329 K/mm3 150-450 N MEAN PLATELET VOLUME (test code = MPV) 9.4 fL 6.7-11.0 N CBC W/O [id number] 07:20:00* Test Item Value Reference Range Interpretation Comments WHITE BLOOD CELL (test code = WBC) K/mm3 4.5-12.5 RED BLOOD CELL (test code = RBC) mill/mm3 4.0-5.8 HEMOGLOBIN (test code = HGB) 13.1 gram/dL 13.0-17.5 N HEMATOCRIT (test code = HCT) % 42.0-52.0 MEAN CELL VOLUME (test code = MCV) fL 80-98 MEAN CELL HGB (test code = MCH) picogram 27.0-33.0 MEAN CELL HGB CONCETRATION (test code = MCHC) gram/dL 33.0-36. 0 RED CELL DISTRIBUTION WIDTH (test code = RDW) % 11.6-16. 2 PLATELET COUNT (test code = PLT) K/mm3 150-450 MEAN PLATELET VOLUME (test code = MPV) fL 6.7-11.0 - XR CHEST 1 [id number] 06:59:00 FAX: Jeffery Sosa MD [phone] [place]: St: REG Name: CHARLOTTE GALVEZ [facility] : [birth year] Age/S: 37/M [address] [facility] Unit #: [id number] Loc: JOHNNY [place] [address] Phys: Yelena Pineda MD Acct: [id number] Dis Date: Status: REG ER PHONE #: [phone] Exam Date: 05/02/2018 0653 FAX #: [phone] Reason: CHEST PAIN EXAMS: CPT CODE: [id number] XR CHEST 1 V 77519 REASON FOR EXAM: CHEST PAIN EXAM ORDER [...] Cadence Mcqueen Trnscrd Date/Time/By: (0659) : By: AntioneL Orig Print D/T: S: 05/02/2018 (5926) PAGE 1 Signed Report [id number] 13:13:00* Test Item Value Reference Range Interpretation Comments LEVETIRACETAM (test code = LEVTAM) 6.8 ug/mL 10.0-40.0 A This test was developed and its performance characteristicsdetermined by [facility]. It has not been cleared orapproved by the Food and Drug Administration.Performed At: [address] [id number] Sanjai MD Ph:[phone] BASIC METABOLIC [id number] 08:01:00* Test Item Value Reference Range Interpretation Comments SODIUM (test code = NA) 133 mmol/L 136-145 L POTASSIUM (test code = K) 3.7 mmol/L 3.5-5.1 N CHLORIDE (test code = CL) 99.0 mmol/L 98-107 N CARBON DIOXIDE (test code = CO2) 25.0 mmol/L 21-32 N ANION GAP (test code = GAP) 12.7 10-20 N GLUCOSE (test code = GLU) 97 mg/dL 74-106 N BLOOD UREA NITROGEN (test code = BUN) 16 mg/dL 7-18 N GLOMERULAR FILTRATION RATE (test code = GFR) > 60 mL/min >=60 Estimated GFR by using Modified MDRD formula.Chronic kidney disease is defined as either kidney damageor GFR <60 mL/min/1.73 m2 for >3 months. CREATININE (test code = CREAT) 0.70 mg/dL 0.7-1.3 N BUN/CREATININE RATIO (test code = BUN/CREA) 21.4 10-20 H CALCIUM (test code = CA) 8.2 mg/dL 8.5-10.1 L VALPROIC ACID (DEPAKENE)2018-03-13 08:01:00* Test Item Value Reference Range Interpretation Comments VALPROIC ACID (DEPAKENE) (test code = VALP) 20.0 mcg/mL 50.0-100.0 L [id number] 08:01:00* Test Item Value Reference Range Interpretation Comments ACETAMINOPHEN (test code = ACET) < 10 mcg/mL 10-30 L A RANGE OF 10-30 mcg/mL IS A THERAPEUTIC RANGE. TOXIC CONCENTRATIONS: >150 mcg/mL AT 4 HOURS AFTER INGESTION >= 50 mcg/mL AT 12 HOURS AFTER INGESTION [id number] 08:01:00* Test Item Value Reference Range Interpretation Comments SALICYLATE (test code = SOPHIA) < 1.7 mg/dL 2.8-20.0 L [id number] 08:01:00* Test Item Value Reference Range Interpretation Comments ALCOHOL (test code = ALC) < 3 mg/dL 0.0-3.0 N -- INTERPRETIVE DATA NOTE: POSITIVE SCREENING RESULTS SHOULD BE CONSIDERED PRESUMPTIVE.WHEN COLLECTED FOR MEDICAL PURPOSES ONLY. SPECIMEN WILL NOTBE COLLECTED BY CHAIN OF CUSTODY.IF A CONFIRMATION OF POSITIVE RESULTS IS DESIRED, ACONFIRMATION TEST MUST BE REQUESTED BY THE PHYSICIAN AT ANADDITIONAL CHARGE TO THE PATIENT. [id number] 08:01:00* Test Item Value Reference Range Interpretation Comments TROPONIN-I (test code = TROPI) <0.015 ng/mL 0-0.045 N BASIC METABOLIC [id number] 07:51:00* Test Item Value Reference Range Interpretation Comments SODIUM (test code = NA) 133 mmol/L 136-145 L POTASSIUM (test code = K) 3.7 mmol/L 3.5-5.1 N CHLORIDE (test code = CL) 99.0 mmol/L 98-107 N CARBON DIOXIDE (test code = CO2) mmol/L 21-32 ANION GAP (test code = GAP) 10-20 GLUCOSE (test code = GLU) mg/dL 74-106 BLOOD UREA NITROGEN (test code = BUN) mg/dL 7-18 GLOMERULAR FILTRATION RATE (test code = GFR) mL/min >=60 CREATININE (test code = CREAT) mg/dL 0.7-1.3 BUN/CREATININE RATIO (test code = BUN/CREA) 10-20 CALCIUM (test code = CA) mg/dL 8.5-10.1 VALPROIC ACID (DEPAKENE)2018-03-13 07:51:00* Test Item Value Reference Range Interpretation Comments VALPROIC ACID (DEPAKENE) (test code = VALP) mcg/mL 50.0-100.0 URINALYSIS [id number] 07:44:00* Test Item Value Reference Range Interpretation Comments UA COLOR (test code = COLU) LIGHT YELLOW YELLOW UA APPEARANCE (test code = APPU) CLEAR CLEAR UA GLUCOSE DIPSTICK (test code = DGLUU) NEGATIVE mg/dL NEGATIVE UA BILIRUBIN DIPSTICK (test code = BILU) NEGATIVE mg/dL NEGATIVE UA KETONE DIPSTICK (test code = KETU) Negative mg/dL NEGATIVE UA SPECIFIC GRAVITY (test code = SGU) 1.013 1.001-1.035 UA BLOOD DIPSTICK (test code = ELMA) 2+ (Moderate) NEGATIVE A UA PH DIPSTICK (test code = PREETI) 7.0 5.0-8.0 UA PROTEIN DIPSTICK (test code = PROU) Negative mg/dL NEGATIVE UA UROBILINIOGEN DIPSTICK (test code = URO) 4.0 (2+) mg/dL NEG ATIVE A UA NITRITE DIPSTICK (test code = GEO) NEGATIVE NEGATIVE UA LEUKOCYTE ESTERASE W REFLEX (test code = LEUUR) NEGATIVE NEG ATIVE UA WBC (test code = WBCU) 0-5 #/HPF 0-5 UA RBC (test code = RBCU) >20 #/HPF 0-5 A UA TRANSITIONAL CELLS (test code = TRANU) FEW (1-5) #/HPF 0-5 UROTHELIAL CELLS UA MUCUS (test code = MUCU) FEW #/LPF FEW Urine Source? CatheterDRUGS OF ABUSE SCREEN [id number] 07:44:00* Test Item Value Reference Range Interpretation Comments URN COCAINE (test code = COCAURN) NEGATIVE <300 ng/mL URN CANNABINOIDS (test code = CANNABURN) NEGATIVE <50 ng/mL URN AMPHETAMINE (test code = AMPHETURN) NEGATIVE <1000 ng/mL URN BARBITURATE (test code = BARBITURN) POSITIVE <200 ng/mL A This test provides only a preliminary test [...] BENZODIAZEPINE (test code = BENZOURN) NEGATIVE <200 ng/mL URN OPIATES (test code = OPIATURN) POSITIVE <300 ng/mL A This test provides only a preliminary test [...] PHENCYCLIDINE (PCP) (test code = PHENCURN) NEGATIVE <25 ng/ mL URN METHADONE (test code = METHAURN) NEGATIVE <300 ng/mL Urine Source? CatheterURINALYSIS [id number] 07:27:00* Test Item Value Reference Range Interpretation Comments UA COLOR (test code = COLU) LIGHT YELLOW YELLOW UA APPEARANCE (test code = APPU) CLEAR CLEAR UA GLUCOSE DIPSTICK (test code = DGLUU) NEGATIVE mg/dL NEGATIVE UA BILIRUBIN DIPSTICK (test code = BILU) NEGATIVE mg/dL NEGATIVE UA KETONE DIPSTICK (test code = KETU) Negative mg/dL NEGATIVE UA SPECIFIC GRAVITY (test code = SGU) 1.013 1.001-1.035 UA BLOOD DIPSTICK (test code = ELMA) 2+ (Moderate) NEGATIVE A UA PH DIPSTICK (test code = PREETI) 7.0 5.0-8.0 UA PROTEIN DIPSTICK (test code = PROU) Negative mg/dL NEGATIVE UA UROBILINIOGEN DIPSTICK (test code = URO) 4.0 (2+) mg/dL NEG ATIVE A UA NITRITE DIPSTICK (test code = GEO) NEGATIVE NEGATIVE UA LEUKOCYTE ESTERASE W REFLEX (test code = LEUUR) NEGATIVE NEG ATIVE UA WBC (test code = WBCU) 0-5 #/HPF 0-5 UA RBC (test code = RBCU) >20 #/HPF 0-5 A UA TRANSITIONAL CELLS (test code = TRANU) FEW (1-5) #/HPF 0-5 UROTHELIAL CELLS UA MUCUS (test code = MUCU) FEW #/LPF FEW Urine Source? CatheterDRUGS OF ABUSE SCREEN [id number] 07:27:00* Test Item Value Reference Range Interpretation Comments URN COCAINE (test code = COCAURN) <300 ng/mL URN CANNABINOIDS (test code = CANNABURN) <50 ng/mL URN AMPHETAMINE (test code = AMPHETURN) <1000 ng/mL URN BARBITURATE (test code = BARBITURN) <200 ng/mL URN BENZODIAZEPINE (test code = BENZOURN) <200 ng/mL URN OPIATES (test code = OPIATURN) <300 ng/mL URN PHENCYCLIDINE (PCP) (test code = PHENCURN) <25 ng/ mL URN METHADONE (test code = METHAURN) <300 ng/mL Urine Source? CatheterURINALYSIS [id number] 07:16:00* Test Item Value Reference Range Interpretation Comments UA COLOR (test code = COLU) LIGHT YELLOW YELLOW UA APPEARANCE (test code = APPU) CLEAR CLEAR UA GLUCOSE DIPSTICK (test code = DGLUU) NEGATIVE mg/dL NEGATIVE UA BILIRUBIN DIPSTICK (test code = BILU) NEGATIVE mg/dL NEGATIVE UA KETONE DIPSTICK (test code = KETU) Negative mg/dL NEGATIVE UA SPECIFIC GRAVITY (test code = SGU) 1.013 1.001-1.035 UA BLOOD DIPSTICK (test code = ELMA) 2+ (Moderate) NEGATIVE A UA PH DIPSTICK (test code = PREETI) 7.0 5.0-8.0 UA PROTEIN DIPSTICK (test code = PROU) Negative mg/dL NEGATIVE UA UROBILINIOGEN DIPSTICK (test code = URO) 4.0 (2+) mg/dL NEG ATIVE A UA NITRITE DIPSTICK (test code = GEO) NEGATIVE NEGATIVE UA LEUKOCYTE ESTERASE W REFLEX (test code = LEUUR) NEGATIVE NEG ATIVE UA WBC (test code = WBCU) per HPF 0-5 Urine Source? CatheterDRUGS OF ABUSE SCREEN [id number] 07:16:00* Test Item Value Reference Range Interpretation Comments URN COCAINE (test code = COCAURN) <300 ng/mL URN CANNABINOIDS (test code = CANNABURN) <50 ng/mL URN AMPHETAMINE (test code = AMPHETURN) <1000 ng/mL URN BARBITURATE (test code = BARBITURN) <200 ng/mL URN BENZODIAZEPINE (test code = BENZOURN) <200 ng/mL URN OPIATES (test code = OPIATURN) <300 ng/mL URN PHENCYCLIDINE (PCP) (test code = PHENCURN) <25 ng/ mL URN METHADONE (test code = METHAURN) <300 ng/mL [facility] [id number] 06:20:00* Test Item Value Reference Range Interpretation Comments WHITE BLOOD CELL (test code = WBC) 11.2 K/mm3 4.5-12.5 N RED BLOOD CELL (test code = RBC) 3.64 mill/mm3 4.0-5.8 L HEMOGLOBIN (test code = HGB) 11.2 gram/dL 13.0-17.5 L HEMATOCRIT (test code = HCT) 34.7 % 42.0-52.0 L MEAN CELL VOLUME (test code = MCV) 95.3 fL 80-98 N MEAN CELL HGB (test code = MCH) 30.8 picogram 27.0-33.0 N MEAN CELL HGB CONCETRATION (test code = MCHC) 32.3 gram/dL 33.0-36. 0 L RED CELL DISTRIBUTION WIDTH (test code = RDW) 15.7 % 11.6-16. 2 N PLATELET COUNT (test code = PLT) 304 K/mm3 150-450 N MEAN PLATELET VOLUME (test code = MPV) 9.5 fL 6.7-11.0 N - MRI BRAIN WO/W [id number] 16:34:00 FAX: Tree Reinoso NP [phone] [place]: St: ADM FAX: Samm Estrada I [phone] FAX: Jeffery Sosa MD [phone] Name: CHARLOTTE SHAH II [facility] : 1980 Age/S: 37/M [address] [place], [place] [address] Unit #: [id number] Loc: [id number] [place] [address] Phys: Tree Reinoso NP Acct: [id number] Dis Date: Status: ADM IN ONE #: [phone] Exam Date: 03/06/2018 1436 FAX #: [phone] Reason: FREQUENT SEIZURES EXAMS: CPT CODE: [id number] MR I BRAIN WO/W CONT [id number] MRI brain with out and with contrast [...] intracranial abnormality. No abno rmal enhancement. SL: [id number] Electr onically Signed by Jason Sevilla on 019 at 1634 Reported and signed by: Mainor Sevilla M.D. CC: Tree Reinoso NP; Samm Pearson MD; Jeffery Pelletier M.D. Technologist: RT Jessica(R)(CT) [facility] Date/Time/By: 03/06/2018 (6034) : By: [email or web address] Orig Print D/T: S: 03/06/2018 (6561) PAGE 1 Cait d Report ANTINUCLEAR ANTIBODIES [id number] 12:14:00* Test Item Value Reference Range Interpretation Comments SHRUTI SCREEN (test code = ANASCR) Negative () Negative <1:80 Borderline 1:80 Positive >1:80Performed At: [facility] [address] [id number] Thompson MD Ph:[phone] THYROID STIMULATING [id number] 04:12:00* Test Item Value Reference Range Interpretation Comments THYROID STIMULATING HORMONE (test code = TSH) 0.67 0.42-5.4 7 N Results in yasmin- International Units/mL [id number] 04:12:00* Test Item Value Reference Range Interpretation Comments PROLACTIN (test code = PROLAC) 10.9 ng/mL 4.0-15.2 Performed At: [facility] [address] [id number] Thompson MD Ph:[phone] CBC W/AUTO [id number] 07:46:00* Test Item Value Reference Range Interpretation Comments WHITE BLOOD CELL (test code = WBC) 10.05 x10 3/uL 4.5-11.0 N RED BLOOD CELL (test code = RBC) 4.22 x10 6/uL 4.00-5.60 N HEMOGLOBIN (test code = HGB) 13.4 g/dL 12.5-16.9 N HEMATOCRIT (test code = HCT) 42.5 % 37.5-50.7 N MEAN CELL VOLUME (test code = MCV) 100.7 fL 81.0-99.0 H MEAN CELL HGB (test code = MCH) 31.8 pg 27.0-33.0 N MEAN CELL HGB CONCETRATION (test code = MCHC) 31.5 g/dL 33.0-37. 0 L RED CELL DISTRIBUTION WIDTH CV (test code = RDW) 17.7 % 11.5- 14.5 H RED CELL DISTRIBUTION WIDTH SD (test code = RDW-SD) 66.2 fL 37 .0-54.0 H PLATELET COUNT (test code = PLT) 364 x10 3/uL 150-400 N MEAN PLATELET VOLUME (test code = MPV) 9.1 fL 7.0-9.0 H NEUTROPHIL % (test code = NT%) 39.4 % 56.0-77.0 L IMMATURE GRANULOCYTE % (test code = IG%) 3.3 % 0.0-2.0 H LYMPHOCYTE % (test code = LY%) 47.4 % 14.0-32.0 H MONOCYTE % (test code = MO%) 8.4 % 4.8-9.0 N EOSINOPHIL % (test code = EO%) 0.4 % 0.3-3.7 N BASOPHIL % (test code = BA%) 1.1 % 0.0-2.0 N NUCLEATED RBC % (test code = NRBC%) 0.0 % 0-0 N NEUTROPHIL # (test code = NT#) 3.97 x10 3/uL 2.0-7.6 N IMMATURE GRANULOCYTE # (test code = IG#) 0.33 x10 3/uL 0.00-0.03 H LYMPHOCYTE # (test code = LY#) 4.76 x10 3/uL 1.0-3.8 H MONOCYTE # (test code = MO#) 0.84 x10 3/uL 0.1-0.8 H EOSINOPHIL # (test code = EO#) 0.04 x10 3/uL 0.0-0.2 N BASOPHIL # (test code = BA#) 0.11 x10 3/uL 0.0-0.2 N NUCLEATED RBC # (test code = NRBC#) 0.00 x10 3/uL 0.0-0.1 N MANUAL DIFF REQUIRED (test code = MDIFF) NO BASIC METABOLIC [id number] 07:33:00* Test Item Value Reference Range Interpretation Comments SODIUM (test code = NA) 134 mEq/L 134-147 N POTASSIUM (test code = K) 4.3 mEq/L 3.4-5.0 N CHLORIDE (test code = CL) 101 mEq/L 100-108 N CARBON DIOXIDE (test code = CO2) 26 mEq/L 21-33 N ANION GAP (test code = GAP) 11 0-20 N GLUCOSE (test code = GLU) 90 mg/dL 70-110 N BLOOD UREA NITROGEN (test code = BUN) 13 mg/dL 7-18 GLOMERULAR FILTRATION RATE (test code = GFR) 96.0 105-110 L Units of measure = ml/min/1.73 m2 CREATININE (test code = CREAT) 0.9 mg/dL 0.6-1.3 N CALCIUM (test code = CA) 9.4 mg/dL 8.0-10.5 N [id number] 07:33:00* Test Item Value Reference Range Interpretation Comments MAGNESIUM (test code = MAG) 2.20 mg/dL 1.8-2.4 VALPROIC ACID (DEPAKENE)2018-03-04 18:12:00* Test Item Value Reference Range Interpretation Comments VALPROIC ACID (DEPAKENE) (test code = VALP) 27 mcg/mL 50.0-100.0 L THYROID STIMULATING [id number] 18:07:00* Test Item Value Reference Range Interpretation Comments THYROID STIMULATING HORMONE (test code = TSH) 0.67 0.42-5.4 7 N Results in yasmin- International Units/mL [id number] 18:07:00* Test Item Value Reference Range Interpretation Comments PROLACTIN (test code = PROLAC) HGBA1C%2018-03-04 18:01:00* Test Item Value Reference Range Interpretation Comments HGBA1C% (test code = HGBA1C%) 5.2 %A1C 4.8-6.0 N - XR KNEE 1 OR 2 V [id number] 14:24:00 FAX: Jeffery Sosa MD [phone] [place]: St: ADM FAX: Dario Sandy NP [phone] Name: CHARLOTTE SHAH II [facility] : 1980 Age/S: 37/M [address] [place] [address] Blvd Unit #: [id number] Loc: [place] [address] Phys: Dario Sandy NP Acct: [id number] Dis Date: Status: ADM IN PHONE #: [phone] Exam Date: 03/04/2018 1418 FAX #: [phone] Reason: BL Knee pain EXAMS: CPT CODE: [id number] XR KNEE 1 OR 2 [place] [id number] PROCEDURE: 2 views of the bilateral knees [...] k nees. 2. Mild osteoarthritic changes. SL: [id number] at 1424 Reported and signed by: Jolene Cordova M.D. CC: Jeffery Pelletier M.D.; Dario Sandy NP Technologist: RT Mark(R); RT Deepti(R), RTT Trnscrd Date/Time/By: 03/04/2018 (9380) : By: [email or web address] Orig Print D/T: S: 03/04/2018 (6030) PAGE 1 Signed Report BASIC METABOLIC [id number] 08:53:00* Test Item Value Reference Range Interpretation Comments SODIUM (test code = NA) 132 mEq/L 134-147 L POTASSIUM (test code = K) 4.2 mEq/L 3.4-5.0 N SP ECIMEN 1+ HEMOLYZED.Results known to be adversely affected by hemolysis are: Potassium Magnesium LDH Phosphorus CHLORIDE (test code = CL) 103 mEq/L 100-108 N CARBON DIOXIDE (test code = CO2) 23 mEq/L 21-33 N ANION GAP (test code = GAP) 10 0-20 N GLUCOSE (test code = GLU) 75 mg/dL 70-110 N BLOOD UREA NITROGEN (test code = BUN) 10 mg/dL 7-18 N GLOMERULAR FILTRATION RATE (test code = GFR) 110.0 105-110 N Units of measure = ml/min/1.73 m2 CREATININE (test code = CREAT) 0.8 mg/dL 0.6-1.3 N CALCIUM (test code = CA) 8.3 mg/dL 8.0-10.5 N [id number] 08:53:00* Test Item Value Reference Range Interpretation Comments MAGNESIUM (test code = MAG) 1.80 mg/dL 1.8-2.4 N CBC W/AUTO [id number] 08:34:00* Test Item Value Reference Range Interpretation Comments WHITE BLOOD CELL (test code = WBC) 9.14 x10 3/uL 4.5-11.0 RED BLOOD CELL (test code = RBC) 3.72 x10 6/uL 4.00-5.60 L HEMOGLOBIN (test code = HGB) 11.7 g/dL 12.5-16.9 L HEMATOCRIT (test code = HCT) 37.2 % 37.5-50.7 L MEAN CELL VOLUME (test code = MCV) 100.0 fL 81.0-99.0 H MEAN CELL HGB (test code = MCH) 31.5 pg 27.0-33.0 N MEAN CELL HGB CONCETRATION (test code = MCHC) 31.5 g/dL 33.0-37. 0 L RED CELL DISTRIBUTION WIDTH CV (test code = RDW) 17.2 % 11.5- 14.5 H RED CELL DISTRIBUTION WIDTH SD (test code = RDW-SD) 63.7 fL 37 .0-54.0 H PLATELET COUNT (test code = PLT) 321 x10 3/uL 150-400 N MEAN PLATELET VOLUME (test code = MPV) 9.1 fL 7.0-9.0 H NEUTROPHIL % (test code = NT%) 39.6 % 56.0-77.0 L IMMATURE GRANULOCYTE % (test code = IG%) 1.9 % 0.0-2.0 N LYMPHOCYTE % (test code = LY%) 49.8 % 14.0-32.0 H MONOCYTE % (test code = MO%) 7.7 % 4.8-9.0 N EOSINOPHIL % (test code = EO%) 0.3 % 0.3-3.7 N BASOPHIL % (test code = BA%) 0.7 % 0.0-2.0 N NUCLEATED RBC % (test code = NRBC%) 0.0 % 0-0 N NEUTROPHIL # (test code = NT#) 3.63 x10 3/uL 2.0-7.6 N IMMATURE GRANULOCYTE # (test code = IG#) 0.17 x10 3/uL 0.00-0.03 H LYMPHOCYTE # (test code = LY#) 4.55 x10 3/uL 1.0-3.8 H MONOCYTE # (test code = MO#) 0.70 x10 3/uL 0.1-0.8 N EOSINOPHIL # (test code = EO#) 0.03 x10 3/uL 0.0-0.2 N BASOPHIL # (test code = BA#) 0.06 x10 3/uL 0.0-0.2 N NUCLEATED RBC # (test code = NRBC#) 0.00 x10 3/uL 0.0-0.1 N MANUAL DIFF REQUIRED (test code = MDIFF) NO DRUGS OF ABUSE SCREEN [id number] 22:55:00* Test Item Value Reference Range Interpretation Comments URN COCAINE (test code = COCAURN) NEGATIVE NEGATIVE URN CANNABINOIDS (test code = CANNABURN) NEGATIVE NEGATIVE URN AMPHETAMINE (test code = AMPHETURN) NEGATIVE NEGATIVE URN BARBITURATE (test code = BARBITURN) NEGATIVE NEGATIVE URN BENZODIAZEPINE (test code = BENZOURN) NEGATIVE NEGATIVE Cut-off value:200 ng/mL URN OPIATES (test code = OPIATURN) NEGATIVE NEGATIVE Cut-off value:2000 ng/mL URN PHENCYCLIDINE (PCP) (test code = PHENCURN) NEGATIVE NEGATIV E Cutoffs:Barbiturates 200 ng/mLBenzodiazepines 200 ng/mLTHC Cannabinoids 50 ng/mLOpiates(Morphine) 2000 ng/mLAmphetamine 1000 ng/mLCocaine 300 ng/mLPCP phencyclidine 25 ng/mL Unconfirmed screening results shouldnot be used for non-medical purposes. - CT HEAD/BRAIN W/O [id number] 20:01:00 Name: CHARLOTTE SHAH II [facility] : 1980 Age/S: 37 / M [address] [place] [address] Unit #: [id number] Loc: [place] [address] Phys: Dre Cazares MD Acct: [id number] Dis Date: Status: REG ER PHONE #: [phone] Exam Date: 03/03/20181946 FAX #: [phone] Reason: Seizure EXAMS: CPT CODE: [id number] CT HEAD/BRAIN W/O CONT 47934 Clinical Indication: Seizure; Comparison: CT head December [...] no mass, hemorrhage or subacute stroke. SL: [id number] at 2000 Reported and signed by: Axel Arenas M.D. PAGE 1 Signed Report (CONTINUED) Name: CHARLOTTE SHAH II [facility] : 1980 Age/S: 37 / M [address] [place] [address] Unit #: [id number] Loc: [place] [address] Phys: Dre Cazares MD Acct: [id number] Dis Date: Status: REG ER PHONE #: [phone] Exam Date: 03/03/20181946 FAX #: [phone] Reason: Seizure EXAMS: CPT CODE: [id number] CT HEAD/BRAIN W/O CONT 72186 <Continued> CC: Dre Cazares MD Technologist:Elizabeth Cast, RT(R) CTDI: DLP: Trnscb Date/Time: 03/03/2018 (2000) CeliaV Orig Print D/T: S: 03/03/2018 (2003) CTDI: DLP: PAGE 2 Signed Report BASIC METABOLIC [id number] 19:25:00* Test Item Value Reference Range Interpretation Comments SODIUM (test code = NA) 129 mEq/L 134-147 L POTASSIUM (test code = K) 3.5 mEq/L 3.4-5.0 N CHLORIDE (test code = CL) 94 mEq/L 100-108 L CARBON DIOXIDE (test code = CO2) 29 mEq/L 21-33 N ANION GAP (test code = GAP) 10 0-20 N GLUCOSE (test code = GLU) 78 mg/dL 70-110 N BLOOD UREA NITROGEN (test code = BUN) 10 mg/dL 7-18 N GLOMERULAR FILTRATION RATE (test code = GFR) 128.3 105-110 H Units of measure = ml/min/1.73 m2 CREATININE (test code = CREAT) 0.7 mg/dL 0.6-1.3 N CALCIUM (test code = CA) 9.1 mg/dL 8.0-10.5 N HEPATIC FUNCTION [id number] 19:25:00* Test Item Value Reference Range Interpretation Comments TOTAL PROTEIN (test code = PROT) 8.0 g/dL 6.4-8.2 N ALBUMIN (test code = ALB) 4.30 g/dL 3.4-5.0 N BILIRUBIN TOTAL (test code = BILT) 0.20 mg/dL 0.0-1.0 N BILIRUBIN DIRECT (test code = BILD) < 0.10 MG/DL 0.0-0.30 N BILIRUBIN INDIRECT (test code = BILIND) 0.10 MG/DL SGOT/AST (test code = AST) 10 IUnit/L 15-37 L SGPT/ALT (test code = ALT) 21 IUnit/L 15-65 N ALKALINE PHOSPHATASE TOTAL (test code = ALKP) 97 IUnit/L 20-125 N CREATINE KINASE (CK)2018-03-03 19:25:00* Test Item Value Reference Range Interpretation Comments CREATINE KINASE (CK) (test code = CK) 66 35-232 N Result is in INTERNATIONAL UNITS/LITER [id number] 19:25:00* Test Item Value Reference Range Interpretation Comments LIPASE (test code = LIP) 138 IUnit/L 73-393 N [id number] 19:25:00* Test Item Value Reference Range Interpretation Comments TROPONIN-I (test code = TROPI) < 0.015 ng/mL 0.000-0.045 N Negative: <= 0.045 Positive: >= 0.046 Correlation with serial results, other cardiac markers andclinical findings is necessary to determine the clinicalsignificance of this result. Results using different methodologies should not be comparedto one another as quantitative results may vary by method. [id number] 19:25:00* Test Item Value Reference Range Interpretation Comments ALCOHOL (test code = ALC) < 0.003 G/dL <0.003 Et hyl Alcohol Interpretation: 0.100 gm/dL - Legally Intoxicated 0.300-0.400 gm/dL - Severely Intoxicated >0.400 gm/dL - Potentially LethalResults are for Medical purposes only, and not for Legal orEmployment evaluation purposes. PROTHROMBIN [id number] 19:19:00* Test Item Value Reference Range Interpretation Comments PROTHROMBIN TIME PATIENT (test code = PTP) 11.1 SECONDS 9.3-12.9 N INTERNATIONAL NORMAL RATIO (test code = INR) 1.0 0.8-1.2 N TARGET INR BY INDICATION Indication INR1. Prophylaxis [...] Infarction (to prevent recurrent infarct). THROMBOPLASTIN TIME [id number] 19:19:00* Test Item Value Reference Range Interpretation Comments THROMBOPLASTIN TIME PARTIAL (test code = PTT) 34.9 Seconds 25.0-39. 5 N Therapeutic Range: 61.8-83.8 Sec Effective 03/10/2013 CBC W/AUTO [id number] 19:12:00* Test Item Value Reference Range Interpretation Comments WHITE BLOOD CELL (test code = WBC) 13.39 x10 3/uL 4.5-11.0 H RED BLOOD CELL (test code = RBC) 3.80 x10 6/uL 4.00-5.60 L HEMOGLOBIN (test code = HGB) 12.1 g/dL 12.5-16.9 L HEMATOCRIT (test code = HCT) 37.1 % 37.5-50.7 L MEAN CELL VOLUME (test code = MCV) 97.6 fL 81.0-99.0 N MEAN CELL HGB (test code = MCH) 31.8 pg 27.0-33.0 N MEAN CELL HGB CONCETRATION (test code = MCHC) 32.6 g/dL 33.0-37. 0 L RED CELL DISTRIBUTION WIDTH CV (test code = RDW) 16.8 % 11.5- 14.5 H RED CELL DISTRIBUTION WIDTH SD (test code = RDW-SD) 61.0 fL 37 .0-54.0 H PLATELET COUNT (test code = PLT) 372 x10 3/uL 150-400 N MEAN PLATELET VOLUME (test code = MPV) 9.0 fL 7.0-9.0 N NEUTROPHIL % (test code = NT%) 64.0 % 56.0-77.0 N IMMATURE GRANULOCYTE % (test code = IG%) 1.9 % 0.0-2.0 N LYMPHOCYTE % (test code = LY%) 24.3 % 14.0-32.0 N MONOCYTE % (test code = MO%) 9.3 % 4.8-9.0 H EOSINOPHIL % (test code = EO%) 0.1 % 0.3-3.7 L BASOPHIL % (test code = BA%) 0.4 % 0.0-2.0 N NUCLEATED RBC % (test code = NRBC%) 0.0 % 0-0 N NEUTROPHIL # (test code = NT#) 8.58 x10 3/uL 2.0-7.6 H IMMATURE GRANULOCYTE # (test code = IG#) 0.25 x10 3/uL 0.00-0.03 H LYMPHOCYTE # (test code = LY#) 3.25 x10 3/uL 1.0-3.8 N MONOCYTE # (test code = MO#) 1.25 x10 3/uL 0.1-0.8 H EOSINOPHIL # (test code = EO#) 0.01 x10 3/uL 0.0-0.2 N BASOPHIL # (test code = BA#) 0.05 x10 3/uL 0.0-0.2 N NUCLEATED RBC # (test code = NRBC#) 0.00 x10 3/uL 0.0-0.1 N MANUAL DIFF REQUIRED (test code = MDIFF) NO - XR CHEST 1 [id number] 19:03:00 FAX: Dre Cazares MD [place]: St: REG Name: Maribel BLISSCHARLOTTE NADEGE ELLIOTT [facility] : [birth year] Age/S: 37/M [address] [place] [address] Unit #: [id number] Loc: [place] [address] Phys: Dre Cazares MD Acct: [id number] Dis Date: Status: REG ER PHONE #: [phone] Exam Date: 03/03/2018 185 FAX #: [phone] Reason: Seizure Adult EXAMS: CPT CODE: [id number] XR CHEST 1 V 65455 PROCEDURE: - XR CHEST 1 V INDICATION: [...] Angelo M.D. CC: Dre Cazares MD Technologist: SHARLA Tirado) Trnscrd Date/Time/By: 03/03/2018 (1902) : By: [email or web address] Orig Print D/T: S: 03/03/2018 (1906) PAGE 1 Signed Report
[2019-07-08] MEDS ORDERED: ONDANSETRON HCL INJ 2MG/ML 2ML 2 MG/ML VIAL IV STA (06:23)
[2019-07-08] MEDS ORDERED: PANTOPRAZOLE 40 MG 10ML VIAL IV STA (06:23)
[2019-07-08] MEDS ORDERED: SODIUM CHLORIDE 0.9% 1000ML 1,000 ML IV ONE (06:30)
[2019-07-08] MEDS ORDERED: MULTIVITAMINS- 12 INJECTION 10 ML, FOLIC ACID MDV 5 MG, THIAMINE HCL INJ 100 MG in SODI... IV ONE (06:30)
[2019-07-08 07:12] LABS: BASOPHILS # (AUTO) 0.1 (0.0-0.1); BASOPHILS % 1.4 % (0.0-1.0); EOSINOPHILS % 0.5 % (0.0-6.0); HEMATOCRIT 38.4 % (38.2-49.6); HEMOGLOBIN 12.1 g/dL (14.0-18.0); LYMPHOCYTES # (AUTO) 2.4 (1.0-3.2); LYMPHOCYTES % 40.6 % (18.0-39.1); MEAN CORPUSCULAR HEMOGLOBIN 30.1 pg (28-32); MEAN CORPUSCULAR HGB CONC 31.5 g/dL (31-35); MEAN CORPUSCULAR VOLUME 95.5 fL (81-99); MONOCYTES # (AUTO) 0.3 (0.2-0.8); MONOCYTES % 5.3 % (4.4-11.3); NEUTROPHILS % 51.5 % (38.7-80.0); PLATELET COUNT 454 x10e3/uL (140-360); RED BLOOD COUNT 4.02 x10e6/uL (4.3-5.7); RED CELL DISTRIBUTION WIDTH 17.3 % (11.7-14.4)
[2019-07-08] MEDS ORDERED: MORPHINE SULFATE INJ 4 MG/ML INJ 1ML IV STA (07:18)
[2019-07-08 07:41] LABS: ALANINE AMINOTRANSFERASE 11 IU/L (0-55); ALBUMIN 3.5 g/dL (3.5-5.0); ALBUMIN/GLOBULIN RATIO 0.5 (0.8-2.0); ALKALINE PHOSPHATASE 227 IU/L (40-150); ANION GAP 19.3 mmol/L (8-16); BLOOD UREA NITROGEN 5 mg/dL (7-26); BUN/CREATININE RATIO 6 (6-25); CALCIUM 10.3 mg/dL (8.4-10.2); CARBON DIOXIDE 24 mmol/L (22-29); CHLORIDE 106 mmol/L (98-107); CREATINE KINASE 59 IU/L (30-200); CREATININE, SERUM 0.82 mg/dL (0.72-1.25); EST GLOMERULAR FILTRATION RATE > 60 ML/MIN (60-); GLUCOSE 96 mg/dL (74-118); POTASSIUM 4.3 mmol/L (3.5-5.1); SODIUM 145 mmol/L (136-145)
[2019-07-08 07:56] LABS: AMPHETAMINES SCREEN,URINE NEGATIVE (NEGATIVE); BENZODIAZEPINES SCREEN,URINE POSITIVE (NEGATIVE); PHENCYCLIDINE SCREEN,URINE NEGATIVE (NEGATIVE)
[2019-07-08 07:59] LABS: BILIRUBIN,URINE NEGATIVE (NEGATIVE); CLARITY,URINE CLEAR (CLEAR); COLOR,URINE YELLOW (YELLOW); KETONES,URINE NEGATIVE (NEGATIVE); LEUKOCYTE ESTERASE ,URINE NEGATIVE (NEGATIVE); NITRITE,URINE NEGATIVE (NEGATIVE); PROTEIN,URINE DIPSTICK TRACE (NEGATIVE); URINE UROBILINOGEN 0.2 mg/dL (0.2 - 1)
[2019-07-08] MEDS ORDERED: DIATRIZOATE MEGL/DIATRIZOA SOD 30 ML BTL PO ONE (08:05)
[2019-07-08 08:13] LABS: BACTERIA,URINE RARE /HPF; EPITHELIAL CELLS,URINE RARE /LPF; RBC,URINE 0-5 /HPF (0-5); WBC,URINE (MAN) 0-5 /HPF (0-5)
[2019-07-08 08:17] LABS: AMYLASE 84 U/L (25-125); LIPASE 50 U/L (8-78)
--- NOTE | 2019-07-08 08:31 | Emergency Department Note ---
History of Present Illnes History of Present Illness Chief Complaint: Abdominal Complaints History of Present Illness This is a 39 year old male 39 Y/O MALE PT A&OX3 PRESENTS TO THE ER VIA [facility] C/O LLQ ABD PAIN WITH N/V ONSET YESTERDAY AROUND 1530; HX OF ETOH ABUSE, DRINKS DAILY; PT REPORTS DRINKING 1/2 PINT OF WHISKEY YESTERDAY; PT REPORTS LLQ ABD PAIN X1 MONTH BUT WORSENED YESTERDAY. Historian: Patient Arrival Mode: Car Adjunct Sociology Professor Required: No Onset (how long ago): day(s) (1) Location: lower abd Quality: pain Radiation: non-radiation Severity: severe Onset quality: gradual Duration (how long): day(s) (1) Timing of current episode: intermittent Progression: waxing and waning Chronicity: recurrent Context: recent illness (recent admit for pancreatitis) Relieving factors: none Exacerbating factors: none Associated symptoms: nausea/vomiting Treatments prior to arrival: none Past Medical/Family History Physician Review I have reviewed the patient's past medical and family history. Any updates have been documented here. Past Medical History Recent Fever: No Clinical Suspicion of Infectio: No New/Unexplained Change in Ment: No Past Medical History: Hypertension, Seizure Disorder, Anemia, GERD, Osteoarthritis Other Medical History: (JUVENILE) RA ANKYLOSING SPONDYLITIS TACHYCARDIA ETOH ABUSE Other Surgery: 2 HIP REPLACEMENTS BILATERAL WRIST SX Social History Smoking Cessation: Current some day smoker Counseling Performed: Yes Alcohol Use: Daily Any Illegal Drug Use: No TB Exposure/Symptoms: No Physically hurt or threatened: No Family History Family history of heart diseas: No Other Last Tetanus: UTD Any Pre-Existing Lines (PICC,: No Is patient up to date on immun: Yes Last Flu: unknown Last Pneumovax: unknown Review of Systems Review of Systems Constitutional: no symptoms EENTM: no symptoms Cardiovascular: no symptoms Respiratory: no symptoms Gastrointestinal: abdominal pain, nausea, vomiting; diarrhea Genitourinary: no symptoms Musculoskeletal: no symptoms Neurological: no symptoms Psychological: no symptoms Endocrine: no symptoms Hematological/Lymphatic: no symptoms Review of other systems All other systems reviewed and negative. Physical Exam Related Data Allergies: Coded Allergies: NSAIDS (Non-Steroidal Anti-Inflamma (Verified Allergy, Severe, GI BLEED, 07/08/19) gabapentin (Verified Allergy, Severe, SEIZURE, 07/08/19) ibuprofen (Verified Allergy, Severe, GI BLEED, 07/08/19) tramadol (Verified Allergy, Mild, SEIZURE, 07/08/19) Triage Vital Signs Vital Signs Date Time Temp Pulse Resp B/P (MAP) Pulse Ox O2 Delivery O2 Flow Rate FiO2 07/08/19 06:25 99.0 118 20 118/90 100 Vital signs reviewed: Yes Physical Exam CONSTITUTIONAL Constitutional: well-developed, well-nourished HENT HENT: normocephalic, atraumatic, oropharynx clear/moist, nose normal HENT L/R: left ext ear normal, right ext ear normal EYES Eyes: PERRL, conjunctivae normal NECK Neck: ROM normal PULMONARY Pulmonary: effort normal, breath sounds normal CARDIOVASCULAR Cardiovascular: regular rhythm, heart sounds normal, capillary refill normal, normal rate GASTROINTESTINAL Abdominal: soft, bowel sounds normal, tender (moderate LLQ and RLQ, mild ALEX, no R/G) GENITOURINARY Genitourinary: exam deferred SKIN Skin: warm, dry MUSCULOSKELETAL Musculoskeletal: ROM normal NEUROLOGICAL Neurological: alert, oriented x 3, no gross motor or sensory deficits PSYCHOLOGICAL Psychological: mood/affect normal, judgement normal Results Laboratory Result Diagram: 07/08/19 0643 07/08/19 0643 Laboratory Laboratory Tests Test 07/08/19 07:40 07/08/19 06:55 07/08/19 06:43 Urine Color Yellow (YELLOW) Urine Clarity Clear (CLEAR) Urine pH 6.5 (5 - 7) Urine Specific [place] 1.025 (1.010-1.025) Urine Protein Trace (NEGATIVE) Urine Glucose (UA) Negative (NEGATIVE) Urine Ketones Negative (NEGATIVE) Urine Blood Trace (NEGATIVE) Urine Nitrite Negative (NEGATIVE) Urine Bilirubin Negative (NEGATIVE) Urine Urobilinogen 0.2 mg/dL (0.2 - 1) Urine Leukocyte Esterase Negative (NEGATIVE) Urine RBC 0-5 /HPF (0-5) Urine WBC 0-5 /HPF (0-5) Urine Epithelial Cells Rare /LPF (NONE) Urine Bacteria Rare /HPF (NONE) Urine Opiates Screen Negative (NEGATIVE) Urine Methadone Screen Negative (NEGATIVE) Urine Barbiturates Screen Negative (NEGATIVE) Urine Phencyclidine Screen Negative (NEGATIVE) Urine Amphetamines Screen Negative (NEGATIVE) Urine Methamphetamines Screen Negative (NEGATIVE) Urine Benzodiazepines Screen Positive (NEGATIVE) Urine Cocaine Screen Negative (NEGATIVE) Urine Cannabinoids Screen Negative (NEGATIVE) Ethyl Alcohol Level 261.1 mg/dL (0.0-10.0) White Blood Count 5.81 x10e3/uL (4.8-10.8) Red Blood Count 4.02 x10e6/uL (4.3-5.7) Hemoglobin 12.1 g/dL (14.0-18.0) Hematocrit 38.4 % (38.2-49.6) Mean Corpuscular Volume 95.5 fL (81-99) Mean Corpuscular Hemoglobin 30.1 pg (28-32) Mean Corpuscular Hemoglobin Concent 31.5 g/dL (31-35) Red Cell Distribution Width 17.3 % (11.7-14.4) Platelet Count 454 x10e3/uL (140-360) Neutrophils (%) (Auto) 51.5 % (38.7-80.0) Lymphocytes (%) (Auto) 40.6 % (18.0-39.1) Monocytes (%) (Auto) 5.3 % (4.4-11.3) Eosinophils (%) (Auto) 0.5 % (0.0-6.0) Basophils (%) (Auto) 1.4 % (0.0-1.0) Neutrophils # (Auto) 3.0 (2.1-6.9) Lymphocytes # (Auto) 2.4 (1.0-3.2) Monocytes # (Auto) 0.3 (0.2-0.8) Eosinophils # (Auto) 0.0 (0.0-0.4) Basophils # (Auto) 0.1 (0.0-0.1) Absolute Immature Granulocyte (auto 0.04 x10e3/uL (0-0.1) Sodium Level 145 mmol/L (136-145) Potassium Level 4.3 mmol/L (3.5-5.1) Chloride Level 106 mmol/L (98-107) Carbon Dioxide Level 24 mmol/L (22-29) Anion Gap 19.3 mmol/L (8-16) Blood Urea Nitrogen 5 mg/dL (7-26) Creatinine 0.82 mg/dL (0.72-1.25) Estimat Glomerular Filtration Rate > 60 ML/MIN (60-) BUN/Creatinine Ratio 6 (6-25) Glucose Level 96 mg/dL (74-118) Bedside Glucose 101 mg/dL (70-120) Calcium Level 10.3 mg/dL (8.4-10.2) Total Bilirubin 0.2 mg/dL (0.2-1.2) Aspartate Amino Transf (AST/SGOT) 31 IU/L (5-34) Alanine Aminotransferase (ALT/SGPT) 11 IU/L (0-55) Alkaline Phosphatase 227 IU/L (40-150) Creatine Kinase 59 IU/L (30-200) Creatine Kinase MB 0.80 ng/mL (0-5.0) Troponin I < 0.001 ng/mL (0-0.300) Total Protein 10.3 g/dL (6.5-8.1) Albumin 3.5 g/dL (3.5-5.0) Globulin 6.8 g/dL (2.3-3.5) Albumin/Globulin Ratio 0.5 (0.8-2.0) Amylase Level 84 U/L (25-125) Lipase 50 U/L (8-78) Laboratory Tests Test 07/08/19 07:40 07/08/19 06:55 07/08/19 06:43 Urine Color Yellow (YELLOW) Urine Clarity Clear (CLEAR) Urine pH 6.5 (5 - 7) Urine Specific [place] 1.025 (1.010-1.025) Urine Protein Trace (NEGATIVE) Urine Glucose (UA) Negative (NEGATIVE) Urine Ketones Negative (NEGATIVE) Urine Blood Trace (NEGATIVE) Urine Nitrite Negative (NEGATIVE) Urine Bilirubin Negative (NEGATIVE) Urine Urobilinogen 0.2 mg/dL (0.2 - 1) Urine Leukocyte Esterase Negative (NEGATIVE) Urine RBC 0-5 /HPF (0-5) Urine WBC 0-5 /HPF (0-5) Urine Epithelial Cells Rare /LPF (NONE) Urine Bacteria Rare /HPF (NONE) Urine Opiates Screen Negative (NEGATIVE) Urine Methadone Screen Negative (NEGATIVE) Urine Barbiturates Screen Negative (NEGATIVE) Urine Phencyclidine Screen Negative (NEGATIVE) Urine Amphetamines Screen Negative (NEGATIVE) Urine Methamphetamines Screen Negative (NEGATIVE) Urine Benzodiazepines Screen Positive (NEGATIVE) Urine Cocaine Screen Negative (NEGATIVE) Urine Cannabinoids Screen Negative (NEGATIVE) Ethyl Alcohol Level 261.1 mg/dL (0.0-10.0) White Blood Count 5.81 x10e3/uL (4.8-10.8) Red Blood Count 4.02 x10e6/uL (4.3-5.7) Hemoglobin 12.1 g/dL (14.0-18.0) Hematocrit 38.4 % (38.2-49.6) Mean Corpuscular Volume 95.5 fL (81-99) Mean Corpuscular Hemoglobin 30.1 pg (28-32) Mean Corpuscular Hemoglobin Concent 31.5 g/dL (31-35) Red Cell Distribution Width 17.3 % (11.7-14.4) Platelet Count 454 x10e3/uL (140-360) Neutrophils (%) (Auto) 51.5 % (38.7-80.0) Lymphocytes (%) (Auto) 40.6 % (18.0-39.1) Monocytes (%) (Auto) 5.3 % (4.4-11.3) Eosinophils (%) (Auto) 0.5 % (0.0-6.0) Basophils (%) (Auto) 1.4 % (0.0-1.0) Neutrophils # (Auto) 3.0 (2.1-6.9) Lymphocytes # (Auto) 2.4 (1.0-3.2) Monocytes # (Auto) 0.3 (0.2-0.8) Eosinophils # (Auto) 0.0 (0.0-0.4) Basophils # (Auto) 0.1 (0.0-0.1) Absolute Immature Granulocyte (auto 0.04 x10e3/uL (0-0.1) Sodium Level 145 mmol/L (136-145) Potassium Level 4.3 mmol/L (3.5-5.1) Chloride Level 106 mmol/L (98-107) Carbon Dioxide Level 24 mmol/L (22-29) Anion Gap 19.3 mmol/L (8-16) Blood Urea Nitrogen 5 mg/dL (7-26) Creatinine 0.82 mg/dL (0.72-1.25) Estimat Glomerular Filtration Rate > 60 ML/MIN (60-) BUN/Creatinine Ratio 6 (6-25) Glucose Level 96 mg/dL (74-118) Bedside Glucose 101 mg/dL (70-120) Calcium Level 10.3 mg/dL (8.4-10.2) Total Bilirubin 0.2 mg/dL (0.2-1.2) Aspartate Amino Transf (AST/SGOT) 31 IU/L (5-34) Alanine Aminotransferase (ALT/SGPT) 11 IU/L (0-55) Alkaline Phosphatase 227 IU/L (40-150) Creatine Kinase 59 IU/L (30-200) Creatine Kinase MB 0.80 ng/mL (0-5.0) Troponin I < 0.001 ng/mL (0-0.300) Total Protein 10.3 g/dL (6.5-8.1) Albumin 3.5 g/dL (3.5-5.0) Globulin 6.8 g/dL (2.3-3.5) Albumin/Globulin Ratio 0.5 (0.8-2.0) Amylase Level 84 U/L (25-125) Lipase 50 U/L (8-78) Lab results reviewed: Yes Laboratory comments CBC, CHEM UNREMARKABLE, MACIEL/LIPASE NORMAL, EtOH 261, UDS POS FOR BENZO'S Imaging Imaging results reviewed: Yes Impressions EXAM: CT Abdomen and Pelvis WITH intravenous contrast INDICATION: Abdominal pain COMPARISON: CT abdomen pelvis of 06/17/2019 TECHNIQUE: Abdomen and pelvis were scanned utilizing a multidetector helical scanner from the lung base to the pubic symphysis after administration of IV contrast. Coronal and sagittal reformations were obtained. Routine protocol was performed. Scan was performed during portal venous phase. IV CONTRAST: 100mL of Isovue 370 ORAL CONTRAST: Water RADIATION DOSE: Total DLP: 589 mGy*cm Dose modulation, iterative reconstruction, and/or weight based adjustment of the mA/kV was utilized to reduce the radiation dose to as low as reasonably achievable. FINDINGS: LOWER THORAX: Normal. HEPATOBILIARY: No focal liver lesion. No biliary ductal dilation. Unremarkable gallbladder. SPLEEN: No splenomegaly. PANCREAS: No focal masses or ductal dilatation. Previous findings of pancreatitis have resolved. ADRENALS: No adrenal nodules. KIDNEYS/URETERS: Subcentimeter cysts of both kidneys. No focal mass lesion. No renal calculi or hydronephrosis. PELVIC ORGANS/BLADDER: Evaluation obscured by streak artifact related to right and left total hip replacement. PERITONEUM / RETROPERITONEUM: No free air or fluid. LYMPH NODES: No lymphadenopathy. VESSELS: Unremarkable. GI TRACT: No abnormal bowel thickening. No bowel obstruction. BONES AND SOFT TISSUES: No acute osseous injury. No suspicious lytic or blastic lesions. Right and left total hip replacement. IMPRESSION: No acute findings in the abdomen or pelvis. Signed by: Mary Naranjo MD on 07/08/2019 9:55 AM Imaging Comments EXAM: CT Abdomen and Pelvis WITH intravenous contrast INDICATION: Abdominal pain COMPARISON: CT abdomen pelvis of 06/17/2019 TECHNIQUE: Abdomen and pelvis were scanned utilizing a multidetector helical scanner from the lung base to the pubic symphysis after administration of IV contrast. Coronal and sagittal reformations were obtained. Routine protocol was performed. Scan was performed during portal venous phase. IV CONTRAST: 100mL of Isovue 370 ORAL CONTRAST: Water RADIATION DOSE: Total DLP: 589 mGy*cm Dose modulation, iterative reconstruction, and/or weight based adjustment of the mA/kV was utilized to reduce the radiation dose to as low as reasonably achievable. FINDINGS: LOWER THORAX: Normal. HEPATOBILIARY: No focal liver lesion. No biliary ductal dilation. Unremarkable gallbladder. SPLEEN: No splenomegaly. PANCREAS: No focal masses or ductal dilatation. Previous findings of pancreatitis have resolved. ADRENALS: No adrenal nodules. KIDNEYS/URETERS: Subcentimeter cysts of both kidneys. No focal mass lesion. No renal calculi or hydronephrosis. PELVIC ORGANS/BLADDER: Evaluation obscured by streak artifact related to right and left total hip replacement. PERITONEUM / RETROPERITONEUM: No free air or fluid. LYMPH NODES: No lymphadenopathy. VESSELS: Unremarkable. GI TRACT: No abnormal bowel thickening. No bowel obstruction. BONES AND SOFT TISSUES: No acute osseous injury. No suspicious lytic or blastic lesions. Right and left total hip replacement. IMPRESSION: No acute findings in the abdomen or pelvis. Signed by: Mary Naranjo MD on 07/08/2019 9:55 AM Diagnostics Tests Diagnostic test(s) reviewed: Yes Procedures 12 Lead ECG Interpretation Adjunct Sociology Professor: Interpreted by ED physician Date: July 08, 2019 Time: 06:37 Prior SPEEDOMETER INSPECTOR tracings: reviewed Rhythm: sinus tachycardia Rate: tachycardia (117) QRS axis: normal ST segments normal: Yes T waves normal: Yes Clinical Impression: abnormal ECG Critical Care Time Subsequent provider I assumed direction of critical care for this patient from another provider of my specialty. Assessment & Plan Reassessment Reassessment ABD PAIN, RECENT ADMIT FOR PANCREATITIS AND PT IS A DAILY EtOH DRINKER, BUT PAIN IS MORE IN LOWER QUADRANTS - CHECK CBC, CHEM'S, MACIEL/LIP, UDS, EtOH LEVEL, UA, CT ABD/PELVIS - R/O PANCREATITIS, APPENDICITIS, DIVERTICULITIS, COULD JUST BE GASTROENTERITIS/ALCOHOL-INDUCED GASTRITIS, RENAL INSUFF/DEHYDRATION, UTI Assessment & Plan Final Impression: (1) Abdominal pain (2) Gastritis Assessment & Plan DC HOME WITH SAFE RIDE, BENTYL 20 MG PO Q6HR PRN, PHENERGAN 25 MG PO Q6HR PRN, PROTONIX 40 MG PO QDAY, DC ALCOHOL, FOLLOW-UP WITH PCP TODAY, F/U GI DR Shakira CRUM - CALL TODAY FOR APPT, RETURN IF SX'S WORSEN Depart Disposition: HOME, SELF-CARE Last Vital Signs Date Time Temp Pulse Resp B/P (MAP) Pulse Ox O2 Delivery O2 Flow Rate FiO2 07/08/19 07:54 98 16 107/76 100 07/08/19 06:25 99.0 Home Meds Active Scripts Multivitamin (Multivitamin) 1 Each Tablet, 1 TAB PO DAILY for 90 Days, 6 Refills Prov:ANDREINA RICHARDSON MD, [facility] 06/19/19 Lorazepam (ATIVAN) 1 Mg Tablet, 0 PO Directed, #10 TAB 0 Refills 1 mg tablets; Take 1 tablet twice daily x 2 days, then 1/2 tablet twice daily x 4 days, then 1/2 tablet daily x 4 days, then stop Prov:ANDREINA RICHARDSON MD, [facility] 06/19/19 Reported Medications Levomilnacipran HCl (Fetzima) 80 Mg Cap.sa.24h, 80 MG PO DAILY 06/17/19 Hydroxyzine Hcl (HYDROXYZINE HCL) 50 Mg Tablet, 50 MG PO BID 06/17/19 Ondansetron Hcl (ONDANSETRON HCL) 4 Mg Tablet, 4 MG PO Q4HR PRN for NAUSEA 06/17/19 Diclofenac Sodium (Diclofenac Sodium) 100 Gm Gel..gram., 1 APPLIC TOP PRN 06/17/19 Acetaminophen/Codeine* (TYLENOL # 3*) 1 Ea Tab, 1 TAB PO TID PRN for MODERATE PAIN (4-6) 06/17/19 Levetiracetam (LEVETIRACETAM) 750 Mg Tablet, 750 MG PO BID 06/17/19 Omeprazole (OMEPRAZOLE) 40 Mg Capsule.dr, 40 MG PO DAILY 06/17/19 Divalproex Sodium (DEPAKOTE) 250 Mg Tabec, 750 MG PO BID 06/17/19 Medications in the ED Pantoprazole Sodium 40 mg NOW STAT IV Last administered on 07/08/19at 07:05; Admin Dose 40 MG; Start 07/08/19 at 06:23; Stop 07/08/19 at 06:43; Status DC Ondansetron HCl 4 mg NOW STAT IV Last administered on 07/08/19at 07:05; Admin Dose 4 MG; Start 07/08/19 at 06:23; Stop 07/08/19 at 06:43; Status DC Multivitamins 10 ml/Folic Acid 5 mg/Thiamine HCl 100 mg/Sodium Chloride 1,012 ml @ 150 mls/hr Q6H45M ONCE IV Last administered on 07/08/19at 07:34; Admin Dose 150 MLS/HR; Start 07/08/19 at 06:30; Stop 07/08/19 at 13:14 Sodium Chloride 1,000 ml @ 999 mls/hr Q1H1M ONCE IV Last administered on 07/08/19at 07:05; Admin Dose 999 MLS/HR; Start 07/08/19 at 06:30; Stop 07/08/19 at 07:30; Status DC Morphine Sulfate 4 mg NOW STAT IV Last administered on 07/08/19at 07:37; Admin Dose 4 MG; Start 07/08/19 at 07:18; Stop 07/08/19 at 07:19; Status DC Diatrizoate Meglum/ Diatrizoate Sod 30 ml STK-MED ONCE PO ; Start 07/08/19 at 08:05; Stop 07/08/19 at 07:59; Status DC SERGIO MURRIETA MD July 08, 2019 08:31
[2019-07-08] MEDS ORDERED: PROMETHAZINE 25MG/ NS 50ML (IV) IV ONE (09:00)
[2019-07-08 09:30] LABS: ANISOCYTOSIS SLIGHT; PLATELET ESTIMATE SLIGHTLY INCREASED; PLATELET MORPHOLOGY COMMENT FEW EDTA CLUMPING; RBC MORPHOLOGY COMMENT NORMAL
[2019-07-08] MEDS ORDERED: IOPAMIDOL 370 MG/ML 200 ML INFUS..BTL INJ ONE (09:50)
--- NOTE | 2019-07-08 09:58 | Diagnostic Imaging Report ---
EXAM: CT Abdomen and Pelvis WITH intravenous contrast INDICATION: Abdominal pain COMPARISON: CT abdomen pelvis of 06/17/2019 TECHNIQUE: Abdomen and pelvis were scanned utilizing a multidetector helical scanner from the lung base to the pubic symphysis after administration of IV contrast. Coronal and sagittal reformations were obtained. Routine protocol was performed. Scan was performed during portal venous phase. IV CONTRAST: 100mL of Isovue 370 ORAL CONTRAST: Water RADIATION DOSE: Total DLP: 589 mGy*cm Dose modulation, iterative reconstruction, and/or weight based adjustment of the mA/kV was utilized to reduce the radiation dose to as low as reasonably achievable. FINDINGS: LOWER THORAX: Normal. HEPATOBILIARY: No focal liver lesion. No biliary ductal dilation. Unremarkable gallbladder. SPLEEN: No splenomegaly. PANCREAS: No focal masses or ductal dilatation. Previous findings of pancreatitis have resolved. ADRENALS: No adrenal nodules. KIDNEYS/URETERS: Subcentimeter cysts of both kidneys. No focal mass lesion. No renal calculi or hydronephrosis. PELVIC ORGANS/BLADDER: Evaluation obscured by streak artifact related to right and left total hip replacement. PERITONEUM / RETROPERITONEUM: No free air or fluid. LYMPH NODES: No lymphadenopathy. VESSELS: Unremarkable. GI TRACT: No abnormal bowel thickening. No bowel obstruction. BONES AND SOFT TISSUES: No acute osseous injury. No suspicious lytic or blastic lesions. Right and left total hip replacement. IMPRESSION: No acute findings in the abdomen or pelvis. Signed by: Mary Naranjo MD on 07/08/2019 9:55 AM
--- NOTE | 2019-07-08 10:33 | NUR ---
Attempted to awake pt to call parents for ride home, patient drowsy and cannot provide full number to give this RN for ride home. MD notified.
== END 2019-07-08 11:28 | disposition home or self-care (01) ==
LOC: ER 06:16
DX: R10.32 Left lower quadrant pain (principal); R11.2 Nausea with vomiting, unspecified; K29.70 Gastritis, unspecified, without bleeding
CPT/HCPCS: 36415; 74177; 80053; 80307; 80320; 81001; 82150; 82550; 82553; 82948; 83690; 84484; 85025; 93005; 99284; C9113; J2270; J2405; J2550; J3411; J7030; Q9967

== ENCOUNTER 2019-08-03 00:24 | Emergency (ER) | payer OTHER ==
[~2019-08-03] VITALS: Ht 167.6 cm; Wt 72.1 kg
[2019-08-03 01:30] LABS: AMPHETAMINES SCREEN,URINE NEGATIVE (NEGATIVE); BENZODIAZEPINES SCREEN,URINE POSITIVE (NEGATIVE); CLARITY,URINE CLEAR (CLEAR); COLOR,URINE YELLOW (YELLOW); PHENCYCLIDINE SCREEN,URINE NEGATIVE (NEGATIVE)
--- NOTE | 2019-08-03 01:55 | Emergency Department Note ---
History of Present Illnes History of Present Illness Chief Complaint: Seizure History of Present Illness This is a 39 year old male REPORTS MID BACK PAIN X1 MONTH, WORSE TONIGHT AFTER SEIZURE PER PT. PT IS ON KEPPRA AND DEPAKOTE. ON REVIEW OF PREVIOUS VISITS PT HAS USED ILLICIT DRUGS INCLUDING SPEED. . Historian: Patient, [employer] Outside Sales Representative/EMS Arrival Mode: [place] Onset (how long ago): hour(s) (3) Location: MID/LOWER BACK PAIN Quality: PAIN Radiation: Reports non-radiation Severity: moderate Onset quality: unable to specify Duration (how long): hour(s) (3) Progression: resolved Chronicity: recurrent Context: Denies recent illness, Denies recent surgery Relieving factors: none Exacerbating factors: none Associated symptoms: Reports denies other symptoms Past Medical/Family History Physician Review I have reviewed the patient's past medical and family history. Any updates have been documented here. Past Medical History Recent Fever: No Clinical Suspicion of Infectio: No New/Unexplained Change in Ment: No Past Medical History: Hypertension, Seizure Disorder, Anemia, GERD, Osteoarthritis Other Medical History: (JUVENILE) RA ANKYLOSING SPONDYLITIS TACHYCARDIA ETOH ABUSE Other Surgery: 2 HIP REPLACEMENTS BILATERAL WRIST SX Social History Smoking Cessation: Never Smoker Alcohol Use: Occasional Any Illegal Drug Use: Yes (IN THE PAST) Other Last Tetanus: UTD Review of Systems Review of Systems Constitutional: Reports no symptoms EENTM: Reports no symptoms Cardiovascular: Reports no symptoms Respiratory: Reports no symptoms Gastrointestinal: Reports no symptoms Genitourinary: Reports no symptoms Musculoskeletal: Reports as per HPI Integumentary: Reports no symptoms Neurological: Reports as per HPI Psychological: Reports no symptoms Endocrine: Reports no symptoms Hematological/Lymphatic: Reports no symptoms Physical Exam Related Data Allergies: Coded Allergies: NSAIDS (Non-Steroidal Anti-Inflamma (Verified Allergy, Severe, GI BLEED, 07/08/19) gabapentin (Verified Allergy, Severe, SEIZURE, 07/08/19) ibuprofen (Verified Allergy, Severe, GI BLEED, 07/08/19) tramadol (Verified Allergy, Mild, SEIZURE, 07/08/19) Triage Vital Signs Vital Signs Date Time Temp Pulse Resp B/P (MAP) Pulse Ox O2 Delivery O2 Flow Rate FiO2 08/03/19 01:21 97.3 83 17 118/86 98 Vital signs reviewed: Yes Physical Exam CONSTITUTIONAL Constitutional: Present well-developed, Present well-nourished HENT HENT: Present normocephalic, Present atraumatic, Present oropharynx clear/moist, Present nose normal HENT L/R: Present left ext ear normal, Present right ext ear normal EYES Eyes: Reports PERRL, Reports conjunctivae normal NECK Neck: Present ROM normal PULMONARY Pulmonary: Present effort normal, Present breath sounds normal CARDIOVASCULAR Cardiovascular: Present regular rhythm, Present heart sounds normal, Present capillary refill normal, Present normal rate GASTROINTESTINAL Abdominal: Present soft, Present nontender, Present bowel sounds normal GENITOURINARY Genitourinary: Present exam deferred SKIN Skin: Present warm, Present dry MUSCULOSKELETAL Musculoskeletal: Present tenderness (TENERNESS TO MIDLINE BACK LEVEL t11 THRU L2, NO STEP OFF NOTED, ) NEUROLOGICAL Neurological: Present alert, Present oriented x 3, Present no gross motor or sensory deficits PSYCHOLOGICAL Psychological: Present mood/affect normal, Present judgement normal Results Laboratory Laboratory Laboratory Tests Test 08/03/19 01:31 08/03/19 01:20 White Blood Count 5.60 x10e3/uL (4.8-10.8) Red Blood Count 3.42 x10e6/uL (4.3-5.7) Hemoglobin 10.7 g/dL (14.0-18.0) Hematocrit 31.7 % (38.2-49.6) Mean Corpuscular Volume 92.7 fL (81-99) Mean Corpuscular Hemoglobin 31.3 pg (28-32) Mean Corpuscular Hemoglobin Concent 33.8 g/dL (31-35) Red Cell Distribution Width 15.8 % (11.7-14.4) Platelet Count 487 x10e3/uL (140-360) Neutrophils (%) (Auto) 39.5 % (38.7-80.0) Lymphocytes (%) (Auto) 50.5 % (18.0-39.1) Monocytes (%) (Auto) 7.5 % (4.4-11.3) Eosinophils (%) (Auto) 0.5 % (0.0-6.0) Basophils (%) (Auto) 1.3 % (0.0-1.0) Neutrophils # (Auto) 2.2 (2.1-6.9) Lymphocytes # (Auto) 2.8 (1.0-3.2) Monocytes # (Auto) 0.4 (0.2-0.8) Eosinophils # (Auto) 0.0 (0.0-0.4) Basophils # (Auto) 0.1 (0.0-0.1) Absolute Immature Granulocyte (auto 0.04 x10e3/uL (0-0.1) Valproic Acid (Depakene) Level 59 ug/mL (50-100) Urine Color Yellow (YELLOW) Urine Clarity Clear (CLEAR) Urine pH 7 (5 - 7) Urine Specific [place] 1.015 (1.010-1.025) Urine Protein Negative (NEGATIVE) Urine Glucose (UA) Negative (NEGATIVE) Urine Ketones Negative (NEGATIVE) Urine Blood Trace (NEGATIVE) Urine Nitrite Negative (NEGATIVE) Urine Bilirubin Negative (NEGATIVE) Urine Urobilinogen 0.2 mg/dL (0.2 - 1) Urine Leukocyte Esterase Negative (NEGATIVE) Urine RBC 11-20 /HPF (0-5) Urine WBC 0-5 /HPF (0-5) Urine Epithelial Cells Rare /LPF (NONE) Urine Bacteria Few /HPF (NONE) Urine Opiates Screen Negative (NEGATIVE) Urine Methadone Screen Negative (NEGATIVE) Urine Barbiturates Screen Negative (NEGATIVE) Urine Phencyclidine Screen Negative (NEGATIVE) Urine Amphetamines Screen Negative (NEGATIVE) Urine Methamphetamines Screen Negative (NEGATIVE) Urine Benzodiazepines Screen Positive (NEGATIVE) Urine Cocaine Screen Negative (NEGATIVE) Urine Cannabinoids Screen Negative (NEGATIVE) Laboratory Tests Test 08/03/19 01:20 Urine Color Yellow (YELLOW) Urine Clarity Clear (CLEAR) Urine Opiates Screen Negative (NEGATIVE) Urine Methadone Screen Negative (NEGATIVE) Urine Barbiturates Screen Negative (NEGATIVE) Urine Phencyclidine Screen Negative (NEGATIVE) Urine Amphetamines Screen Negative (NEGATIVE) Urine Methamphetamines Screen Negative (NEGATIVE) Urine Benzodiazepines Screen Positive (NEGATIVE) Urine Cocaine Screen Negative (NEGATIVE) Urine Cannabinoids Screen Negative (NEGATIVE) Lab results reviewed: Yes Imaging Imaging results reviewed: Yes Impressions EXAMINATION: Thoracic spine, 3 views. CLINICAL HISTORY: Status post fall, seizure, back pain for one month COMPARISON: None. Findings: Mild S-shaped curvature of the thoracic spine. There is no evidence of acute, displaced fracture or subluxation. Vertebral body heights are preserved. No aggressive lytic or suspicious focal sclerotic lesion. The paravertebral soft tissues are unremarkable. IMPRESSION: 1. Mild S-shaped curvature of the thoracic spine. No acute abnormalities. EXAMINATION: Lumbar spine series. CLINICAL HISTORY: Back pain for one month, worse after seizure COMPARISON: CT abdomen and pelvis 07/08/2019 DISCUSSION: 3 views of the lumbar spine are submitted for interpretation. Five nonrib-bearing lumbar type vertebral bodies are identified. No acute, displaced fractures or subluxation. No spondylolisthesis. Single central radiodense line projecting over the midline vertebral bodies likely representing ossification of the supraspinous and interspinous ligaments (dagger sign) Intervertebral disk spaces are preserved. Vertebral body heights are preserved. Widening of the right sacroiliac joint. Bilateral hip prosthesis are partially visualized. IMPRESSION: 1. No acute abnormalities. 2. Findings usually seen with ankylosing spondylitis The staff physician below has personally reviewed this exam on the date of dictation. Signed by: Dr. Darrell Cantor M.D. on 08/03/2019 2:34 AM Dictated By: DARRELL CANTOR MD [id number] Assessment & Plan Medical Decision Making MDM PT WITH SEIZURE DISORDER ON KEPPRA AND DEPAKOTE WITH CHRONIC BACK PAIN THAT IS WORSE SINCE HAVING A SEIZURE ABOUT 3 TO 4 HOURS AGO CBC, , DEPAKOTE LEVEL, T SPINE, L SPINE, UA, UDS ORDERED TO EVAL FOR ELECTROLYTE ABNORMALITY, ILLICIT SUBSTANCE ABUSE, UTI, DEPAKOTE LEVEL PT IS THERAPEUTIC ON DEPAKOTE PT DISCHARGED INSTRUCTED TO FOLLOW UP WITH HIS PCP Assessment & Plan Final Impression: (1) Seizure disorder (2) Chronic back pain Depart Disposition: HOME, SELF-CARE Last Vital Signs Date Time Temp Pulse Resp B/P (MAP) Pulse Ox O2 Delivery O2 Flow Rate FiO2 08/03/19 01:21 97.3 83 17 118/86 98 Home Meds Active Scripts Multivitamin (Multivitamin) 1 Each Tablet, 1 TAB PO DAILY for 90 Days, 6 Refills Prov:ANDREINA RICHARDSON MD, [facility] 06/19/19 Lorazepam (ATIVAN) 1 Mg Tablet, 0 PO Directed, #10 TAB 0 Refills 1 mg tablets; Take 1 tablet twice daily x 2 days, then 1/2 tablet twice daily x 4 days, then 1/2 tablet daily x 4 days, then stop Prov:ANDREINA RICHARDSON MD, [facility] 06/19/19 Reported Medications Levomilnacipran HCl (Fetzima) 80 Mg Cap.sa.24h, 80 MG PO DAILY 06/17/19 Hydroxyzine Hcl (HYDROXYZINE HCL) 50 Mg Tablet, 50 MG PO BID 06/17/19 Ondansetron Hcl (ONDANSETRON HCL) 4 Mg Tablet, 4 MG PO Q4HR PRN for NAUSEA 06/17/19 Diclofenac Sodium (Diclofenac Sodium) 100 Gm Gel..gram., 1 APPLIC TOP PRN 06/17/19 Acetaminophen/Codeine* (TYLENOL # 3*) 1 Ea Tab, 1 TAB PO TID PRN for MODERATE PAIN (4-6) 06/17/19 Levetiracetam (LEVETIRACETAM) 750 Mg Tablet, 750 MG PO BID 06/17/19 Omeprazole (OMEPRAZOLE) 40 Mg Capsule.dr, 40 MG PO DAILY 06/17/19 Divalproex Sodium (DEPAKOTE) 250 Mg Tabec, 750 MG PO BID 06/17/19 JEM ARIZMENDI MD Aug 03, 2019 01:55
[2019-08-03 02:01] LABS: KETONES,URINE NEGATIVE (NEGATIVE); LEUKOCYTE ESTERASE ,URINE NEGATIVE (NEGATIVE); NITRITE,URINE NEGATIVE (NEGATIVE); PROTEIN,URINE DIPSTICK NEGATIVE (NEGATIVE); URINE UROBILINOGEN 0.2 mg/dL (0.2 - 1)
[2019-08-03 02:02] LABS: BILIRUBIN,URINE NEGATIVE (NEGATIVE)
[2019-08-03 02:09] LABS: BACTERIA,URINE FEW /HPF; EPITHELIAL CELLS,URINE RARE /LPF; WBC,URINE (MAN) 0-5 /HPF (0-5)
[2019-08-03 02:15] LABS: BASOPHILS # (AUTO) 0.1 (0.0-0.1); BASOPHILS % 1.3 % (0.0-1.0); EOSINOPHILS % 0.5 % (0.0-6.0); HEMATOCRIT 31.7 % (38.2-49.6); HEMOGLOBIN 10.7 g/dL (14.0-18.0); LYMPHOCYTES # (AUTO) 2.8 (1.0-3.2); LYMPHOCYTES % 50.5 % (18.0-39.1); MEAN CORPUSCULAR HEMOGLOBIN 31.3 pg (28-32); MEAN CORPUSCULAR HGB CONC 33.8 g/dL (31-35); MEAN CORPUSCULAR VOLUME 92.7 fL (81-99); MONOCYTES # (AUTO) 0.4 (0.2-0.8); MONOCYTES % 7.5 % (4.4-11.3); NEUTROPHILS # (AUTO) 2.2 (2.1-6.9); NEUTROPHILS % 39.5 % (38.7-80.0); PLATELET COUNT 487 x10e3/uL (140-360); RED BLOOD COUNT 3.42 x10e6/uL (4.3-5.7); RED CELL DISTRIBUTION WIDTH 15.8 % (11.7-14.4)
--- NOTE | 2019-08-03 02:30 | Diagnostic Imaging Report ---
EXAMINATION: Thoracic spine, 3 views. CLINICAL HISTORY: Status post fall, seizure, back pain for one month COMPARISON: None. Findings: Mild S-shaped curvature of the thoracic spine. There is no evidence of acute, displaced fracture or subluxation. Vertebral body heights are preserved. No aggressive lytic or suspicious focal sclerotic lesion. The paravertebral soft tissues are unremarkable. IMPRESSION: 1. Mild S-shaped curvature of the thoracic spine. No acute abnormalities. Signed by: Dr. Pablito Gil M.D. on 08/03/2019 2:26 AM
--- NOTE | 2019-08-03 02:37 | Diagnostic Imaging Report ---
EXAMINATION: Lumbar spine series. CLINICAL HISTORY: Back pain for one month, worse after seizure COMPARISON: CT abdomen and pelvis 07/08/2019 DISCUSSION: 3 views of the lumbar spine are submitted for interpretation. Five nonrib-bearing lumbar type vertebral bodies are identified. No acute, displaced fractures or subluxation. No spondylolisthesis. Single central radiodense line projecting over the midline vertebral bodies likely representing ossification of the supraspinous and interspinous ligaments (dagger sign) Intervertebral disk spaces are preserved. Vertebral body heights are preserved. Widening of the right sacroiliac joint. Bilateral hip prosthesis are partially visualized. IMPRESSION: 1. No acute abnormalities. 2. Findings usually seen with ankylosing spondylitis The staff physician below has personally reviewed this exam on the date of dictation. Signed by: Dr. Pablito Gil M.D. on 08/03/2019 2:34 AM
== END 2019-08-03 03:35 | disposition home or self-care (01) ==
LOC: ER 00:24
DX: M54.5 Low back pain (principal); G89.29 Other chronic pain; G40.909 Epilepsy, unspecified, not intractable, without status epilepticus
CPT/HCPCS: 36415; 72070; 72100; 80164; 80307; 81001; 85025; 99283

== ENCOUNTER 2019-11-01 05:14 | Emergency (ER) | payer OTHER ==
[~2019-11-01] VITALS: Ht 167.6 cm; Wt 72.1 kg
[2019-11-01] MEDS ORDERED: ONDANSETRON HCL INJ 2MG/ML 2ML 2 MG/ML VIAL IV STA (05:16)
[2019-11-01 05:35] LABS: BASOPHILS # (AUTO) 0.1 (0.0-0.1); BASOPHILS % 1.1 % (0.0-1.0); EOSINOPHILS % 0.2 % (0.0-6.0); HEMATOCRIT 29.2 % (38.2-49.6); HEMOGLOBIN 9.6 g/dL (14.0-18.0); LYMPHOCYTES # (AUTO) 1.4 (1.0-3.2); LYMPHOCYTES % 31.6 % (18.0-39.1); MEAN CORPUSCULAR HEMOGLOBIN 29.8 pg (28-32); MEAN CORPUSCULAR HGB CONC 32.9 g/dL (31-35); MEAN CORPUSCULAR VOLUME 90.7 fL (81-99); MONOCYTES # (AUTO) 0.4 (0.2-0.8); MONOCYTES % 9.4 % (4.4-11.3); NEUTROPHILS # (AUTO) 2.5 (2.1-6.9); PLATELET COUNT 189 x10e3/uL (140-360); RED BLOOD COUNT 3.22 x10e6/uL (4.3-5.7); RED CELL DISTRIBUTION WIDTH 18.2 % (11.7-14.4)
--- NOTE | 2019-11-01 05:50 | Emergency Department Note ---
History of Present Illnes History of Present Illness Chief Complaint: Abdominal Complaints History of Present Illness This is a 39 year old male presents for nausea. Patient states he had some alcohol after a argument with his mother and became nauseated. He initially states that his chronic back pain is worse today because he ran out of his pain medications 2 days ago. Patient has a history of polysubstance abuse and has been seen multiple times for this. He states he broke his back about 1 month ago. No surgery. Injury was to T spine. He was able to walk to the ambulance. Arrival Mode: [place] Classified Ad Taker Required: No Onset (how long ago): month(s) Location: back Quality: sharp Radiation: Reports non-radiation Severity: mild Onset quality: unable to specify Duration (how long): month(s) Timing of current episode: constant Chronicity: chronic Context: Denies recent illness, Denies recent surgery Relieving factors: none Exacerbating factors: none Associated symptoms: Reports nausea/vomiting Treatments prior to arrival: none (HARMEET BURNETTE MD) Past Medical/Family History Physician Review I have reviewed the patient's past medical and family history. Any updates have been documented here. (HARMEET BURNETTE MD) Past Medical History Past Medical History: Hypertension, Seizure Disorder, Anemia, GERD, Osteoarthritis Other Medical History: (JUVENILE) RA ANKYLOSING SPONDYLITIS TACHYCARDIA ETOH ABUSE Other Surgery: 2 HIP REPLACEMENTS BILATERAL WRIST SX (HARMEET BURNETTE MD) Other Last Tetanus: UTD (HARMEET BURNETTE MD) Review of Systems Review of Systems Constitutional: Reports no symptoms EENTM: Reports no symptoms Cardiovascular: Reports no symptoms Respiratory: Reports no symptoms Gastrointestinal: Reports nausea Genitourinary: Reports no symptoms Musculoskeletal: Reports back pain Integumentary: Reports no symptoms Neurological: Reports no symptoms Psychological: Reports no symptoms Endocrine: Reports no symptoms Hematological/Lymphatic: Reports no symptoms (HARMEET BURNETTE MD) Physical Exam Related Data Allergies: Coded Allergies: NSAIDS (Non-Steroidal Anti-Inflamma (Verified Allergy, Severe, GI BLEED, 07/08/19) gabapentin (Verified Allergy, Severe, SEIZURE, 07/08/19) ibuprofen (Verified Allergy, Severe, GI BLEED, 07/08/19) tramadol (Verified Allergy, Mild, SEIZURE, 07/08/19) Vital signs reviewed: Yes (HARMEET BURNETTE MD) Physical Exam CONSTITUTIONAL Constitutional: Present well-developed, Present well-nourished HENT HENT: Present normocephalic, Present atraumatic, Present oropharynx clear/moist, Present nose normal HENT L/R: Present left ext ear normal, Present right ext ear normal EYES Eyes: Reports PERRL, Reports conjunctivae normal NECK Neck: Present ROM normal PULMONARY Pulmonary: Present effort normal, Present breath sounds normal CARDIOVASCULAR Cardiovascular: Present regular rhythm, Present heart sounds normal, Present capillary refill normal, Present normal rate GASTROINTESTINAL Abdominal: Present soft, Present nontender, Present bowel sounds normal GENITOURINARY Genitourinary: Present exam deferred SKIN Skin: Present warm, Present dry MUSCULOSKELETAL Musculoskeletal: Present ROM normal, Present other (Thoracic brace in place. Moves all 4 extremities, sensation intact diffusely) NEUROLOGICAL Neurological: Present alert, Present oriented x 3, Present no gross motor or sensory deficits PSYCHOLOGICAL Psychological: Present mood/affect normal, Present judgement normal (HARMEET BURNETTE MD) Results Laboratory Laboratory Laboratory Tests Test 11/01/19 05:25 Lab results reviewed: Yes (HARMEET BURNETTE MD) Lab results reviewed: Yes Laboratory comments Laboratory Tests Test 11/01/19 06:15 11/01/19 05:25 Urine Color Yellow (YELLOW) Urine Clarity Clear (CLEAR) Urine pH 5.5 (5 - 7) Urine Specific [place] 1.020 (1.010-1.025) Urine Protein Negative (NEGATIVE) Urine Glucose (UA) Negative (NEGATIVE) Urine Ketones Trace (NEGATIVE) Urine Blood Negative (NEGATIVE) Urine Nitrite Negative (NEGATIVE) Urine Bilirubin Small (NEGATIVE) Urine Urobilinogen 1 mg/dL (0.2 - 1) Urine Leukocyte Esterase Negative (NEGATIVE) Urine RBC 0-5 /HPF (0-5) Urine WBC 0-5 /HPF (0-5) Urine Epithelial Cells Rare /LPF (NONE) Urine Bacteria Few /HPF (NONE) Urine Mucus Few (RARE) Urine Opiates Screen Positive (NEGATIVE) Urine Methadone Screen Negative (NEGATIVE) Urine Barbiturates Screen Negative (NEGATIVE) Urine Phencyclidine Screen Negative (NEGATIVE) Urine Amphetamines Screen Negative (NEGATIVE) Urine Methamphetamines Screen Negative (NEGATIVE) Urine Benzodiazepines Screen Negative (NEGATIVE) Urine Cocaine Screen Negative (NEGATIVE) Urine Cannabinoids Screen Negative (NEGATIVE) White Blood Count 4.37 x10e3/uL (4.8-10.8) Red Blood Count 3.22 x10e6/uL (4.3-5.7) Hemoglobin 9.6 g/dL (14.0-18.0) Hematocrit 29.2 % (38.2-49.6) Mean Corpuscular Volume 90.7 fL (81-99) Mean Corpuscular Hemoglobin 29.8 pg (28-32) Mean Corpuscular Hemoglobin Concent 32.9 g/dL (31-35) Red Cell Distribution Width 18.2 % (11.7-14.4) Platelet Count 189 x10e3/uL (140-360) Neutrophils (%) (Auto) 57.0 % (38.7-80.0) Lymphocytes (%) (Auto) 31.6 % (18.0-39.1) Monocytes (%) (Auto) 9.4 % (4.4-11.3) Eosinophils (%) (Auto) 0.2 % (0.0-6.0) Basophils (%) (Auto) 1.1 % (0.0-1.0) Neutrophils # (Auto) 2.5 (2.1-6.9) Lymphocytes # (Auto) 1.4 (1.0-3.2) Monocytes # (Auto) 0.4 (0.2-0.8) Eosinophils # (Auto) 0.0 (0.0-0.4) Basophils # (Auto) 0.1 (0.0-0.1) Absolute Immature Granulocyte (auto 0.03 x10e3/uL (0-0.1) Sodium Level 130 mmol/L (136-145) Potassium Level 3.7 mmol/L (3.5-5.1) Chloride Level 98 mmol/L (98-107) Carbon Dioxide Level 23 mmol/L (22-29) Anion Gap 12.7 mmol/L (8-16) Blood Urea Nitrogen 8 mg/dL (7-26) Creatinine 0.98 mg/dL (0.72-1.25) Estimat Glomerular Filtration Rate > 60 ML/MIN (60-) BUN/Creatinine Ratio 8 (6-25) Glucose Level 98 mg/dL (74-118) Calcium Level 8.8 mg/dL (8.4-10.2) Total Bilirubin 0.4 mg/dL (0.2-1.2) Aspartate Amino Transf (AST/SGOT) 18 IU/L (5-34) Alanine Aminotransferase (ALT/SGPT) 8 IU/L (0-55) Alkaline Phosphatase 117 IU/L (40-150) Total Protein 7.9 g/dL (6.5-8.1) Albumin 3.8 g/dL (3.5-5.0) Globulin 4.1 g/dL (2.3-3.5) Albumin/Globulin Ratio 0.9 (0.8-2.0) Lipase 57 U/L (8-78) Salicylates Level < 5.0 mg/dL (0-30) Acetaminophen Level 47.3 ug/mL (10-30) Ethyl Alcohol Level < 10.0 mg/dL (0.0-10.0) (SERGIO MURRIETA MD) Imaging Imaging results reviewed: Yes (HARMEET BURNETTE MD) Imaging results reviewed: Yes (SERGIO MURRIETA MD) Assessment & Plan Medical Decision Making MDM 39-year-old male chronic back pain polysubstance abuse presents for nausea. Endorses drinking tonight and getting in an argument with his mother on the nausea started. Examination shows an overall well-appearing male in no acute distress, vital signs stable, Limits. Labs and toxicology screening obtained as well as CT thoracic spine due to recent history of T-spine injury. No signs of neurologic episodes or significant sequelae from his spinal injury. Likely discharge pending workup. He was given Zofran. Handed off to Dr. Murrieta at 0600 (HARMEET BURNETTE MD) [facility] pt s&e, no distress, pt reports taking [address] Tylenol yesterday ~11am with 2 Tylenol #3 for pain relief. I explained that he should never take Tylenol if he is taking Percocet or Tyl w/ codeine. He is to F/U with pain management MD, his ortho as scheduled for thoracic spine surgery (he is neurologically intact, nl DTR's, nl str/sens), F/U w/ PCP. I will give Rx for Zofran ODT and Bentyl (SERGIO MURRIETA MD) Reassessment Reassessment time: 05:49 Reassessment NAD (HARMEET BURNETTE MD) Reassessment dc home, Bentyl/Zofran ODT, F/U PCP, Ortho as scheduled, Pain Management , COLE Tylenol use (SERGIO MURRIETA MD) Assessment & Plan Final Impression: (1) Nausea (HARMEET BURNETTE MD) Final Impression: (1) Nausea (2) Chronic back pain (SERGIO MURRIETA MD) Depart Disposition: HOME, SELF-nursing home Meds Active Scripts Multivitamin (Multivitamin) 1 Each Tablet, 1 TAB PO DAILY for 90 Days, 6 Refills Prov:ANDREINA RICHARDSON MD, [facility] 06/19/19 Lorazepam (ATIVAN) 1 Mg Tablet, 0 PO Directed, #10 TAB 0 Refills 1 mg tablets; Take 1 tablet twice daily x 2 days, then 1/2 tablet twice daily x 4 days, then 1/2 tablet daily x 4 days, then stop Prov:ANDREINA RICHARDSON MD, [facility] 06/19/19 Reported Medications Levomilnacipran HCl (Fetzima) 80 Mg Cap.sa.24h, 80 MG PO DAILY 06/17/19 Hydroxyzine Hcl (HYDROXYZINE HCL) 50 Mg Tablet, 50 MG PO BID 06/17/19 Ondansetron Hcl (ONDANSETRON HCL) 4 Mg Tablet, 4 MG PO Q4HR PRN for NAUSEA 06/17/19 Diclofenac Sodium (Diclofenac Sodium) 100 Gm Gel..gram., 1 APPLIC TOP PRN 06/17/19 Acetaminophen/Codeine* (TYLENOL # 3*) 1 Ea Tab, 1 TAB PO TID PRN for MODERATE PAIN (4-6) 06/17/19 Levetiracetam (LEVETIRACETAM) 750 Mg Tablet, 750 MG PO BID 06/17/19 Omeprazole (OMEPRAZOLE) 40 Mg Capsule.dr, 40 MG PO DAILY 06/17/19 Divalproex Sodium (DEPAKOTE) 250 Mg Tabec, 750 MG PO BID 06/17/19 Medications in the ED Ondansetron HCl 4 mg NOW STAT IV Last administered on 11/01/19at 05:34; Admin Dose 4 MG; Start 11/01/19 at 05:16; Stop 11/01/19 at 05:22; Status DC (HARMEET BURNETTE MD) HARMEET BURNETTE MD Nov 01, 2019 05:50 SERGIO MURRIETA MD Nov 01, 2019 07:11
[2019-11-01 06:09] LABS: ALANINE AMINOTRANSFERASE 8 IU/L (0-55); ALBUMIN 3.8 g/dL (3.5-5.0); ALBUMIN/GLOBULIN RATIO 0.9 (0.8-2.0); ALKALINE PHOSPHATASE 117 IU/L (40-150); ANION GAP 12.7 mmol/L (8-16); BLOOD UREA NITROGEN 8 mg/dL (7-26); BUN/CREATININE RATIO 8 (6-25); CALCIUM 8.8 mg/dL (8.4-10.2); CARBON DIOXIDE 23 mmol/L (22-29); CHLORIDE 98 mmol/L (98-107); CREATININE, SERUM 0.98 mg/dL (0.72-1.25); EST GLOMERULAR FILTRATION RATE > 60 ML/MIN (60-); GLUCOSE 98 mg/dL (74-118); POTASSIUM 3.7 mmol/L (3.5-5.1); SODIUM 130 mmol/L (136-145)
[2019-11-01 06:11] LABS: LIPASE 57 U/L (8-78)
[2019-11-01 06:12] LABS: SALICYLATE < 5.0 mg/dL (0-30)
[2019-11-01 06:28] LABS: CLARITY,URINE CLEAR (CLEAR); COLOR,URINE YELLOW (YELLOW); KETONES,URINE TRACE (NEGATIVE); LEUKOCYTE ESTERASE ,URINE NEGATIVE (NEGATIVE); NITRITE,URINE NEGATIVE (NEGATIVE); PROTEIN,URINE DIPSTICK NEGATIVE (NEGATIVE)
[2019-11-01 06:29] LABS: AMPHETAMINES SCREEN,URINE NEGATIVE (NEGATIVE); BENZODIAZEPINES SCREEN,URINE NEGATIVE (NEGATIVE); BILIRUBIN,URINE SMALL (NEGATIVE); PHENCYCLIDINE SCREEN,URINE NEGATIVE (NEGATIVE); URINE UROBILINOGEN 1 mg/dL (0.2 - 1)
--- NOTE | 2019-11-01 06:43 | Diagnostic Imaging Report ---
History: Chronic back pain, known history of fracture. Comparison studies: X-ray of the thoracic spine from 08/03/[address] abdomen from 07/08/2019. Technique: Axial were obtained without IV contrast through the thoracic region. Coronal and sagittal images reconstructed from the axial data. Dose modulation, iterative reconstruction, and/or weight based adjustment of the mA/kV was utilized to reduce the radiation dose to as low as reasonably achievable. Intravenous contrast: None Findings: Alignment: Normal kyphosis. Mild dextro curvature of the thoracic spine is likely positional. No subluxation. Soft tissues: No abnormalities.. Paraspinal muscles: Unremarkable Spinal cord: Can not be evaluated. Vertebrae: Chronic superior endplate compression fracture with Schmorl's node involving the T11 vertebral body with approximately 25% loss of vertebral body height. No retropulsion of fracture fragment into the spinal canal. In comparison to prior CT abdomen from 07/08/2019 that is mild interval progression in the vertebral body height loss and development of Schmorl's node along the superior endplate. Nonspecific 3 mm sclerotic focus along the anterior margin of T8 vertebral body may represent a bone island. Nonspecific mild sclerosis of the pedicle lamina and facets at level T9, T10, T11 and T12. Degenerative changes: T9-T10: Bilateral severe foraminal stenosis due to facet arthrosis. T10-T11: Moderate right facet arthrosis. Moderate right and mild left foraminal stenosis due to facet arthrosis. T11-T12: Moderate right and mild left facet arthrosis effaces thecal sac and results in mild canal stenosis. Moderate bilateral foraminal stenosis due to facet arthrosis. IMPRESSION: 1. Chronic superior endplate compression fracture of T11 vertebral body with approximately 25% loss of vertebral body height (in comparison to CT abdomen from 07/08/2019 there is mild interval progression in vertebral body height loss). 2. Thoracic spondylosis particularly in the lower thoracic spine results in mild canal stenosis at T11-T12. 3. Multilevel foraminal stenosis, particularly bilateral severe at T9-T10, moderate right and mild left at T10-T11 and bilateral moderate at T11-T12 due to facet arthrosis. 4. Ligament, spinal cord and or vascular abnormalities cannot be excluded on the basis of this examination. Signed by: Dr. Phuong Nye M.D. on 11/01/2019 6:40 AM
[2019-11-01 06:47] LABS: BACTERIA,URINE FEW /HPF; RBC,URINE 0-5 /HPF (0-5); WBC,URINE (MAN) 0-5 /HPF (0-5)
[2019-11-01 06:48] LABS: EPITHELIAL CELLS,URINE RARE /LPF; MUCUS,URINE FEW (RARE)
== END 2019-11-01 09:02 | disposition home or self-care (01) ==
LOC: ER 05:18
DX: R11.0 Nausea (principal); M54.6 Pain in thoracic spine; G89.29 Other chronic pain; I10 Essential (primary) hypertension; G40.909 Epilepsy, unspecified, not intractable, without status epilepticus; D64.9 Anemia, unspecified; K21.9 Gastro-esophageal reflux disease without esophagitis
CPT/HCPCS: 36415; 72128; 80053; 80307; 80320; 80329 ×2; 81001; 83690; 85025; 87086; 99284; J2405

== ENCOUNTER 2019-12-20 06:25 | Emergency (ER) | payer OTHER ==
[~2019-12-20] VITALS: Ht 165.1 cm; Wt 81.6 kg
[2019-12-20] MEDS ORDERED: SODIUM CHLORIDE 0.9% 1000ML 1,000 ML IV STA (06:30)
[2019-12-20] MEDS ORDERED: KETOROLAC TROMETHAMINE 30 MG/ML VIAL IV STA (06:30)
--- NOTE | 2019-12-20 07:19 | NUR ---
Patient report given to Eliazar ORTIZ.
--- NOTE | 2019-12-20 07:29 | Emergency Department Note ---
History of Present Illnes History of Present Illness Chief Complaint: Seizure History of Present Illness This is a 39 year old male arrived to the ED with complaints of shaking episode at home. Per EMS when they arrived patient appeared well and was not postictal. Patient's mother did test positive for the coronavirus and patient also complaining of generalized malaise. No history of immunosuppression. No recent fevers known. No recent ABX use, no history of STONE DRILLER shunt. No recent toxic exposures including no antihyperglycemic overdose. No unilateral weakness. No recent trauma. Historian: Patient Arrival Mode: Car Onset (how long ago): second(s) Severity: mild Onset quality: sudden Duration (how long): hour(s) Timing of current episode: constant Progression: resolved Chronicity: recurrent Context: Reports non-compliance w/ medications Relieving factors: none Associated symptoms: Reports denies other symptoms, Reports seizure Treatments prior to arrival: none, other (symptoms spontaneously resolved and patient was not postictal) Past Medical/Family History Physician Review I have reviewed the patient's past medical and family history. Any updates have been documented here. Past Medical History Recent Fever: No Clinical Suspicion of Infectio: No New/Unexplained Change in Ment: No Past Medical History: Seizure Disorder Other Medical History: (JUVENILE) RA ANKYLOSING SPONDYLITIS TACHYCARDIA ETOH ABUSE Past Surgical History: None Other Surgery: 2 HIP REPLACEMENTS BILATERAL WRIST SX Social History Smoking Cessation: Never Smoker Alcohol Use: None Any Illegal Drug Use: No Physically hurt or threatened: No Other Last Tetanus: UTD Any Pre-Existing Lines (PICC,: No Review of Systems Review of Systems Constitutional: Reports no symptoms, Reports as per HPI EENTM: Reports no symptoms Cardiovascular: Reports no symptoms Respiratory: Reports no symptoms Gastrointestinal: Reports no symptoms Genitourinary: Reports no symptoms Musculoskeletal: Reports no symptoms Integumentary: Reports no symptoms Neurological: Reports as per HPI, Reports seizure Psychological: Reports no symptoms Endocrine: Reports no symptoms Hematological/Lymphatic: Reports no symptoms Physical Exam Related Data Allergies: Coded Allergies: NSAIDS (Non-Steroidal Anti-Inflamma (Verified Allergy, Severe, GI BLEED, 07/08/19) gabapentin (Verified Allergy, Severe, SEIZURE, 07/08/19) ibuprofen (Verified Allergy, Severe, GI BLEED, 07/08/19) tramadol (Verified Allergy, Mild, SEIZURE, 07/08/19) Triage Vital Signs Vital Signs Date Time Temp Pulse Resp B/P (MAP) Pulse Ox O2 Delivery O2 Flow Rate FiO2 12/20/19 06:42 98.0 98 17 119/82 100 Room Air Vital signs reviewed: Yes Physical Exam CONSTITUTIONAL Constitutional: Present well-developed, Present well-nourished HENT HENT: Present normocephalic, Present atraumatic, Present oropharynx clear/moist, Present nose normal HENT L/R: Present left ext ear normal, Present right ext ear normal EYES Eyes: Reports PERRL, Reports conjunctivae normal NECK Neck: Present ROM normal PULMONARY Pulmonary: Present effort normal, Present breath sounds normal CARDIOVASCULAR Cardiovascular: Present regular rhythm, Present heart sounds normal, Present capillary refill normal, Present normal rate GASTROINTESTINAL Abdominal: Present soft, Present nontender, Present bowel sounds normal GENITOURINARY Genitourinary: Present exam deferred SKIN Skin: Present warm, Present dry MUSCULOSKELETAL Musculoskeletal: Present ROM normal NEUROLOGICAL Neurological: Present alert, Present oriented x 3, Present no gross motor or sensory deficits PSYCHOLOGICAL Psychological: Present mood/affect normal, Present judgement normal Results Laboratory Lab results reviewed: Yes Imaging Imaging results reviewed: Yes Assessment & Plan Medical Decision Making MDM This patient presents with symptoms consistent with acute seizure, most likely due to medication noncompliance leading to breakthrough seizure. I considered, but think less likely, secondary etiologies of epileptic seizures to include drug / toxin etiologies (ETOH, stimulants, medication side effects), metabolic disturbances (glucose, Na), acute ATMOSPHERIC SCIENTIST infections (meningitis, encephalitis, abscess), ICH / tumor / CVA. Presentation not consistent with non-epileptic type seizure to include syncope, neurologic etiologies (vertebrobasilar insufficiency, movement disorder, migraine), impact seizure related to head trauma. Assessment & Plan Final Impression: (1) Seizure secondary to subtherapeutic anticonvulsant medication Depart Disposition: HOME, SELF-CARE Last Vital Signs Date Time Temp Pulse Resp B/P (MAP) Pulse Ox O2 Delivery O2 Flow Rate FiO2 12/20/19 06:42 98.0 98 17 119/82 100 Room Air Home Meds Active Scripts Multivitamin (Multivitamin) 1 Each Tablet, 1 TAB PO DAILY for 90 Days, 6 Refills Prov:ANDREINA RICHARDSON MD, [facility] 06/19/19 Lorazepam (ATIVAN) 1 Mg Tablet, 0 PO Directed, #10 TAB 0 Refills 1 mg tablets; Take 1 tablet twice daily x 2 days, then 1/2 tablet twice daily x 4 days, then 1/2 tablet daily x 4 days, then stop Prov:ANDREINA RICHARDSON MD, [facility] 06/19/19 Reported Medications Levomilnacipran HCl (Fetzima) 80 Mg Cap.sa.24h, 80 MG PO DAILY 06/17/19 Hydroxyzine Hcl (HYDROXYZINE HCL) 50 Mg Tablet, 50 MG PO BID 06/17/19 Ondansetron Hcl (ONDANSETRON HCL) 4 Mg Tablet, 4 MG PO Q4HR PRN for NAUSEA 06/17/19 Diclofenac Sodium (Diclofenac Sodium) 100 Gm Gel..gram., 1 APPLIC TOP PRN 06/17/19 Acetaminophen/Codeine* (TYLENOL # 3*) 1 Ea Tab, 1 TAB PO TID PRN for MODERATE PAIN (4-6) 06/17/19 Levetiracetam (LEVETIRACETAM) 750 Mg Tablet, 750 MG PO BID 06/17/19 Omeprazole (OMEPRAZOLE) 40 Mg Capsule.dr, 40 MG PO DAILY 06/17/19 Divalproex Sodium (DEPAKOTE) 250 Mg Tabec, 750 MG PO BID 06/17/19 Medications in the ED Sodium Chloride 1,000 ml @ 0 mls/hr Q0M STAT IV ; Start 12/20/19 at 06:30; Stop 12/20/19 at 06:31 Ketorolac Tromethamine 30 mg ONCE STAT IV ; Start 12/20/19 at 06:30; Stop 12/20/19 at 06:31 HELEN CAPUTO DO Dec 20, 2019 07:24
[2019-12-20 07:59] LABS: HEMATOCRIT 28.2 % (38.2-49.6); LYMPHOCYTES # (AUTO) 0.6 (1.0-3.2); LYMPHOCYTES % 17.8 % (18.0-39.1); MEAN CORPUSCULAR HEMOGLOBIN 27.6 pg (28-32); MEAN CORPUSCULAR HGB CONC 31.9 g/dL (31-35); MEAN CORPUSCULAR VOLUME 86.5 fL (81-99); MONOCYTES # (AUTO) 0.1 (0.2-0.8); NEUTROPHILS # (AUTO) 2.8 (2.1-6.9); NEUTROPHILS % 77.9 % (38.7-80.0); PLATELET COUNT 272 x10e3/uL (140-360); RED BLOOD COUNT 3.26 x10e6/uL (4.3-5.7); RED CELL DISTRIBUTION WIDTH 17.4 % (11.7-14.4)
[2019-12-20 08:27] LABS: ALBUMIN 2.7 g/dL (3.5-5.0); ALBUMIN/GLOBULIN RATIO 0.6 (0.8-2.0); ALKALINE PHOSPHATASE 104 IU/L (40-150); ANION GAP 13.7 mmol/L (8-16); BLOOD UREA NITROGEN 5 mg/dL (7-26); BUN/CREATININE RATIO 7 (6-25); CARBON DIOXIDE 24 mmol/L (22-29); CHLORIDE 100 mmol/L (98-107); CREATININE, SERUM 0.72 mg/dL (0.72-1.25); EST GLOMERULAR FILTRATION RATE > 60 ML/MIN (60-); GLUCOSE 125 mg/dL (74-118); POTASSIUM 3.7 mmol/L (3.5-5.1); SODIUM 134 mmol/L (136-145)
[2019-12-20 08:28] LABS: ALANINE AMINOTRANSFERASE < 6 IU/L (0-55)
--- NOTE | 2019-12-20 08:46 | Diagnostic Imaging Report ---
TECHNIQUE: Frontal view of the chest. INDICATION: ^Y ^cough ^[id number] ^[id number] COMPARISON: None DISCUSSION: Limited evaluation due to portable technique. Lines and hardware: None Heart and mediastinum: Cardiomediastinal silhouette and pulmonary vascularity are accentuated by technique. Lungs and pleura: No suspicious infiltrate. Negative for large effusion or pneumothorax. Soft tissues and bones: No acute abnormality. IMPRESSION: Negative for focal consolidation. Cardiomegaly and central vascular congestion are noted, accentuated by technique. Signed by: Jozef Gutierrez MD on 12/20/2019 8:42 AM
[2019-12-20] MEDS ORDERED: AZITHROMYCIN250 MG PO (09:17)
[2019-12-20] MEDS ORDERED: TYLENOL # 31 EA PO (09:41)
[2019-12-20] MEDS ORDERED: ZOFRAN4 MG SL (09:41)
== END 2019-12-20 09:49 | disposition home or self-care (01) ==
LOC: ER 06:35
DX: G40.909 Epilepsy, unspecified, not intractable, without status epilepticus (principal); Z91.14 Patient's other noncompliance with medication regimen
CPT/HCPCS: 36415; 71045; 80053; 85025; 99284; J1885; J7030

== ENCOUNTER 2021-07-04 10:10 | Inpatient (IN) | payer OTHER ==
[2021-07-04] VITALS (17 sets, daily range): BP systolic 69–113; BP diastolic 38–60
[~2021-07-04] VITALS: Ht 152.4 cm; Wt 54.1 kg
[~2021-07-04 10:10] MED LIST changes: +AZITHROMYCIN250 MG PO; +ZOFRAN4 MG SL
[2021-07-04] MEDS ORDERED: SODIUM CHLORIDE 0.9% 1000ML 1,000 ML IV STA (10:31)
[2021-07-04] MEDS ORDERED: ONDANSETRON HCL INJ 2MG/ML 2ML 2 MG/ML VIAL IV STA (10:31)
[2021-07-04] MEDS ORDERED: LEVETIRACETAM 500MG/5ML VIAL 1,000 MG in SODIUM CHLORIDE 0.9% 100 ML IV ONE (10:45)
[2021-07-04 10:49] LABS: EOSINOPHILS % 0.7 % (0.0-6.0); LYMPHOCYTES # (AUTO) 1.5 (1.0-3.2); LYMPHOCYTES % 48.4 % (18.0-39.1); MEAN CORPUSCULAR HEMOGLOBIN 35.3 pg (28-32); MONOCYTES # (AUTO) 0.4 (0.2-0.8); MONOCYTES % 12.1 % (4.4-11.3); NEUTROPHILS # (AUTO) 1.1 (2.1-6.9); NEUTROPHILS % 34.9 % (38.7-80.0); PLATELET COUNT 143 x10e3/uL (140-360); RED BLOOD COUNT 2.55 x10e6/uL (4.3-5.7); RED CELL DISTRIBUTION WIDTH 18.8 % (11.7-14.4)
[2021-07-04 11:00] LABS: INR 1.18
[2021-07-04 11:01] LABS: PARTIAL THROMBOPLASTIN TIME 40.9 seconds (23.8-35.5)
[2021-07-04 11:57] LABS: ALANINE AMINOTRANSFERASE 29 IU/L (0-55); ALBUMIN 3.4 g/dL (3.5-5.0); ALBUMIN/GLOBULIN RATIO 0.7 (0.8-2.0); ALKALINE PHOSPHATASE 135 IU/L (40-150); BLOOD UREA NITROGEN 69 mg/dL (7-26); BUN/CREATININE RATIO 7 (6-25); CALCIUM 8.8 mg/dL (8.4-10.2); CARBON DIOXIDE 23 mmol/L (22-29); CHLORIDE 77 mmol/L (98-107); CREATINE KINASE 109 IU/L (30-200); GLUCOSE 80 mg/dL (74-118); LIPASE 19 U/L (8-78); MAGNESIUM 1.9 MG/DL (1.3-2.1); SODIUM 124 mmol/L (136-145)
[2021-07-04] MEDS ORDERED: SODIUM CHLORIDE 0.9% 1000ML 1,000 ML IV ONE ×3 (14:00→18:45)
[2021-07-04] MEDS ORDERED: THIAMINE HCL INJ 100 MG/ML 2ML VIAL IM ONE (14:00)
[2021-07-04] MEDS ORDERED: Vancomycin IV 1 GM in SODIUM CHLORIDE 0.9% 250ML 250 ML IV ONE ×2 (14:15→20:00)
[2021-07-04] MEDS ORDERED: LACTATED RINGER'S 1,000 ML INJ ONE (14:45)
[2021-07-04] MEDS ORDERED: POTASSIUM CHLORIDE 20MEQ/100ML 100 ML IV ONE (15:00)
[2021-07-04] MEDS ORDERED: LACTATED RINGER'S 1,000 ML INJ SCH (16:30)
[2021-07-04] MEDS ORDERED: SODIUM CHLORIDE 0.9% 1000ML 1,000 ML ONE (18:44)
[2021-07-04] MEDS ORDERED: NOREPINEPHRINE 8 MG/D5W 250 ML 250 ML IV PRN (18:45)
[2021-07-04 20:03] LABS: CLARITY,URINE SL CLOUDY (CLEAR); COLOR,URINE AMBER (YELLOW); KETONES,URINE TRACE (NEGATIVE); LEUKOCYTE ESTERASE ,URINE NEGATIVE (NEGATIVE); NITRITE,URINE NEGATIVE (NEGATIVE); PROTEIN,URINE DIPSTICK >=300 (NEGATIVE); URINE UROBILINOGEN 0.2 mg/dL (0.2 - 1)
[2021-07-04 20:04] LABS: AMPHETAMINES SCREEN,URINE NEGATIVE (NEGATIVE); BENZODIAZEPINES SCREEN,URINE NEGATIVE (NEGATIVE); PHENCYCLIDINE SCREEN,URINE NEGATIVE (NEGATIVE)
[2021-07-04 20:19] LABS: AMPHETAMINES SCREEN,URINE NEGATIVE (NEGATIVE); BENZODIAZEPINES SCREEN,URINE NEGATIVE (NEGATIVE); PHENCYCLIDINE SCREEN,URINE NEGATIVE (NEGATIVE)
[2021-07-04 20:20] LABS: BACTERIA,URINE FEW /HPF; EPITHELIAL CELLS,URINE RARE /LPF; RBC,URINE 21-50 /HPF (0-5); WBC,URINE (MAN) 0-5 /HPF (0-5)
[2021-07-04 20:21] LABS: AMORPHOUS SEDIMENT,URINE FEW (FEW)
[2021-07-04 20:31] LABS: CREATININE,URINE RANDOM 241.82 mg/dL (63-166)
[2021-07-04] MEDS ORDERED: ZOLPIDEM TARTRATE 5 MG TAB PO PRN (21:00)
[2021-07-04 21:07] LABS: TOTAL PROTEIN, URINE 431.5 mg/dL (1-14)
[2021-07-04 21:25] LABS: ALBUMIN 2.3 g/dL (3.5-5.0); ALBUMIN/GLOBULIN RATIO 0.7 (0.8-2.0); ANION GAP 21.2 mmol/L (8-16); CREATININE, SERUM 8.76 mg/dL (0.72-1.25); POTASSIUM 3.2 mmol/L (3.5-5.1)
[2021-07-04 21:26] LABS: CALCIUM 6.9 mg/dL (8.4-10.2)
[2021-07-04] MEDS: LACTATED RINGER'S 1,000 ML INJ SCH (21:27)
[2021-07-05] VITALS (27 sets, daily range): BP systolic 75–139; BP diastolic 44–127
[2021-07-05] MEDS: ONDANSETRON HCL INJ 2MG/ML 2ML 2 MG/ML VIAL IV PRN (05:30)
[2021-07-05 05:48] LABS: ALBUMIN 2.3 g/dL (3.5-5.0); ALBUMIN/GLOBULIN RATIO 0.8 (0.8-2.0); ANION GAP 17.3 mmol/L (8-16); CALCIUM 7.2 mg/dL (8.4-10.2); CREATININE, SERUM 8.65 mg/dL (0.72-1.25); POTASSIUM 3.3 mmol/L (3.5-5.1)
[2021-07-05 05:57] LABS: EOSINOPHILS % 0.6 % (0.0-6.0); LYMPHOCYTES # (AUTO) 0.9 (1.0-3.2); MEAN CORPUSCULAR HEMOGLOBIN 34.9 pg (28-32); MEAN CORPUSCULAR HGB CONC 33.8 g/dL (31-35); MEAN CORPUSCULAR VOLUME 103.1 fL (81-99); MONOCYTES # (AUTO) 0.3 (0.2-0.8); NEUTROPHILS # (AUTO) 0.5 (2.1-6.9); NEUTROPHILS % 30.7 % (38.7-80.0); RED BLOOD COUNT 1.95 x10e6/uL (4.3-5.7); RED CELL DISTRIBUTION WIDTH 18.4 % (11.7-14.4)
[2021-07-05 06:07] LABS: HEMATOCRIT 20.1 % (38.2-49.6); HEMOGLOBIN 6.8 g/dL (14.0-18.0)
[2021-07-05 06:08] LABS: PLATELET COUNT 31 x10e3/uL (140-360)
[2021-07-05] MEDS ORDERED: SODIUM CHLORIDE 0.9% 250ML 250 ML IV ONE (06:30)
[2021-07-05 07:49] LABS: LYMPHOCYTES % (MANUAL) 70 % (19-48); MONOCYTES % (MANUAL) 6 % (3.4-9.0); NEUTROPHILS % (MANUAL) 24 % (40-74)
[2021-07-05 07:50] LABS: PLATELET ESTIMATE MARKEDLY DECREASED; PLATELET MORPHOLOGY COMMENT NORMAL; RBC MORPHOLOGY COMMENT NORMAL
[2021-07-05] MEDS: LEVETIRACETAM 500 MG TAB PO SCH ×2 (08:00→17:07)
[2021-07-05] MEDS ORDERED: NON-FORMULARY MEDICATION (Levetiracetam 500 MG) PO SCH (08:00)
[2021-07-05] MEDS ORDERED: POTASSIUM CHLORIDE 20 MEQ TAB CR PO ONE (12:30)
[2021-07-05] MEDS: CALCIUM ACETATE 667 MG GELCAP PO SCH ×2 (13:14→17:00)
[2021-07-05] MEDS: LACTATED RINGER'S 1,000 ML INJ SCH (17:20)
[2021-07-05] MEDS ORDERED: SODIUM CHLORIDE 0.9% 250ML 250 ML ONE (19:52)
[2021-07-05] MEDS: METRONIDAZOLE 500MG/NS 100ML 100 ML IV SCH (22:08)
[2021-07-06] VITALS (46 sets, daily range): BP systolic 98–154; BP diastolic 60–138
[2021-07-06] MEDS: ONDANSETRON HCL INJ 2MG/ML 2ML 2 MG/ML VIAL IV PRN ×2 (01:09→12:03)
[2021-07-06 05:03] LABS: BASOPHILS % 0.8 % (0.0-1.0); EOSINOPHILS % 0.8 % (0.0-6.0); HEMATOCRIT 30.5 % (38.2-49.6); HEMOGLOBIN 10.3 g/dL (14.0-18.0); LYMPHOCYTES # (AUTO) 0.3 (1.0-3.2); LYMPHOCYTES % 23.8 % (18.0-39.1); MEAN CORPUSCULAR HEMOGLOBIN 32.8 pg (28-32); MEAN CORPUSCULAR HGB CONC 33.8 g/dL (31-35); MEAN CORPUSCULAR VOLUME 97.1 fL (81-99); MONOCYTES # (AUTO) 0.1 (0.2-0.8); MONOCYTES % 10.8 % (4.4-11.3); NEUTROPHILS # (AUTO) 0.8 (2.1-6.9); NEUTROPHILS % 62.3 % (38.7-80.0); PLATELET COUNT 52 x10e3/uL (140-360); RED BLOOD COUNT 3.14 x10e6/uL (4.3-5.7); RED CELL DISTRIBUTION WIDTH 17.6 % (11.7-14.4)
[2021-07-06 05:23] LABS: ALBUMIN 2.2 g/dL (3.5-5.0); ALBUMIN/GLOBULIN RATIO 0.7 (0.8-2.0); ANION GAP 21.3 mmol/L (8-16); CALCIUM 7.5 mg/dL (8.4-10.2); CREATININE, SERUM 8.99 mg/dL (0.72-1.25); POTASSIUM 3.3 mmol/L (3.5-5.1)
[2021-07-06] MEDS: METRONIDAZOLE 500MG/NS 100ML 100 ML IV SCH ×3 (05:44→21:33)
[2021-07-06] MEDS ORDERED: FILGRASTIM-AAFI 300 MCG/0.5 ML SYRINGE SQ ONE (08:00)
[2021-07-06] MEDS: CALCIUM ACETATE 667 MG GELCAP PO SCH ×3 (08:00→17:00)
[2021-07-06] MEDS: LEVETIRACETAM 500 MG TAB PO SCH ×2 (08:21→17:00)
[2021-07-06 10:39] LABS: BAND NEUTROPHILS % (MANUAL) 3 %; EOSINOPHILS % (MANUAL) 1 % (0-7); LYMPHOCYTES % (MANUAL) 32 % (19-48); MONOCYTES % (MANUAL) 11 % (3.4-9.0); NEUTROPHILS % (MANUAL) 53 % (40-74); NUCLEATED RED BLOOD CELLS 1; PLATELET ESTIMATE MODERATELY DECREASED; PLATELET MORPHOLOGY COMMENT NORMAL; RBC MORPHOLOGY COMMENT NORMAL
[2021-07-06] MEDS: LACTATED RINGER'S 1,000 ML INJ SCH ×2 (12:35→20:39)
[2021-07-06] MEDS ORDERED: POTASSIUM CHLORIDE 20 MEQ TAB CR PO NR (15:35)
[2021-07-06] MEDS ORDERED: POTASSIUM CHLORIDE 20MEQ/100ML 100 ML IV ONE (16:00)
[2021-07-06] MEDS: ACYCLOVIR SODIUM IV SCH (17:51)
[2021-07-06] MEDS: SODIUM CHLORIDE 0.9% IV SCH (17:51)
[2021-07-06 22:42] LABS: TOTAL PROTEIN 24HR, URINE 961.1 mg/24hr (50-100); TOTAL PROTEIN, URINE 274.6 mg/dL (1-14)
[2021-07-07] VITALS (46 sets, daily range): BP systolic 83–151; BP diastolic 62–99
[2021-07-07] MEDS ORDERED: LEVETIRACETAM 500MG/5ML VIAL 500 MG in SODIUM CHLORIDE 0.9% 100 ML 100 ML IV SCH (01:15)
[2021-07-07] MEDS ORDERED: LEVETIRACETAM 500 MG in SODIUM CHLORIDE 0.9% 100 ML IV SCH (01:44)
[2021-07-07 05:01] LABS: BASOPHILS % 0.4 % (0.0-1.0); HEMATOCRIT 30.8 % (38.2-49.6); HEMOGLOBIN 10.5 g/dL (14.0-18.0); LYMPHOCYTES # (AUTO) 0.8 (1.0-3.2); LYMPHOCYTES % 10.8 % (18.0-39.1); MEAN CORPUSCULAR HEMOGLOBIN 32.8 pg (28-32); MEAN CORPUSCULAR HGB CONC 34.1 g/dL (31-35); MEAN CORPUSCULAR VOLUME 96.3 fL (81-99); MONOCYTES # (AUTO) 0.5 (0.2-0.8); MONOCYTES % 7.1 % (4.4-11.3); NEUTROPHILS # (AUTO) 5.5 (2.1-6.9); NEUTROPHILS % 75.9 % (38.7-80.0); PLATELET COUNT 52 x10e3/uL (140-360)
[2021-07-07] MEDS: METRONIDAZOLE 500MG/NS 100ML 100 ML IV SCH ×3 (05:10→21:42)
[2021-07-07 05:20] LABS: ALBUMIN/GLOBULIN RATIO 0.6 (0.8-2.0); ANION GAP 20.7 mmol/L (8-16); CALCIUM 7.9 mg/dL (8.4-10.2); CREATININE, SERUM 8.51 mg/dL (0.72-1.25); POTASSIUM 3.7 mmol/L (3.5-5.1)
[2021-07-07 06:39] LABS: BAND NEUTROPHILS % (MANUAL) 14 %; LYMPHOCYTES % (MANUAL) 13 % (19-48); METAMYELOCYTES % (MANUAL) 1 % (0-0); MONOCYTES % (MANUAL) 4 % (3.4-9.0); MYELOCYTES % (MANUAL) 1 % (0-0); NEUTROPHILS % (MANUAL) 67 % (40-74); PLATELET ESTIMATE MODERATELY DECREASED; PLATELET MORPHOLOGY COMMENT FEW GIANT
[2021-07-07 06:40] LABS: RBC MORPHOLOGY COMMENT NORMAL
[2021-07-07] MEDS: CALCIUM ACETATE 667 MG GELCAP PO SCH ×4 (08:00→17:00)
[2021-07-07] MEDS ORDERED: LORAZEPAM INJ 2 MG/ML VIAL IV NR (09:15)
[2021-07-07] MEDS: LEVETIRACETAM 500MG/5ML VIAL 500 MG in SODIUM CHLORIDE 0.9% 100 ML 100 ML IV SCH ×2 (09:50→20:33)
[2021-07-07] MEDS ORDERED: SODIUM CHLORIDE 0.9% 1000ML 1,000 ML ONE (13:11)
[2021-07-07] MEDS ORDERED: MANNITOL 25% 12.5GM/50 ML VIAL IV PRN (13:15)
[2021-07-07] MEDS ORDERED: HEPARIN SOD (PORCINE) 1000 UNIT/ML SDV IV PRN (13:15)
[2021-07-07] MEDS ORDERED: SODIUM CHLORIDE 0.9% 1000ML 2,000 ML IV PRN (13:15)
[2021-07-07] MEDS ORDERED: MANNITOL 25% 12.5GM/50 ML VIAL IV NR (13:45)
[2021-07-07] MEDS: LACTATED RINGER'S 1,000 ML INJ SCH ×2 (15:22→21:42)
[2021-07-07] MEDS: ACYCLOVIR SODIUM IV SCH (17:13)
[2021-07-07] MEDS: SODIUM CHLORIDE 0.9% IV SCH (17:13)
[2021-07-08] VITALS (44 sets, daily range): BP systolic 97–160; BP diastolic 58–124
[2021-07-08] MEDS: METRONIDAZOLE 500MG/NS 100ML 100 ML IV SCH ×3 (05:01→21:49)
[2021-07-08 05:29] LABS: BASOPHILS # (AUTO) 0.1 (0.0-0.1); BASOPHILS % 0.9 % (0.0-1.0); EOSINOPHILS % 0.1 % (0.0-6.0); HEMATOCRIT 27.8 % (38.2-49.6); HEMOGLOBIN 9.2 g/dL (14.0-18.0); LYMPHOCYTES # (AUTO) 0.7 (1.0-3.2); LYMPHOCYTES % 8.1 % (18.0-39.1); MEAN CORPUSCULAR HEMOGLOBIN 32.3 pg (28-32); MEAN CORPUSCULAR HGB CONC 33.1 g/dL (31-35); MEAN CORPUSCULAR VOLUME 97.5 fL (81-99); MONOCYTES # (AUTO) 0.6 (0.2-0.8); MONOCYTES % 6.2 % (4.4-11.3); NEUTROPHILS # (AUTO) 7.2 (2.1-6.9); NEUTROPHILS % 79.1 % (38.7-80.0); PLATELET COUNT 53 x10e3/uL (140-360); RED BLOOD COUNT 2.85 x10e6/uL (4.3-5.7)
[2021-07-08 05:59] LABS: ALBUMIN 1.7 g/dL (3.5-5.0); ALBUMIN/GLOBULIN RATIO 0.5 (0.8-2.0); ANION GAP 15.6 mmol/L (8-16); CALCIUM 8.1 mg/dL (8.4-10.2); CREATININE, SERUM 5.49 mg/dL (0.72-1.25); POTASSIUM 3.6 mmol/L (3.5-5.1)
[2021-07-08] MEDS: CALCIUM ACETATE 667 MG GELCAP PO SCH ×3 (07:43→16:04)
[2021-07-08 08:34] LABS: BAND NEUTROPHILS % (MANUAL) 8 %; LYMPHOCYTES % (MANUAL) 10 % (19-48); MONOCYTES % (MANUAL) 5 % (3.4-9.0); MYELOCYTES % (MANUAL) 1 % (0-0); NEUTROPHILS % (MANUAL) 76 % (40-74); PLATELET ESTIMATE MODERATELY DECREASED; PLATELET MORPHOLOGY COMMENT NORMAL
[2021-07-08 08:35] LABS: RBC MORPHOLOGY COMMENT NORMAL
[2021-07-08] MEDS: LACTATED RINGER'S 1,000 ML INJ SCH (12:00)
[2021-07-08] MEDS: LEVETIRACETAM 500MG/5ML VIAL 500 MG in SODIUM CHLORIDE 0.9% 100 ML 100 ML IV SCH ×2 (13:56→20:28)
[2021-07-08] MEDS: ACYCLOVIR SODIUM IV SCH (16:04)
[2021-07-08] MEDS: SODIUM CHLORIDE 0.9% IV SCH (16:04)
[2021-07-09] VITALS (30 sets, daily range): BP systolic 103–148; BP diastolic 72–118
[2021-07-09] MEDS: LACTATED RINGER'S 1,000 ML INJ SCH ×3 (02:07→20:15)
[2021-07-09 05:31] LABS: BASOPHILS # (AUTO) 0.1 (0.0-0.1); BASOPHILS % 0.5 % (0.0-1.0); EOSINOPHILS % 0.4 % (0.0-6.0); HEMATOCRIT 25.3 % (38.2-49.6); HEMOGLOBIN 8.4 g/dL (14.0-18.0); LYMPHOCYTES # (AUTO) 1.4 (1.0-3.2); LYMPHOCYTES % 12.4 % (18.0-39.1); MEAN CORPUSCULAR HEMOGLOBIN 32.4 pg (28-32); MEAN CORPUSCULAR HGB CONC 33.2 g/dL (31-35); MEAN CORPUSCULAR VOLUME 97.7 fL (81-99); MONOCYTES # (AUTO) 0.9 (0.2-0.8); MONOCYTES % 8.1 % (4.4-11.3); NEUTROPHILS # (AUTO) 8.3 (2.1-6.9); PLATELET COUNT 90 x10e3/uL (140-360); RED BLOOD COUNT 2.59 x10e6/uL (4.3-5.7); RED CELL DISTRIBUTION WIDTH 19.5 % (11.7-14.4)
[2021-07-09] MEDS: METRONIDAZOLE 500MG/NS 100ML 100 ML IV SCH ×3 (05:48→23:00)
[2021-07-09 05:52] LABS: ALBUMIN 1.8 g/dL (3.5-5.0); ANION GAP 18.2 mmol/L (8-16); CALCIUM 8.2 mg/dL (8.4-10.2); CREATININE, SERUM 2.93 mg/dL (0.72-1.25); POTASSIUM 3.2 mmol/L (3.5-5.1)
[2021-07-09 05:53] LABS: ALBUMIN/GLOBULIN RATIO 0.6 (0.8-2.0)
[2021-07-09] MEDS: CALCIUM ACETATE 667 MG GELCAP PO SCH ×3 (08:18→16:34)
[2021-07-09] MEDS: LEVETIRACETAM 500MG/5ML VIAL 500 MG in SODIUM CHLORIDE 0.9% 100 ML 100 ML IV SCH ×2 (09:22→21:29)
[2021-07-09] MEDS: ONDANSETRON HCL INJ 2MG/ML 2ML 2 MG/ML VIAL IV PRN (09:28)
[2021-07-09 10:36] LABS: LYMPHOCYTES % (MANUAL) 14 % (19-48); MONOCYTES % (MANUAL) 8 % (3.4-9.0); NEUTROPHILS % (MANUAL) 78 % (40-74); PLATELET ESTIMATE MODERATELY DECREASED; PLATELET MORPHOLOGY COMMENT NORMAL; RBC MORPHOLOGY COMMENT NORMAL
[2021-07-09] MEDS ORDERED: POTASSIUM CHLORIDE 20 MEQ TAB CR PO ONE (14:00)
[2021-07-09] MEDS ORDERED: POTASSIUM CHLORIDE 20MEQ/100ML 100 ML IV ONE (16:15)
[2021-07-10] VITALS (29 sets, daily range): BP systolic 120–161; BP diastolic 70–112
[2021-07-10 05:13] LABS: BASOPHILS # (AUTO) 0.1 (0.0-0.1); BASOPHILS % 0.7 % (0.0-1.0); EOSINOPHILS # (AUTO) 0.1 (0.0-0.4); EOSINOPHILS % 0.7 % (0.0-6.0); HEMATOCRIT 24.2 % (38.2-49.6); HEMOGLOBIN 8.2 g/dL (14.0-18.0); LYMPHOCYTES # (AUTO) 2.1 (1.0-3.2); MEAN CORPUSCULAR HEMOGLOBIN 32.8 pg (28-32); MEAN CORPUSCULAR HGB CONC 33.9 g/dL (31-35); MEAN CORPUSCULAR VOLUME 96.8 fL (81-99); MONOCYTES # (AUTO) 1.3 (0.2-0.8); MONOCYTES % 10.4 % (4.4-11.3); NEUTROPHILS # (AUTO) 8.1 (2.1-6.9); NEUTROPHILS % 66.1 % (38.7-80.0); PLATELET COUNT 124 x10e3/uL (140-360); RED CELL DISTRIBUTION WIDTH 19.8 % (11.7-14.4)
[2021-07-10 05:29] LABS: ANION GAP 15.1 mmol/L (8-16); CALCIUM 7.7 mg/dL (8.4-10.2); CREATININE, SERUM 1.57 mg/dL (0.72-1.25); POTASSIUM 3.1 mmol/L (3.5-5.1)
[2021-07-10] MEDS: METRONIDAZOLE 500MG/NS 100ML 100 ML IV SCH ×3 (05:42→22:13)
[2021-07-10] MEDS: CALCIUM ACETATE 667 MG GELCAP PO SCH ×3 (07:54→15:22)
[2021-07-10] MEDS: LEVETIRACETAM 500MG/5ML VIAL 500 MG in SODIUM CHLORIDE 0.9% 100 ML 100 ML IV SCH ×2 (08:09→21:04)
[2021-07-10 09:19] LABS: EOSINOPHILS % (MANUAL) 3 % (0-7); LYMPHOCYTES % (MANUAL) 20 % (19-48); MONOCYTES % (MANUAL) 6 % (3.4-9.0); NEUTROPHILS % (MANUAL) 71 % (40-74)
[2021-07-10 09:20] LABS: ANISOCYTOSIS MODERATE; PLATELET ESTIMATE SLIGHTLY DECREASED; PLATELET MORPHOLOGY COMMENT NORMAL; RBC MORPHOLOGY COMMENT ABNORMAL
[2021-07-10 10:41] LABS: ABG PCO2 26 mmHg (35-45); ABG PH 7.57 (7.35-7.45)
[2021-07-10 10:42] LABS: ABG HCO3 23 mmol/L (22-26); ABG PO2 195 mmHg (80-105); ABG TCO2 24
[2021-07-10] MEDS ORDERED: LORAZEPAM INJ 2 MG/ML VIAL IV ONE (11:00)
[2021-07-10 11:35] LABS: IRON 62 ug/dL (65-175); TRANSFERRIN < 70 mg/dL (174-364)
[2021-07-10] MEDS ORDERED: POTASSIUM CHLORIDE 20MEQ/100ML 200 ML IV ONE (14:30)
[2021-07-10] MEDS: ACETAMINOPHEN 325 MG TAB PO PRN (22:22)
[2021-07-11] VITALS (28 sets, daily range): BP systolic 109–146; BP diastolic 67–120
[2021-07-11 05:18] LABS: BASOPHILS # (AUTO) 0.1 (0.0-0.1); BASOPHILS % 0.8 % (0.0-1.0); EOSINOPHILS # (AUTO) 0.1 (0.0-0.4); EOSINOPHILS % 1.5 % (0.0-6.0); HEMATOCRIT 23.7 % (38.2-49.6); HEMOGLOBIN 7.8 g/dL (14.0-18.0); LYMPHOCYTES # (AUTO) 2.2 (1.0-3.2); LYMPHOCYTES % 23.4 % (18.0-39.1); MEAN CORPUSCULAR HEMOGLOBIN 32.2 pg (28-32); MEAN CORPUSCULAR HGB CONC 32.9 g/dL (31-35); MEAN CORPUSCULAR VOLUME 97.9 fL (81-99); MONOCYTES # (AUTO) 1.3 (0.2-0.8); MONOCYTES % 14.5 % (4.4-11.3); NEUTROPHILS # (AUTO) 4.8 (2.1-6.9); NEUTROPHILS % 52.2 % (38.7-80.0); PLATELET COUNT 119 x10e3/uL (140-360); RED BLOOD COUNT 2.42 x10e6/uL (4.3-5.7); RED CELL DISTRIBUTION WIDTH 19.7 % (11.7-14.4)
[2021-07-11 05:38] LABS: ANION GAP 10.4 mmol/L (8-16); CALCIUM 7.8 mg/dL (8.4-10.2); CREATININE, SERUM 2.19 mg/dL (0.72-1.25); POTASSIUM 3.4 mmol/L (3.5-5.1)
[2021-07-11] MEDS: METRONIDAZOLE 500MG/NS 100ML 100 ML IV SCH ×2 (05:42→13:04)
[2021-07-11] MEDS: CALCIUM ACETATE 667 MG GELCAP PO SCH ×3 (07:52→17:00)
[2021-07-11] MEDS: FOLIC ACID/CYANOCOB/PYRIDOXINE TAB PO SCH (07:53)
[2021-07-11] MEDS: LEVETIRACETAM 500MG/5ML VIAL 500 MG in SODIUM CHLORIDE 0.9% 100 ML 100 ML IV SCH ×2 (08:01→23:20)
[2021-07-11] MEDS: IRON SUCROSE 100 MG in SODIUM CHLORIDE 0.9% 100 ML 100 ML IV SCH (09:10)
[2021-07-11 10:37] LABS: INR 2.99; PROTHROMBIN TIME 33.2 seconds (11.9-14.5)
[2021-07-11 10:39] LABS: EOSINOPHILS % (MANUAL) 4 % (0-7); LYMPHOCYTES % (MANUAL) 33 % (19-48); MONOCYTES % (MANUAL) 8 % (3.4-9.0); NEUTROPHILS % (MANUAL) 55 % (40-74); PLATELET ESTIMATE SLIGHTLY DECREASED; PLATELET MORPHOLOGY COMMENT NORMAL; RBC MORPHOLOGY COMMENT NORMAL
[2021-07-11] MEDS ORDERED: LIDOCAINE HCL 1% LOCAL INJ 20 ML VIAL ONE (13:52)
[2021-07-11] MEDS: ONDANSETRON HCL INJ 2MG/ML 2ML 2 MG/ML VIAL IV PRN ×2 (19:29→22:00)
[2021-07-11] MEDS: ACETAMINOPHEN 325 MG TAB PO PRN (20:18)
[2021-07-11] MEDS ORDERED: SODIUM CHLORIDE 0.9% 250ML 250 ML ONE (21:31)
[2021-07-11] MEDS ORDERED: TRAMADOL HCL 50 MG TAB PO PRN (23:00)
[2021-07-11] MEDS: Morphine 2mg Syringe 2 MG/ML SYR IV PRN (23:20)
[2021-07-12] VITALS (17 sets, daily range): BP systolic 106–136; BP diastolic 67–92
[2021-07-12] MEDS: METRONIDAZOLE 500MG/NS 100ML 100 ML IV SCH ×4 (00:20→22:32)
[2021-07-12] MEDS: Morphine 2mg Syringe 2 MG/ML SYR IV PRN (03:20)
[2021-07-12] MEDS: ONDANSETRON HCL INJ 2MG/ML 2ML 2 MG/ML VIAL IV PRN ×4 (03:21→19:30)
[2021-07-12] MEDS: ACETAMINOPHEN 325 MG TAB PO PRN (05:42)
[2021-07-12 05:43] LABS: BASOPHILS % 0.6 % (0.0-1.0); EOSINOPHILS # (AUTO) 0.1 (0.0-0.4); EOSINOPHILS % 1.6 % (0.0-6.0); LYMPHOCYTES # (AUTO) 1.9 (1.0-3.2); LYMPHOCYTES % 28.2 % (18.0-39.1); MEAN CORPUSCULAR HGB CONC 33.8 g/dL (31-35); MEAN CORPUSCULAR VOLUME 97.6 fL (81-99); MONOCYTES # (AUTO) 1.1 (0.2-0.8); MONOCYTES % 16.2 % (4.4-11.3); NEUTROPHILS # (AUTO) 3.1 (2.1-6.9); NEUTROPHILS % 47.1 % (38.7-80.0); PLATELET COUNT 129 x10e3/uL (140-360); RED BLOOD COUNT 2.12 x10e6/uL (4.3-5.7); RED CELL DISTRIBUTION WIDTH 19.5 % (11.7-14.4)
[2021-07-12 06:00] LABS: ALBUMIN 1.8 g/dL (3.5-5.0); ALBUMIN/GLOBULIN RATIO 0.6 (0.8-2.0); ANION GAP 10.2 mmol/L (8-16); CALCIUM 7.7 mg/dL (8.4-10.2); CREATININE, SERUM 2.42 mg/dL (0.72-1.25); INR 2.06; POTASSIUM 3.2 mmol/L (3.5-5.1); PROTHROMBIN TIME 24.8 seconds (11.9-14.5)
[2021-07-12] MEDS ORDERED: ZOLPIDEM TARTRATE 5 MG TAB PO PRN (06:45)
[2021-07-12] MEDS: Morphine 4mg INJECTION 4 MG/ML INJ IV PRN ×3 (07:49→19:30)
[2021-07-12] MEDS: CALCIUM ACETATE 667 MG GELCAP PO SCH ×3 (08:00→17:25)
[2021-07-12] MEDS: LEVETIRACETAM 500MG/5ML VIAL 500 MG in SODIUM CHLORIDE 0.9% 100 ML 100 ML IV SCH ×2 (08:02→21:00)
[2021-07-12 08:08] LABS: ANISOCYTOSIS MODERATE; PLATELET ESTIMATE SLIGHTLY DECREASED; PLATELET MORPHOLOGY COMMENT NORMAL; RBC MORPHOLOGY COMMENT ABNORMAL
[2021-07-12] MEDS: FOLIC ACID/CYANOCOB/PYRIDOXINE TAB PO SCH (08:08)
[2021-07-12] MEDS ORDERED: POTASSIUM CHLORIDE 20MEQ/100ML 100 ML IV ONE (09:00)
[2021-07-12] MEDS ORDERED: SODIUM CHLORIDE 0.9% 250ML 250 ML IV ONE (09:00)
[2021-07-12] MEDS: IRON SUCROSE 100 MG in SODIUM CHLORIDE 0.9% 100 ML 100 ML IV SCH (09:10)
[2021-07-12] MEDS ORDERED: SODIUM CHLORIDE 0.9% 250ML 250 ML ONE ×2 (12:12→22:54)
[2021-07-13] VITALS (8 sets, daily range): BP systolic 115–136; BP diastolic 81–95
[2021-07-13] MEDS: Morphine 4mg INJECTION 4 MG/ML INJ IV PRN ×6 (00:07→22:34)
[2021-07-13] MEDS ORDERED: DICYCLOMINE HCL 20 MG TAB PO ONE (02:30)
[2021-07-13 05:03] LABS: BASOPHILS # (AUTO) 0.1 (0.0-0.1); BASOPHILS % 0.7 % (0.0-1.0); EOSINOPHILS # (AUTO) 0.2 (0.0-0.4); HEMATOCRIT 24.2 % (38.2-49.6); LYMPHOCYTES % 26.8 % (18.0-39.1); MEAN CORPUSCULAR HEMOGLOBIN 32.4 pg (28-32); MEAN CORPUSCULAR HGB CONC 33.1 g/dL (31-35); MONOCYTES % 13.7 % (4.4-11.3); NEUTROPHILS % 54.4 % (38.7-80.0); PLATELET COUNT 148 x10e3/uL (140-360); RED BLOOD COUNT 2.47 x10e6/uL (4.3-5.7); RED CELL DISTRIBUTION WIDTH 17.8 % (11.7-14.4)
[2021-07-13 05:12] LABS: INR 2.06; PROTHROMBIN TIME 24.8 seconds (11.9-14.5)
[2021-07-13 05:26] LABS: ALBUMIN 1.9 g/dL (3.5-5.0); ALBUMIN/GLOBULIN RATIO 0.6 (0.8-2.0); ANION GAP 10.7 mmol/L (8-16); CALCIUM 7.6 mg/dL (8.4-10.2); CREATININE, SERUM 2.65 mg/dL (0.72-1.25); POTASSIUM 3.7 mmol/L (3.5-5.1)
[2021-07-13] MEDS: METRONIDAZOLE 500MG/NS 100ML 100 ML IV SCH ×3 (06:00→22:17)
[2021-07-13] MEDS ORDERED: Morphine 2mg Syringe 2 MG/ML SYR ONE ×2 (06:05→07:58)
[2021-07-13] MEDS: CALCIUM ACETATE 667 MG GELCAP PO SCH ×3 (08:30→16:57)
[2021-07-13] MEDS: LEVETIRACETAM 500MG/5ML VIAL 500 MG in SODIUM CHLORIDE 0.9% 100 ML 100 ML IV SCH ×2 (08:30→21:04)
[2021-07-13] MEDS: FOLIC ACID/CYANOCOB/PYRIDOXINE TAB PO SCH (08:30)
[2021-07-13] MEDS: ACETAMINOPHEN 325 MG TAB PO PRN ×2 (08:30→17:21)
[2021-07-13] MEDS: IRON SUCROSE 100 MG in SODIUM CHLORIDE 0.9% 100 ML 100 ML IV SCH (08:30)
[2021-07-13] MEDS: DICYCLOMINE HCL 20 MG TAB PO SCH ×3 (08:33→21:04)
[2021-07-13] MEDS: ONDANSETRON HCL INJ 2MG/ML 2ML 2 MG/ML VIAL IV PRN ×3 (08:49→22:34)
[2021-07-13] MEDS ORDERED: PHYTONADIONE 10 MG/ML AMP SQ ONE (11:15)
[2021-07-14] VITALS (7 sets, daily range): BP systolic 109–136; BP diastolic 79–96
[2021-07-14] MEDS ORDERED: ZOLPIDEM TARTRATE 5 MG TAB PO ONE (01:30)
[2021-07-14] MEDS: METRONIDAZOLE 500MG/NS 100ML 100 ML IV SCH ×3 (06:37→21:08)
[2021-07-14 06:58] LABS: BASOPHILS # (AUTO) 0.1 (0.0-0.1); BASOPHILS % 0.7 % (0.0-1.0); EOSINOPHILS # (AUTO) 0.2 (0.0-0.4); HEMATOCRIT 24.7 % (38.2-49.6); HEMOGLOBIN 8.3 g/dL (14.0-18.0); MEAN CORPUSCULAR HEMOGLOBIN 33.1 pg (28-32); MEAN CORPUSCULAR HGB CONC 33.6 g/dL (31-35); MEAN CORPUSCULAR VOLUME 98.4 fL (81-99); MONOCYTES # (AUTO) 0.9 (0.2-0.8); MONOCYTES % 9.2 % (4.4-11.3); NEUTROPHILS # (AUTO) 6.6 (2.1-6.9); NEUTROPHILS % 66.9 % (38.7-80.0); PLATELET COUNT 222 x10e3/uL (140-360); RED BLOOD COUNT 2.51 x10e6/uL (4.3-5.7); RED CELL DISTRIBUTION WIDTH 17.6 % (11.7-14.4)
[2021-07-14 07:15] LABS: ANION GAP 11.9 mmol/L (8-16); CALCIUM 7.9 mg/dL (8.4-10.2); CREATININE, SERUM 2.85 mg/dL (0.72-1.25); POTASSIUM 3.9 mmol/L (3.5-5.1)
[2021-07-14] MEDS: CALCIUM ACETATE 667 MG GELCAP PO SCH ×3 (09:02→16:53)
[2021-07-14] MEDS: IRON SUCROSE 100 MG in SODIUM CHLORIDE 0.9% 100 ML 100 ML IV SCH (09:02)
[2021-07-14] MEDS: LEVETIRACETAM 500MG/5ML VIAL 500 MG in SODIUM CHLORIDE 0.9% 100 ML 100 ML IV SCH ×2 (09:02→20:10)
[2021-07-14] MEDS: FOLIC ACID/CYANOCOB/PYRIDOXINE TAB PO SCH (09:03)
[2021-07-14] MEDS: DICYCLOMINE HCL 20 MG TAB PO SCH ×3 (09:03→20:10)
[2021-07-14] MEDS ORDERED: SODIUM CHLORIDE 0.9% 250ML 250 ML ONE (09:17)
[2021-07-14 09:36] LABS: INR 1.63; PROTHROMBIN TIME 20.7 seconds (11.9-14.5)
[2021-07-14] MEDS: ACETAMINOPHEN 325 MG TAB PO PRN ×2 (13:23→20:10)
[2021-07-14] MEDS: Morphine 4mg INJECTION 4 MG/ML INJ IV PRN ×2 (15:57→20:53)
[2021-07-14] MEDS: ONDANSETRON HCL INJ 2MG/ML 2ML 2 MG/ML VIAL IV PRN ×2 (16:54→20:10)
[2021-07-14] MEDS: MELATONIN 3 MG TAB PO SCH (20:10)
[2021-07-15] VITALS (8 sets, daily range): BP systolic 117–142; BP diastolic 82–96
[2021-07-15] MEDS: Morphine 4mg INJECTION 4 MG/ML INJ IV PRN (02:03)
[2021-07-15] MEDS: METRONIDAZOLE 500MG/NS 100ML 100 ML IV SCH ×2 (06:07→14:00)
[2021-07-15 06:50] LABS: BASOPHILS # (AUTO) 0.1 (0.0-0.1); BASOPHILS % 0.9 % (0.0-1.0); EOSINOPHILS # (AUTO) 0.2 (0.0-0.4); EOSINOPHILS % 1.5 % (0.0-6.0); HEMATOCRIT 22.4 % (38.2-49.6); HEMOGLOBIN 7.5 g/dL (14.0-18.0); LYMPHOCYTES % 19.1 % (18.0-39.1); MEAN CORPUSCULAR HEMOGLOBIN 32.8 pg (28-32); MEAN CORPUSCULAR HGB CONC 33.5 g/dL (31-35); MEAN CORPUSCULAR VOLUME 97.8 fL (81-99); MONOCYTES # (AUTO) 0.9 (0.2-0.8); MONOCYTES % 9.2 % (4.4-11.3); NEUTROPHILS % 68.2 % (38.7-80.0); PLATELET COUNT 310 x10e3/uL (140-360); RED BLOOD COUNT 2.29 x10e6/uL (4.3-5.7); RED CELL DISTRIBUTION WIDTH 17.5 % (11.7-14.4)
[2021-07-15 07:02] LABS: INR 1.7; PROTHROMBIN TIME 21.3 seconds (11.9-14.5)
[2021-07-15 07:17] LABS: ALBUMIN 2.1 g/dL (3.5-5.0); ALBUMIN/GLOBULIN RATIO 0.7 (0.8-2.0); ANION GAP 9.8 mmol/L (8-16); CALCIUM 8.2 mg/dL (8.4-10.2); CREATININE, SERUM 2.38 mg/dL (0.72-1.25); POTASSIUM 3.8 mmol/L (3.5-5.1)
[2021-07-15] MEDS: IRON SUCROSE 100 MG in SODIUM CHLORIDE 0.9% 100 ML 100 ML IV SCH (09:50)
[2021-07-15] MEDS: LEVETIRACETAM 500MG/5ML VIAL 500 MG in SODIUM CHLORIDE 0.9% 100 ML 100 ML IV SCH ×2 (09:50→20:49)
[2021-07-15] MEDS: FOLIC ACID/CYANOCOB/PYRIDOXINE TAB PO SCH (09:50)
[2021-07-15] MEDS: CALCIUM ACETATE 667 MG GELCAP PO SCH ×3 (09:50→17:54)
[2021-07-15] MEDS: DICYCLOMINE HCL 20 MG TAB PO SCH ×3 (09:50→20:49)
[2021-07-15] MEDS: MELATONIN 3 MG TAB PO SCH (20:49)
[2021-07-15] MEDS ORDERED: SODIUM CHLORIDE 0.9% 250ML 250 ML ONE (21:26)
[2021-07-16] VITALS (9 sets, daily range): BP systolic 115–139; BP diastolic 87–98
[2021-07-16] MEDS: Morphine 4mg INJECTION 4 MG/ML INJ IV PRN ×2 (02:00→09:09)
[2021-07-16] MEDS: ONDANSETRON HCL INJ 2MG/ML 2ML 2 MG/ML VIAL IV PRN (02:00)
[2021-07-16 06:06] LABS: BASOPHILS # (AUTO) 0.1 (0.0-0.1); EOSINOPHILS # (AUTO) 0.2 (0.0-0.4); EOSINOPHILS % 1.9 % (0.0-6.0); LYMPHOCYTES % 25.2 % (18.0-39.1); MEAN CORPUSCULAR HEMOGLOBIN 32.7 pg (28-32); MONOCYTES # (AUTO) 0.8 (0.2-0.8); MONOCYTES % 9.5 % (4.4-11.3); NEUTROPHILS % 61.5 % (38.7-80.0); PLATELET COUNT 414 x10e3/uL (140-360); RED BLOOD COUNT 1.96 x10e6/uL (4.3-5.7); RED CELL DISTRIBUTION WIDTH 17.8 % (11.7-14.4)
[2021-07-16 06:18] LABS: INR 1.59; PROTHROMBIN TIME 20.3 seconds (11.9-14.5)
[2021-07-16 06:19] LABS: HEMATOCRIT 19.4 % (38.2-49.6); HEMOGLOBIN 6.4 g/dL (14.0-18.0)
[2021-07-16 06:26] LABS: ALBUMIN/GLOBULIN RATIO 0.7 (0.8-2.0); CALCIUM 7.9 mg/dL (8.4-10.2); CREATININE, SERUM 1.96 mg/dL (0.72-1.25)
[2021-07-16] MEDS: DICYCLOMINE HCL 20 MG TAB PO SCH ×3 (07:54→23:20)
[2021-07-16] MEDS: CALCIUM ACETATE 667 MG GELCAP PO SCH ×3 (07:54→16:10)
[2021-07-16] MEDS: FOLIC ACID/CYANOCOB/PYRIDOXINE TAB PO SCH (07:55)
[2021-07-16] MEDS ORDERED: SODIUM CHLORIDE 0.9% 250ML 250 ML ONE ×2 (08:46→15:54)
[2021-07-16] MEDS: LEVETIRACETAM 500MG/5ML VIAL 500 MG in SODIUM CHLORIDE 0.9% 100 ML 100 ML IV SCH ×2 (09:08→23:20)
[2021-07-16] MEDS: IRON SUCROSE 100 MG in SODIUM CHLORIDE 0.9% 100 ML 100 ML IV SCH (11:42)
[2021-07-16] MEDS: EPOETIN ALFA-EPBX 10,000 UNIT/ML VIAL SC SCH (15:30)
[2021-07-16] MEDS: ACETAMINOPHEN 325 MG TAB PO PRN (18:32)
[2021-07-16] MEDS: MELATONIN 3 MG TAB PO SCH (23:20)
[2021-07-17] VITALS (11 sets, daily range): BP systolic 120–141; BP diastolic 82–97
[2021-07-17] MEDS ORDERED: SODIUM CHLORIDE 0.9% 250ML 250 ML ONE (00:02)
[2021-07-17] MEDS: Morphine 4mg INJECTION 4 MG/ML INJ IV PRN ×3 (00:54→22:20)
[2021-07-17 05:49] LABS: BASOPHILS # (AUTO) 0.2 (0.0-0.1); BASOPHILS % 1.8 % (0.0-1.0); EOSINOPHILS # (AUTO) 0.2 (0.0-0.4); EOSINOPHILS % 2.3 % (0.0-6.0); HEMATOCRIT 24.6 % (38.2-49.6); HEMOGLOBIN 8.1 g/dL (14.0-18.0); LYMPHOCYTES # (AUTO) 2.6 (1.0-3.2); LYMPHOCYTES % 29.6 % (18.0-39.1); MEAN CORPUSCULAR HGB CONC 32.9 g/dL (31-35); MEAN CORPUSCULAR VOLUME 97.2 fL (81-99); MONOCYTES # (AUTO) 0.9 (0.2-0.8); MONOCYTES % 9.8 % (4.4-11.3); NEUTROPHILS # (AUTO) 4.9 (2.1-6.9); NEUTROPHILS % 55.3 % (38.7-80.0); PLATELET COUNT 515 x10e3/uL (140-360); RED BLOOD COUNT 2.53 x10e6/uL (4.3-5.7); RED CELL DISTRIBUTION WIDTH 19.2 % (11.7-14.4)
[2021-07-17 06:06] LABS: ANION GAP 12.8 mmol/L (8-16); CREATININE, SERUM 1.69 mg/dL (0.72-1.25); POTASSIUM 3.8 mmol/L (3.5-5.1)
[2021-07-17 06:25] LABS: PHOSPHORUS < 0.7 MG/DL (2.3-4.7)
[2021-07-17 06:26] LABS: MAGNESIUM 0.7 MG/DL (1.3-2.1)
[2021-07-17] MEDS ORDERED: MAGNESIUM SULFATE 2GM/50ML 50 ML IV ONE (07:15)
[2021-07-17 10:26] LABS: MAGNESIUM 1.2 MG/DL (1.3-2.1); PHOSPHORUS 0.7 MG/DL (2.3-4.7)
[2021-07-17] MEDS: LEVETIRACETAM 500MG/5ML VIAL 500 MG in SODIUM CHLORIDE 0.9% 100 ML 100 ML IV SCH ×2 (11:32→22:20)
[2021-07-17] MEDS: CALCIUM ACETATE 667 MG GELCAP PO SCH ×3 (11:37→17:52)
[2021-07-17] MEDS: DICYCLOMINE HCL 20 MG TAB PO SCH ×3 (11:37→22:20)
[2021-07-17] MEDS: FOLIC ACID/CYANOCOB/PYRIDOXINE TAB PO SCH (11:40)
[2021-07-17] MEDS ORDERED: SODIUM PHOSPHATE 3 MMOL/ML INJ IV ONE (11:45)
[2021-07-17] MEDS ORDERED: MAGNESIUM SULFATE 2GM/50ML 100 ML IV ONE (12:00)
[2021-07-17] MEDS: IRON SUCROSE 100 MG in SODIUM CHLORIDE 0.9% 100 ML 100 ML IV SCH (12:30)
[2021-07-17] MEDS ORDERED: SODIUM PHOSPHATE 30 MMOL in SODIUM CHLORIDE 0.9% 250ML 250 ML IV ONE (12:30)
[2021-07-17] MEDS: MELATONIN 3 MG TAB PO SCH (22:20)
[2021-07-17 22:29] LABS: MAGNESIUM 2.3 MG/DL (1.3-2.1); PHOSPHORUS 1.9 MG/DL (2.3-4.7)
[2021-07-18] VITALS (7 sets, daily range): BP systolic 110–125; BP diastolic 75–84
[2021-07-18] MEDS ORDERED: METOCLOPRAMIDE HCL 10 MG/2ML VIAL IV STA (01:29)
[2021-07-18] MEDS: ACETAMINOPHEN 325 MG TAB PO PRN ×2 (01:36→21:54)
[2021-07-18] MEDS: METOCLOPRAMIDE HCL 10 MG/2ML VIAL IV SCH ×3 (05:48→18:00)
[2021-07-18 05:54] LABS: BASOPHILS # (AUTO) 0.1 (0.0-0.1); BASOPHILS % 1.7 % (0.0-1.0); EOSINOPHILS # (AUTO) 0.2 (0.0-0.4); EOSINOPHILS % 2.8 % (0.0-6.0); HEMATOCRIT 23.4 % (38.2-49.6); HEMOGLOBIN 7.9 g/dL (14.0-18.0); LYMPHOCYTES # (AUTO) 2.4 (1.0-3.2); LYMPHOCYTES % 30.9 % (18.0-39.1); MEAN CORPUSCULAR HEMOGLOBIN 32.4 pg (28-32); MEAN CORPUSCULAR HGB CONC 33.8 g/dL (31-35); MEAN CORPUSCULAR VOLUME 95.9 fL (81-99); MONOCYTES # (AUTO) 0.7 (0.2-0.8); MONOCYTES % 9.1 % (4.4-11.3); NEUTROPHILS # (AUTO) 4.3 (2.1-6.9); NEUTROPHILS % 54.4 % (38.7-80.0); PLATELET COUNT 476 x10e3/uL (140-360); RED BLOOD COUNT 2.44 x10e6/uL (4.3-5.7); RED CELL DISTRIBUTION WIDTH 19.3 % (11.7-14.4)
[2021-07-18 06:18] LABS: ANION GAP 12.7 mmol/L (8-16); CALCIUM 7.3 mg/dL (8.4-10.2); CREATININE, SERUM 1.44 mg/dL (0.72-1.25); PHOSPHORUS 1.3 MG/DL (2.3-4.7); POTASSIUM 3.7 mmol/L (3.5-5.1)
[2021-07-18 06:20] LABS: AMYLASE 18 U/L (25-125); LIPASE 4 U/L (8-78)
[2021-07-18] MEDS: LEVETIRACETAM 500MG/5ML VIAL 500 MG in SODIUM CHLORIDE 0.9% 100 ML 100 ML IV SCH ×2 (09:00→21:22)
[2021-07-18] MEDS: MEGESTROL ACETATE 40 MG TAB PO SCH ×2 (09:00→17:00)
[2021-07-18] MEDS: FOLIC ACID/CYANOCOB/PYRIDOXINE TAB PO SCH (09:00)
[2021-07-18] MEDS: IRON SUCROSE 100 MG in SODIUM CHLORIDE 0.9% 100 ML 100 ML IV SCH (09:00)
[2021-07-18] MEDS: DICYCLOMINE HCL 20 MG TAB PO SCH ×3 (09:00→21:22)
[2021-07-18] MEDS: CALCIUM ACETATE 667 MG GELCAP PO SCH ×3 (09:11→17:00)
[2021-07-18] MEDS: Morphine 4mg INJECTION 4 MG/ML INJ IV PRN (09:18)
[2021-07-18] MEDS: ONDANSETRON HCL INJ 2MG/ML 2ML 2 MG/ML VIAL IV PRN (09:18)
[2021-07-18] MEDS ORDERED: SODIUM PHOSPHATE IV ONE ×2 (10:00)
[2021-07-18] MEDS ORDERED: NACL IV ONE ×2 (10:00)
[2021-07-18] MEDS ORDERED: SODIUM CHLORIDE IV ONE ×2 (10:00)
[2021-07-18] MEDS: MELATONIN 3 MG TAB PO SCH (21:23)
[2021-07-19] VITALS (8 sets, daily range): BP systolic 107–125; BP diastolic 69–95
[2021-07-19] MEDS: METOCLOPRAMIDE HCL 10 MG/2ML VIAL IV SCH ×4 (00:42→18:00)
[2021-07-19] MEDS ORDERED: DICYCLOMINE HCL 20 MG TAB PO STA (02:08)
[2021-07-19] MEDS ORDERED: DIPHENOXYLATE/ATROPINE TAB PO ONE (02:15)
[2021-07-19 06:25] LABS: BASOPHILS # (AUTO) 0.1 (0.0-0.1); BASOPHILS % 1.3 % (0.0-1.0); EOSINOPHILS # (AUTO) 0.2 (0.0-0.4); EOSINOPHILS % 2.4 % (0.0-6.0); HEMATOCRIT 23.9 % (38.2-49.6); HEMOGLOBIN 7.7 g/dL (14.0-18.0); LYMPHOCYTES # (AUTO) 2.4 (1.0-3.2); LYMPHOCYTES % 34.7 % (18.0-39.1); MEAN CORPUSCULAR HEMOGLOBIN 32.1 pg (28-32); MEAN CORPUSCULAR HGB CONC 32.2 g/dL (31-35); MEAN CORPUSCULAR VOLUME 99.6 fL (81-99); MONOCYTES # (AUTO) 0.6 (0.2-0.8); MONOCYTES % 9.2 % (4.4-11.3); NEUTROPHILS # (AUTO) 3.6 (2.1-6.9); NEUTROPHILS % 51.4 % (38.7-80.0); PLATELET COUNT 561 x10e3/uL (140-360); RED CELL DISTRIBUTION WIDTH 19.4 % (11.7-14.4)
[2021-07-19] MEDS: ACETAMINOPHEN 325 MG TAB PO PRN (06:33)
[2021-07-19 06:53] LABS: ALBUMIN 1.9 g/dL (3.5-5.0); ALBUMIN/GLOBULIN RATIO 0.6 (0.8-2.0); ANION GAP 13.9 mmol/L (8-16); CALCIUM 7.2 mg/dL (8.4-10.2); CREATININE, SERUM 1.36 mg/dL (0.72-1.25); POTASSIUM 3.9 mmol/L (3.5-5.1)
[2021-07-19] MEDS: CALCIUM ACETATE 667 MG GELCAP PO SCH ×3 (08:00→17:00)
[2021-07-19] MEDS: DICYCLOMINE HCL 20 MG TAB PO SCH ×4 (09:00→21:00)
[2021-07-19] MEDS: LEVETIRACETAM 500MG/5ML VIAL 500 MG in SODIUM CHLORIDE 0.9% 100 ML 100 ML IV SCH (09:00)
[2021-07-19] MEDS: FOLIC ACID/CYANOCOB/PYRIDOXINE TAB PO SCH (09:00)
[2021-07-19] MEDS: MEGESTROL ACETATE 40 MG TAB PO SCH ×2 (09:00→17:00)
[2021-07-19] MEDS: IRON SUCROSE 100 MG in SODIUM CHLORIDE 0.9% 100 ML 100 ML IV SCH (10:30)
[2021-07-19] MEDS: DIPHENOXYLATE/ATROPINE TAB PO PRN (11:30)
[2021-07-19] MEDS: EPOETIN ALFA-EPBX 10,000 UNIT/ML VIAL SC SCH (15:12)
[2021-07-19] MEDS: HYDROCODONE/APAP 5MG-325MG TAB PO PRN (15:12)
[2021-07-19] MEDS ORDERED: SODIUM PHOSPHATE IV ONE ×2 (16:30)
[2021-07-19] MEDS ORDERED: NACL IV ONE ×2 (16:30)
[2021-07-19] MEDS ORDERED: SODIUM CHLORIDE IV ONE ×2 (16:30)
[2021-07-19] MEDS: MELATONIN 3 MG TAB PO SCH (21:00)
[2021-07-19] MEDS ORDERED: SODIUM CHLORIDE 0.9% 250ML 250 ML ONE (21:42)
[2021-07-20] VITALS (8 sets, daily range): BP systolic 98–156; BP diastolic 76–131
[2021-07-20] MEDS: HYDROCODONE/APAP 5MG-325MG TAB PO PRN ×3 (00:18→12:09)
[2021-07-20 06:02] LABS: BASOPHILS # (AUTO) 0.1 (0.0-0.1); BASOPHILS % 1.6 % (0.0-1.0); EOSINOPHILS # (AUTO) 0.3 (0.0-0.4); EOSINOPHILS % 4.4 % (0.0-6.0); HEMATOCRIT 24.6 % (38.2-49.6); HEMOGLOBIN 7.9 g/dL (14.0-18.0); LYMPHOCYTES # (AUTO) 2.5 (1.0-3.2); LYMPHOCYTES % 38.1 % (18.0-39.1); MEAN CORPUSCULAR HEMOGLOBIN 32.1 pg (28-32); MEAN CORPUSCULAR HGB CONC 32.1 g/dL (31-35); MONOCYTES # (AUTO) 0.6 (0.2-0.8); MONOCYTES % 8.9 % (4.4-11.3); NEUTROPHILS % 45.8 % (38.7-80.0); PLATELET COUNT 534 x10e3/uL (140-360); RED BLOOD COUNT 2.46 x10e6/uL (4.3-5.7); RED CELL DISTRIBUTION WIDTH 19.9 % (11.7-14.4)
[2021-07-20] MEDS: DIPHENOXYLATE/ATROPINE TAB PO PRN (06:08)
[2021-07-20] MEDS: METOCLOPRAMIDE HCL 10 MG/2ML VIAL IV SCH ×4 (06:08→17:35)
[2021-07-20 06:28] LABS: ALBUMIN 1.9 g/dL (3.5-5.0); ALBUMIN/GLOBULIN RATIO 0.6 (0.8-2.0); ANION GAP 13.9 mmol/L (8-16); CALCIUM 7.2 mg/dL (8.4-10.2); CREATININE, SERUM 1.18 mg/dL (0.72-1.25); PHOSPHORUS 2.9 MG/DL (2.3-4.7); POTASSIUM 3.9 mmol/L (3.5-5.1)
[2021-07-20] MEDS ORDERED: MAGNESIUM SULFATE 2GM/50ML 50 ML IV ONE ×2 (08:45→10:45)
[2021-07-20] MEDS: IRON SUCROSE 100 MG in SODIUM CHLORIDE 0.9% 100 ML 100 ML IV SCH (09:51)
[2021-07-20] MEDS: DICYCLOMINE HCL 20 MG TAB PO SCH ×3 (09:52→17:35)
[2021-07-20] MEDS: CALCIUM ACETATE 667 MG GELCAP PO SCH ×3 (09:52→17:35)
[2021-07-20] MEDS: FOLIC ACID/CYANOCOB/PYRIDOXINE TAB PO SCH (09:52)
[2021-07-20] MEDS: MEGESTROL ACETATE 40 MG TAB PO SCH ×2 (09:52→17:35)
[2021-07-20] MEDS: LEVETIRACETAM 500 MG TAB PO SCH ×2 (09:52→17:35)
[2021-07-20] MEDS ORDERED: REGLAN10 MG PO (14:37)
[2021-07-20] MEDS ORDERED: NEPHRO-VITE TABL1 EA PO (14:37)
[2021-07-20] MEDS ORDERED: DIPHENOXYLATE-1 EACH PO (14:37)
[2021-07-20] MEDS ORDERED: RETACRIT10000 UNIT SC (14:37)
[2021-07-20] MEDS ORDERED: Calcium Acetate PO (14:37)
[2021-07-20] MEDS ORDERED: MEGESTROL ACETA40 MG PO (14:37)
[2021-07-20] MEDS ORDERED: DICYCLOMINE HCL20 MG PO (14:37)
[2021-07-20] MEDS ORDERED: MELATONIN3 MG PO (14:37)
[2021-07-20] MEDS ORDERED: TUMS200 MG PO (16:32)
[2021-07-20] MEDS: ONDANSETRON HCL INJ 2MG/ML 2ML 2 MG/ML VIAL IV PRN (17:35)
== END 2021-07-20 20:18 | disposition home health service (06) | DRG 871 ==
LOC: ER 10:52 → ERHOLD 14:01 → ICU 15:54 → MED/SURG3 07-12 09:06
PROVIDERS: ADMIT Internal Medicine; ATTEND Internal Medicine
PROC: 30243R1 Transfusion of Nonautologous Platelets into Central Vein, Percutaneous Approach (ICD-10-PCS; 2021-07-04)
PROC: 30243N1 Transfusion of Nonautologous Red Blood Cells into Central Vein, Percutaneous Approach (ICD-10-PCS; 2021-07-04)
PROC: 02HV33Z Insertion of Infusion Device into Superior Vena Cava, Percutaneous Approach (ICD-10-PCS; principal; 2021-07-05)
PROC: 3E04329 Introduction of Other Anti-infective into Central Vein, Percutaneous Approach (ICD-10-PCS; 2021-07-06)
PROC: 5A1D70Z Performance of Urinary Filtration, Intermittent, Less than 6 Hours Per Day (ICD-10-PCS; 2021-07-07)
PROC: 02HV33Z Insertion of Infusion Device into Superior Vena Cava, Percutaneous Approach (ICD-10-PCS; 2021-07-07)
PROC: 0W993ZZ Drainage of Right Pleural Cavity, Percutaneous Approach (ICD-10-PCS; 2021-07-10)
PROC: 30243K1 Transfusion of Nonautologous Frozen Plasma into Central Vein, Percutaneous Approach (ICD-10-PCS; 2021-07-11)
DX: A41.9 Sepsis, unspecified organism (principal); G93.41 Metabolic encephalopathy; D65 Disseminated intravascular coagulation [defibrination syndrome]; R65.21 Severe sepsis with septic shock; N17.9 Acute kidney failure, unspecified; D61.818 Other pancytopenia; J90 Pleural effusion, not elsewhere classified; D68.9 Coagulation defect, unspecified; A09 Infectious gastroenteritis and colitis, unspecified; I10 Essential (primary) hypertension; E87.8 Other disorders of electrolyte and fluid balance, not elsewhere classified; G40.909 Epilepsy, unspecified, not intractable, without status epilepticus; Z88.6 Allergy status to analgesic agent; F41.9 Anxiety disorder, unspecified; F32.A Depression, unspecified; K21.9 Gastro-esophageal reflux disease without esophagitis; E78.5 Hyperlipidemia, unspecified; M08.00 Unspecified juvenile rheumatoid arthritis of unspecified site; M45.9 Ankylosing spondylitis of unspecified sites in spine; Z79.891 Long term (current) use of opiate analgesic; D63.8 Anemia in other chronic diseases classified elsewhere; K76.0 Fatty (change of) liver, not elsewhere classified; E83.42 Hypomagnesemia; Z74.09 Other reduced mobility; D50.9 Iron deficiency anemia, unspecified; D75.839 Thrombocytosis, unspecified; G47.33 Obstructive sleep apnea (adult) (pediatric); F10.20 Alcohol dependence, uncomplicated; Z91.11 Patient's noncompliance with dietary regimen; D70.9 Neutropenia, unspecified; K70.9 Alcoholic liver disease, unspecified; E83.39 Other disorders of phosphorus metabolism; Z87.820 Personal history of traumatic brain injury; D50.0 Iron deficiency anemia secondary to blood loss (chronic); N13.9 Obstructive and reflux uropathy, unspecified; B00.9 Herpesviral infection, unspecified; Z79.899 Other long term (current) drug therapy; Z20.822 Contact with and (suspected) exposure to COVID-19
CPT/HCPCS: 32555; 36415; 36600; 70450; 71045; 71250; 74176; 76770; 80048; 80053; 80164; 80307; 80320; 80329; 81001; 81050; 82140; 82150; 82232; 82270; 82542; 82550; 82553; 82570; 82607; 82746; 82805; 82948; 83540; 83615; 83625; 83690; 83735; 83993; 84100; 84156; 84165; 84466; 84484; 85025; 85610; 85730; 86021; 86039; 86078; 86160; 86225; 86256; 86671; 86705; 86706; 86850; 86900; 86920; 87040; 87045; 87086; 87177; 87340; 87493; 88184; 93005; 93306; 94799; 96360; 97139; 99285; J0692; J1644; J1756; J2001; J2060; J2150; J2270; J2405; J2765; J3370; J3411; J3430; J3475; J3480; J7030; J7040; J7050; J7121; P9016; P9017; P9034

== ENCOUNTER 2021-07-26 02:11 | Observation (INO) | payer OTHER ==
[~2021-07-26] VITALS: Ht 165.1 cm; Wt 70.3 kg
[~2021-07-26 02:11] MED LIST changes: +Calcium Acetate PO; +DICYCLOMINE HCL20 MG PO; +DIPHENOXYLATE-1 EACH PO; +MEGESTROL ACETA40 MG PO; +MELATONIN3 MG PO; +NEPHRO-VITE TABL1 EA PO; +REGLAN10 MG PO; +RETACRIT10000 UNIT SC; +TUMS200 MG PO
[2021-07-26] MEDS ORDERED: SODIUM CHLORIDE 0.9% 1000ML 1,000 ML IV STA (02:20)
[2021-07-26 02:55] LABS: BASOPHILS # (AUTO) 0.1 (0.0-0.1); BASOPHILS % 1.8 % (0.0-1.0); EOSINOPHILS # (AUTO) 0.2 (0.0-0.4); EOSINOPHILS % 3.1 % (0.0-6.0); HEMATOCRIT 31.1 % (38.2-49.6); HEMOGLOBIN 9.9 g/dL (14.0-18.0); LYMPHOCYTES # (AUTO) 2.2 (1.0-3.2); LYMPHOCYTES % 36.2 % (18.0-39.1); MEAN CORPUSCULAR HEMOGLOBIN 32.8 pg (28-32); MEAN CORPUSCULAR HGB CONC 31.8 g/dL (31-35); MONOCYTES # (AUTO) 0.5 (0.2-0.8); MONOCYTES % 7.4 % (4.4-11.3); NEUTROPHILS # (AUTO) 2.9 (2.1-6.9); NEUTROPHILS % 47.4 % (38.7-80.0); PLATELET COUNT 400 x10e3/uL (140-360); RED BLOOD COUNT 3.02 x10e6/uL (4.3-5.7); RED CELL DISTRIBUTION WIDTH 17.7 % (11.7-14.4)
[2021-07-26 03:12] LABS: ALBUMIN 2.6 g/dL (3.5-5.0); ALBUMIN/GLOBULIN RATIO 0.5 (0.8-2.0); ANION GAP 18.6 mmol/L (8-16); CALCIUM 7.6 mg/dL (8.4-10.2); CREATININE, SERUM 0.95 mg/dL (0.72-1.25); POTASSIUM 4.6 mmol/L (3.5-5.1)
[2021-07-26] MEDS ORDERED: FAMOTIDINE 20 MG/2 ML VIAL IV STA (03:31)
[2021-07-26] MEDS ORDERED: ONDANSETRON HCL INJ 2MG/ML 2ML 2 MG/ML VIAL IV STA (03:39)
[2021-07-26] MEDS ORDERED: FAMOTIDINE 20 MG/2 ML VIAL IV ONE (03:51)
[2021-07-26 04:36] LABS: AMPHETAMINES SCREEN,URINE NEGATIVE (NEGATIVE); BENZODIAZEPINES SCREEN,URINE NEGATIVE (NEGATIVE); CLARITY,URINE CLEAR (CLEAR); COLOR,URINE YELLOW (YELLOW); KETONES,URINE NEGATIVE (NEGATIVE); LEUKOCYTE ESTERASE ,URINE NEGATIVE (NEGATIVE); NITRITE,URINE NEGATIVE (NEGATIVE); PHENCYCLIDINE SCREEN,URINE NEGATIVE (NEGATIVE); PROTEIN,URINE DIPSTICK NEGATIVE (NEGATIVE); URINE UROBILINOGEN 0.2 mg/dL (0.2 - 1)
[2021-07-26 04:39] LABS: BACTERIA,URINE FEW /HPF; EPITHELIAL CELLS,URINE FEW /LPF
[2021-07-26] MEDS: SODIUM CHLORIDE 0.9% 1000ML 1,000 ML IV SCH ×3 (04:39→20:01)
[2021-07-26] MEDS: Morphine 4mg INJECTION 4 MG/ML INJ IV PRN ×4 (05:40→20:19)
[2021-07-26 08:30] VITALS: BP 105/75
[2021-07-26 08:54] VITALS: BP 105/75
[2021-07-26 10:05] LABS: BASOPHILS # (AUTO) 0.1 (0.0-0.1); BASOPHILS % 1.4 % (0.0-1.0); EOSINOPHILS # (AUTO) 0.2 (0.0-0.4); EOSINOPHILS % 2.8 % (0.0-6.0); HEMATOCRIT 31.3 % (38.2-49.6); HEMOGLOBIN 9.6 g/dL (14.0-18.0); LYMPHOCYTES # (AUTO) 2.5 (1.0-3.2); LYMPHOCYTES % 43.5 % (18.0-39.1); MEAN CORPUSCULAR HEMOGLOBIN 32.4 pg (28-32); MEAN CORPUSCULAR HGB CONC 30.7 g/dL (31-35); MEAN CORPUSCULAR VOLUME 105.7 fL (81-99); MONOCYTES # (AUTO) 0.5 (0.2-0.8); MONOCYTES % 8.5 % (4.4-11.3); NEUTROPHILS # (AUTO) 2.3 (2.1-6.9); NEUTROPHILS % 39.6 % (38.7-80.0); PLATELET COUNT 346 x10e3/uL (140-360); RED BLOOD COUNT 2.96 x10e6/uL (4.3-5.7); RED CELL DISTRIBUTION WIDTH 17.7 % (11.7-14.4)
[2021-07-26 10:21] LABS: ALBUMIN 2.5 g/dL (3.5-5.0); ALBUMIN/GLOBULIN RATIO 0.5 (0.8-2.0); ANION GAP 14.4 mmol/L (8-16); CALCIUM 7.1 mg/dL (8.4-10.2); CREATININE, SERUM 0.98 mg/dL (0.72-1.25); PHOSPHORUS 4.9 MG/DL (2.3-4.7); POTASSIUM 5.4 mmol/L (3.5-5.1)
[2021-07-26 10:25] LABS: MAGNESIUM 1.1 MG/DL (1.3-2.1)
[2021-07-26] MEDS ORDERED: MAGNESIUM SULFATE 2GM/50ML 50 ML IV ONE ×2 (10:45→12:30)
[2021-07-26 11:45] VITALS: BP 103/66
[2021-07-26] MEDS: LEVETIRACETAM 500 MG TAB PO SCH ×2 (11:53→17:00)
[2021-07-26] MEDS: METOCLOPRAMIDE HCL 10 MG TAB PO SCH ×2 (11:53→17:52)
[2021-07-26] MEDS: DICYCLOMINE HCL 20 MG TAB PO SCH ×3 (14:42→20:19)
[2021-07-26] MEDS ORDERED: HYDROCODONE/APAP 5MG-325MG TAB PO ONE (14:45)
[2021-07-26] MEDS: CALCIUM CARBONATE 500 MG CHEWABLE TABS PO SCH ×2 (15:00→20:19)
[2021-07-26] MEDS: ONDANSETRON HCL INJ 2MG/ML 2ML 2 MG/ML VIAL IV PRN ×2 (15:39→20:19)
[2021-07-26 16:00] VITALS: BP 104/73
[2021-07-26 16:42] LABS: ANION GAP 13.7 mmol/L (8-16); CALCIUM 7.1 mg/dL (8.4-10.2); CREATININE, SERUM 0.93 mg/dL (0.72-1.25); POTASSIUM 4.7 mmol/L (3.5-5.1)
[2021-07-26] MEDS: MEGESTROL ACETATE 40 MG TAB PO SCH (17:00)
[2021-07-26 21:13] VITALS: BP 110/54
[2021-07-26] MEDS ORDERED: ALPRAZOLAM 0.5 MG TAB PO PRN (22:30)
[2021-07-26] MEDS ORDERED: ACETAMINOPHEN 325 MG TAB PO PRN (22:30)
[2021-07-27] MEDS: Morphine 4mg INJECTION 4 MG/ML INJ IV PRN ×2 (01:15→05:34)
[2021-07-27] MEDS: METOCLOPRAMIDE HCL 10 MG TAB PO SCH ×3 (01:15→12:00)
[2021-07-27] MEDS: SODIUM CHLORIDE 0.9% 1000ML 1,000 ML IV SCH ×2 (05:33→12:00)
[2021-07-27 05:35] VITALS: BP 110/54
[2021-07-27 07:12] LABS: BASOPHILS # (AUTO) 0.1 (0.0-0.1); BASOPHILS % 1.3 % (0.0-1.0); EOSINOPHILS # (AUTO) 0.2 (0.0-0.4); EOSINOPHILS % 3.6 % (0.0-6.0); HEMATOCRIT 33.4 % (38.2-49.6); LYMPHOCYTES # (AUTO) 1.7 (1.0-3.2); LYMPHOCYTES % 36.6 % (18.0-39.1); MEAN CORPUSCULAR HEMOGLOBIN 32.4 pg (28-32); MEAN CORPUSCULAR HGB CONC 29.9 g/dL (31-35); MEAN CORPUSCULAR VOLUME 108.1 fL (81-99); MONOCYTES # (AUTO) 0.5 (0.2-0.8); MONOCYTES % 10.6 % (4.4-11.3); NEUTROPHILS # (AUTO) 2.2 (2.1-6.9); NEUTROPHILS % 46.4 % (38.7-80.0); PLATELET COUNT 300 x10e3/uL (140-360); RED BLOOD COUNT 3.09 x10e6/uL (4.3-5.7); RED CELL DISTRIBUTION WIDTH 17.1 % (11.7-14.4)
[2021-07-27] MEDS ORDERED: PANTOPRAZOLE SOD 40 MG TABEC PO SCH (07:30)
[2021-07-27 07:51] LABS: ALBUMIN 2.6 g/dL (3.5-5.0); ALBUMIN/GLOBULIN RATIO 0.6 (0.8-2.0); ANION GAP 13.4 mmol/L (8-16); CREATININE, SERUM 0.81 mg/dL (0.72-1.25); POTASSIUM 5.4 mmol/L (3.5-5.1)
[2021-07-27] MEDS: LEVETIRACETAM 500 MG TAB PO SCH (08:24)
[2021-07-27] MEDS: DICYCLOMINE HCL 20 MG TAB PO SCH ×2 (08:24→13:05)
[2021-07-27] MEDS: CALCIUM CARBONATE 500 MG CHEWABLE TABS PO SCH (08:24)
[2021-07-27] MEDS: MEGESTROL ACETATE 40 MG TAB PO SCH (08:24)
[2021-07-27 08:27] VITALS: BP 115/78
[2021-07-27 09:00] VITALS: BP 115/78
[2021-07-27] MEDS ORDERED: FOLIC ACID/CYANOCOB/PYRIDOXINE TAB PO SCH (09:00)
[2021-07-27 12:35] VITALS: BP 104/80
[2021-07-27] MEDS ORDERED: ONDANSETRON HCL 4 MG ORAL DISINTEGRATING TAB PO PRN (13:30)
== END 2021-07-27 14:46 | disposition home or self-care (01) ==
LOC: ER 02:17 → ERHOLD 03:51 → MED/SURG2 08:32
PROVIDERS: ADMIT Internal Medicine; ATTEND Internal Medicine
DX: F10.929 Alcohol use, unspecified with intoxication, unspecified (principal); M06.9 Rheumatoid arthritis, unspecified; M45.9 Ankylosing spondylitis of unspecified sites in spine; F32.A Depression, unspecified; F41.9 Anxiety disorder, unspecified; G40.909 Epilepsy, unspecified, not intractable, without status epilepticus; Z87.820 Personal history of traumatic brain injury; G93.41 Metabolic encephalopathy; E86.0 Dehydration; F19.10 Other psychoactive substance abuse, uncomplicated; D64.9 Anemia, unspecified; Z20.822 Contact with and (suspected) exposure to COVID-19; E87.2 Acidosis; G89.29 Other chronic pain; R07.89 Other chest pain; R64 Cachexia; Z68.25 Body mass index [BMI] 25.0-25.9, adult
CPT/HCPCS: 36415 ×2; 80048; 80053 ×2; 80307; 80320; 81001; 81003; 82150; 83690; 83735 ×2; 84100; 85025 ×2; 97116; 97161; 97530; 99284; G0378 ×2; J2270 ×2; J2405; J3475; J7030; J8597 ×2; S0164 ×2; U0002

== ENCOUNTER 2021-08-15 00:10 | Emergency (ER) | payer OTHER ==
[~2021-08-15] VITALS: Ht 165.1 cm; Wt 70.3 kg
[2021-08-15 00:43] LABS: BASOPHILS % 0.4 % (0.0-1.0); EOSINOPHILS % 0.3 % (0.0-6.0); HEMATOCRIT 32.5 % (38.2-49.6); HEMOGLOBIN 10.4 g/dL (14.0-18.0); LYMPHOCYTES # (AUTO) 1.8 (1.0-3.2); LYMPHOCYTES % 18.2 % (18.0-39.1); MEAN CORPUSCULAR HEMOGLOBIN 32.7 pg (28-32); MEAN CORPUSCULAR VOLUME 102.2 fL (81-99); MONOCYTES # (AUTO) 0.9 (0.2-0.8); NEUTROPHILS # (AUTO) 7.1 (2.1-6.9); PLATELET COUNT 436 x10e3/uL (140-360); RED BLOOD COUNT 3.18 x10e6/uL (4.3-5.7); RED CELL DISTRIBUTION WIDTH 14.6 % (11.7-14.4)
[2021-08-15] MEDS ORDERED: ACETAMINOPHEN/CODEINE 300MG - 30MG TAB PO ONE (00:45)
[2021-08-15] MEDS ORDERED: HYDROCODONE/APAP 5MG-325MG TAB PO ONE ×2 (00:45→03:00)
[2021-08-15] MEDS ORDERED: ONDANSETRON HCL INJ 2MG/ML 2ML 2 MG/ML VIAL IV STA (00:47)
[2021-08-15 00:56] LABS: CLARITY,URINE CLEAR (CLEAR); COLOR,URINE YELLOW (YELLOW); KETONES,URINE NEGATIVE (NEGATIVE); LEUKOCYTE ESTERASE ,URINE NEGATIVE (NEGATIVE); NITRITE,URINE NEGATIVE (NEGATIVE); PROTEIN,URINE DIPSTICK NEGATIVE (NEGATIVE); URINE UROBILINOGEN 0.2 mg/dL (0.2 - 1)
[2021-08-15 00:59] LABS: AMPHETAMINES SCREEN,URINE NEGATIVE (NEGATIVE); BENZODIAZEPINES SCREEN,URINE POSITIVE (NEGATIVE); PHENCYCLIDINE SCREEN,URINE NEGATIVE (NEGATIVE)
[2021-08-15 01:01] LABS: BACTERIA,URINE FEW /HPF; EPITHELIAL CELLS,URINE RARE /LPF; RBC,URINE 0-5 /HPF (0-5); WBC,URINE (MAN) 0-5 /HPF (0-5)
[2021-08-15 01:06] LABS: ALBUMIN 3.1 g/dL (3.5-5.0); ALBUMIN/GLOBULIN RATIO 0.6 (0.8-2.0); ANION GAP 16.8 mmol/L (8-16); CALCIUM 10.6 mg/dL (8.4-10.2); CREATININE, SERUM 0.96 mg/dL (0.72-1.25); POTASSIUM 4.8 mmol/L (3.5-5.1)
[2021-08-15] MEDS ORDERED: ONDANSETRON HCL INJ 2MG/ML 2ML 2 MG/ML VIAL ONE (01:08)
[2021-08-15] MEDS ORDERED: IOPAMIDOL 370 MG/ML 100 ML INFUS..BTL INJ ONE (02:27)
[2021-08-15] MEDS ORDERED: METOCLOPRAMIDE HCL 10 MG/2ML VIAL IV ONE (03:00)
[2021-08-15 03:52] VITALS: BP 117/81
== END 2021-08-15 03:51 | disposition home or self-care (01) ==
LOC: ER 00:17
DX: K62.5 Hemorrhage of anus and rectum (principal); R10.30 Lower abdominal pain, unspecified; M54.50 Low back pain, unspecified; E78.5 Hyperlipidemia, unspecified; N18.9 Chronic kidney disease, unspecified; G40.909 Epilepsy, unspecified, not intractable, without status epilepticus; F41.9 Anxiety disorder, unspecified; Z20.822 Contact with and (suspected) exposure to COVID-19; F17.210 Nicotine dependence, cigarettes, uncomplicated; Z87.820 Personal history of traumatic brain injury
CPT/HCPCS: 36415; 74177; 80053; 80307; 80320; 81001; 82270; 83690; 85025; 99284; J2405; J2765; Q9967; U0002

== ENCOUNTER 2021-09-07 01:03 | Emergency (ER) | payer OTHER ==
[~2021-09-07] VITALS: Ht 165.1 cm; Wt 70.3 kg
[2021-09-07] MEDS ORDERED: ONDANSETRON HCL INJ 2MG/ML 2ML 2 MG/ML VIAL IV STA (01:06)
[2021-09-07 01:40] LABS: BASOPHILS # (AUTO) 0.1 (0.0-0.1); BASOPHILS % 0.9 % (0.0-1.0); EOSINOPHILS % 0.4 % (0.0-6.0); HEMATOCRIT 33.2 % (38.2-49.6); HEMOGLOBIN 11.1 g/dL (14.0-18.0); LYMPHOCYTES # (AUTO) 3.5 (1.0-3.2); LYMPHOCYTES % 44.5 % (18.0-39.1); MEAN CORPUSCULAR HEMOGLOBIN 32.3 pg (28-32); MEAN CORPUSCULAR HGB CONC 33.4 g/dL (31-35); MEAN CORPUSCULAR VOLUME 96.5 fL (81-99); MONOCYTES # (AUTO) 0.4 (0.2-0.8); NEUTROPHILS # (AUTO) 3.8 (2.1-6.9); NEUTROPHILS % 48.3 % (38.7-80.0); PLATELET COUNT 404 x10e3/uL (140-360); RED BLOOD COUNT 3.44 x10e6/uL (4.3-5.7); RED CELL DISTRIBUTION WIDTH 13.6 % (11.7-14.4)
[2021-09-07 01:48] LABS: INR 0.86; PROTHROMBIN TIME 12.5 seconds (11.9-14.5)
[2021-09-07 01:49] LABS: PARTIAL THROMBOPLASTIN TIME 31.6 seconds (23.8-35.5)
[2021-09-07 01:57] LABS: ALBUMIN 3.2 g/dL (3.5-5.0); ALBUMIN/GLOBULIN RATIO 0.5 (0.8-2.0); CALCIUM 9.3 mg/dL (8.4-10.2); CREATININE, SERUM 0.76 mg/dL (0.72-1.25)
[2021-09-07] MEDS ORDERED: PANTOPRAZOLE SOD 40 MG TABEC PO ONE (02:00)
== END 2021-09-07 02:10 | disposition home or self-care (01) ==
LOC: ER 01:05
DX: R10.32 Left lower quadrant pain (principal); F10.129 Alcohol abuse with intoxication, unspecified; R11.2 Nausea with vomiting, unspecified; G89.29 Other chronic pain; G40.909 Epilepsy, unspecified, not intractable, without status epilepticus; F41.9 Anxiety disorder, unspecified; E78.5 Hyperlipidemia, unspecified; N28.9 Disorder of kidney and ureter, unspecified
CPT/HCPCS: 36415; 80053; 80320; 83690; 85025; 85610; 85730; 99284; C9113; J2405

== ENCOUNTER 2021-12-19 16:27 | Observation (INO) | payer OTHER ==
[~2021-12-19] VITALS: Ht 165.1 cm; Wt 70.3 kg
[2021-12-19] MEDS ORDERED: ONDANSETRON HCL INJ 2MG/ML 2ML 2 MG/ML VIAL IV STA (16:53)
[2021-12-19] MEDS ORDERED: SODIUM CHLORIDE 0.9% 1000ML 1,000 ML IV STA ×2 (16:53→20:56)
[2021-12-19] MEDS ORDERED: LEVETIRACETAM 500MG/5ML VIAL 1,000 MG in SODIUM CHLORIDE 0.9% 100 ML IV ONE (17:00)
[2021-12-19 17:05] LABS: BASOPHILS % 0.4 % (0.0-1.0); EOSINOPHILS # (AUTO) 0.1 (0.0-0.4); EOSINOPHILS % 0.8 % (0.0-6.0); HEMATOCRIT 35.8 % (38.2-49.6); HEMOGLOBIN 11.7 g/dL (14.0-18.0); LYMPHOCYTES # (AUTO) 2.2 (1.0-3.2); MEAN CORPUSCULAR HEMOGLOBIN 33.6 pg (28-32); MEAN CORPUSCULAR HGB CONC 32.7 g/dL (31-35); MEAN CORPUSCULAR VOLUME 102.9 fL (81-99); MONOCYTES # (AUTO) 0.5 (0.2-0.8); MONOCYTES % 6.5 % (4.4-11.3); NEUTROPHILS # (AUTO) 4.5 (2.1-6.9); NEUTROPHILS % 61.7 % (38.7-80.0); PLATELET COUNT 107 x10e3/uL (140-360); RED BLOOD COUNT 3.48 x10e6/uL (4.3-5.7); RED CELL DISTRIBUTION WIDTH 14.2 % (11.7-14.4)
[2021-12-19 17:19] LABS: ALBUMIN 3.1 g/dL (3.5-5.0); ALBUMIN/GLOBULIN RATIO 0.6 (0.8-2.0); ANION GAP 18.8 mmol/L (8-16); CALCIUM 8.6 mg/dL (8.4-10.2); CREATININE, SERUM 1.62 mg/dL (0.72-1.25); POTASSIUM 3.8 mmol/L (3.5-5.1)
[2021-12-19 17:32] LABS: CREATINE KINASE 60 IU/L (30-200)
[2021-12-19] MEDS ORDERED: CHLORPROMAZINE HCL INJ 25 MG/ML AMP INJ ONE (19:30)
[2021-12-19] MEDS ORDERED: SODIUM CHLORIDE 0.9% 1000ML 500 ML IV ONE ×2 (20:00→20:30)
[2021-12-19] MEDS ORDERED: SODIUM CHLORIDE 0.9% 1000ML 1,000 ML ONE (20:07)
[2021-12-19 21:33] LABS: CLARITY,URINE CLEAR (CLEAR); COLOR,URINE YELLOW (YELLOW); KETONES,URINE NEGATIVE (NEGATIVE); LEUKOCYTE ESTERASE ,URINE NEGATIVE (NEGATIVE); NITRITE,URINE NEGATIVE (NEGATIVE); PROTEIN,URINE DIPSTICK NEGATIVE (NEGATIVE); URINE UROBILINOGEN 0.2 mg/dL (0.2 - 1)
[2021-12-19 21:34] LABS: AMPHETAMINES SCREEN,URINE NEGATIVE (NEGATIVE); PHENCYCLIDINE SCREEN,URINE NEGATIVE (NEGATIVE)
[2021-12-19 21:35] LABS: BENZODIAZEPINES SCREEN,URINE NEGATIVE (NEGATIVE)
[2021-12-19 21:40] LABS: EPITHELIAL CELLS,URINE RARE /LPF
[2021-12-19 22:24] VITALS: BP 102/66
[2021-12-19 22:30] VITALS: BP 102/66
[2021-12-20] VITALS (7 sets, daily range): BP systolic 89–137; BP diastolic 51–78
[2021-12-20 01:35] LABS: CREATINE KINASE MB 0.4 ng/mL (0-5.0)
[2021-12-20 06:21] LABS: CREATINE KINASE 30 IU/L (30-200)
[2021-12-20 06:26] LABS: ALBUMIN 2.1 g/dL (3.5-5.0); ALBUMIN/GLOBULIN RATIO 0.6 (0.8-2.0); CREATININE, SERUM 0.77 mg/dL (0.72-1.25)
[2021-12-20 06:43] LABS: BASOPHILS % 0.2 % (0.0-1.0); EOSINOPHILS % 0.4 % (0.0-6.0); HEMATOCRIT 33.9 % (38.2-49.6); HEMOGLOBIN 10.7 g/dL (14.0-18.0); LYMPHOCYTES # (AUTO) 1.3 (1.0-3.2); LYMPHOCYTES % 25.5 % (18.0-39.1); MEAN CORPUSCULAR HEMOGLOBIN 34.5 pg (28-32); MEAN CORPUSCULAR HGB CONC 31.6 g/dL (31-35); MONOCYTES # (AUTO) 0.3 (0.2-0.8); MONOCYTES % 5.3 % (4.4-11.3); NEUTROPHILS # (AUTO) 3.4 (2.1-6.9); NEUTROPHILS % 68.2 % (38.7-80.0); RED CELL DISTRIBUTION WIDTH 14.5 % (11.7-14.4)
[2021-12-20 06:51] LABS: MEAN CORPUSCULAR VOLUME 109.4 fL (81-99); PLATELET COUNT 74 x10e3/uL (140-360)
[2021-12-20] MEDS ORDERED: METOCLOPRAMIDE HCL 10 MG TAB PO PRN (10:30)
[2021-12-20] MEDS ORDERED: POTASSIUM CHLORIDE 20MEQ/100ML 100 ML IV ONE (11:00)
[2021-12-20] MEDS ORDERED: SODIUM CHLORIDE 0.9% 250ML 250 ML ONE (11:38)
[2021-12-20] MEDS ORDERED: METOCLOPRAMIDE HCL 10 MG TAB PO SCH (12:00)
[2021-12-20] MEDS: ONDANSETRON HCL INJ 2MG/ML 2ML 2 MG/ML VIAL IV PRN ×2 (12:09→18:11)
[2021-12-20] MEDS: HYDROCODONE/APAP 5MG-325MG TAB PO PRN ×2 (12:23→18:02)
[2021-12-20] MEDS ORDERED: PANTOPRAZOLE SOD 40 MG TABEC ONE (12:41)
[2021-12-20] MEDS: PANTOPRAZOLE SOD 40 MG TABEC PO SCH (12:45)
[2021-12-20] MEDS ORDERED: MAGNESIUM SULFATE 2GM/50ML 50 ML IV ONE ×2 (13:00→15:00)
[2021-12-20 14:12] LABS: CREATINE KINASE 31 IU/L (30-200)
[2021-12-20] MEDS ORDERED: DIVALPROEX SODIUM 250 MG TAB...DR PO SCH (17:00)
[2021-12-20] MEDS ORDERED: LEVETIRACETAM 500 MG TAB PO SCH (17:00)
[2021-12-20] MEDS: LEVETIRACETAM 500 MG TAB PO SCH (21:31)
[2021-12-21] VITALS (8 sets, daily range): BP systolic 102–135; BP diastolic 64–101
[2021-12-21] MEDS: ONDANSETRON HCL INJ 2MG/ML 2ML 2 MG/ML VIAL IV PRN ×3 (01:07→15:02)
[2021-12-21] MEDS: HYDROCODONE/APAP 5MG-325MG TAB PO PRN ×3 (01:07→15:01)
[2021-12-21 05:05] LABS: BASOPHILS % 0.8 % (0.0-1.0); EOSINOPHILS % 1.2 % (0.0-6.0); HEMOGLOBIN 8.6 g/dL (14.0-18.0); LYMPHOCYTES # (AUTO) 1.1 (1.0-3.2); LYMPHOCYTES % 42.3 % (18.0-39.1); MEAN CORPUSCULAR HEMOGLOBIN 34.5 pg (28-32); MEAN CORPUSCULAR HGB CONC 34.4 g/dL (31-35); MEAN CORPUSCULAR VOLUME 100.4 fL (81-99); MONOCYTES # (AUTO) 0.2 (0.2-0.8); MONOCYTES % 8.5 % (4.4-11.3); NEUTROPHILS # (AUTO) 1.2 (2.1-6.9); NEUTROPHILS % 46.8 % (38.7-80.0); PLATELET COUNT 51 x10e3/uL (140-360); RED BLOOD COUNT 2.49 x10e6/uL (4.3-5.7); RED CELL DISTRIBUTION WIDTH 14.2 % (11.7-14.4)
[2021-12-21 05:28] LABS: ANION GAP 13.6 mmol/L (8-16); CREATININE, SERUM 0.62 mg/dL (0.72-1.25); POTASSIUM 3.6 mmol/L (3.5-5.1)
[2021-12-21 06:31] LABS: MAGNESIUM 1.6 MG/DL (1.3-2.1); PHOSPHORUS 1.1 MG/DL (2.3-4.7)
[2021-12-21] MEDS: PANTOPRAZOLE SOD 40 MG TABEC PO SCH (08:05)
[2021-12-21] MEDS: CLONAZEPAM 0.5 MG TAB PO SCH ×2 (08:05→17:00)
[2021-12-21] MEDS: LEVETIRACETAM 500 MG TAB PO SCH (08:06)
[2021-12-21] MEDS ORDERED: DIVALPROEX SODIUM 250 MG TAB...DR PO SCH (09:00)
[2021-12-21] MEDS ORDERED: FOLIC ACID/CYANOCOB/PYRIDOXINE TAB PO SCH (09:00)
[2021-12-21] MEDS ORDERED: THIAMINE HCL INJ 100 MG/ML 2ML VIAL IV SCH (14:00)
== END 2021-12-21 18:01 | disposition home or self-care (01) ==
LOC: ER 16:49 → INTOOBSV 20:19 → ERHOLD 20:19 → MED/SURG 22:33
PROVIDERS: ADMIT Internal Medicine; ATTEND Internal Medicine
DX: T43.651A Poisoning by methamphetamines accidental (unintentional), initial encounter (principal); E86.0 Dehydration; G89.4 Chronic pain syndrome; F10.10 Alcohol abuse, uncomplicated; Z20.822 Contact with and (suspected) exposure to COVID-19; N17.9 Acute kidney failure, unspecified; R06.6 Hiccough; F32.A Depression, unspecified; F41.9 Anxiety disorder, unspecified; E78.5 Hyperlipidemia, unspecified; I12.9 Hypertensive chronic kidney disease with stage 1 through stage 4 chronic kidney disease, or unspecified chronic kidney disease; N18.9 Chronic kidney disease, unspecified; E83.42 Hypomagnesemia; E87.6 Hypokalemia; Z88.6 Allergy status to analgesic agent; Z88.5 Allergy status to narcotic agent; Z88.8 Allergy status to other drugs, medicaments and biological substances; F15.10 Other stimulant abuse, uncomplicated; G40.89 Other seizures
CPT/HCPCS: 36415 ×2; 70450; 70551; 71045 ×2; 80048; 80053 ×2; 80164 ×2; 80307; 81001; 82550 ×2; 82553 ×2; 83735 ×2; 84100; 84484 ×2; 85025 ×3; 93005 ×2; 94799 ×2; 95819; 97110; 97116; 97161; 97530; 99284; G0378 ×3; J1953; J2405 ×3; J3230; J3411; J3475; J3480; J7030; J7050 ×2; S0164 ×2; U0002